=== PATIENT | male | born 1990 | race Hispanic/Latino ===

== ENCOUNTER 2017-11-28 10:01 | Emergency (ER) | payer SELFPAY ==
[2017-11-28] MEDS ORDERED: KETOROLAC 30 MG/ML INJ ONE (11:36)
[2017-11-28] MEDS ORDERED: NA CHLORIDE 0.9% 1,000 ML ONE (11:36)
[2017-11-28 11:39] LABS: Absolute Monocytes 0.7 K/uL (0.1-1.3); Absolute Neutrophil 8.3 K/uL (1.8-8.0); Basophils % 0.5 % (0-1.3); Eosinophils % 1.5 % (0-4.4); Hematocrit 45.9 % (39.6-49.0); Lymphocytes % 18.3 % (15.3-44.8); MCV 87.8 fL (80-100); MPV 8.6 fL (7.6-11.3); Monocytes % 5.8 % (3.3-12.3); RBC Red Blood Cell Count 5.23 M/uL (4.33-5.43)
[2017-11-28 11:47] LABS: Protime INR 0.97
[2017-11-28 11:53] LABS: Bicarbonate 29 mEq/L (21-31); Glucose Level 103 mg/dL (65-120); Potassium 3.7 mEq/L (3.6-5.0); Sodium Level 137 mEq/L (135-145)
[2017-11-28 11:59] LABS: ALT/SGPT 55 IU/L (10-60); AST/SGOT 26 IU/L (10-42); Albumin 4.5 g/dL (3.2-5.5); Alkaline Phosphatase 75 IU/L (42-121); BUN Blood Urea Nitrogen 10 mg/dL (6-20); Bilirubin Direct 0.1 mg/dL (0-0.2); Bilirubin Total 0.7 mg/dL (0.3-1.2); Creatine Phosphokinase 108 IU/L (22-269); Magnesium 1.9 mg/dL (1.8-2.5); Protein, Total 7.1 g/dL (6.0-8.3)
[2017-11-28 12:02] LABS: CKMB Creatine Kinase MB 2.2 ng/ml (0.3-4.0)
--- NOTE | 2017-11-28 12:12 | RAD REPORT ---
EXAM DESCRIPTION: RAD - Chest Pa And Lat (2 Views) - 11/28/2017 12:04 pm CLINICAL HISTORY: Chest pain. COMPARISON: None. FINDINGS: The lungs are clear. The heart is normal in size. No displaced fractures. IMPRESSION: No acute or concerning finding suspected.
--- NOTE | 2017-11-28 12:16 | EDPHYS ---
Physician Documentation [facility] Name: Berlin Tran Age: 27 yrs Sex: Male : 1990 Arrival Date: 11/28/2017 Time: 10:07 Bed 14 Private MD: ED Physician Gagandeep Rodriguez HPI: 11/28 11:30 This 27 yrs old Male presents to ER via Ambulatory with complaints of Chest dagoberto Pain. 11:30 The patient or guardian reports chest pain that is located primarily in the anterior dagoberto chest wall. The pain does not radiate. Associated signs and symptoms: The patient has no apparent associated signs or symptoms. The chest pain is described as aching, sharp. Duration: The patient or guardian reports a single episode, that is still ongoing. Modifying factors: The symptoms are alleviated by remaining still, the symptoms are aggravated by breathing, movement, palpation of area. Severity of pain: At its worst the pain was moderate in the emergency department the pain is unchanged. Historical: - Allergies: 10:12 No Known Allergies; tw2 - Home Meds: 10:12 None [Active]; tw2 - PMHx: 10:12 Asthma; tw2 - PSHx: 10:12 None; tw2 - Immunization history:: Adult Immunizations unknown. - Social history:: Smoking status: Patient/guardian denies using tobacco. - Family history:: not pertinent. ROS: 11:30 Constitutional: Negative for fever, chills, and weight loss, Eyes: Negative for injury, dagoberto pain, redness, and discharge, ENT: Negative for injury, pain, and discharge, Neck: Negative for injury, pain, and swelling, Cardiovascular: Negative for chest pain, palpitations, and edema, Abdomen/GI: Negative for abdominal pain, nausea, vomiting, diarrhea, and constipation, Back: Negative for injury and pain, : Negative for injury, bleeding, discharge, and swelling, MS/Extremity: Negative for injury and deformity, Skin: Negative for injury, rash, and discoloration, Neuro: Negative for headache, weakness, numbness, tingling, and seizure, Psych: Negative for depression, anxiety, suicide ideation, homicidal ideation, and hallucinations, Allergy/Immunology: Negative for hives, rash, and allergies, Endocrine: Negative for neck swelling, polydipsia, polyuria, polyphagia, and marked weight changes, Hematologic/Lymphatic: Negative for swollen nodes, abnormal bleeding, and unusual bruising. 11:30 Respiratory: Positive for cough. 11:30 MS/extremity: Positive for decreased range of motion, pain, tenderness, of the chest. Exam: 11:30 Constitutional: This is a well developed, well nourished patient who is awake, alert, dagoberto and in no acute distress. Head/Face: Normocephalic, atraumatic. Eyes: Pupils equal round and reactive to light, extra-ocular motions intact. Lids and lashes normal. Conjunctiva and sclera are non-icteric and not injected. Cornea within normal limits. Periorbital areas with no swelling, redness, or edema. ENT: Nares patent. No nasal discharge, no septal abnormalities noted. Tympanic membranes are normal and external auditory canals are clear. Oropharynx with no redness, swelling, or masses, exudates, or evidence of obstruction, uvula midline. Mucous membranes moist. Neck: Trachea midline, no thyromegaly or masses palpated, and no cervical lymphadenopathy. Supple, full range of motion without nuchal rigidity, or vertebral point tenderness. No Meningismus. Cardiovascular: Regular rate and rhythm with a normal S1 and S2. No gallops, murmurs, or rubs. Normal PMI, no JVD. No pulse deficits. Respiratory: Lungs have equal breath sounds bilaterally, clear to auscultation and percussion. No rales, rhonchi or wheezes noted. No increased work of breathing, no retractions or nasal flaring. Abdomen/GI: Soft, non-tender, with normal bowel sounds. No distension or tympany. No guarding or rebound. No evidence of tenderness throughout. Back: No spinal tenderness. No costovertebral tenderness. Full range of motion. Male : Normal genitalia with no discharge or lesions. Skin: Warm, dry with normal turgor. Normal color with no rashes, no lesions, and no evidence of cellulitis. MS/ Extremity: Pulses equal, no cyanosis. Neurovascular intact. Full, normal range of motion. Neuro: Awake and alert, GCS 15, oriented to person, place, time, and situation. Cranial nerves II-XII grossly intact. Motor strength 5/5 in all extremities. Sensory grossly intact. Cerebellar exam normal. Normal gait. Psych: Awake, alert, with orientation to person, place and time. Behavior, mood, and affect are within normal limits. 11:30 Chest/axilla: Inspection: normal, Palpation: tenderness, that is mild, that is moderate, of the left supraclavicular area, left clavicle, anterior aspect of left upper chest and mid-sternal area. 11:30 Musculoskeletal/extremity: DVT Exam: No signs of deep vein thrombosis. no pain, no dagoberto swelling, no tenderness, negative Homans' sign noted on exam, no appreciated bluish discoloration, no erythema, no increased warmth. Vital Signs: 10:13 BP 122 / 78; Pulse 66; Resp 17; Temp 97.9(O); Pulse Ox 99% on R/A; Pain 3/10; tw2 11:25 BP 123 / 77; Pulse 56; Pulse Ox 98% on R/A; ap3 12:14 BP 117 / 83; Pulse 66; Resp 21; Pulse Ox 100% on R/A; ae1 10:13 "pain goes to a 10 when i move" tw2 MDM: 10:38 Patient medically screened. [facility] 11:32 Data reviewed: vital signs, nurses notes, lab test result(s), EKG, radiologic studies, [facility] plain films. 11/28 11:25 Order name: Basic Metabolic Panel; Complete Time: 12:15 ae1 11/28 11:25 Order name: BNP; Complete Time: 12:15 ae1 11/28 11:25 Order name: CBC with Diff; Complete Time: 12:15 ae1 11/28 11:25 Order name: Ckmb; Complete Time: 12:15 ae1 11/28 11:25 Order name: CPK; Complete Time: 12:15 ae1 11/28 11:25 Order name: LFT's; Complete Time: 12:15 ae1 11/28 11:25 Order name: Magnesium; Complete Time: 12:15 ae1 11/28 11:25 Order name: PT-INR ae1 11/28 11:25 Order name: Ptt, Activated ae1 11/28 11:25 Order name: Troponin (emerg Dept Use Only); Complete Time: 12:15 ae1 11/28 11:30 Order name: Chest Pa And Lat (2 Views) XRAY; Complete Time: 12:15 [facility] 11/28 12:20 Order name: Urine Dipstick--Ancillary (enter results) ag 11/28 11:25 Order name: EKG; Complete Time: 11:26 ae11/28 11:25 Order name: Cardiac monitoring; Complete Time: 11:27 11/28 11:25 Order name: EKG - Nurse/Tech; Complete Time: 11:43 11/28 11:25 Order name: IV Saline Lock; Complete Time: 11:27 11/28 11:25 Order name: Labs collected and sent; Complete Time: 11:34 11/28 11:25 Order name: O2 Per Protocol; Complete Time: 11:27 11/28 11:25 Order name: O2 Sat Monitoring; Complete Time: 11:28 ae11/28 11:25 Order name: Urine Dipstick-Ancillary (obtain specimen); Complete Time: 12:13 ae1 Administered Medications: 11:38 Drug: NS 0.9% 1000 ml Route: IV; Rate: 1 bolus; Site: right antecubital; ae1 12:45 Follow up: IV Status: Completed infusion ae1 11:38 Drug: TORadol 30 mg Route: IVP; Site: right antecubital; ae1 12:18 Follow up: Response: Pain is decreased ae1 Disposition: 11/28/17 12:16 Discharged to Home. Impression: Chest pain, unspecified. - Condition is Stable. - Discharge Instructions: Nonspecific Chest Pain, Chest Wall Pain, Chest Wall Pain, [id number], Nonspecific Chest Pain, [id number]. - Prescriptions for Ibuprofen 600 mg Oral Tablet - take 1 tablet by ORAL route every 8 hours As needed take with food; 21 tablet. Tylenol- Codeine #3 300-30 mg Oral Tablet - take 2 tablet by ORAL route every 6 hours As needed; 30 tablet. - Medication Reconciliation Form, Thank You Letter, Antibiotic Education, Prescription Opioid Use form. - Follow up: Private Physician; When: 2 - 3 days; Reason: Recheck today's complaints, Continuance of care, Re-evaluation by your physician. - Problem is new. - Symptoms have improved. Signatures: Dispatcher [employer] EDCT Gagandeep Rodriguez MD MD cha Wise, Tara RN RN tw2 Corey Belcher RN RN ae1 Corrections: (The following items were deleted from the chart) 11:46 11:26 Chest Single View+RAD.RAD.BRZ ordered. EDMS EDMS
--- NOTE | 2017-11-28 12:16 | ER ---
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 Transition of care: patient was not received from another setting of care. Onset of symptoms was November 28, 2017. Care prior to arrival: None. 10:11 Method Of Arrival: Ambulatory tw2 10:11 Acuity: PITER 3 tw2 Historical: - Allergies: 10:12 No Known Allergies; tw2 - Home Meds: 10:12 None [Active]; tw2 - PMHx: 10:12 Asthma; tw2 - PSHx: 10:12 None; tw2 - Immunization history:: Adult Immunizations unknown. - Social history:: Smoking status: Patient/guardian denies using tobacco. - Family history:: not pertinent. Screenin:14 Abuse screen: Denies threats or abuse. Nutritional screening: No deficits noted. tw2 Tuberculosis screening: No symptoms or risk factors identified. Fall Risk None identified. Assessment: 10:15 Pain: Pain does not radiate. Pain began this morning. tw2 10:25 General: Appears in no apparent distress. well groomed, Behavior is calm, cooperative. ap3 Pain: Complains of pain in anterior aspect of left upper chest Pain does not radiate. Pain currently is 3 out of 10 on a pain scale. at worst was 10 out of 10 on a pain scale. Alleviated by rest, Aggravated by movement. Neuro: Level of Consciousness is awake, alert, obeys commands, Oriented to person, place, time, situation. Cardiovascular: Heart tones S1 S2 present Patient's skin is warm and dry. Respiratory: Airway is patent Breath sounds are clear bilaterally. GI: No signs and/or symptoms were reported involving the gastrointestinal system. Bowel sounds present X 4 quads. : No signs and/or symptoms were reported regarding the genitourinary system. EENT: No signs and/or symptoms were reported regarding the EENT system. Derm: Skin is normal. Musculoskeletal: Reports pain in anterior aspect of left upper chest. 12:43 Reassessment: Patient appears in no apparent distress at this time. Patient states ae1 feeling better. Patient states symptoms have improved. Vital Signs: 10:13 BP 122 / 78; Pulse 66; Resp 17; Temp 97.9(O); Pulse Ox 99% on R/A; Pain 3/10; tw2 11:25 BP 123 / 77; Pulse 56; Pulse Ox 98% on R/A; ap3 12:14 BP 117 / 83; Pulse 66; Resp 21; Pulse Ox 100% on R/A; ae1 10:13 "pain goes to a 10 when i move" tw2 ED Course: 10:07 Patient arrived in ED. mr 10:12 Triage completed. tw2 10:14 Arm band placed on. EKG completed in triage. Results shown to MD. tw2 10:30 Patient has correct armband on for positive identification. Placed in gown. Bed in low ap3 position. Call light in reach. Side rails up X 1. salon shampoo assistant on. Pulse ox on. NIBP on. 10:30 Patient maintains SpO2 saturation greater than 95% on room air. ap3 10:38 Gagandeep Rodriguez MD is Attending Physician. dagoberto 10:51 Corey Belcher RN is Primary Nurse. ae1 11:24 Inserted saline lock: 20 gauge in right antecubital area, using aseptic technique. ap3 Blood collected. Missed attempt(s): 20 gauge in right antecubital area. 11:56 Patient moved to radiology via wheelchair. kw1 12:00 X-ray completed. Portable x-ray completed in exam room. Patient tolerated procedure kw1 well. 12:02 Chest Pa And Lat (2 Views) XRAY In Process Unspecified. EDMS 12:42 No provider procedures requiring assistance completed. IV discontinued, intact, ae1 bleeding controlled, No redness/swelling at site. Pressure dressing applied. Administered Medications: 11:38 Drug: NS 0.9% 1000 ml Route: IV; Rate: 1 bolus; Site: right antecubital; ae1 12:45 Follow up: IV Status: Completed infusion ae1 11:38 Drug: TORadol 30 mg Route: IVP; Site: right antecubital; ae1 12:18 Follow up: Response: Pain is decreased ae1 Outcome: 12:16 Discharge ordered by MD. dagoberto 12:43 Attestation : I agree with the charting done by Keri Aldrich, professor of nursing. . ae1 12:43 Discharged to home ambulatory, with family, with significant other. 12:43 Condition: stable 12:43 Discharge instructions given to patient, Instructed on discharge instructions, follow up and referral plans. Demonstrated understanding of instructions, Prescriptions given X 2. 12:44 Patient left the ED. ae1 Signatures: Dispatcher [employer] EDMS Gagandeep Rodriguez MD MD cha Rivera, Maria mr Monika Durant, RN RN tw2 Corey Belcher RN RN ae1 Rahel Mcgrath kw1 Keri Aldrich ap3
[2017-11-28 12:48] LABS: Urine Blood TRACE (NEG); Urine Glucose NEGATIVE (NEG); Urine Protein NEGATIVE (NEG)
--- NOTE | 2017-11-29 08:02 | EKG ---
Test Date: 2017-11-28 Test Time: 10:14:59 Surveillance Director: DHRUV MEASUREMENT RESULTS: Intervals: Rate: 60 VA: 154 QRSD: 78 QT: 372 QTc: 372 [place]: P: 21 VA: 154 QRS: 67 T: 26 INTERPRETIVE STATEMENTS: Normal sinus rhythm with sinus arrhythmia Normal ECG No previous ECG available for comparison Electronically Signed On 11-29-17 08:02:01 CDT by Sahil Daugherty
== END 2017-11-28 12:44 | disposition home or self-care (01) ==
LOC: ER 10:01
DX: R07.9 Chest pain, unspecified (principal)
CPT/HCPCS: 36415; 71046; 80048; 80076; 81003; 82550; 82553; 83735; 83880; 84484; 85025; 85610; 85730; 93005; 96361; 96374; 99285; J7030

== ENCOUNTER 2017-12-01 22:49 | Emergency (ER) | payer SELFPAY ==
--- NOTE | 2017-12-01 23:12 | EDPHYS ---
Physician Documentation [facility] Name: Berlin Tran Age: 27 yrs Sex: Male : 1990 Arrival Date: 12/01/2017 Time: 22:50 Bed 5 Private MD: ED Physician Kevyn Das HPI: 12/01 23:09 This 27 yrs old Male presents to ER via Ambulatory with complaints of Ear ma2 Pain, Sore Throat. 23:09 The patient presents with pain. The complaints affect the right ear. Onset: The ma2 symptoms/episode began/occurred gradually, 1 day(s) ago. Associated signs and symptoms: Pertinent negatives: cough, fever, lightheadedness, nausea, rhinorrhea, sore throat, tinnitus. Severity of symptoms: in the emergency department the symptoms are unchanged. The patient has experienced a previous episode. Historical: - Allergies: 23:02 No Known Allergies; bp - Home Meds: 23:02 albuterol sulfate 2.5 mg /3 mL (0.083 %) Inhl nebu [Active]; bp - PMHx: 23:02 Asthma; bp - Immunization history:: Adult Immunizations up to date. - Social history:: Smoking status: Patient/guardian denies using tobacco. - Family history:: not pertinent. ROS: 23:09 Constitutional: Negative for fever, chills, and weight loss, Eyes: Negative for injury, ma2 pain, redness, and discharge, Cardiovascular: Negative for chest pain, palpitations, and edema, Respiratory: Negative for shortness of breath, cough, wheezing, and pleuritic chest pain, Abdomen/GI: Negative for abdominal pain, nausea, diarrhea, and constipation, Back: Negative for injury and pain, : Negative for injury, bleeding, discharge, and swelling, MS/Extremity: Negative for injury and deformity, Skin: Negative for injury, rash, and discoloration, Neuro: Negative for headache, weakness, numbness, tingling, and seizure, Psych: Negative for depression, anxiety, suicide ideation, homicidal ideation, and hallucinations, Allergy/Immunology: Negative for hives, rash, and allergies, Endocrine: Negative for neck swelling, polydipsia, polyuria, polyphagia, and marked weight changes, Hematologic/Lymphatic: Negative for swollen nodes, abnormal bleeding, and unusual bruising. Exam: 23:09 Constitutional: This is a well developed, well nourished patient who is awake, alert, ma2 and in no acute distress. Head/Face: Normocephalic, atraumatic. Eyes: Pupils equal round and reactive to light, extra-ocular motions intact. Lids and lashes normal. Conjunctiva and sclera are non-icteric and not injected. Cornea within normal limits. Periorbital areas with no swelling, redness, or edema. Neck: Trachea midline, no thyromegaly or masses palpated, and no cervical lymphadenopathy. Supple, full range of motion without nuchal rigidity, or vertebral point tenderness. No Meningismus. Chest/axilla: Normal chest wall appearance and motion. Nontender with no deformity. No lesions are appreciated. Cardiovascular: Regular rate and rhythm with a normal S1 and S2. No gallops, murmurs, or rubs. Normal PMI, no JVD. No pulse deficits. Respiratory: Lungs have equal breath sounds bilaterally, clear to auscultation and percussion. No rales, rhonchi or wheezes noted. No increased work of breathing, no retractions or nasal flaring. 23:09 ENT: External ear(s): are unremarkable, TM's: dullness, erythema, that is moderate, on the right. Vital Signs: 23:02 BP 133 / 85; Pulse 67; Resp 16; Temp 97.5; Pulse Ox 95% ; Weight 83.91 kg; bp 23:37 BP 138 / 89; Pulse 69; Resp 16; Pulse Ox 97% ; bp MDM: 22:55 Patient medically screened. ma2 23:09 Differential diagnosis: otitis media. Differential diagnosis: otitis externa, ruptured ma2 TM, foreign body. Data reviewed: vital signs, nurses notes. Test interpretation: by ED physician or midlevel provider:. Counseling: I had a detailed discussion with the patient and/or guardian regarding: the historical points, exam findings, and any diagnostic results supporting the discharge/admit diagnosis, the need for outpatient follow up. Administered Medications: 23:35 Drug: UltRAM 50 mg Route: PO; bp 23:35 Follow up: Response: Medication administered at discharge. bp Disposition: 12/01/17 23:11 Discharged to Home. Impression: Otitis media, unspecified, right ear. - Condition is Stable. - Discharge Instructions: Acetaminophen Dosage Chart, Pediatric, Otitis Media, Adult. - Prescriptions for Augmentin 875- 125 mg Oral Tablet - take 1 tablet by ORAL route every 12 hours for 10 days; 20 tablet. Tylenol- Codeine #3 300-30 mg Oral Tablet - take 2 tablet by ORAL route every 6 hours As needed; 30 tablet. - Medication Reconciliation Form, Thank You Letter, Antibiotic Education, Prescription Opioid Use form. - Follow up: Private Physician; When: Tomorrow; Reason: Continuance of care. - Problem is new. - Symptoms are unchanged. Signatures: Paramjit Pedraza, RN RN Kevyn Pepper MD MD ma2
--- NOTE | 2017-12-01 23:12 | ER ---
Nurse's Notes [facility] Name: Berlin Tran Age: 27 yrs Sex: Male : 1990 Arrival Date: 12/01/2017 Time: 22:50 Bed 5 Private MD: Diagnosis: Otitis media, unspecified, right ear Presentation: 12/01 23:01 Presenting complaint: Patient states: (FROM THE [facility]) MY THROAT'S BEEN HURTING ME bp AND MY RIGHT EAR TOO. IT GAVE ME A HEADACHE. Transition of care: patient was not received from another setting of care. Onset of symptoms was December 01, 2017 at 15:00. Care prior to arrival: None. 23:01 Method Of Arrival: Ambulatory bp 23:01 Acuity: PITER 4 bp Triage Assessment: 23:03 General: Appears in no apparent distress. comfortable, Behavior is calm, cooperative, bp appropriate for age. Pain: Complains of pain in neck. EENT: Reports THROAT PAIN AND R EAR PAIN. Historical: - Allergies: 23:02 No Known Allergies; bp - Home Meds: 23:02 albuterol sulfate 2.5 mg /3 mL (0.083 %) Inhl nebu [Active]; bp - PMHx: 23:02 Asthma; bp - Immunization history:: Adult Immunizations up to date. - Social history:: Smoking status: Patient/guardian denies using tobacco. - Family history:: not pertinent. Screenin:04 Abuse screen: Denies threats or abuse. Denies injuries from another. Nutritional bp screening: No deficits noted. Tuberculosis screening: No symptoms or risk factors identified. Fall Risk None identified. Assessment: 23:04 Reassessment: SEE TRIAGE NOTE. bp 23:37 Reassessment: PT D/C HOME AMBULATORY, DX WITH OTITIS MEDIA. bp Vital Signs: 23:02 BP 133 / 85; Pulse 67; Resp 16; Temp 97.5; Pulse Ox 95% ; Weight 83.91 kg; bp 23:37 BP 138 / 89; Pulse 69; Resp 16; Pulse Ox 97% ; bp ED Course: 22:50 Patient arrived in ED. am2 22:55 Kevyn Das MD is Attending Physician. ma2 23:01 Paramjit Pedraza, VU is Primary Nurse. bp 23:01 Triage completed. bp 23:02 Arm band placed on. bp 23:04 Patient has correct armband on for positive identification. Bed in low position. Call bp light in reach. Side rails up X2. 23:38 No provider procedures requiring assistance completed. Patient did not have IV access bp during this emergency room visit. Administered Medications: 23:35 Drug: UltRAM 50 mg Route: PO; bp 23:35 Follow up: Response: Medication administered at discharge. bp Outcome: 23:11 Discharge ordered by . stacie 23:38 Discharged to home ambulatory. bp 23:38 Condition: stable 23:38 Discharge instructions given to patient, Instructed on discharge instructions, follow up and referral plans. medication usage, Demonstrated understanding of instructions, follow-up care, medications, Prescriptions given X 2. 23:38 Patient left the ED. bp Signatures: Keri James am2 Paramjit Pedraza, VU RN bp Kevyn Das MD MD ma2
[2017-12-01] MEDS ORDERED: TRAMADOL HCL 50 MG TAB ONE (23:30)
== END 2017-12-01 23:38 | disposition home or self-care (01) ==
LOC: ER 22:49
DX: H66.91 Otitis media, unspecified, right ear (principal); J45.909 Unspecified asthma, uncomplicated
CPT/HCPCS: 99283

== ENCOUNTER 2018-01-02 20:08 | Emergency (ER) | payer SELFPAY ==
[2018-01-02 21:55] LABS: Absolute Lymphocytes (CBC) 2.6 K/uL (0.7-4.9); Absolute Monocytes 0.7 K/uL (0.1-1.3); Absolute Neutrophil 8.2 K/uL (1.8-8.0); Basophils % 0.4 % (0-1.3); Eosinophils % 2.2 % (0-4.4); Hematocrit 41.2 % (39.6-49.0); Lymphocytes % 22.1 % (15.3-44.8); MCV 87.9 fL (80-100); MPV 8.7 fL (7.6-11.3); Monocytes % 6.1 % (3.3-12.3); RBC Red Blood Cell Count 4.68 M/uL (4.33-5.43)
[2018-01-02] MEDS ORDERED: METRONIDAZOLE 500mg IVPB 500 MG/100 ML BAG IV ONE (22:01)
[2018-01-02] MEDS ORDERED: ONDANSETRON 4 MG/2 ML VIAL ONE (22:01)
[2018-01-02] MEDS ORDERED: CIPROFLOXACIN 400mg IV 400 MG/200 ML BAG IV ONE (22:01)
[2018-01-02] MEDS ORDERED: NA CHLORIDE 0.9% 1,000 ML ONE (22:01)
[2018-01-02 22:09] LABS: Bicarbonate 27 mEq/L (21-31); Glucose Level 111 mg/dL (65-120); Lipase 26 U/L (22-51); Potassium 3.4 mEq/L (3.6-5.0); Sodium Level 139 mEq/L (135-145)
[2018-01-02 22:16] LABS: ALT/SGPT 29 IU/L (10-60); AST/SGOT 19 IU/L (10-42); Albumin 4.1 g/dL (3.2-5.5); Alkaline Phosphatase 66 IU/L (42-121); BUN Blood Urea Nitrogen 18 mg/dL (6-20); Bilirubin Direct < 0.1 mg/dL (0-0.2); Bilirubin Total 0.5 mg/dL (0.3-1.2); Protein, Total 6.5 g/dL (6.0-8.3)
[2018-01-02] MEDS ORDERED: FENTANYL CITR 100 MCG/2 ML ONE (23:28)
--- NOTE | 2018-01-02 23:44 | ER ---
Nurse's Notes [facility] Name: Berlin Tran Age: 27 yrs Sex: Male : 1990 Arrival Date: 01/02/2018 Time: 20:12 Bed 17 Private MD: Diagnosis: colitis Presentation: 01/02 20:18 Presenting complaint: Patient states: abd pain and right ear pain X1 day. pt denies ak1 vomiting. Transition of care: patient was not received from another setting of care. Onset of symptoms was January 02, 2018. Initial Sepsis Screen: Does the patient meet any 2 criteria? No. Patient's initial sepsis screen is negative. Does the patient have a suspected source of infection? No. Patient's initial sepsis screen is negative. Care prior to arrival: None. 20:18 Method Of Arrival: Ambulatory ak1 20:18 Acuity: PITER 3 ak1 Historical: - Allergies: 22:11 No Known Allergies; aj1 - Home Meds: 23:18 albuterol sulfate 2.5 mg /3 mL (0.083 %) Inhl nebu [Active]; ak1 - PMHx: 22:11 Asthma; aj1 - PSHx: 22:11 None; aj1 - Immunization history:: Adult Immunizations unknown. - Social history:: Smoking status: Patient uses tobacco products, smokes one-half pack cigarettes per day. - Family history:: not pertinent. - Hospitalizations: : No recent hospitalization is reported. Screenin:11 Abuse screen: Denies threats or abuse. Denies injuries from another. Nutritional aj1 screening: No deficits noted. Tuberculosis screening: No symptoms or risk factors identified. 23:18 Fall Risk None identified. ak1 Assessment: 21:00 General: Appears in no apparent distress. comfortable, Behavior is calm, cooperative, aj1 appropriate for age. Pain: Complains of pain in left lower quadrant Pain does not radiate. Pain currently is 4 out of 10 on a pain scale. Quality of pain is described as aching, crampy. Neuro: Level of Consciousness is awake, alert, obeys commands, Oriented to person, place, time, situation, Speech is normal, Facial symmetry appears normal. Cardiovascular: Patient's skin is warm and dry. Respiratory: Airway is patent Respiratory effort is even, unlabored, Respiratory pattern is regular, symmetrical. GI: Abdomen is flat, non-distended, Bowel sounds present X 4 quads. Abd is soft X 4 quads Abdomen is tender to palpation in left lower quadrant Reports diarrhea, nausea, Patient currently denies vomiting. : No signs and/or symptoms were reported regarding the genitourinary system. EENT: Reports ear pain. Derm: Skin is pink, warm \T\ dry. normal. Musculoskeletal: No signs and/or symptoms reported regarding the musculoskeletal system. Circulation, motion, and sensation intact. 22:12 Reassessment: Patient appears in no apparent distress at this time. No changes from aj1 previously documented assessment. Patient and/or family updated on plan of care and expected duration. Pain level reassessed. Patient is alert, oriented x 3, equal unlabored respirations, skin warm/dry/pink. 23:17 Reassessment: Patient appears in no apparent distress at this time. Patient and/or ak1 family updated on plan of care and expected duration. Pain level reassessed. Patient is alert, oriented x 3, equal unlabored respirations, skin warm/dry/pink. pt resting with eyes closed, resp even and unlabored. Vital Signs: 20:17 BP 115 / 68; Pulse 79; Resp 16; Temp 98; Pulse Ox 99% on R/A; Weight 83.91 kg (R); ak1 Height 6 ft. (182.88 cm); Pain 8/10; 22:21 BP 110 / 69; Pulse 65; Resp 18; Pulse Ox 96% on R/A; aj1 22:50 BP 118 / 84; Pulse 57; Resp 17; Pulse Ox 97% on R/A; dh3 20:17 Body Mass Index 25.09 (83.91 kg, 182.88 cm) ak1 ED Course: 20:12 Patient arrived in ED. es 20:17 Arm band placed on Patient placed in an exam room, on a stretcher, Patient notified of ny1 wait time. 20:18 Triage completed. ak1 21:23 Blaise Cat MD is Attending Physician. rn 21:31 Kandy Palomares F[facility]-C [facility]. snw 21:41 Initial lab(s) drawn, by me, sent to lab. Inserted saline lock: 20 gauge in right dh3 antecubital area, using aseptic technique. Blood collected. 22:11 Patient has correct armband on for positive identification. aj1 22:11 No provider procedures requiring assistance completed. aj1 22:44 Paula Smith, RN is Primary Nurse. ak1 23:43 Carmen Olmstead MD is Referral Physician. [facility] 01/03 00:04 IV discontinued, intact, bleeding controlled, No redness/swelling at site. Pressure ak1 dressing applied. Administered Medications: 01/02 22:13 Drug: NS 0.9% 1000 ml Route: IV; Rate: 1000 ml; Site: right antecubital; aj1 01/03 00:05 Follow up: IV Status: Completed infusion ak1 01/02 22:13 Drug: Cipro 400 mg Volume: 200 ml; Route: IVPB; Infused Over: 60 mins; Site: right aj1 antecubital; 23:19 Follow up: IV Status: Completed infusion ak1 22:13 Drug: Flagyl 500 mg Volume: 100 ml; Route: IVPB; Rate: 200 ml/hr; Infused Over: 30 aj1 mins; Site: right antecubital; 23:18 Follow up: IV Status: Completed infusion ak1 22:14 Drug: Zofran 4 mg Route: IVP; Site: right antecubital; aj1 23:19 Follow up: Response: No adverse reaction ak1 23:30 Drug: fentaNYL (PF) 25 mcg Route: IVP; Site: right antecubital; ak1 23:30 Follow up: Response: No adverse reaction ak1 Outcome: 23:43 Discharge ordered by . [facility] 01/03 00:04 Discharged to home ambulatory, with family. ak1 Condition: good Discharge instructions given to patient, family, Instructed on discharge instructions, follow up and referral plans. no drinking with medication, no driving heavy equipment, medication usage, Demonstrated understanding of instructions, follow-up care, medications, Prescriptions given X 3. 00:05 Patient left the ED. ak1 Signatures: Jackie Pino RN RN aj1 Kandy Palomares, LAST REPAIRER HELPER-C LAST REPAIRER HELPER-Csnw Radha Low Roman, MD MD rn Krenek, Amber, RN RN ak1 Kaya Lorenzo [facility]
--- NOTE | 2018-01-02 23:44 | EDPHYS ---
Physician Documentation [facility] Name: Berlin Tran Age: 27 yrs Sex: Male : 1990 Arrival Date: 01/02/2018 Time: 20:12 Bed 17 Private MD: ED Physician Emory Blaise HPI: 01/02 21:24 This 27 yrs old Male presents to ER via Ambulatory with complaints of rn Abdominal Pain, Ear Pain. 21:24 The patient presents with abdominal pain in the left lower quadrant. Onset: The rn symptoms/episode began/occurred 2 day(s) ago. The symptoms do not radiate. Associated signs and symptoms: Pertinent positives: diarrhea, nausea, Pertinent negatives: blood in stools, fever. The symptoms are described as achy, crampy. Modifying factors: The symptoms are alleviated by nothing, the symptoms are aggravated by touching the area. Severity of pain: At its worst the pain was mild in the emergency department the pain is unchanged. The patient has experienced similar episodes in the past. Historical: - Allergies: 22:11 No Known Allergies; aj1 - Home Meds: 23:18 albuterol sulfate 2.5 mg /3 mL (0.083 %) Inhl nebu [Active]; ak1 - PMHx: 22:11 Asthma; aj1 - PSHx: 22:11 None; aj1 - Immunization history:: Adult Immunizations unknown. - Social history:: Smoking status: Patient uses tobacco products, smokes one-half pack cigarettes per day. - Family history:: not pertinent. - Hospitalizations: : No recent hospitalization is reported. ROS: 21:24 Constitutional: Negative for fever, chills, and weight loss, Eyes: Negative for injury, rn pain, redness, and discharge, ENT: + right ear feels "stopped up" Neck: Negative for injury, pain, and swelling, Cardiovascular: Negative for chest pain, palpitations, and edema, Respiratory: Negative for shortness of breath, cough, wheezing, and pleuritic chest pain, Abdomen/GI: + abd pain, nausea/diarrhea MS/Extremity: Negative for injury and deformity, Skin: Negative for injury, rash, and discoloration, Neuro: Negative for headache, weakness, numbness, tingling, and seizure. Exam: 21:24 Constitutional: This is a well developed, well nourished patient who is awake, alert, rn and in no acute distress. Head/Face: Normocephalic, atraumatic. ENT: right TM with cerumen impaction Abdomen/GI: soft, mild LLQ tenderness, no rebound/masses, no peritoneal signs Skin: Warm, dry with normal turgor. Normal color with no rashes, no lesions, and no evidence of cellulitis. MS/ Extremity: Pulses equal, no cyanosis. Neurovascular intact. Full, normal range of motion. Equal circumference. Neuro: Awake and alert, GCS 15, oriented to person, place, time, and situation. Cranial nerves II-XII grossly intact. Motor strength 5/5 in all extremities. Sensory grossly intact. Cerebellar exam normal. Normal gait. Vital Signs: 20:17 BP 115 / 68; Pulse 79; Resp 16; Temp 98; Pulse Ox 99% on R/A; Weight 83.91 kg (R); ak1 Height 6 ft. (182.88 cm); Pain 8/10; 22:21 BP 110 / 69; Pulse 65; Resp 18; Pulse Ox 96% on R/A; aj1 22:50 BP 118 / 84; Pulse 57; Resp 17; Pulse Ox 97% on R/A; dh3 20:17 Body Mass Index 25.09 (83.91 kg, 182.88 cm) ak1 Procedures: 21:31 Performed Cerumen disimpaction. Cerumen impaction removed, tolerated well, TM rn visualized, feels better. . MDM: 21:23 Patient medically screened. rn 23:47 Data reviewed: vital signs, nurses notes. Data interpreted: Pulse oximetry: on room air snw is 97 %. Interpretation: normal. Counseling: I had a detailed discussion with the patient and/or guardian regarding: the historical points, exam findings, and any diagnostic results supporting the discharge/admit diagnosis, the presence of at least one elevated blood pressure reading (>120/80) during this emergency department visit, lab results, the need for outpatient follow up, to return to the emergency department if symptoms worsen or persist or if there are any questions or concerns that arise at home. Special discussion: Based on the patient's Hx, exam, and Dx evaluation, there is no indication for emergent surgery or inpatient Tx. It is understood by the patient/guardian that if the Sx's persist or worsen they need to return immediately for re-evaluation. Based on the history and exam findings, there is no indication for further emergent testing or inpatient evaluation. I discussed with the patient/guardian the need to see the gate operator for further evaluation of the symptoms. I discussed with the patient/guardian the need to see the primary care provider for further evaluation of the symptoms. 01/02 21:24 Order name: Basic Metabolic Panel; Complete Time: 22:18 rn 01/02 21:24 Order name: CBC with Diff; Complete Time: 22:04 rn 01/02 21:24 Order name: Creatinine for Radiology; Complete Time: 22:18 rn 01/02 21:24 Order name: Hepatic Function; Complete Time: 22:18 rn 01/02 21:24 Order name: Lipase; Complete Time: 22:18 rn 01/02 21:24 Order name: IV Saline Lock; Complete Time: 21:41 rn 01/02 21:24 Order name: Labs collected and sent; Complete Time: 21:41 rn Administered Medications: 22:13 Drug: NS 0.9% 1000 ml Route: IV; Rate: 1000 ml; Site: right antecubital; aj1 01/03 00:05 Follow up: IV Status: Completed infusion ak1 01/02 22:13 Drug: Cipro 400 mg Volume: 200 ml; Route: IVPB; Infused Over: 60 mins; Site: right 1 antecubital; 23:19 Follow up: IV Status: Completed infusion ak1 22:13 Drug: Flagyl 500 mg Volume: 100 ml; Route: IVPB; Rate: 200 ml/hr; Infused Over: 30 aj1 mins; Site: right antecubital; 23:18 Follow up: IV Status: Completed infusion ak1 22:14 Drug: Zofran 4 mg Route: IVP; Site: right antecubital; aj1 23:19 Follow up: Response: No adverse reaction ak1 23:30 Drug: fentaNYL (PF) 25 mcg Route: IVP; Site: right antecubital; ak1 23:30 Follow up: Response: No adverse reaction ak1 Disposition: 01/02/18 23:43 Discharged to Home. Impression: colitis. - Condition is Stable. - Discharge Instructions: Abdominal Pain, Adult, Food Choices to Help Relieve Diarrhea, Adult, Cerumen Impaction, Diarrhea. - Prescriptions for Bentyl 20 mg Oral Tablet - take 1 tablet by ORAL route every 6 hours As needed; 20 tablet. Cipro 500 mg Oral Tablet - take 1 tablet by ORAL route every 12 hours for 10 days; 20 tablet. Flagyl 500 mg Oral Tablet - take 1 tablet by ORAL route every 8 hours for 10 days; 30 tablet. - Work release form, Medication Reconciliation Form, Thank You Letter, Antibiotic Education, Prescription Opioid Use form. - Follow up: Private Physician; When: 2 - 3 days; Reason: Recheck today's complaints, Continuance of care, Re-evaluation by your physician. Follow up: Carmen Olmstead; When: 1 week; Reason: Recheck today's complaints, Continuance of care. Addendum: 01/04/2018 07:03 Co-signature as Attending Physician, Blaise Cat MD. r n Signatures: Dispatcher [employer] EDJackie Chang, RN RN aj1 Kandy Palomares, STUD DAIRY CATTLE FARMER-C STUD DAIRY CATTLE FARMER-Csnw Blaise Cat MD MD rn Krenek, Amber RN RN ak1 Corrections: (The following items were deleted from the chart) 01/03 00:05 01/02 23:43 01/02/2018 23:43 Discharged to Home. Impression: colitis. Condition is ak1 Stable. Discharge Instructions: Abdominal Pain, Adult, Food Choices to Help Relieve Diarrhea, Adult, Cerumen Impaction, Diarrhea. Prescriptions for Bentyl 20 mg Oral Tablet - take 1 tablet by ORAL route every 6 hours As needed; 20 tablet, Cipro 500 mg Oral Tablet - take 1 tablet by ORAL route every 12 hours for 10 days; 20 tablet, Flagyl 500 mg Oral Tablet - take 1 tablet by ORAL route every 8 hours for 10 days; 30 tablet. and Forms are Work release form, Medication Reconciliation Form, Thank You Letter, Antibiotic Education, Prescription Opioid Use. Follow up: Private Physician; When: 2 - 3 days; Reason: Recheck today's complaints, Continuance of care, Re-evaluation by your physician. Follow up: Carmen Olmstead; When: 1 week; Reason: Recheck today's complaints, Continuance of care. snw
== END 2018-01-03 00:05 | disposition home or self-care (01) ==
LOC: ER 20:08
DX: K52.9 Noninfective gastroenteritis and colitis, unspecified (principal); J45.909 Unspecified asthma, uncomplicated; F17.210 Nicotine dependence, cigarettes, uncomplicated
CPT/HCPCS: 36415; 80048; 80076; 83690; 85025; 96361; 96365; 96368; 96375; 99284; J0744; J2405; J3010; J7030

== ENCOUNTER 2018-03-22 14:11 | Emergency (ER) | payer SELFPAY ==
--- NOTE | 2018-03-22 15:34 | EDPHYS ---
Physician Documentation [facility] Name: Berlin Tran Age: 27 yrs Sex: Male : 1990 Arrival Date: 03/22/2018 Time: 14:12 Bed 11 Private MD: None, None ED Physician Enrique Lombardo HPI: 03/22 15:42 This 27 yrs old Male presents to ER via Ambulatory with complaints of Rash. snw 15:42 The patient's rash thought to be caused by Dermatitis. The rash is located on the back snw of neck. The rash can be described as raised, centrally clearing, + pruritis. Onset: The symptoms/episode began/occurred gradually, 2 week(s) ago, and became persistent. Associated signs and symptoms: Pertinent positives: itching. Severity of symptoms: At their worst the symptoms were moderate. Treatment given at home: none. The patient has not experienced similar symptoms in the past. The patient has not recently seen a physician. Historical: - Allergies: 14:15 No Known Allergies; sv - Home Meds: 14:15 None [Active]; sv - PMHx: 14:15 Asthma; sv - PSHx: 14:15 None; sv - Immunization history:: Adult Immunizations up to date. - Social history:: Smoking status: Patient/guardian denies using tobacco. - Ebola Screening: : No symptoms or risks identified at this time. ROS: 15:41 Constitutional: Negative for fever, chills, and weight loss, Eyes: Negative for injury, snw pain, redness, and discharge, ENT: Negative for injury, pain, and discharge, Cardiovascular: Negative for chest pain, palpitations, and edema, Respiratory: Negative for shortness of breath, cough, wheezing, and pleuritic chest pain, Abdomen/GI: Negative for abdominal pain, nausea, vomiting, diarrhea, and constipation, Back: Negative for injury and pain, : Negative for injury, bleeding, discharge, and swelling, MS/Extremity: Negative for injury and deformity, Skin: Negative for injury, rash, and discoloration, Neuro: Negative for headache, weakness, numbness, tingling, and seizure, Psych: Negative for depression, anxiety, suicide ideation, homicidal ideation, and hallucinations. 15:41 Neck: Positive for rash, of the back of neck. Exam: 15:40 Constitutional: This is a well developed, well nourished patient who is awake, alert, snw and in no acute distress. Head/Face: Normocephalic, atraumatic. Eyes: Pupils equal round and reactive to light, extra-ocular motions intact. Lids and lashes normal. Conjunctiva and sclera are non-icteric and not injected. Cornea within normal limits. Periorbital areas with no swelling, redness, or edema. ENT: Nares patent. No nasal discharge, no septal abnormalities noted. Tympanic membranes are normal and external auditory canals are clear. Oropharynx with no redness, swelling, or masses, exudates, or evidence of obstruction, uvula midline. Mucous membranes moist. Chest/axilla: Normal chest wall appearance and motion. Nontender with no deformity. No lesions are appreciated. Cardiovascular: Regular rate and rhythm with a normal S1 and S2. No gallops, murmurs, or rubs. Normal PMI, no JVD. No pulse deficits. Respiratory: Lungs have equal breath sounds bilaterally, clear to auscultation and percussion. No rales, rhonchi or wheezes noted. No increased work of breathing, no retractions or nasal flaring. Abdomen/GI: Soft, non-tender, with normal bowel sounds. No distension or tympany. No guarding or rebound. No evidence of tenderness throughout. Back: No spinal tenderness. No costovertebral tenderness. Full range of motion. Skin: Warm, dry with normal turgor. Normal color with no rashes, no lesions, and no evidence of cellulitis. MS/ Extremity: Pulses equal, no cyanosis. Neurovascular intact. Full, normal range of motion. Neuro: Awake and alert, GCS 15, oriented to person, place, time, and situation. Cranial nerves II-XII grossly intact. Motor strength 5/5 in all extremities. Sensory grossly intact. Cerebellar exam normal. Normal gait. Psych: Awake, alert, with orientation to person, place and time. Behavior, mood, and affect are within normal limits. 15:40 Neck: External neck: rash, that is moderate, of the exact outline of recent (changed) hairline. Vital Signs: 14:16 BP 132 / 82; Pulse 77; Resp 18; Temp 98.2; Pulse Ox 98% ; Pain 0/10; sv MDM: 15:18 Patient medically screened. snw 15:42 Data reviewed: vital signs, nurses notes. Data interpreted: Pulse oximetry: on room air snw is 98 %. Interpretation: normal. Counseling: I had a detailed discussion with the patient and/or guardian regarding: the historical points, exam findings, and any diagnostic results supporting the discharge/admit diagnosis, the presence of at least one elevated blood pressure reading (>120/80) during this emergency department visit, the need for outpatient follow up, to return to the emergency department if symptoms worsen or persist or if there are any questions or concerns that arise at home. Special discussion: Based on the history and exam findings, there is no indication for further emergent testing or inpatient evaluation. I discussed with the patient/guardian the need to see the primary care provider for further evaluation of the symptoms. Administered Medications: 15:49 Drug: DiFLUcan 200 mg Route: PO; ss 15:49 Follow up: Response: Medication administered at discharge. ss Disposition: 16:05 Co-signature as Attending Physician, Enrique Lombardo MD I agree with the assessment and kdr plan of care. Disposition: 03/22/18 15:33 Discharged to Home. Impression: Tinea corporis. - Condition is Stable. - Discharge Instructions: Body Ringworm. - Prescriptions for Clotrimazole 1 % Topical Cream - Apply to affected area 1 application by TOPICAL route every 12 hours; 15 gram. - Medication Reconciliation Form, Thank You Letter, Antibiotic Education, Prescription Opioid Use, Work release form form. - Follow up: Private Physician; When: 1 week; Reason: Recheck today's complaints, Continuance of care, Re-evaluation by your physician. Follow up: Emergency Department; When: As needed; Reason: Worsening of condition. Signatures: Amanda Carrizales, RN RN Enrique Donnelly MD MD kdr Therrien, Shelly, DIE HOLDER-C DIE HOLDER-Camila Kumar RN RN ss Corrections: (The following items were deleted from the chart) 15:52 15:33 03/22/2018 15:33 Discharged to Home. Impression: Tinea corporis. Condition is ss Stable. Forms are Medication Reconciliation Form, Thank You Letter, Antibiotic Education, Prescription Opioid Use. Follow up: Private Physician; When: 1 week; Reason: Recheck today's complaints, Continuance of care, Re-evaluation by your physician. Follow up: Emergency Department; When: As needed; Reason: Worsening of condition. snw
--- NOTE | 2018-03-22 15:34 | ER ---
Nurse's Notes [facility] Name: Berlin Tran Age: 27 yrs Sex: Male : 1990 Arrival Date: 03/22/2018 Time: 14:12 Bed 11 Private MD: None, None Diagnosis: Tinea corporis Presentation: 03/22 14:15 Presenting complaint: Patient states: rash to the back of his head x 1 month. sv Transition of care: patient was not received from another setting of care. Onset of symptoms was February 19, 2018. Risk Assessment: Do you want to hurt yourself or someone else? Patient reports no desire to harm self or others. Initial Sepsis Screen: Does the patient meet any 2 criteria? No. Patient's initial sepsis screen is negative. Does the patient have a suspected source of infection? No. Patient's initial sepsis screen is negative. Care prior to arrival: None. 14:15 Method Of Arrival: Ambulatory sv 14:15 Acuity: PITER 5 sv Triage Assessment: 14:15 General: Appears in no apparent distress. comfortable, Behavior is calm, cooperative, sv appropriate for age. Pain: Denies pain. EENT: No signs and/or symptoms were reported regarding the EENT system. Neuro: Level of Consciousness is awake, alert, obeys commands, Oriented to person, place, time, situation, Moves all extremities. Full function Gait is steady. Respiratory: Respiratory effort is even, unlabored, Respiratory pattern is regular, symmetrical. Derm: Rash noted that is itchy, raised, on back of neck. Historical: - Allergies: 14:15 No Known Allergies; sv - Home Meds: 14:15 None [Active]; sv - PMHx: 14:15 Asthma; sv - PSHx: 14:15 None; sv - Immunization history:: Adult Immunizations up to date. - Social history:: Smoking status: Patient/guardian denies using tobacco. - Ebola Screening: : No symptoms or risks identified at this time. Screenin:19 Abuse screen: Denies threats or abuse. Denies injuries from another. Nutritional ss screening: No deficits noted. Tuberculosis screening: Never had TB. Fall Risk None identified. Assessment: 15:00 Reassessment: Patient appears in no apparent distress at this time. No changes from sv previously documented assessment. See triage assessment. Vital Signs: 14:16 BP 132 / 82; Pulse 77; Resp 18; Temp 98.2; Pulse Ox 98% ; Pain 0/10; sv ED Course: 14:12 Patient arrived in ED. sb2 14:13 None, None is Private Physician. sb2 14:15 Triage completed. sv 14:16 Arm band placed on right wrist. sv 14:59 Kandy Palomares FNP-C [facility]. snw 14:59 Enrique Lombardo MD is Attending Physician. snw 15:16 Camila Sanders, RN is Primary Nurse. ss 15:19 Patient has correct armband on for positive identification. Bed in low position. ss 15:19 No provider procedures requiring assistance completed. Patient did not have IV access ss during this emergency room visit. Administered Medications: 15:49 Drug: DiFLUcan 200 mg Route: PO; ss 15:49 Follow up: Response: Medication administered at discharge. ss Outcome: 15:33 Discharge ordered by . snw 15:52 Discharged to home ambulatory. ss 15:52 Condition: good 15:52 Discharge instructions given to patient, Instructed on discharge instructions, follow up and referral plans. medication usage, Demonstrated understanding of instructions, follow-up care, medications, Prescriptions given X 1. 15:52 Patient left the ED. ss Signatures: Amanda Carrizales, RN RN Kandy Palomares FNP-C FNP-Csnw Camila Sanders RN RN Fausto Gaoi sb2
[2018-03-22] MEDS ORDERED: FLUCONAZOLE 100 MG TAB ONE (15:48)
== END 2018-03-22 15:52 | disposition home or self-care (01) ==
LOC: ER 14:11
DX: B35.4 Tinea corporis (principal)
CPT/HCPCS: 99283

== ENCOUNTER 2018-05-07 00:09 | Emergency (ER) | payer SELFPAY ==
[2018-05-07] MEDS ORDERED: ONDANSETRON 4 MG/2 ML VIAL ONE (01:08)
[2018-05-07] MEDS ORDERED: MORPHINE 4 MG/ML SYR ONE (01:21)
[2018-05-07] MEDS ORDERED: NA CHLORIDE 0.9% 1,000 ML ONE (01:22)
[2018-05-07] MEDS ORDERED: FAMOTIDINE 20 MG/2 ML VIAL IV ONE (01:22)
[2018-05-07 02:00] LABS: Absolute Lymphocytes (CBC) 3.4 K/uL (0.7-4.9); Absolute Monocytes 0.8 K/uL (0.1-1.3); Basophils % 0.2 % (0-1.3); Eosinophils % 1.7 % (0-4.4); Hematocrit 48.7 % (39.6-49.0); Lymphocytes % 23.3 % (15.3-44.8); MCH 31.1 pg (27.0-35.0); MCV 87.9 fL (80-100); MPV 8.8 fL (7.6-11.3); Monocytes % 5.8 % (3.3-12.3); RBC Red Blood Cell Count 5.53 M/uL (4.33-5.43)
[2018-05-07 02:15] LABS: Albumin 4.4 g/dL (3.4-5.0); Bilirubin Direct 0.2 mg/dL (0-0.2); Bilirubin Total 0.9 mg/dL (0.2-1.0); Potassium 3.7 mmol/L (3.5-5.1); Protein, Total 7.5 g/dL (6.4-8.2)
[2018-05-07] MEDS ORDERED: MAGNE/ALUM HYDROXD 30 ML UCUP ONE (04:18)
[2018-05-07 04:22] LABS: Urine Blood NEGATIVE (NEG); Urine Glucose NEGATIVE (NEG); Urine Protein NEGATIVE (NEG); Urine Specific Gravity 1.015 (1.005-1.030)
--- NOTE | 2018-05-07 04:23 | ER ---
Nurse's Notes [facility] Name: Berlin Tran Age: 27 yrs Sex: Male : 1990 Arrival Date: 05/07/2018 Time: 00:12 Bed 5 Private MD: Diagnosis: Unspecified abdominal pain;Gastritis and duodenitis Presentation: 05/07 00:45 Presenting complaint: Patient states: "Abdominal pain since yesterday morning with ao vomiting that started an hour ago." Patient points at epigastric area. Transition of care: patient was not received from another setting of care. Onset of symptoms was May 06, 2018 at 09:00. Risk Assessment: Do you want to hurt yourself or someone else? Patient reports no desire to harm self or others. Initial Sepsis Screen: Does the patient meet any 2 criteria? No. Patient's initial sepsis screen is negative. Does the patient have a suspected source of infection? No. Patient's initial sepsis screen is negative. Care prior to arrival: None. 00:45 Method Of Arrival: Ambulatory ao 00:45 Acuity: PITER 3 ao Historical: - Allergies: 00:49 No Known Allergies; ao - Home Meds: 00:49 albuterol sulfate 2.5 mg /3 mL (0.083 %) Inhl nebu [Active]; ao - PMHx: 00:49 Asthma; Gastric Reflux; ao - PSHx: 00:49 None; ao - Immunization history:: Adult Immunizations up to date. - Social history:: Smoking status: Patient uses tobacco products, smokes one-half pack cigarettes per day, Patient uses alcohol, occasionally. Patient/guardian denies using IV drugs. - Ebola Screening: : Patient negative for fever greater than or equal to 101.5 degrees Fahrenheit, and additional compatible Ebola Virus Disease symptoms Patient denies exposure to infectious person Patient denies travel to an Ebola-affected area in the 21 days before illness onset. Screenin:52 Abuse screen: Denies threats or abuse. Denies injuries from another. Nutritional ao screening: No deficits noted. Tuberculosis screening: No symptoms or risk factors identified. Fall Risk None identified. Assessment: 00:49 General: Appears in no apparent distress. comfortable, Behavior is calm, cooperative, ao appropriate for age. Pain: Complains of pain in epigastric area, right upper quadrant and left upper quadrant Pain does not radiate. Pain currently is 10 out of 10 on a pain scale. Neuro: Level of Consciousness is awake, alert, obeys commands, Oriented to person, place, time, situation, Appropriate for age Moves all extremities. Full function Speech is normal, Facial symmetry appears normal. Cardiovascular: Capillary refill < 3 seconds Patient's skin is warm and dry. Respiratory: Airway is patent Respiratory effort is even, unlabored, Respiratory pattern is regular, symmetrical. GI: Abdomen is non-distended, Bowel sounds present X 4 quads. Abd is soft and non tender X 4 quads. GI: Reports upper abdominal pain, epigastric pain, nausea, vomiting, since 0900 Yesterday. : No signs and/or symptoms were reported regarding the genitourinary system. EENT: No signs and/or symptoms were reported regarding the EENT system. Derm: Skin is intact, Skin is pink, warm \\T\\ dry. normal, Skin temperature is warm. Musculoskeletal: Range of motion: intact in all extremities. 02:13 Reassessment: Patient appears in no apparent distress at this time. Patient and/or ao family updated on plan of care and expected duration. Pain level reassessed. Patient is alert, oriented x 3, equal unlabored respirations, skin warm/dry/pink. Patient denies pain at this time. Patient states feeling better. Patient states symptoms have improved. 03:21 Reassessment: Patient appears in no apparent distress at this time. Patient and/or ao family updated on plan of care and expected duration. Pain level reassessed. Patient is alert, oriented x 3, equal unlabored respirations, skin warm/dry/pink. Patient under no distress. Patient back from CT. Waiting on CT report. Vital Signs: 00:48 BP 127 / 95; Pulse 91; Resp 16; Temp 98.1(O); Pulse Ox 98% on R/A; Weight 83.91 kg (R); ao Height 5 ft. 11 in. (180.34 cm) (R); Pain 10/10; 02:13 BP 118 / 86; Pulse 71; Resp 16; Pulse Ox 97% on R/A; Pain 0/10; ao 03:21 BP 131 / 89; Pulse 70; Resp 18; Pulse Ox 97% on R/A; ao 00:48 Body Mass Index 25.80 (83.91 kg, 180.34 cm) ao ED Course: 00:12 Patient arrived in ED. ds1 00:43 Beau Metz NP is PHCP. pm1 00:43 José Richardson MD is Attending Physician. pm1 00:45 Vicente Mustafa, RN is Primary Nurse. ao 00:48 Triage completed. ao 00:49 Arm band placed on right wrist. Patient placed in an exam room, on a stretcher, on ao pulse oximetry. 00:52 Patient has correct armband on for positive identification. Pulse ox on. NIBP on. ao 01:08 Inserted saline lock: 20 gauge in right antecubital area, using aseptic technique. ao ,using aseptic technique. By Graham Jeronimo Blood collected. 02:[address] via wheelchair. kw1 02:43 CT Abd/Pelvis - W/Contrast: IV contrast only In Process Unspecified. EDMS 02:45 CT completed. Patient tolerated procedure well. Patient moved back from CT. kw1 04:53 No provider procedures requiring assistance completed. IV discontinued, intact, ao bleeding controlled, No redness/swelling at site. Pressure dressing applied. Administered Medications: 01:10 Drug: Zofran 2 mg Route: IVP; Site: left antecubital; ao 04:17 Follow up: Response: No adverse reaction ao 01:25 Drug: morphine 4 mg Route: IVP; Site: right antecubital; ao 04:17 Follow up: Response: No adverse reaction ao 01:25 Drug: NS 0.9% 1000 ml Route: IV; Rate: 1000 ml; Site: right antecubital; ao 04:17 Follow up: IV Status: Completed infusion ao 01:30 Drug: Pepcid 20 mg Route: IVP; Site: right antecubital; ao 04:18 Follow up: Response: No adverse reaction ao 04:17 Drug: GI Cocktail without - (Maalox Suspension 30 ml, Lidocaine Liquid 2 % 15 ao ml) Route: PO; 04:43 Follow up: Response: No adverse reaction ao Outcome: 04:22 Discharge ordered by . pm1 04:54 Discharged to home ambulatory. ao 04:54 Condition: stable 04:54 Discharge instructions given to patient, Instructed on discharge instructions, follow up and referral plans. Demonstrated understanding of instructions, follow-up care, medications, Prescriptions given X 1. 04:54 Patient left the ED. ao Signatures: Dispatcher [employer] EDMS Sera Sinclair ds1 Vicente Mustafa RN RN Beau Aguilar, SAMANTHA GYM TEACHER pm1 Rahel Mcgrath kw1
--- NOTE | 2018-05-07 04:23 | EDPHYS ---
Physician Documentation [facility] Name: Berlin Tran Age: 27 yrs Sex: Male : 1990 Arrival Date: 05/07/2018 Time: 00:12 Bed 5 Private MD: ED Physician José Richardson HPI: 05/07 03:52 This 27 yrs old Male presents to ER via Ambulatory with complaints of pm1 Abdominal Pain, Vomiting. 03:52 The patient presents with abdominal pain in the epigastric area. Onset: The pm1 symptoms/episode began/occurred yesterday. The symptoms do not radiate. Associated signs and symptoms: Pertinent positives: nausea and vomiting, Pertinent negatives: chest pain, dysuria, fever, shortness of breath. The symptoms are described as burning. Modifying factors: The symptoms are alleviated by nothing, the symptoms are aggravated by nothing. Severity of pain: in the emergency department the pain is actually worse. The patient has experienced similar episodes in the past, a few times, today's symptoms are similar, to previous reflux. The patient has not recently seen a physician. Historical: - Allergies: 00:49 No Known Allergies; ao - Home Meds: 00:49 albuterol sulfate 2.5 mg /3 mL (0.083 %) Inhl nebu [Active]; ao - PMHx: 00:49 Asthma; Gastric Reflux; ao - PSHx: 00:49 None; ao - Immunization history:: Adult Immunizations up to date. - Social history:: Smoking status: Patient uses tobacco products, smokes one-half pack cigarettes per day, Patient uses alcohol, occasionally. Patient/guardian denies using IV drugs. - Ebola Screening: : Patient negative for fever greater than or equal to 101.5 degrees Fahrenheit, and additional compatible Ebola Virus Disease symptoms Patient denies exposure to infectious person Patient denies travel to an Ebola-affected area in the 21 days before illness onset. ROS: 03:52 Constitutional: Negative for fever, chills, and weight loss, Eyes: Negative for injury, pm1 pain, redness, and discharge, ENT: Negative for injury, pain, and discharge, Neck: Negative for injury, pain, and swelling, Cardiovascular: Negative for chest pain, palpitations, and edema, Respiratory: Negative for shortness of breath, cough, wheezing, and pleuritic chest pain. 03:52 Back: Negative for injury and pain, : Negative for injury, bleeding, discharge, and swelling, MS/Extremity: Negative for injury and deformity, Skin: Negative for injury, rash, and discoloration. 03:52 Neuro: Negative for headache, weakness, numbness, tingling, and seizure. 03:52 Abdomen/GI: Positive for abdominal pain, nausea and vomiting, Negative for diarrhea. Exam: 03:52 Constitutional: This is a well developed, well nourished patient who is awake, alert, pm1 and in no acute distress. Head/Face: Normocephalic, atraumatic. Eyes: Pupils equal round and reactive to light, extra-ocular motions intact. Lids and lashes normal. Conjunctiva and sclera are non-icteric and not injected. Cornea within normal limits. Periorbital areas with no swelling, redness, or edema. ENT: Nares patent. No nasal discharge, no septal abnormalities noted. Tympanic membranes are normal and external auditory canals are clear. Oropharynx with no redness, swelling, or masses, exudates, or evidence of obstruction, uvula midline. Mucous membranes moist. Neck: Trachea midline, no thyromegaly or masses palpated, and no cervical lymphadenopathy. Supple, full range of motion without nuchal rigidity, or vertebral point tenderness. No Meningismus. Chest/axilla: Normal chest wall appearance and motion. Nontender with no deformity. No lesions are appreciated. Cardiovascular: Regular rate and rhythm with a normal S1 and S2. No gallops, murmurs, or rubs. Normal PMI, no JVD. No pulse deficits. Respiratory: Lungs have equal breath sounds bilaterally, clear to auscultation and percussion. No rales, rhonchi or wheezes noted. No increased work of breathing, no retractions or nasal flaring. 03:52 Back: No spinal tenderness. No costovertebral tenderness. Full range of motion. Skin: Warm, dry with normal turgor. Normal color with no rashes, no lesions, and no evidence of cellulitis. MS/ Extremity: Pulses equal, no cyanosis. Neurovascular intact. Full, normal range of motion. 03:52 Abdomen/GI: Inspection: abdomen appears normal, Bowel sounds: normal, Palpation: soft, mild abdominal tenderness, in the epigastric area, mass, is not appreciated, rebound tenderness, is not appreciated. 03:52 Neuro: Orientation: is normal, Motor: moves all fours. Vital Signs: 00:48 BP 127 / 95; Pulse 91; Resp 16; Temp 98.1(O); Pulse Ox 98% on R/A; Weight 83.91 kg (R); ao Height 5 ft. 11 in. (180.34 cm) (R); Pain 10/10; 02:13 BP 118 / 86; Pulse 71; Resp 16; Pulse Ox 97% on R/A; Pain 0/10; ao 03:21 BP 131 / 89; Pulse 70; Resp 18; Pulse Ox 97% on R/A; ao 00:48 Body Mass Index 25.80 (83.91 kg, 180.34 cm) ao MDM: 00:56 Patient medically screened. pm1 03:55 Data reviewed: vital signs. Data interpreted: Pulse oximetry: on room air is 97 %. pm1 Interpretation: normal. 04:21 Counseling: I had a detailed discussion with the patient and/or guardian regarding: the pm1 historical points, exam findings, and any diagnostic results supporting the discharge/admit diagnosis, lab results, radiology results, the need for outpatient follow up, to return to the emergency department if symptoms worsen or persist or if there are any questions or concerns that arise at home. 05/07 00:56 Order name: Amylase, Serum pm1 05/07 00:56 Order name: Basic Metabolic Panel pm1 05/07 00:56 Order name: CBC with Diff; Complete Time: 02:01 pm1 05/07 00:56 Order name: Creatinine for Radiology; Complete Time: 03:14 pm1 05/07 00:56 Order name: Hepatic Function; Complete Time: 03:14 pm1 05/07 00:56 Order name: Lipase; Complete Time: 03:14 pm1 05/07 00:56 Order name: Urine Microscopic Only pm1 05/07 00:56 Order name: Amylase Level; Complete Time: 03:14 EDMS 05/07 00:56 Order name: Basic Metabolic Panel; Complete Time: 03:14 EDMS 05/07 01:14 Order name: CT Abd/Pelvis - W/Contrast: IV contrast only pm1 05/07 04:12 Order name: Urine Dipstick--Ancillary (enter results); Complete Time: 04:51 ms 05/07 00:56 Order name: IV Saline Lock; Complete Time: 01:11 pm1 05/07 00:56 Order name: Labs collected and sent; Complete Time: 01:11 pm1 05/07 00:56 Order name: Urine Dipstick-Ancillary (obtain specimen); Complete Time: 04:19 pm1 Administered Medications: 01:10 Drug: Zofran 2 mg Route: IVP; Site: left antecubital; ao 04:17 Follow up: Response: No adverse reaction ao 01:25 Drug: morphine 4 mg Route: IVP; Site: right antecubital; ao 04:17 Follow up: Response: No adverse reaction ao 01:25 Drug: NS 0.9% 1000 ml Route: IV; Rate: 1000 ml; Site: right antecubital; ao 04:17 Follow up: IV Status: Completed infusion ao 01:30 Drug: Pepcid 20 mg Route: IVP; Site: right antecubital; ao 04:18 Follow up: Response: No adverse reaction ao 04:17 Drug: GI Cocktail without - (Maalox Suspension 30 ml, Lidocaine Liquid 2 % 15 ao ml) Route: PO; 04:43 Follow up: Response: No adverse reaction ao Disposition: 05/07/18 04:22 Discharged to Home. Impression: Unspecified abdominal pain, Gastritis and duodenitis. - Condition is Stable. - Discharge Instructions: Abdominal Pain, Adult, Gastroesophageal Reflux Disease, Adult. - Prescriptions for Prilosec 20 mg Oral Capsule - take 1 capsule by ORAL route once daily; 10 capsule. - Work release form, Medication Reconciliation Form, Thank You Letter, Antibiotic Education, Prescription Opioid Use form. - Follow up: Emergency Department; When: As needed; Reason: Worsening of condition. Follow up: Private Physician; When: 2 - 3 days; Reason: Recheck today's complaints, Continuance of care, Re-evaluation by your physician. - Problem is new. - Symptoms have improved. Signatures: Dispatcher [employer] Vicente Campbell RN RN Beau Aguilar, MARKETING CONTENT MANAGER MARKETING CONTENT MANAGER pm1 Corrections: (The following items were deleted from the chart) 04:54 04:22 05/07/2018 04:22 Discharged to Home. Impression: Unspecified abdominal pain; ao Gastritis and duodenitis. Condition is Stable. Forms are Medication Reconciliation Form, Thank You Letter, Antibiotic Education, Prescription Opioid Use. Follow up: Emergency Department; When: As needed; Reason: Worsening of condition. Follow up: Private Physician; When: 2 - 3 days; Reason: Recheck today's complaints, Continuance of care, Re-evaluation by your physician. Problem is new. Symptoms have improved. pm1
[2018-05-07 05:31] LABS: Urine Bacteria <20 /HPF (NONE SEEN); Urine Culture Reflex Order NOT NEEDED; Urine RBC <5 /HPF (NONE SEEN)
--- NOTE | 2018-05-07 08:33 | RAD REPORT ---
EXAM DESCRIPTION: CT - Abdomen Pelvis W Contrast - 05/07/2018 4:19 am CLINICAL HISTORY: Abdominal pain, epigastric pain A preliminary report was provided at the time of the study and reviewed prior to final report. COMPARISON: None. TECHNIQUE: Biphasic, helical CT imaging of the abdomen and pelvis was performed following 100 ml non -ionic IV contrast. No oral contrast. Minimal amount of hyperdensity within the gastric lumen could b e ingested medication or a trace amount of oral contrast. All CT scans are performed using dose optimization technique as appropriate and may include automated exposure control or mA/KV adjustment according to patient size. FINDINGS: No suspicious findings in the lung bases. The liver, spleen, and pancreas show no suspicious findings. Gallbladder and biliary tree are also wi thout suspicious finding. Symmetric renal function is seen with no hydronephrosis or suspicious renal mass. No pyelonephritis o r acute renal parenchymal process. Partially filled urinary bladder shows no suspicious finding. Pros arora gland and seminal vesicles are normal. No gastric dilatation is seen. Circumferential wall thickening and edema involve the antrum and dista l most body of the stomach. Mild mucosal thickening and edema involves the duodenal C-loop with very pronounced circumferential wall thickening and edema of the third and fourth portions of the duodenum . There is surrounding fluid and edematous/inflammatory stranding tracking along the right-side parar enal fascia. Distal to the ligament of Treitz the small bowel is unremarkable. No appendicitis. No: Acute finding. No free air or pneumatosis. No other area of free fluid or inflammatory stranding. Patient does appe ar to have a few proximal sigmoid diverticula. No hernia, mass or bulky lymphadenopathy. No adrenal abnormality. No suspicious bony findings. IMPRESSION: Marked circumferential wall thickening and edema of the third and fourth portions of the duodenum with less prominent duodenal C-loop mucosal thickening. There is moderate gastric antrum wa ll thickening. Fluid and stranding surrounds the involved duodenum and extend Ing along the right-side pararenal fas madeleine. Findings are consistent with a very pronounced gastroduodenitis. No abscess, free air or surgically emergent finding.
== END 2018-05-07 04:54 | disposition home or self-care (01) ==
LOC: ER 00:09
DX: K29.70 Gastritis, unspecified, without bleeding (principal); K29.80 Duodenitis without bleeding; F17.210 Nicotine dependence, cigarettes, uncomplicated; K21.9 Gastro-esophageal reflux disease without esophagitis
CPT/HCPCS: 36415; 74177; 80048; 80076; 81003; 81015; 82150; 83690; 85025; 99284; J2405; J7030; Q9967

== ENCOUNTER 2018-05-07 16:21 | Emergency (ER) | payer SELFPAY ==
[2018-05-07 17:28] LABS: Urine Blood TRACE (NEG); Urine Glucose NEGATIVE (NEG); Urine Protein 1+ (NEG)
[2018-05-07 18:19] LABS: Absolute Lymphocytes (CBC) 1.1 K/uL (0.7-4.9); Absolute Monocytes 0.7 K/uL (0.1-1.3); Absolute Neutrophil 13.3 K/uL (1.8-8.0); Basophils % 0.3 % (0-1.3); Hematocrit 46.9 % (39.6-49.0); Lymphocytes % 7.2 % (15.3-44.8); MCH 30.5 pg (27.0-35.0); MCV 89.7 fL (80-100); MPV 8.5 fL (7.6-11.3); Monocytes % 4.8 % (3.3-12.3); RBC Red Blood Cell Count 5.23 M/uL (4.33-5.43)
[2018-05-07] MEDS ORDERED: ONDANSETRON 4 MG/2 ML VIAL ONE (18:22)
[2018-05-07] MEDS ORDERED: METRONIDAZOLE 500mg IVPB 500 MG/100 ML BAG IV ONE (18:22)
[2018-05-07] MEDS ORDERED: Levofloxacin500mg IV 500 MG/100 ML BAG IV ONE (18:22)
[2018-05-07] MEDS ORDERED: FAMOTIDINE 20 MG/2 ML VIAL IV ONE (18:22)
[2018-05-07] MEDS ORDERED: KETOROLAC 30 MG/ML INJ ONE (18:22)
[2018-05-07 18:33] LABS: Barbiturates NEGATIVE (NEGATIVE); Benzodiazepines NEGATIVE (NEGATIVE); Cocaine NEGATIVE (NEGATIVE); METHAMPHETAM NEGATIVE (NEGATIVE); Methadone NEGATIVE (NEGATIVE); Opiates NEGATIVE (NEGATIVE); Phencyclidine NEGATIVE (NEGATIVE); THC Cannibis NEGATIVE (NEGATIVE)
[2018-05-07 18:38] LABS: ALT/SGPT 46 U/L (12-78); AST/SGOT 17 U/L (15-37); Albumin 3.8 g/dL (3.4-5.0); Alkaline Phosphatase 75 U/L (45-117); BUN Blood Urea Nitrogen 16 mg/dL (7-18); Bicarbonate 28 mmol/L (21-32); Bilirubin Direct 0.2 mg/dL (0-0.2); Bilirubin Total 0.9 mg/dL (0.2-1.0); Glucose Level 130 mg/dL (74-106); Lipase 70 U/L (73-393); Potassium 3.6 mmol/L (3.5-5.1); Protein, Total 6.6 g/dL (6.4-8.2); Sodium Level 141 mmol/L (136-145)
[2018-05-07 19:38] LABS: Urine Bacteria <20 /HPF (NONE SEEN); Urine Culture Reflex Order NOT NEEDED; Urine RBC <5 /HPF (NONE SEEN)
[2018-05-07 19:57] LABS: Blood Morphology Comment NOT SEEN (NOT SEEN); Platelet Estimate ADEQ; Urine White Blood Cell Casts OK
--- NOTE | 2018-05-07 20:50 | EDPHYS ---
Physician Documentation [facility] Name: Berlin Tran Age: 27 yrs Sex: Male : 1990 Arrival Date: 05/07/2018 Time: 16:22 Bed 25 Private MD: None, None ED Physician Alfredo Terry HPI: 05/07 19:46 This 27 yrs old Male presents to ER via Ambulatory with complaints of wa Abdominal Pain. 19:46 The patient presents with abdominal pain in the upper abdomen. Onset: The wa symptoms/episode began/occurred 2 day(s) ago. The symptoms do not radiate. Associated signs and symptoms: Pertinent positives: nausea and vomiting, Pertinent negatives: diarrhea, dysuria, fever. The symptoms are described as achy. Modifying factors: The symptoms are alleviated by nothing, the symptoms are aggravated by nothing. Severity of pain: At its worst the pain was moderate in the emergency department the pain is unchanged. The patient has not experienced similar symptoms in the past. The patient has been recently seen by a physician: The patient has been recently seen at the [facility] Emergency Department, yesterday. states still vomiting. Historical: - Allergies: 16:26 No Known Allergies; sg - PMHx: 16:26 Asthma; Gastric Reflux; sg - PSHx: 16:26 None; sg - Immunization history:: Adult Immunizations not up to date. - Social history:: Smoking status: Patient/guardian denies using tobacco. - Ebola Screening: : Patient negative for fever greater than or equal to 101.5 degrees Fahrenheit, and additional compatible Ebola Virus Disease symptoms Patient denies exposure to infectious person Patient denies travel to an Ebola-affected area in the 21 days before illness onset No symptoms or risks identified at this time. - Family history:: not pertinent. - Hospitalizations: : No recent hospitalization is reported. ROS: 19:47 Constitutional: Negative for fever, chills, and weight loss, Eyes: Negative for injury, wa pain, redness, and discharge, ENT: Negative for injury, pain, and discharge, Neck: Negative for injury, pain, and swelling, Cardiovascular: Negative for chest pain, palpitations, and edema, Respiratory: Negative for shortness of breath, cough, wheezing, and pleuritic chest pain, Back: Negative for injury and pain, : Negative for injury, bleeding, discharge, and swelling, MS/Extremity: Negative for injury and deformity, Skin: Negative for injury, rash, and discoloration, Neuro: Negative for headache, weakness, numbness, tingling, and seizure, Psych: Negative for depression, anxiety, suicide ideation, homicidal ideation, and hallucinations. 19:47 Abdomen/GI: Positive for abdominal pain, nausea and vomiting, Negative for diarrhea, constipation. Exam: 19:47 Constitutional: This is a well developed, well nourished patient who is awake, alert, wa and in no acute distress. Head/Face: Normocephalic, atraumatic. Eyes: Pupils equal round and reactive to light, extra-ocular motions intact. Lids and lashes normal. Conjunctiva and sclera are non-icteric and not injected. Cornea within normal limits. Periorbital areas with no swelling, redness, or edema. ENT: Nares patent. No nasal discharge, no septal abnormalities noted. Tympanic membranes are normal and external auditory canals are clear. Oropharynx with no redness, swelling, or masses, exudates, or evidence of obstruction, uvula midline. Mucous membranes moist. Neck: Trachea midline, no thyromegaly or masses palpated, and no cervical lymphadenopathy. Supple, full range of motion without nuchal rigidity, or vertebral point tenderness. No Meningismus. Chest/axilla: Normal chest wall appearance and motion. Nontender with no deformity. No lesions are appreciated. Cardiovascular: Regular rate and rhythm with a normal S1 and S2. No gallops, murmurs, or rubs. Normal PMI, no JVD. No pulse deficits. Respiratory: Lungs have equal breath sounds bilaterally, clear to auscultation and percussion. No rales, rhonchi or wheezes noted. No increased work of breathing, no retractions or nasal flaring. Back: No spinal tenderness. No costovertebral tenderness. Full range of motion. Male : Normal genitalia with no discharge or lesions. Skin: Warm, dry with normal turgor. Normal color with no rashes, no lesions, and no evidence of cellulitis. MS/ Extremity: Pulses equal, no cyanosis. Neurovascular intact. Full, normal range of motion. Neuro: Awake and alert, GCS 15, oriented to person, place, time, and situation. Cranial nerves II-XII grossly intact. Motor strength 5/5 in all extremities. Sensory grossly intact. Cerebellar exam normal. Normal gait. Psych: Awake, alert, with orientation to person, place and time. Behavior, mood, and affect are within normal limits. 19:47 Abdomen/GI: Inspection: abdomen appears normal, Bowel sounds: normal, in all quadrants, Palpation: moderate abdominal tenderness, in the epigastric area, right upper quadrant and left upper quadrant. Vital Signs: 16:27 Pulse 90; Resp 16 S; Temp 97.7; Pulse Ox 100% on R/A; Pain 7/10; sg 17:15 BP 131 / 84 RA Supine (auto/reg); Pulse 63; Resp 20 S; Pulse Ox 96% on R/A; Pain 5/10; jp3 18:26 BP 120 / 78; Pulse 67; Resp 18; Pulse Ox 98% on R/A; aj1 MDM: 17:22 Patient medically screened. la 19:48 Differential diagnosis: noted with duodenitis on CT yesterday with elevated wbc. will wa repeat labs. pain ocntrol. abx via IV. will reassess. 19:49 Data reviewed: vital signs, nurses notes, lab test result(s), radiologic studies. Test wa interpretation: by ED physician or midlevel provider: plain radiologic studies, labs noted for leukocytosis. . Response to treatment: the patient's symptoms have markedly improved after treatment. ED course: improved. will po challenge. if pass, d/c with abx. will admit if fails. 20:48 ED course: passed po challenge. states feels much better. la 05/07 17:18 Order name: Urine Dipstick--Ancillary (enter results); Complete Time: 19:41 05/07 17:48 Order name: Creatinine for Radiology la 05/07 17:48 Order name: Basic Metabolic Panel; Complete Time: 19:41 la 05/07 17:48 Order name: CBC with Diff la 05/07 17:48 Order name: Hepatic Function; Complete Time: 19:42 la 05/07 17:48 Order name: Lipase; Complete Time: 19:42 la 05/07 17:48 Order name: Urine Microscopic Only; Complete Time: 19:42 la 05/07 17:49 Order name: UDS; Complete Time: 19:41 la 05/07 18:33 Order name: CBC Smear Scan EDFL 05/07 17:48 Order name: IV Saline Lock; Complete Time: 18:10 la 05/07 17:48 Order name: Labs collected and sent; Complete Time: 18:11 la 05/07 17:48 Order name: Urine Dipstick-Ancillary (obtain specimen); Complete Time: 18:11 la 05/07 19:44 Order name: PO challenge; Complete Time: 20:33 la Administered Medications: 18:26 Drug: Pepcid 20 mg Route: IVP; Site: left antecubital; rv 18:26 Drug: LevaQUIN 500 mg Volume: 100 ml; Route: IVPB; Infused Over: 60 mins; Site: left rv antecubital; 18:27 Drug: TORadol 30 mg Route: IVP; Site: left antecubital; rv 18:27 Drug: Zofran 4 mg Route: IVP; Site: left antecubital; rv 19:30 Drug: Flagyl 500 mg Volume: 100 ml; Route: IVPB; Rate: 200 ml/hr; Infused Over: 30 rv mins; Site: left antecubital; Disposition: 05/07/18 20:50 Discharged to Home. Impression: Acute abdominal pain, vomiting, duodenitis. - Condition is Stable. - Discharge Instructions: Abdominal Pain, Adult, [id number], Duodenitis. - Prescriptions for Flagyl 500 mg Oral Tablet - take 1 tablet by ORAL route every 12 hours for 7 days; 14 tablet. Zofran 4 mg Oral Tablet - take 1 tablet by ORAL route every 12 hours As needed; 20 tablet. Cipro 500 mg Oral Tablet - take 1 tablet by ORAL route every 12 hours for 7 days; 14 tablet. - Medication Reconciliation Form, Thank You Letter, Antibiotic Education, Prescription Opioid Use, Work release form form. - Follow up: Alfredo Navarro MD; When: 2 - 3 days; Reason: Recheck today's complaints. - Problem is new. - Symptoms have improved. - Notes: take tylenol if you belly hurts. do not take ibuprofen or other NSAIDs. take antibiotics as prescribed. follow up with the gastro doctor within 1-2 days for further evaluation. return here for rapidly worsening symptoms Signatures: Dispatcher [employer] [facility] Jackie Pino RN RN aj1 Wilber Dan RN RN Alfredo Terry MD MD la Ruben, Prakash, RN RN rv Corrections: (The following items were deleted from the chart) 18:09 17:49 Abdomen Pelvis W Con+CT.RAD.CHRIS ordered. EDFL EDMS 21:44 20:50 05/07/2018 20:50 Discharged to Home. Impression: Acute abdominal pain; vomiting; aj1 duodenitis. Condition is Stable. Forms are Medication Reconciliation Form, Thank You Letter, Antibiotic Education, Prescription Opioid Use. Follow up: Alfredo Navarro; When: 2 - 3 days; Reason: Recheck today's complaints. Problem is new. Symptoms have improved. wa
--- NOTE | 2018-05-07 20:50 | ER ---
Nurse's Notes [facility] Emergency Department Name: Berlin Tran Age: 27 yrs Sex: Male : 1990 Arrival Date: 05/07/2018 Time: 16:22 Bed 25 Private MD: None, None Diagnosis: Acute abdominal pain;vomiting;duodenitis Presentation: 05/07 16:26 Presenting complaint: Patient states: LUQ abd pain that has been going on for several sg days, reports vomiting anything he eats or drinks, denies FEVER/Diarrhea. Transition of care: patient was not received from another setting of care. Onset of symptoms was May 07, 2018. Risk Assessment: Do you want to hurt yourself or someone else? Patient reports no desire to harm self or others. Initial Sepsis Screen: Does the patient meet any 2 criteria? No. Patient's initial sepsis screen is negative. Does the patient have a suspected source of infection? No. Patient's initial sepsis screen is negative. Care prior to arrival: None. 16:26 Method Of Arrival: Ambulatory sg 16:26 Acuity: PITER 3 sg Historical: - Allergies: 16:26 No Known Allergies; sg - PMHx: 16:26 Asthma; Gastric Reflux; sg - PSHx: 16:26 None; sg - Immunization history:: Adult Immunizations not up to date. - Social history:: Smoking status: Patient/guardian denies using tobacco. - Ebola Screening: : Patient negative for fever greater than or equal to 101.5 degrees Fahrenheit, and additional compatible Ebola Virus Disease symptoms Patient denies exposure to infectious person Patient denies travel to an Ebola-affected area in the 21 days before illness onset No symptoms or risks identified at this time. - Family history:: not pertinent. - Hospitalizations: : No recent hospitalization is reported. Screenin:11 Abuse screen: Denies threats or abuse. Denies injuries from another. Nutritional aj1 screening: No deficits noted. Tuberculosis screening: No symptoms or risk factors identified. 21:43 Fall Risk None identified. aj1 Assessment: 18:11 General: Appears in no apparent distress. uncomfortable, Behavior is calm, cooperative, aj1 appropriate for age. Pain: Complains of pain in epigastric area Pain does not radiate. Pain currently is 9 out of 10 on a pain scale. Neuro: Level of Consciousness is awake, alert, obeys commands. Cardiovascular: Patient's skin is warm and dry. Respiratory: Airway is patent Respiratory effort is even, unlabored, Respiratory pattern is regular, symmetrical. GI: Abdomen is non-distended, Bowel sounds present X 4 quads. Abd is soft and non tender X 4 quads. Reports upper abdominal pain, vomiting, Patient currently denies diarrhea. : No signs and/or symptoms were reported regarding the genitourinary system. EENT: No signs and/or symptoms were reported regarding the EENT system. Derm: No signs and/or symptoms reported regarding the dermatologic system. Skin is pink, warm \T\ dry. normal. Musculoskeletal: No signs and/or symptoms reported regarding the musculoskeletal system. Circulation, motion, and sensation intact. 19:11 Reassessment: Patient appears in no apparent distress at this time. No changes from aj1 previously documented assessment. Patient and/or family updated on plan of care and expected duration. Pain level reassessed. Patient is alert, oriented x 3, equal unlabored respirations, skin warm/dry/pink. 20:15 Reassessment: Patient appears in no apparent distress at this time. No changes from aj1 previously documented assessment. Patient and/or family updated on plan of care and expected duration. Pain level reassessed. Patient is alert, oriented x 3, equal unlabored respirations, skin warm/dry/pink. 21:31 Reassessment: Patient and/or family updated on plan of care and expected duration. Pain aj1 level reassessed. General: Appears in no apparent distress. uncomfortable, Behavior is calm, cooperative, appropriate for age. Neuro: Level of Consciousness is awake, alert, obeys commands. Cardiovascular: Patient's skin is warm and dry. Respiratory: Airway is patent Respiratory effort is even, unlabored, Respiratory pattern is regular, symmetrical. Vital Signs: 16:27 Pulse 90; Resp 16 S; Temp 97.7; Pulse Ox 100% on R/A; Pain 7/10; sg 17:15 BP 131 / 84 RA Supine (auto/reg); Pulse 63; Resp 20 S; Pulse Ox 96% on R/A; Pain 5/10; jp3 18:26 BP 120 / 78; Pulse 67; Resp 18; Pulse Ox 98% on R/A; aj1 ED Course: 16:22 Patient arrived in ED. sb2 16:22 None, None is Private Physician. sb2 16:26 Arm band placed on. sg 16:27 Triage completed. sg 17:05 Jackie Pino, RN is Primary Nurse. aj1 17:15 Urine collected: clean catch specimen, clear, kiley colored, Amount Voided: 90mL. jp3 17:21 Bed in low position. Call light in reach. Side rails up X 1. Pulse ox on. NIBP on. jp3 17:22 Alfredo Terry MD is Attending Physician. wa 18:11 No provider procedures requiring assistance completed. Initial lab(s) drawn, by nv, ajAleisha sent to lab. Inserted saline lock: 20 gauge in left antecubital area, using aseptic technique. Blood collected. 20:49 Alfredo Navarro MD is Referral Physician. wa 21:43 IV discontinued, intact, bleeding controlled, No redness/swelling at site. Pressure aj1 dressing applied. Administered Medications: 18:26 Drug: Pepcid 20 mg Route: IVP; Site: left antecubital; rv 18:26 Drug: LevaQUIN 500 mg Volume: 100 ml; Route: IVPB; Infused Over: 60 mins; Site: left rv antecubital; 18:27 Drug: TORadol 30 mg Route: IVP; Site: left antecubital; rv 18:27 Drug: Zofran 4 mg Route: IVP; Site: left antecubital; rv 19:30 Drug: Flagyl 500 mg Volume: 100 ml; Route: IVPB; Rate: 200 ml/hr; Infused Over: 30 rv mins; Site: left antecubital; Outcome: 20:50 Discharge ordered by . wa 21:44 Discharged to home ambulatory. aj1 21:44 Condition: good 21:44 Discharge instructions given to patient, Instructed on discharge instructions, follow up and referral plans. medication usage, Demonstrated understanding of instructions, follow-up care, medications, Prescriptions given X 3. 21:44 Patient left the ED. aj1 Signatures: Jackie Pino, RN RN aj1 Wilber Dan, VU RN Alfredo Terry MD MD va Riddhi Gao sb2 Prakash Miranda, RN RN Nathen Duff jp3
== END 2018-05-07 21:44 | disposition home or self-care (01) ==
LOC: ER 16:21
DX: K29.80 Duodenitis without bleeding (principal); R11.10 Vomiting, unspecified
CPT/HCPCS: 36415; 80048; 80076; 80307; 81003; 81015; 83690; 85025; 96374; 96375; 99284; J2405

== ENCOUNTER 2018-05-16 10:26 | Inpatient (IN) | payer SELFPAY ==
[2018-05-16] MEDS ORDERED: FAMOTIDINE 20 MG/2 ML VIAL IV ONE (11:06)
[2018-05-16] MEDS ORDERED: METHYLPREDNISOLONE 125 MG INJ ONE (11:06)
[2018-05-16] MEDS ORDERED: DIPHENHYDRAMINE 50 MG/ML VIAL ONE (11:21)
[2018-05-16] MEDS ORDERED: EPINEPHRINE INH 0.5 ML VIAL IH ONE (12:26)
[2018-05-16] MEDS ORDERED: EPINEPHRINE/PF 1 MG/ML AMP ONE (12:26)
[2018-05-16] MEDS ORDERED: NA CHLORIDE 0.9% 1,000 ML ONE (12:28)
--- NOTE | 2018-05-16 14:31 | EDPHYS ---
Physician Documentation [facility] Name: Berlin Tran Age: 27 yrs Sex: Male : 1990 Arrival Date: 05/16/2018 Time: 10:29 Bed 18 Private MD: None, None ED Physician Blaise Cat HPI: 05/16 11:04 This 27 yrs old Male presents to ER via Ambulatory with complaints of Lips rn Swelling. 11:04 The patient presents with swelling. The problem is located in the upper lip and right rn cheek and face. Onset: The symptoms/episode began/occurred this morning. Duration: The symptoms are continuous. Modifying factors: The symptoms are alleviated by nothing, the symptoms are aggravated by nothing. Severity of symptoms: At their worst the symptoms were moderate, in the emergency department the symptoms are unchanged. The patient has experienced a previous episode. Reports right upper lip and cheek swelling since this AM, felt a little pain/bump on cheek, unsure if bitten by something, no fever, no dental pain, has happened once before and got better with meds in ER, began around 0300 today when woke up and got worse and morning progressed. . Historical: - Allergies: 10:42 No Known Allergies; tw2 - Home Meds: 10:42 albuterol sulfate 2.5 mg /3 mL (0.083 %) Inhl nebu [Active]; tw2 - PMHx: 10:42 Asthma; Gastric Reflux; tw2 - PSHx: 10:42 None; tw2 - Immunization history:: Adult Immunizations up to date. - Social history:: Smoking status: Patient uses tobacco products, smokes one pack cigarettes per day. - Ebola Screening: : Patient denies travel to an Ebola-affected area in the 21 days before illness onset. - Family history:: not pertinent. - Hospitalizations: : No recent hospitalization is reported. ROS: 11:04 Constitutional: Negative for fever, chills, and weight loss, Eyes: Negative for injury, rn pain, redness, and discharge, ENT: + right facial swelling Neck: Negative for injury, pain, and swelling, MS/Extremity: Negative for injury and deformity, Skin: Negative for injury, rash, and discoloration. Exam: 11:04 Constitutional: This is a well developed, well nourished patient who is awake, alert, rn and in no acute distress. Head/Face: + right facial swelling involving right upper and lower lip and right cheek, periorbital region not involved, no fluctuance, + subcutaneous edema, no redness/warmth. No oral swelling/stridor/tongue swelling. Vital Signs: 10:41 BP 128 / 74; Pulse 74; Resp 17; Temp 96.9(TE); Pulse Ox 97% on R/A; tw2 11:43 BP 131 / 81; Pulse 64; Resp 18; Pulse Ox 99% on R/A; aj1 12:15 BP 108 / 73; Pulse 66; Resp 20; Pulse Ox 99% on R/A; aj1 12:45 BP 126 / 62; Pulse 81; Resp 23; Pulse Ox 99% on R/A; aj1 13:15 BP 132 / 75; Pulse 79; Resp 22; Pulse Ox 99% ; aj1 13:45 BP 138 / 68; Pulse 85; Resp 24; Pulse Ox 99% on R/A; aj1 14:15 BP 131 / 83; Pulse 92; Resp 21; Pulse Ox 100% on R/A; aj1 14:45 BP 114 / 84; Pulse 92; Resp 21; Pulse Ox 100% ; aj1 15:15 BP 127 / 65; Pulse 91; Resp 23; Pulse Ox 100% ; aj1 15:45 BP 128 / 79; Pulse 84; Resp 21; Pulse Ox 100% ; aj1 16:15 BP 129 / 78; Pulse 81; Resp 21; Pulse Ox 100% on R/A; aj1 MDM: 10:44 Patient medically screened. kb 12:21 ED course: Pt with slightly worse swelling, wheezing noted, pt denies sob, actually rn able to sleep, epinephrine and racemic epinephrine ordered. . 14:27 Differential diagnosis: hereditary angioedema, local allergic reaction, angioedema. rn Data reviewed: vital signs, nurses notes, and as a result, I will admit patient. Counseling: I had a detailed discussion with the patient and/or guardian regarding: the historical points, exam findings, and any diagnostic results supporting the discharge/admit diagnosis, the need for further work-up and treatment in the hospital. Medical screen evaluation completed. EMTALA emergency medical condition absent. Admission orders: after a detailed discussion of the patient's condition and case, the admit orders are written by me. ED course: Pt not improving, after epi has not progressed but given rate of swelling displayed while here in ER as well as unclear etiology and minimal response, will observe overnight, accepted for admission by Dr. Jung. . 14:30 ED course: NO stridor, is sleeping comfortably, no need for emergent airway at this rn time. . 05/16 10:53 Order name: IV Start; Complete Time: 11:01 rn Administered Medications: 11:02 Drug: SOLU-Medrol 125 mg Route: IVP; Site: right antecubital; aj1 12:15 Follow up: Response: No adverse reaction; No change in condition aj1 11:02 Drug: Pepcid 20 mg Route: IVP; Site: right antecubital; aj1 12:15 Follow up: Response: No adverse reaction; No change in condition aj1 11:23 Drug: Benadryl 50 mg Route: IVP; Site: right antecubital; aj1 12:15 Follow up: Response: No adverse reaction; No change in condition aj1 12:22 Drug: EPINEPHrine 1mg/mL 1:1,000 0.5 mg Route: IM; Site: right deltoid; aj1 13:00 Follow up: Response: No adverse reaction; Wheezing diminished aj1 12:22 Drug: Racemic EPINPHrine 0.5 ml Route: Inhalation; aj1 13:00 Follow up: Response: No adverse reaction; Wheezing diminished aj1 12:22 Drug: NS 0.9% 1000 ml Route: IV; Rate: 1000 ml; Site: right antecubital; aj1 13:30 Follow up: IV Status: Completed infusion; IV Intake: 1000ml aj1 Disposition: 05/16/18 14:30 Hospitalization ordered by Tiffany Jung for Observation. Preliminary diagnosis is Angioedema of face and lips. - Bed requested for Telemetry/MedSurg (observation). - Status is Observation. aj1 - Condition is Stable. - Problem is new. - Symptoms have worsened. UTI on Admission? No Signatures: Estephanie Benitez, YUSUF-C CAR DESIGNER-CkJackie Noble RN RN aj1 Day Grigsby RN RN dw Blaise Cat MD MD rn Wise, Tara, RN RN tw2 Corrections: (The following items were deleted from the chart) 14:48 14:30 Hospitalization Ordered by Tiffany Jung MD for Observation. Preliminary aj1 diagnosis is Angioedema of face and lips. Bed requested for Telemetry/MedSurg (observation). Status is Observation. Condition is Stable. Problem is new. Symptoms have worsened. UTI on Admission? No. rn 15:35 14:48 05/16/2018 14:30 Hospitalization Ordered by Tiffany Jung MD for Observation. dw Preliminary diagnosis is Angioedema of face and lips. Bed requested for Telemetry/MedSurg (observation). Status is Observation. Condition is Stable. Problem is new. Symptoms have worsened. UTI on Admission? No. aj1 16:43 15:35 05/16/2018 14:30 Hospitalization Ordered by Tiffany Jung MD for Observation. aj1 Preliminary diagnosis is Angioedema of face and lips. Bed requested for Telemetry/MedSurg (observation). Status is Observation. Condition is Stable. Problem is new. Symptoms have worsened. UTI on Admission? No. dw
--- NOTE | 2018-05-16 14:31 | ER ---
Nurse's Notes [facility] Name: Berlin Tran Age: 27 yrs Sex: Male : 1990 Arrival Date: 05/16/2018 Time: 10:29 Bed 18 Private MD: None, None Diagnosis: Angioedema of face and lips Presentation: 05/16 10:34 Presenting complaint:. Presenting complaint: Patient states: lip started swelling 3 tw2 this morning, and it wasn't too much but about an hour ago it got way worse, denies dental pain, i took antibiotics this hospital gave me but i stopped taking them 4 days ago. Transition of care: patient was not received from another setting of care. Onset of symptoms was May 16, 2018. Risk Assessment: Do you want to hurt yourself or someone else? Patient reports no desire to harm self or others. Care prior to arrival: None. 10:34 Method Of Arrival: Ambulatory tw2 10:34 Acuity: PITER 3 tw2 12:44 Acuity: PITER 2 aj1 16:36 Initial Sepsis Screen: Does the patient meet any 2 criteria? No. Patient's initial aj1 sepsis screen is negative. Does the patient have a suspected source of infection? No. Patient's initial sepsis screen is negative. Historical: - Allergies: 10:42 No Known Allergies; tw2 - Home Meds: 10:42 albuterol sulfate 2.5 mg /3 mL (0.083 %) Inhl nebu [Active]; tw2 - PMHx: 10:42 Asthma; Gastric Reflux; tw2 - PSHx: 10:42 None; tw2 - Immunization history:: Adult Immunizations up to date. - Social history:: Smoking status: Patient uses tobacco products, smokes one pack cigarettes per day. - Ebola Screening: : Patient denies travel to an Ebola-affected area in the 21 days before illness onset. - Family history:: not pertinent. - Hospitalizations: : No recent hospitalization is reported. Screenin:53 Abuse screen: Denies threats or abuse. Denies injuries from another. Nutritional aj1 screening: No deficits noted. Tuberculosis screening: No symptoms or risk factors identified. 16:37 Fall Risk IV access (20 points). Total Pereyra Fall Scale indicates No Risk (0-24 pts). aj1 Assessment: 10:53 General: Appears in no apparent distress. uncomfortable, Behavior is calm, cooperative, aj1 appropriate for age. Pain: Complains of pain in face. Neuro: Level of Consciousness is awake, alert, obeys commands. Cardiovascular: Patient's skin is warm and dry. Respiratory: Airway is patent Respiratory effort is even, unlabored, Respiratory pattern is regular, symmetrical, Breath sounds are clear bilaterally. Denies shortness of breath. GI: No signs and/or symptoms were reported involving the gastrointestinal system. : No signs and/or symptoms were reported regarding the genitourinary system. EENT: Throat is clear. Derm: Skin is pink, warm \T\ dry. normal. Musculoskeletal: Swelling present in right cheek, upper lip and right jaw. 11:43 Reassessment: Patient and/or family updated on plan of care and expected duration. Pain aj1 level reassessed. General: Appears in no apparent distress. comfortable. Neuro: Level of Consciousness is awake, alert, obeys commands. Cardiovascular: Patient's skin is warm and dry. Respiratory: Airway is patent Respiratory effort is even, unlabored, Respiratory pattern is regular, symmetrical, Breath sounds are clear bilaterally. EENT: Throat is clear. Derm: Skin is pink, warm \T\ dry. normal. 12:07 Reassessment: Dr. Cat at bedside to re-evaluate patient. aj1 12:15 Reassessment: Patient and/or family updated on plan of care and expected duration. Pain aj1 level reassessed. General: Appears in no apparent distress. comfortable. Neuro: Level of Consciousness is awake, alert, obeys commands. Respiratory: Airway is patent Respiratory effort is even, unlabored, Respiratory pattern is regular, symmetrical, Breath sounds with wheezes in right upper lobe, right middle lobe, right lower lobe, left posterior upper lobe and left posterior lower lobe Denies shortness of breath Notified Dr. Cat that patient is now having wheezing on the right side. Orders received. 12:45 Reassessment: Patient and/or family updated on plan of care and expected duration. Pain aj1 level reassessed. General: Appears in no apparent distress. comfortable, Behavior is calm, cooperative, agitated. Neuro: Level of Consciousness is awake, alert, obeys commands. Cardiovascular: Patient's skin is warm and dry. Respiratory: Airway is patent Respiratory effort is even, unlabored, Respiratory pattern is regular, symmetrical, Breath sounds are clear bilaterally. EENT: Throat is clear. 13:01 Respiratory: Airway is patent Respiratory effort is even, unlabored, Respiratory aj1 pattern is regular, symmetrical, Breath sounds are clear bilaterally. 13:15 Reassessment: Patient and/or family updated on plan of care and expected duration. Pain aj1 level reassessed. General: Appears in no apparent distress. comfortable, Behavior is calm, cooperative, appropriate for age. Neuro: Level of Consciousness is awake, alert, obeys commands. Cardiovascular: Patient's skin is warm and dry. Respiratory: Airway is patent Respiratory effort is even, unlabored, Respiratory pattern is regular, symmetrical, Breath sounds are clear bilaterally. Derm: Skin is pink, warm \T\ dry. normal. Musculoskeletal: Swelling present in right eye, right cheek, mouth and right jaw Swelling continues to get worse. Dr. Cat aware. 13:15 EENT: Throat is clear. aj1 13:30 Reassessment:. Respiratory: Airway is patent Respiratory effort is even, unlabored, aj1 Respiratory pattern is regular, symmetrical, Breath sounds are clear bilaterally. 13:45 Reassessment: Patient and/or family updated on plan of care and expected duration. Pain aj1 level reassessed. General: Appears in no apparent distress. comfortable, Behavior is calm, cooperative, appropriate for age. Neuro: Level of Consciousness is awake, alert. Cardiovascular: Patient's skin is warm and dry. Respiratory: Airway is patent Respiratory effort is even, unlabored, Respiratory pattern is regular, symmetrical, Breath sounds are clear bilaterally. Denies shortness of breath. EENT: Throat is clear. Musculoskeletal: Swelling to face has continued to increase. Notified Dr. Cat. 14:00 Respiratory: Airway is patent Respiratory effort is even, unlabored, Respiratory aj1 pattern is regular, symmetrical, Breath sounds are clear bilaterally. 14:15 General: Appears in no apparent distress. comfortable, Behavior is calm, cooperative. aj1 Neuro: Level of Consciousness is awake, alert, obeys commands. Cardiovascular: Patient's skin is warm and dry. Respiratory: Airway is patent Respiratory effort is even, unlabored, Respiratory pattern is regular, symmetrical, Breath sounds are clear bilaterally. Denies shortness of breath. 14:15 Reassessment: Report given to Tess Rosenbaum RN. aj1 14:45 Reassessment: Resumed care of patient. aj1 14:45 Reassessment: Patient and/or family updated on plan of care and expected duration. Pain aj1 level reassessed. General: Appears in no apparent distress. comfortable, Behavior is calm, cooperative, appropriate for age. Neuro: Level of Consciousness is awake, alert, obeys commands. Cardiovascular: Patient's skin is warm and dry. Respiratory: Airway is patent Respiratory effort is even, unlabored, Respiratory pattern is regular, symmetrical, Breath sounds are clear bilaterally. 15:00 Respiratory: Airway is patent Respiratory effort is even, unlabored, Respiratory aj1 pattern is regular, symmetrical, Breath sounds are clear bilaterally. 15:15 General: Appears in no apparent distress. comfortable, Behavior is calm, cooperative. aj1 Neuro: Level of Consciousness is awake, alert, obeys commands. Cardiovascular: Patient's skin is warm and dry. Respiratory: Airway is patent Respiratory effort is even, unlabored, Respiratory pattern is regular, symmetrical, Breath sounds are clear bilaterally. Denies shortness of breath. 15:30 Respiratory: Airway is patent Respiratory effort is even, unlabored, Respiratory aj1 pattern is regular, symmetrical, Breath sounds are clear bilaterally. Denies shortness of breath. 15:45 Reassessment: Patient and/or family updated on plan of care and expected duration. Pain aj1 level reassessed. General: Appears in no apparent distress. comfortable, Behavior is calm, cooperative, appropriate for age. Neuro: Level of Consciousness is awake, alert, obeys commands. Cardiovascular: Patient's skin is warm and dry. Rhythm is sinus rhythm. Respiratory: Airway is patent Respiratory effort is even, unlabored, Respiratory pattern is regular, symmetrical, Breath sounds are clear bilaterally. Denies shortness of breath. 16:00 Reassessment: Patient and/or family updated on plan of care and expected duration. Pain aj1 level reassessed. General: Appears in no apparent distress. comfortable. Respiratory: Airway is patent Respiratory effort is even, unlabored, Respiratory pattern is regular, symmetrical, Breath sounds are clear bilaterally. 16:15 Reassessment: Patient and/or family updated on plan of care and expected duration. Pain aj1 level reassessed. General: Appears in no apparent distress. comfortable, Behavior is calm, cooperative, appropriate for age. Neuro: Level of Consciousness is awake, alert, obeys commands. Cardiovascular: Patient's skin is warm and dry. Rhythm is sinus rhythm. Respiratory: Airway is patent Respiratory effort is even, unlabored, Respiratory pattern is regular, symmetrical, Breath sounds are clear bilaterally. Denies shortness of breath. 16:30 Respiratory: Airway is patent Respiratory effort is even, unlabored, Respiratory aj1 pattern is regular, symmetrical, Breath sounds are clear bilaterally. Denies shortness of breath. Vital Signs: 10:41 BP 128 / 74; Pulse 74; Resp 17; Temp 96.9(TE); Pulse Ox 97% on R/A; tw2 11:43 BP 131 / 81; Pulse 64; Resp 18; Pulse Ox 99% on R/A; aj1 12:15 BP 108 / 73; Pulse 66; Resp 20; Pulse Ox 99% on R/A; aj1 12:45 BP 126 / 62; Pulse 81; Resp 23; Pulse Ox 99% on R/A; aj1 13:15 BP 132 / 75; Pulse 79; Resp 22; Pulse Ox 99% ; aj1 13:45 BP 138 / 68; Pulse 85; Resp 24; Pulse Ox 99% on R/A; aj1 14:15 BP 131 / 83; Pulse 92; Resp 21; Pulse Ox 100% on R/A; aj1 14:45 BP 114 / 84; Pulse 92; Resp 21; Pulse Ox 100% ; aj1 15:15 BP 127 / 65; Pulse 91; Resp 23; Pulse Ox 100% ; aj1 15:45 BP 128 / 79; Pulse 84; Resp 21; Pulse Ox 100% ; aj1 16:15 BP 129 / 78; Pulse 81; Resp 21; Pulse Ox 100% on R/A; aj1 ED Course: 10:29 Patient arrived in ED. sb2 10:29 None, None is Private Physician. sb2 10:41 Triage completed. tw2 10:42 Arm band placed on. tw2 10:44 Estephanie Benitez FNP-C is [facility]. kb 10:44 Blaise Cat MD is Attending Physician. kb 10:53 Jackie Pino, VU is Primary Nurse. aj1 10:53 Patient has correct armband on for positive identification. Bed in low position. Call aj1 light in reach. Side rails up X 1. 10:53 No provider procedures requiring assistance completed. aj1 10:57 Inserted saline lock: 20 gauge in right antecubital area, using aseptic technique. mw2 Blood collected. 14:29 Tiffany Jung MD is Hospitalizing Provider. rn 14:50 Primary Nurse role handed off by Jackie Pino RN aj1 15:12 Jackie Pino RN is Primary Nurse. aj1 16:07 Report given to VU Alonso on 2nd floor. aj1 16:36 Patient admitted, IV remains in place. aj1 Administered Medications: 11:02 Drug: SOLU-Medrol 125 mg Route: IVP; Site: right antecubital; aj1 12:15 Follow up: Response: No adverse reaction; No change in condition aj1 11:02 Drug: Pepcid 20 mg Route: IVP; Site: right antecubital; aj1 12:15 Follow up: Response: No adverse reaction; No change in condition aj1 11:23 Drug: Benadryl 50 mg Route: IVP; Site: right antecubital; aj1 12:15 Follow up: Response: No adverse reaction; No change in condition aj1 12:22 Drug: EPINEPHrine 1mg/mL 1:1,000 0.5 mg Route: IM; Site: right deltoid; aj1 13:00 Follow up: Response: No adverse reaction; Wheezing diminished aj1 12:22 Drug: Racemic EPINPHrine 0.5 ml Route: Inhalation; aj1 13:00 Follow up: Response: No adverse reaction; Wheezing diminished aj1 12:22 Drug: NS 0.9% 1000 ml Route: IV; Rate: 1000 ml; Site: right antecubital; aj1 13:30 Follow up: IV Status: Completed infusion; IV Intake: 1000ml aj1 Intake: 13:30 IV: 1000ml; Total: 1000ml. aj1 Outcome: 14:30 Decision to Hospitalize by Provider. rn 16:39 Admitted to Tele accompanied by tech, via wheelchair, with chart. aj1 16:39 Condition: unchanged 16:39 Discharge instructions given to patient, Instructed on the need for admit, Demonstrated understanding of instructions. 16:43 Patient left the ED. aj1 Signatures: Estephanie Benitez, SALES AND SERVICE REPRESENTATIVE-C SALES AND SERVICE REPRESENTATIVE-Ckb Jackie Pino RN RN aj1 Blaise Cat MD MD rn Wise, Tara, RN RN 2 Riddhi Gao 2 Faiza Olmos mw2 Corrections: (The following items were deleted from the chart) 10:42 10:34 Presenting complaint: Patient states: lip started swelling 3 this morning, and it tw2 wasn't too much but about an hour ago it got way worse, denies dental pain, i took antibiotics this hospital gave me tw2 : 14:48 IV discontinued, intact, bleeding controlled, No redness/swelling at site. hb Pressure dressing applied, [facility] :47 Condition: stable [facility] :47 Discharged to home ambulatory, with significant other, [facility] :47 Discharge instructions given to patient, significant other, Instructed on hb discharge instructions, follow up and referral plans. Demonstrated understanding of instructions, follow-up care, [facility] 14:48 Patient left the ED. [facility]
--- NOTE | 2018-05-16 14:57 | P.HP ---
Certification for Inpatient Patient admitted to: Observation With expected LOS: <2 Midnights Patient will require the following post-hospital care: None Practitioner: I am a practitioner with admitting privileges, knowledge of patient current condition, hospital course, and medical plan of care. Services: Services provided to patient in accordance with Admission requirements found in Title 42 Section 412.3 of the Code of Federal Regulations Patient History Date of Service: 05/16/18 Primary Care Provider: Unknown Reason for admission: Angioedema History of Present Illness: 27 y/o M with no pmhx presented to the ED after noticing upper lip swelling that has been getting progressively worse since this AM. pt woke up at 3AM at night and noticed he was getting swelling on the right side of his face and upper lip. He went to work and it was getting worse so he decided to come to the ER. In the ER pt's swelling was getting worse and extending to Right eye and lower Lip. pt was then admitted for further workup. Denies Fever, chills, SOB, CP, Trouble swollowing and Breathing. Allergies No Known Allergie Allergy (Uncoded 07/10/17 14:36) Unknown No Known Allergies Allergy (Uncoded 11/28/17 12:48) Unknown Review of Systems 10-point ROS is otherwise unremarkable Physical Examination - Vital Signs Temperature: 96.9 F Blood Pressure: 128/74 Pulse: 74 Respirations: 17 - Physical Exam General: Alert, In no apparent distress HEENT: Atraumatic, PERRLA, Mucous membr. moist/pink, Other, EOMI, Sclerae nonicteric Neck: Supple, 2+ carotid pulse no bruit, JVD not distended, No LAD, Other ( Upper and lower lip with significant swelling. No stridor noted. Tongue is also not deviated. Drooling noted. No swollowing diff. ), Without JVD or thyroid abnormality Respiratory: Clear to auscultation bilaterally, Normal air movement Cardiovascular: Regular rate/rhythm, Normal S1 S2 Gastrointestinal: Normal bowel sounds, No tenderness Musculoskeletal: No tenderness Integumentary: No rashes Neurological: Normal strength at 5/5 x4 extr, Normal tone, Abnormal speech Lymphatics: No axilla or inguinal lymphadenopathy Assessment and Plan - Problems (Diagnosis) (1) Angioedema Current Visit: Yes Status: Acute Plan: Angioedema with Unknown Etiology -IV Benadryl, Steroids and Epi for now -Cont pulse ox for now -ENT consult if needed. Qualifiers: Encounter type: initial encounter Qualified Code(s): T78.3XXA - Angioneurotic edema, initial encounter Discharge Plan: Home Plan to discharge in: 24 Hours - Advance Directives Does patient have a Living Will: No Does patient have a Durable POA for Healthcare: No - Code Status/Comfort Care Code Status Assessed: Yes Critical Care: No
[2018-05-16] MEDS ORDERED: ONDANSETRON 4 MG/2 ML VIAL IV PRN (16:50)
[2018-05-16] MEDS ORDERED: DIPHENHYDRAMINE 25 MG TAB/CAP PO PRN ×2 (16:50→16:59)
[2018-05-16] MEDS ORDERED: ACETAMINOPHEN 500 MG TAB PO PRN (16:50)
[2018-05-16] MEDS ORDERED: EPINEPHRINE 1 MG/ML VIAL SQ ONE (16:52)
[2018-05-16] MEDS ORDERED: DIPHENHYDRAMINE 50 MG/ML VIAL IV PRN (16:52)
[2018-05-16] MEDS: NA CHLORIDE 0.9% 1,000 ML IV SCH ×2 (17:30→23:01)
[2018-05-16] MEDS: ENOXAPARIN 40 MG/0.4 ML SQ SCH (17:31)
[2018-05-16] MEDS: METHYLPREDNISOLONE 125 MG INJ IV SCH ×3 (17:31→23:02)
[2018-05-16 18:00] LABS: Urine Appearance CLEAR; Urine Bilirubin NEGATIVE (NEG); Urine Blood TRACE (NEG); Urine Color YELLOW; Urine Glucose 1+ (NEG); Urine Protein NEGATIVE (NEG); Urine Specific Gravity 1.025 (1.005-1.030); Urine Urobilinogen 0.2 mg/dL (0.2-1.0)
[2018-05-16] MEDS ORDERED: DIPHENHYDRAMINE 50 MG/ML VIAL IV ONE (18:00)
[2018-05-16] MEDS ORDERED: METHYLPREDNISOLONE 125 MG INJ IV SCH (18:00)
[2018-05-16 18:01] LABS: Urine Microscopic Reflex ORDER UMIC
[2018-05-16 18:09] LABS: Urine Bacteria <20 /HPF (NONE SEEN); Urine Culture Reflex Order NOT NEEDED; Urine Mucus 1+ /HPF (NONE SEEN)
[2018-05-16] MEDS ORDERED: INFLUENZA VACCINE (for 3y+) 0.5 ML DOSE IMVAC ONE (20:00)
[2018-05-17 05:13] LABS: Absolute Lymphocytes (CBC) 0.9 K/uL (0.7-4.9); Absolute Monocytes 0.1 K/uL (0.1-1.3); Absolute Neutrophil 12.5 K/uL (1.8-8.0); Basophils % 0.1 % (0-1.3); Hematocrit 41.7 % (39.6-49.0); Lymphocytes % 6.6 % (15.3-44.8); MCH 31.3 pg (27.0-35.0); MCV 89.1 fL (80-100); MPV 8.2 fL (7.6-11.3); Monocytes % 0.4 % (3.3-12.3); RBC Red Blood Cell Count 4.68 M/uL (4.33-5.43)
[2018-05-17] MEDS: METHYLPREDNISOLONE 125 MG INJ IV SCH ×4 (05:26→23:07)
[2018-05-17 05:36] LABS: ALT/SGPT 51 U/L (12-78); AST/SGOT 16 U/L (15-37); Albumin 3.7 g/dL (3.4-5.0); Alkaline Phosphatase 69 U/L (45-117); BUN Blood Urea Nitrogen 13 mg/dL (7-18); Bicarbonate 26 mmol/L (21-32); Bilirubin Total 0.5 mg/dL (0.2-1.0); Glucose Level 148 mg/dL (74-106); Protein, Total 6.6 g/dL (6.4-8.2); Sodium Level 142 mmol/L (136-145)
[2018-05-17 07:01] LABS: Blood Morphology Comment NOT SEEN (NOT SEEN); Platelet Estimate ADEQ
[2018-05-17] MEDS: ENOXAPARIN 40 MG/0.4 ML SQ SCH (08:52)
[2018-05-17] MEDS: NA CHLORIDE 0.9% 1,000 ML IV SCH ×2 (11:52→21:35)
--- NOTE | 2018-05-17 12:05 | P.PN ---
Subjective Date of Service: 05/17/18 Primary Care Provider: Unknown Chief Complaint: Angioedema Patient seen and examined at bedside with RN. Chart reviewed. Overall overnight patient improving slowly. No complaints to offer states that he still feels really tight around his face. Denies having any issues swelling. States that he is hungry and would like to eat something Review of Systems 10-point ROS is otherwise unremarkable Physical Examination - Vital Signs Temperature: 97.9 F Blood Pressure: 108/58 Pulse: 81 Respirations: 20 Pulse Ox (%): 98 - Physical Exam General: Alert, In no apparent distress HEENT: Atraumatic, PERRLA, Other (Bilateral facial swelling noted. Upper lip swelling. Lower lip improving. No drooling noted. Patient having no difficulties swallowing either.), EOMI Neck: Supple, JVD not distended Respiratory: Clear to auscultation bilaterally, Normal air movement Cardiovascular: Regular rate/rhythm, Normal S1 S2 Gastrointestinal: Normal bowel sounds, No tenderness Musculoskeletal: No tenderness Integumentary: No rashes Neurological: Normal speech, Normal tone, Normal affect Lymphatics: No axilla or inguinal lymphadenopathy - Studies Medications List Reviewed: Yes Assessment And Plan - Current Problems (Diagnosis) (1) Angioedema Current Visit: Yes Status: Acute Plan: Angioedema with Unknown Etiology. Improving today -IV Benadryl, Steroids and Epi for now -Cont pulse ox for now -ENT consult if needed. Qualifiers: Encounter type: initial encounter Qualified Code(s): T78.3XXA - Angioneurotic edema, initial encounter Discharge Plan: Home Plan to discharge in: 48 Hours - Code Status/Comfort Care Code Status Assessed: Yes Critical Care: No
[2018-05-18] MEDS: METHYLPREDNISOLONE 125 MG INJ IV SCH ×2 (04:52→11:43)
[2018-05-18 06:04] LABS: Absolute Monocytes 0.3 K/uL (0.1-1.3); Absolute Neutrophil 22.1 K/uL (1.8-8.0); Basophils % 0.1 % (0-1.3); Hematocrit 41.9 % (39.6-49.0); Lymphocytes % 4.1 % (15.3-44.8); MCH 31.2 pg (27.0-35.0); MCV 88.8 fL (80-100); MPV 8.8 fL (7.6-11.3); Monocytes % 1.5 % (3.3-12.3); RBC Red Blood Cell Count 4.72 M/uL (4.33-5.43)
[2018-05-18 06:18] LABS: ALT/SGPT 46 U/L (12-78); AST/SGOT 14 U/L (15-37); Albumin 3.5 g/dL (3.4-5.0); Alkaline Phosphatase 65 U/L (45-117); BUN Blood Urea Nitrogen 15 mg/dL (7-18); Bicarbonate 25 mmol/L (21-32); Bilirubin Total 0.3 mg/dL (0.2-1.0); Glucose Level 144 mg/dL (74-106); Potassium 3.8 mmol/L (3.5-5.1); Protein, Total 6.3 g/dL (6.4-8.2); Sodium Level 141 mmol/L (136-145)
[2018-05-18] MEDS: ENOXAPARIN 40 MG/0.4 ML SQ SCH (08:38)
[2018-05-18] MEDS: NA CHLORIDE 0.9% 1,000 ML IV SCH ×3 (08:50→20:58)
[2018-05-18 09:27] LABS: Blood Morphology Comment NOT SEEN (NOT SEEN); Platelet Estimate ADEQ
--- NOTE | 2018-05-18 12:31 | P.PN ---
Subjective Date of Service: 05/18/18 Primary Care Provider: Unknown Chief Complaint: Angioedema Patient seen and examined at bedside with RN. Chart reviewed. Overall overnight patient improving slowly. No complaints to offer now. Review of Systems 10-point ROS is otherwise unremarkable Physical Examination - Vital Signs Temperature: 97.5 F Blood Pressure: 137/70 Pulse: 69 Respirations: 17 Pulse Ox (%): 95 - Physical Exam General: Alert, In no apparent distress HEENT: Atraumatic, PERRLA, Other (Marked Improvemenent in facial Swelling. 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 Improving today -IV Benadryl, Switched to PO Steroids -Cont pulse ox for now Qualifiers: Encounter type: initial encounter Qualified Code(s): T78.3XXA - Angioneurotic edema, initial encounter Discharge Plan: Home Plan to discharge in: 48 Hours - Code Status/Comfort Care Code Status Assessed: Yes Critical Care: No
[2018-05-18] MEDS: predniSONE 20 MG TAB PO SCH (20:56)
[2018-05-19] MEDS: NA CHLORIDE 0.9% 1,000 ML IV SCH (05:56)
[2018-05-19 06:32] LABS: Absolute Lymphocytes (CBC) 0.9 K/uL (0.7-4.9); Absolute Monocytes 0.5 K/uL (0.1-1.3); Absolute Neutrophil 19.4 K/uL (1.8-8.0); Basophils % 0.2 % (0-1.3); Hematocrit 41.8 % (39.6-49.0); Lymphocytes % 4.4 % (15.3-44.8); MCH 31.3 pg (27.0-35.0); MCV 89.9 fL (80-100); MPV 9.3 fL (7.6-11.3); Monocytes % 2.5 % (3.3-12.3); RBC Red Blood Cell Count 4.65 M/uL (4.33-5.43)
[2018-05-19 06:56] LABS: ALT/SGPT 42 U/L (12-78); AST/SGOT 11 U/L (15-37); Albumin 3.3 g/dL (3.4-5.0); Alkaline Phosphatase 60 U/L (45-117); BUN Blood Urea Nitrogen 14 mg/dL (7-18); Bicarbonate 27 mmol/L (21-32); Bilirubin Total 0.3 mg/dL (0.2-1.0); Glucose Level 121 mg/dL (74-106); Potassium 4.1 mmol/L (3.5-5.1); Protein, Total 6.1 g/dL (6.4-8.2); Sodium Level 143 mmol/L (136-145)
[2018-05-19] MEDS: ENOXAPARIN 40 MG/0.4 ML SQ SCH (09:37)
[2018-05-19] MEDS: predniSONE 20 MG TAB PO SCH (09:37)
--- NOTE | 2018-05-19 13:34 | P.DS ---
Admission Date: 05/18/18 Discharge Date: 05/19/18 Primary Care Provider: Unknown Disposition: ROUTINE DISCHARGE Discharge Condition: GOOD Reason for Admission: Angioedema - Problems (1) Angioedema Onset Date: 05/17/18 Current Visit: Yes Status: Acute Qualifiers: Encounter type: initial encounter Qualified Code(s): T78.3XXA - Angioneurotic edema, initial encounter Brief History of Present Illness: 27 y/o M with no pmhx presented to the ED after noticing upper lip swelling that has been getting progressively worse since this AM. pt woke up at 3AM at night and noticed he was getting swelling on the right side of his face and upper lip. He went to work and it was getting worse so he decided to come to the ER. In the ER pt's swelling was getting worse and extending to Right eye and lower Lip. pt was then admitted for further workup. Denies Fever, chills, SOB, CP, Trouble swollowing and Breathing. Hospital Course: The patient was seen and examined at bedside with RN today. 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 Patient was started on Benadryl and steroids. Had received epi x2 here in the hospital. Patient did have marked improvement after 24-48 hr in the facial swelling and angioedema. Patient then was discharged home under stable condition was explained extensively on the disease process and the need to keep an epi pen on him at all times. Patient was also asked to follow up with the ENT specialist along with an recreational programs director to find out the trigger into the appropriate workup. Patient was asked to establish care with a primary care provider locally and have appropriate lab work at that time as well. Patient demonstrated understanding and was discharged home under stable condition. Patient was asked to continue taking steroids for the next 10 days but with tapering dose and then antral for next 10 days as well. Patient was also given a prescription for EpiPen to be used on an as-needed basis Vital Signs/Physical Exam: Temp Pulse Resp BP Pulse Ox 97.6 F 65 16 130/71 96 05/19/18 08:00 05/19/18 08:00 05/19/18 08:00 05/19/18 08:00 05/19/18 08:00 General: Alert, In no apparent distress HEENT: Atraumatic, PERRLA, EOMI Neck: Supple, JVD not distended Respiratory: Clear to auscultation bilaterally, Normal air movement Cardiovascular: Regular rate/rhythm, Normal S1 S2 Gastrointestinal: Normal bowel sounds, No tenderness Musculoskeletal: No tenderness Integumentary: No rashes Neurological: Normal speech, Normal tone, Normal affect Lymphatics: No axilla or inguinal lymphadenopathy Laboratory Data at Discharge: WBC 20.8 K/uL (4.3-10.9) H* 05/19/18 05:55 Hgb 14.6 g/dL (13.6-17.9) 05/19/18 05:55 Hct 41.8 % (39.6-49.0) 05/19/18 05:55 Plt Count 312 K/uL (152-406) 05/19/18 05:55 Sodium 143 mmol/L (136-145) 05/19/18 05:55 Potassium 4.1 mmol/L (3.5-5.1) 05/19/18 05:55 BUN 14 mg/dL (7-18) 05/19/18 05:55 Creatinine 0.70 mg/dL (0.55-1.3) 05/19/18 05:55 Glucose 121 mg/dL (74-106) H 05/19/18 05:55 Total Bilirubin 0.3 mg/dL (0.2-1.0) 05/19/18 05:55 AST 11 U/L (15-37) L 05/19/18 05:55 ALT 42 U/L (12-78) 05/19/18 05:55 Alkaline Phosphatase 60 U/L (45-117) 05/19/18 05:55 Home Medications: Diphenhydramine [Benadryl*] 25 mg PO Q6H PRN #40 tab 05/19/18 Epinephrine [Epipen Jr 2-Dale] 0.15 mg IM ONCE PRN #0.3 ml 05/19/18 predniSONE [Deltasone] 20 mg PO DAILY #30 tab 05/19/18 New Medications: Diphenhydramine [Benadryl*] 25 mg PO Q6H PRN #40 tab PRN Reason: Itching Epinephrine [Epipen Jr 2-Dale] 0.15 mg IM ONCE PRN #0.3 ml PRN Reason: Allergies predniSONE [Deltasone] 20 mg PO DAILY #30 tab Patient Discharge Instructions: Please f.u with PCP in 1 to 2 week post discharge. 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 New medication. Prednisone as directed taper dose. Benadryl 25mg q6h for 10 days. Epipen inject as needed for angioedema Diet: Regular Activity: Ad maru Followup: Roque Santana MD [ACTIVE - CAN ADMIT] - 1 Week
== END 2018-05-19 13:30 | disposition home or self-care (01) | DRG 916 ==
LOC: ER 10:26 → 2ND 14:30 → OBSVTOIN 05-18 14:21
PROVIDERS: ADMIT Family Medicine; ATTEND Family Medicine
DX: T78.3XXA Angioneurotic edema, initial encounter (principal); Z23 Encounter for immunization
CPT/HCPCS: 36415; 80053; 81003; 81015; 85025; 87493; 94760; 96361; 96372; 96374; 96375; 99285; G0008; G0378; J0171; J1650; J2930; J7030; J7512; Q2035

== ENCOUNTER 2018-09-17 13:41 | Emergency (ER) | payer SELFPAY ==
[2018-09-17 14:39] LABS: Absolute Lymphocytes (CBC) 1.9 K/uL (0.7-4.9); Absolute Monocytes 0.6 K/uL (0.1-1.3); Absolute Neutrophil 4.1 K/uL (1.8-8.0); Basophils % 0.5 % (0-1.3); Eosinophils % 1.6 % (0-4.4); Hematocrit 46.7 % (39.6-49.0); Lymphocytes % 28.8 % (15.3-44.8); MPV 8.7 fL (7.6-11.3); Monocytes % 8.5 % (3.3-12.3); RBC Red Blood Cell Count 5.27 M/uL (4.33-5.43)
--- NOTE | 2018-09-17 14:42 | RAD REPORT ---
EXAM DESCRIPTION: US - Abdomen Exam Limited - 09/17/2018 2:28 pm CLINICAL HISTORY: Abdominal pain COMPARISON: CT study April 2018 FINDINGS: No gallstones, sludge or other abnormalities within the gallbladder lumen. There is no wal l thickening or pericholecystic fluid. No common duct stone or biliary tree dilatation identified. IMPRESSION: Normal gallbladder and biliary tree ultrasound.
[2018-09-17 14:54] LABS: ALT/SGPT 42 U/L (12-78); AST/SGOT 20 U/L (15-37); Albumin 4.1 g/dL (3.4-5.0); Alkaline Phosphatase 80 U/L (45-117); BUN Blood Urea Nitrogen 13 mg/dL (7-18); Bicarbonate 27 mmol/L (21-32); Bilirubin Direct 0.2 mg/dL (0-0.2); Bilirubin Total 0.6 mg/dL (0.2-1.0); Glucose Level 96 mg/dL (74-106); Lipase 95 U/L (73-393); Potassium 3.9 mmol/L (3.5-5.1); Sodium Level 142 mmol/L (136-145)
[2018-09-17] MEDS ORDERED: MAGNE/ALUM HYDROXD 30 ML UCUP ONE (15:20)
[2018-09-17] MEDS ORDERED: LIDOCAINE VISCOUS 2% SOLN 15 ML UDC ONE (15:21)
--- NOTE | 2018-09-17 15:22 | ER ---
Nurse's Notes [facility] Name: Berlin Tran Age: 28 yrs Sex: Male : 1990 Arrival Date: 09/17/2018 Time: 13:46 Bed 24 Private MD: Diagnosis: Upper abdominal pain, unspecified Presentation: 09/17 13:47 Presenting complaint: Patient states: intermittent burning epigastric pain hours later sv after eating, n/v x 2 days. abd pain is worse in the mornings after waking up. Transition of care: patient was not received from another setting of care. Onset of symptoms was September 15, 2018. Care prior to arrival: None. 13:47 Method Of Arrival: Ambulatory sv 13:47 Acuity: PITER 3 sv 15:41 Risk Assessment: Do you want to hurt yourself or someone else? Patient reports no aj desire to harm self or others. Initial Sepsis Screen: Does the patient meet any 2 criteria? No. Patient's initial sepsis screen is negative. Does the patient have a suspected source of infection? No. Patient's initial sepsis screen is negative. Historical: - Allergies: 13:51 No Known Allergies; sv - PMHx: 13:51 Asthma; Gastric Reflux; sv - PSHx: 13:51 None; sv - Immunization history:: Adult Immunizations up to date. - Social history:: Smoking status: Patient/guardian denies using tobacco. - Ebola Screening: : Patient negative for fever greater than or equal to 101.5 degrees Fahrenheit, and additional compatible Ebola Virus Disease symptoms Patient denies exposure to infectious person Patient denies travel to an Ebola-affected area in the 21 days before illness onset No symptoms or risks identified at this time. Screenin:13 Abuse screen: Denies threats or abuse. Denies injuries from another. Nutritional aj screening: No deficits noted. Tuberculosis screening: No symptoms or risk factors identified. Fall Risk None identified. Assessment: 14:13 General: Appears in no apparent distress. comfortable, Behavior is calm, cooperative, aj appropriate for age. Pain: Complains of pain in epigastric area, right upper quadrant and left upper quadrant. Neuro: Level of Consciousness is awake, alert, obeys commands, Oriented to person, place, time, situation, Appropriate for age. Respiratory: Airway is patent Respiratory effort is even, unlabored, Respiratory pattern is regular, symmetrical. GI: Abdomen is flat, non-distended, Bowel sounds present X 4 quads. Abd is soft X 4 quads Abdomen is tender to palpation in epigastric area, right upper quadrant and left upper quadrant. GI: Reports upper abdominal pain, nausea, vomiting. Derm: Skin is intact, is healthy with good turgor, Skin is pink, warm \T\ dry. normal. Vital Signs: 13:50 BP 134 / 78; Pulse 76; Resp 18; Pulse Ox 98% ; Weight 83.91 kg; Height 5 ft. 11 in. sv (180.34 cm); Pain 5/10; 14:59 BP 152 / 88; Pulse 75; Resp 17; Pulse Ox 99% on R/A; aj 15:40 BP 128 / 84; Pulse 75; Resp 17; Pulse Ox 99% on R/A; aj 13:50 Body Mass Index 25.80 (83.91 kg, 180.34 cm) sv ED Course: 13:46 Patient arrived in ED. mr 13:49 Triage completed. sv 13:51 Arm band placed on. sv 13:53 Estephanie Benitez FNP-C is PHCP. kb 13:53 Kevyn Das MD is Attending Physician. kb 14:00 Keri Aaron, VU is Primary Nurse. aj 14:13 Patient has correct armband on for positive identification. aj 14:13 Inserted saline lock: 22 gauge in right antecubital area, using aseptic technique. aj Blood collected. 14:29 US Abdomen Limited In Process Unspecified. EDMS 14:33 Hepatic Function Sent. aj 14:33 Basic Metabolic Panel Sent. aj 14:34 CBC with Diff Sent. aj 14:34 Lipase Sent. aj 15:40 No provider procedures requiring assistance completed. IV discontinued, intact, aj bleeding controlled, No redness/swelling at site. Pressure dressing applied. Administered Medications: 15:10 Drug: GI Cocktail without - (Maalox Suspension 30 ml, Lidocaine Liquid 2 % 15 aj ml) Route: PO; 15:37 Follow up: Response: Pain is decreased aj Outcome: 15:21 Discharge ordered by MD. kb 15:40 Discharged to home ambulatory, with family. aj 15:40 Condition: good 15:40 Discharge instructions given to patient, family, Instructed on discharge instructions, follow up and referral plans. medication usage, Demonstrated understanding of instructions, follow-up care, medications, Prescriptions given X 2. 15:41 Patient left the ED. aj Signatures: Dispatcher [employer] EDEstephanie Lopez, CHRISTINE NEILP-Amanda Llamas RN RN sv Myers, Amanda, RN RN aj Rivera, Mary mr Corrections: (The following items were deleted from the chart) 13:50 13:47 Presenting complaint: Patient states: intermittent burning epigastric pain, n/v x sv 2 days. sv 13:51 13:47 Presenting complaint: Patient states: intermittent burning epigastric pain hours sv later after eating, n/v x 2 days. sv 13:51 13:50 BP 134 / 78; Pulse 76bpm; Resp 18bpm; Pulse Ox 98%; sv sv
--- NOTE | 2018-09-17 15:22 | EDPHYS ---
Physician Documentation [facility] Name: Berlin Tran Age: 28 yrs Sex: Male : 1990 Arrival Date: 09/17/2018 Time: 13:46 Bed 24 Private MD: ED Physician Kevyn Das HPI: 09/17 15:20 This 28 yrs old Male presents to ER via Ambulatory with complaints of kb Abdominal Pain. 15:20 The patient presents with abdominal pain in the upper abdomen. Onset: The kb symptoms/episode began/occurred 2 day(s) ago. The symptoms do not radiate. Associated signs and symptoms: Pertinent positives: nausea and vomiting, Pertinent negatives: anorexia, blood in stools, chest pain, constipation, diarrhea, dysuria, fever, headache, hematuria, palpitations, shortness of breath, testicular pain, vomiting blood. The symptoms are described as crampy. Modifying factors: The symptoms are alleviated by nothing, the symptoms are aggravated by nothing. Severity of pain: At its worst the pain was moderate in the emergency department the pain is unchanged. The patient has not experienced similar symptoms in the past. The patient has not recently seen a physician. Historical: - Allergies: 13:51 No Known Allergies; sv - PMHx: 13:51 Asthma; Gastric Reflux; sv - PSHx: 13:51 None; sv - Immunization history:: Adult Immunizations up to date. - Social history:: Smoking status: Patient/guardian denies using tobacco. - Ebola Screening: : Patient negative for fever greater than or equal to 101.5 degrees Fahrenheit, and additional compatible Ebola Virus Disease symptoms Patient denies exposure to infectious person Patient denies travel to an Ebola-affected area in the 21 days before illness onset No symptoms or risks identified at this time. ROS: 15:17 Constitutional: Negative for fever, chills, and weight loss, Cardiovascular: Negative kb for chest pain, palpitations, and edema, Respiratory: Negative for shortness of breath, cough, wheezing, and pleuritic chest pain, Back: Negative for injury and pain, : Negative for injury, bleeding, discharge, and swelling, MS/Extremity: Negative for injury and deformity, Skin: Negative for injury, rash, and discoloration, Neuro: Negative for headache, weakness, numbness, tingling, and seizure. 15:17 Abdomen/GI: Positive for abdominal pain, nausea and vomiting, Negative for diarrhea, constipation, abdominal cramps, abdominal distension, anorexia. Exam: 15:17 Constitutional: This is a well developed, well nourished patient who is awake, alert, kb and in no acute distress. Head/Face: Normocephalic, atraumatic. Chest/axilla: Normal chest wall appearance and motion. Nontender with no deformity. No lesions are appreciated. Cardiovascular: Regular rate and rhythm with a normal S1 and S2. No gallops, murmurs, or rubs. Normal PMI, no JVD. No pulse deficits. Respiratory: Lungs have equal breath sounds bilaterally, clear to auscultation and percussion. No rales, rhonchi or wheezes noted. No increased work of breathing, no retractions or nasal flaring. Back: No spinal tenderness. No costovertebral tenderness. Full range of motion. Skin: Warm, dry with normal turgor. Normal color with no rashes, no lesions, and no evidence of cellulitis. MS/ Extremity: Pulses equal, no cyanosis. Neurovascular intact. Full, normal range of motion. Neuro: Awake and alert, GCS 15, oriented to person, place, time, and situation. Cranial nerves II-XII grossly intact. Motor strength 5/5 in all extremities. Sensory grossly intact. Cerebellar exam normal. Normal gait. 15:17 Abdomen/GI: Inspection: abdomen appears normal, Bowel sounds: normal, in all quadrants, Palpation: soft, in all quadrants, mild abdominal tenderness, in the epigastric area, right upper quadrant and left upper quadrant. Vital Signs: 13:50 BP 134 / 78; Pulse 76; Resp 18; Pulse Ox 98% ; Weight 83.91 kg; Height 5 ft. 11 in. sv (180.34 cm); Pain 5/10; 14:59 BP 152 / 88; Pulse 75; Resp 17; Pulse Ox 99% on R/A; aj 15:40 BP 128 / 84; Pulse 75; Resp 17; Pulse Ox 99% on R/A; aj 13:50 Body Mass Index 25.80 (83.91 kg, 180.34 cm) sv MDM: 13:53 Patient medically screened. kb 15:16 Data reviewed: vital signs, nurses notes. Data interpreted: Pulse oximetry: on room air kb is 99 %. Interpretation: normal. Counseling: I had a detailed discussion with the patient and/or guardian regarding: the historical points, exam findings, and any diagnostic results supporting the discharge/admit diagnosis, lab results, radiology results, the need for outpatient follow up, a family practitioner, to return to the emergency department if symptoms worsen or persist or if there are any questions or concerns that arise at home. 09/17 14:04 Order name: Hepatic Function; Complete Time: 14:57 kb 09/17 14:04 Order name: Basic Metabolic Panel; Complete Time: 14:57 kb 09/17 14:04 Order name: CBC with Diff; Complete Time: 14:47 kb 09/17 14:04 Order name: Lipase; Complete Time: 14:57 kb 09/17 14:04 Order name: US Abdomen Limited; Complete Time: 14:47 kb 09/17 14:04 Order name: IV Saline Lock; Complete Time: 14:19 kb 09/17 14:04 Order name: Labs collected and sent; Complete Time: 14:19 kb Administered Medications: 15:10 Drug: GI Cocktail without - (Maalox Suspension 30 ml, Lidocaine Liquid 2 % 15 aj ml) Route: PO; 15:37 Follow up: Response: Pain is decreased rena Disposition: 17:15 Co-signature as Attending Physician, Kevyn Das MD. ma2 Disposition: 09/17/18 15:21 Discharged to Home. Impression: Upper abdominal pain, unspecified. - Condition is Stable. - Discharge Instructions: Gastroesophageal Reflux Disease, Adult, Abdominal Pain, Adult, [id number]. - Prescriptions for Bentyl 20 mg Oral Tablet - take 1 tablet by ORAL route every 6 hours As needed; 20 tablet. Zofran 4 mg Oral Tablet - take 1 tablet by ORAL route every 6 hours As needed; 20 tablet. - Medication Reconciliation Form, Thank You Letter, Antibiotic Education, Prescription Opioid Use, Work release form form. - Follow up: Emergency Department; When: As needed; Reason: Worsening of condition. Follow up: Private Physician; When: 2 - 3 days; Reason: Recheck today's complaints, Continuance of care, Re-evaluation by your physician. Signatures: Dispatcher [employer] Estephanie Harding, Amanda Cruz RN RN sv Myers, Amanda, RN RN aj Alzahri, Mohammad, MD MD ma2 Corrections: (The following items were deleted from the chart) 15:41 15:21 09/17/2018 15:21 Discharged to Home. Impression: Upper abdominal pain, aj unspecified. Condition is Stable. Forms are Medication Reconciliation Form, Thank You Letter, Antibiotic Education, Prescription Opioid Use. Follow up: Emergency Department; When: As needed; Reason: Worsening of condition. Follow up: Private Physician; When: 2 - 3 days; Reason: Recheck today's complaints, Continuance of care, Re-evaluation by your physician. kb
== END 2018-09-17 15:41 | disposition home or self-care (01) ==
LOC: ER 13:41
DX: R10.10 Upper abdominal pain, unspecified (principal); R11.2 Nausea with vomiting, unspecified; J45.909 Unspecified asthma, uncomplicated; K21.9 Gastro-esophageal reflux disease without esophagitis
CPT/HCPCS: 36415; 76705; 80048; 80076; 83690; 85025; 99284

== ENCOUNTER 2018-10-10 13:14 | Emergency (ER) | payer SELFPAY ==
--- NOTE | 2018-10-10 14:29 | ER ---
Nurse's Notes [facility] Name: Berlin Tran Age: 28 yrs Sex: Male : 1990 Arrival Date: 10/10/2018 Time: 13:17 Bed 19 Private MD: Diagnosis: Plantar fascitis. Presentation: 10/10 13:49 Presenting complaint: Significant other states: the bottom of his RIGHT foot is tw2 inflamed and swollen, it happened on my other foot but not at much as this one, i was told it was from eating too much red meat. Transition of care: patient was not received from another setting of care. Onset of symptoms was October 10, 2018. Risk Assessment: Do you want to hurt yourself or someone else? Patient reports no desire to harm self or others. Initial Sepsis Screen: Does the patient meet any 2 criteria? No. Patient's initial sepsis screen is negative. Does the patient have a suspected source of infection? No. Patient's initial sepsis screen is negative. Care prior to arrival: None. 13:49 Method Of Arrival: Ambulatory tw2 13:49 Acuity: PITER 4 tw2 Triage Assessment: 13:54 General: Appears in no apparent distress. Behavior is calm, cooperative, appropriate tw2 for age. Pain: Complains of pain in right foot. Musculoskeletal: Swelling present in plantar, right foot. Historical: - Allergies: 13:54 Motrin (eyes swelling); tw2 - PMHx: 13:54 Asthma; Gastric Reflux; tw2 - PSHx: 13:54 None; tw2 - Immunization history:: Adult Immunizations up to date. - Social history:: Smoking status: Patient/guardian denies using tobacco. - Ebola Screening: : Patient denies travel to an Ebola-affected area in the 21 days before illness onset. Screenin:30 Abuse screen: Denies threats or abuse. Denies injuries from another. Nutritional jl7 screening: No deficits noted. Tuberculosis screening: No symptoms or risk factors identified. Fall Risk None identified. Assessment: 14:30 General: Appears in no apparent distress. comfortable, Behavior is calm, cooperative, jl7 appropriate for age. Pain: Complains of pain in right foot. Neuro: Level of Consciousness is awake, alert, obeys commands, Oriented to person, place, time, situation. Cardiovascular: Patient's skin is warm and dry. Respiratory: Airway is patent Respiratory effort is even, unlabored, Respiratory pattern is regular, symmetrical. Derm: Skin is pink, warm \T\ dry. Musculoskeletal: No signs and/or symptoms reported regarding the musculoskeletal system. Vital Signs: 13:53 BP 127 / 67; Pulse 67; Resp 18; Temp 97.6; Pulse Ox 100% on R/A; Weight 88.45 kg (R); tw2 Pain 10/10; ED Course: 13:17 Patient arrived in ED. rg4 13:53 Triage completed. tw2 13:53 Arm band placed on. tw2 13:55 Shawn Lynn, VU is Primary Nurse. jl7 14:02 Grupo Valenzuela MD is Attending Physician. ps1 14:30 Patient has correct armband on for positive identification. Bed in low position. Call jl7 light in reach. Side rails up X 1. 14:58 No provider procedures requiring assistance completed. Patient did not have IV access jl7 during this emergency room visit. Administered Medications: 14:41 Drug: [place] 5 mg-325 mg 1 tabs Route: PO; jl7 14:55 Follow up: Response: Medication administered at discharge. jl7 14:42 Drug: Decadron - Dexamethasone 10 mg {Note: adminstered PO as ordered.} Route: IVP; jl7 Site: Other; 14:55 Follow up: Response: Medication administered at discharge. jl7 Outcome: 14:28 Discharge ordered by . ps1 14:58 Discharged to home ambulatory, with family. jl7 14:58 Condition: stable 14:58 Discharge instructions given to patient, family, Instructed on discharge instructions, follow up and referral plans. medication usage, Demonstrated understanding of instructions, follow-up care, medications, Prescriptions given X 2. 14:59 Patient left the ED. jl7 Signatures: Monika Durant RN RN tw2 Heather Lomas rg4 Shawn Lynn RN RN jl7 Grupo Valenzuela MD MD ps1
--- NOTE | 2018-10-10 14:30 | EDPHYS ---
Physician Documentation [facility] Name: Berlin Tran Age: 28 yrs Sex: Male : 1990 Arrival Date: 10/10/2018 Time: 13:17 Bed 19 Private MD: ED Physician Grupo Valenzuela HPI: 10/10 14:25 This 28 yrs old Male presents to ER via Ambulatory with complaints of Foot ps1 Pain. 14:25 onset was this morning. Pain is localized to middle of foot and into the ball. Pain ps1 rated as moderate and worse with ambulating and weight bearing. Atraumatic. No fever. No cellulitic changes. No puncture wound. . Historical: - Allergies: 13:54 Motrin (eyes swelling); tw2 - PMHx: 13:54 Asthma; Gastric Reflux; tw2 - PSHx: 13:54 None; tw2 - Immunization history:: Adult Immunizations up to date. - Social history:: Smoking status: Patient/guardian denies using tobacco. - Ebola Screening: : Patient denies travel to an Ebola-affected area in the 21 days before illness onset. ROS: 14:25 Constitutional: Negative for fever, chills, and weight loss, Eyes: Negative for injury, ps1 pain, redness, and discharge, Cardiovascular: Negative for chest pain, palpitations, and edema, Respiratory: Negative for shortness of breath, cough, wheezing, and pleuritic chest pain, Abdomen/GI: Negative for abdominal pain, nausea, vomiting, diarrhea, and constipation, Skin: Negative for injury, rash, and discoloration, Neuro: Negative for headache, weakness, numbness, tingling, and seizure. 14:25 MS/extremity: Positive for pain, of the right foot. Exam: 14:25 Constitutional: This is a well developed, well nourished patient who is awake, alert, ps1 and in no acute distress. Head/Face: Normocephalic, atraumatic. Eyes: Pupils equal round and reactive to light, extra-ocular motions intact. Lids and lashes normal. Conjunctiva and sclera are non-icteric and not injected. Neck: Trachea midline, no thyromegaly or masses palpated, and no cervical lymphadenopathy. Supple, full range of motion without nuchal rigidity, or vertebral point tenderness. No Meningismus. Chest/axilla: Normal chest wall appearance and motion. Nontender with no deformity. No lesions are appreciated. Cardiovascular: Regular rate and rhythm. No gallops, murmurs, or rubs. Normal PMI, no JVD. No pulse deficits. Respiratory: Lungs have equal breath sounds bilaterally, clear to auscultation and percussion. No rales, rhonchi or wheezes noted. No increased work of breathing, no retractions or nasal flaring. Abdomen/GI: Soft, non-tender, with normal bowel sounds. No distension or tympany. No guarding or rebound. No evidence of tenderness throughout. Skin: Warm, dry with normal turgor. Normal color with no rashes, no lesions, and no evidence of cellulitis. Neuro: Awake and alert, GCS 15, oriented to person, place, time, and situation. Cranial nerves II-XII grossly intact. Sensory grossly intact. 14:25 Musculoskeletal/extremity: Extremities: grossly normal except: noted in the ball of right foot and arch of right foot: pain, tenderness. Vital Signs: 13:53 BP 127 / 67; Pulse 67; Resp 18; Temp 97.6; Pulse Ox 100% on R/A; Weight 88.45 kg (R); tw2 Pain 10/10; MDM: 14:25 Data reviewed: vital signs, nurses notes, and as a result, I will discharge patient. ps1 14:28 Patient medically screened. ps1 Administered Medications: 14:41 Drug: [place] 5 mg-325 mg 1 tabs Route: PO; [facility] 14:55 Follow up: Response: Medication administered at discharge. [facility] 14:42 Drug: Decadron - Dexamethasone 10 mg {Note: adminstered PO as ordered.} Route: IVP; [facility] Site: Other; 14:55 Follow up: Response: Medication administered at discharge. [facility] Disposition: 10/10/18 14:28 Discharged to Home. Impression: Plantar fascitis. . - Condition is Stable. - Discharge Instructions: Plantar Fasciitis. - Prescriptions for Tylenol- Codeine #3 300-30 mg Oral Tablet - take 2 tablet by ORAL route every 6 hours As needed; 30 tablet. Medrol (Dale) 4 mg Oral Tablets, Dose Pack - take 1 tablet by ORAL route as directed - follow package instructions; 1 packet. - Work release form, Medication Reconciliation Form, Thank You Letter, Antibiotic Education, Prescription Opioid Use form. - Follow up: Private Physician; When: As needed; Reason: Recheck today's complaints, Continuance of care, Re-evaluation by your physician. Follow up: Emergency Department; When: As needed; Reason: Worsening of condition. Signatures: Monika Durant, RN RN tw2 Shawn Lynn RN RN jl7 Grupo Valenzuela MD MD ps1 Corrections: (The following items were deleted from the chart) 14:59 14:28 10/10/2018 14:28 Discharged to Home. Impression: Plantar fascitis. . Condition is jl7 Stable. Forms are Medication Reconciliation Form, Thank You Letter, Antibiotic Education, Prescription Opioid Use. Follow up: Private Physician; When: As needed; Reason: Recheck today's complaints, Continuance of care, Re-evaluation by your physician. Follow up: Emergency Department; When: As needed; Reason: Worsening of condition. ps1
[2018-10-10] MEDS ORDERED: HYDROCODONE/APAP 5/325 MG TAB ONE (14:42)
[2018-10-10] MEDS ORDERED: DEXAMETHASONE 4 MG/ML VIAL ONE (14:43)
== END 2018-10-10 14:59 | disposition home or self-care (01) ==
LOC: ER 13:14
DX: M72.2 Plantar fascial fibromatosis (principal); Z88.6 Allergy status to analgesic agent
CPT/HCPCS: 96374; 99283

== ENCOUNTER 2018-11-19 14:12 | Emergency (ER) | payer SELFPAY ==
[2018-11-19 16:13] LABS: Absolute Lymphocytes (CBC) 2.4 K/uL (0.7-4.9); Absolute Monocytes 0.9 K/uL (0.1-1.3); Basophils % 0.6 % (0-1.3); Eosinophils % 2.1 % (0-4.4); Hematocrit 45.8 % (39.6-49.0); Lymphocytes % 22.5 % (15.3-44.8); MPV 8.8 fL (7.6-11.3); Monocytes % 8.4 % (3.3-12.3); RBC Red Blood Cell Count 5.18 M/uL (4.33-5.43)
--- NOTE | 2018-11-19 16:22 | RAD REPORT ---
EXAM DESCRIPTION: RAD - Chest Single View - 11/19/2018 4:17 pm CLINICAL HISTORY: CHEST PAIN Chest pain. COMPARISON: Chest Pa And Lat (2 Views) dated 11/28/2017 FINDINGS: Portable technique limits examination quality. The lungs are grossly clear. The heart is normal in size. No displaced fractures. IMPRESSION: No acute intrathoracic process suspected.
[2018-11-19 16:25] LABS: Protime INR 0.97
[2018-11-19 16:34] LABS: ALT/SGPT 46 U/L (12-78); AST/SGOT 16 U/L (15-37); Albumin 3.9 g/dL (3.4-5.0); Alkaline Phosphatase 68 U/L (45-117); BUN Blood Urea Nitrogen 16 mg/dL (7-18); Bicarbonate 27 mmol/L (21-32); Bilirubin Direct 0.1 mg/dL (0-0.2); Bilirubin Total 0.5 mg/dL (0.2-1.0); Creatine Phosphokinase 90 U/L (39-308); Glucose Level 97 mg/dL (74-106); NT PRO-BNP 11 pg/mL (<125); Potassium 3.9 mmol/L (3.5-5.1); Protein, Total 6.7 g/dL (6.4-8.2); Sodium Level 140 mmol/L (136-145); Troponin (Emerg Dept Use Only) < 0.02 ng/mL (0.0-0.045)
--- NOTE | 2018-11-19 17:25 | ER ---
Nurse's Notes [facility] Name: Berlin Tran Age: 28 yrs Sex: Male : 1990 Arrival Date: 11/19/2018 Time: 14:16 Bed 5 Private MD: None, None Diagnosis: Chest pain, unspecified;Other fatigue Presentation: 11/19 14:17 Presenting complaint: Patient states: right shoulder pain x 2 weeks and dizziness and sv "I want to get my blood checked because I've been feeling sleepy lately." started 4 days ago. Transition of care: patient was not received from another setting of care. Onset of symptoms is unknown. Care prior to arrival: None. 14:17 Method Of Arrival: Ambulatory sv 14:17 Acuity: PITER 3 sv 14:21 Note interpreter deaf #[id number]. sv 16:00 Initial Sepsis Screen: Does the patient meet any 2 criteria? No. Patient's initial hb sepsis screen is negative. Does the patient have a suspected source of infection? No. Patient's initial sepsis screen is negative. 16:00 Risk Assessment: Do you want to hurt yourself or someone else? Patient reports no hb desire to harm self or others. Triage Assessment: 14:20 General: Appears in no apparent distress. comfortable, Behavior is calm, cooperative, sv appropriate for age. Pain: Complains of pain in anterior aspect of right shoulder. Neuro: Level of Consciousness is awake, alert, obeys commands, Oriented to person, place, time, situation, Gait is steady. Respiratory: Respiratory effort is even, unlabored, Respiratory pattern is regular, symmetrical. Historical: - Allergies: 14:19 Motrin (eyes swelling); sv - PMHx: 14:19 Asthma; Gastric Reflux; sv - PSHx: 14:19 None; sv - Immunization history:: Adult Immunizations up to date. - Social history:: Smoking status: Patient/guardian denies using tobacco. - Ebola Screening: : No symptoms or risks identified at this time. Screenin:07 Abuse screen: Denies threats or abuse. Denies injuries from another. Nutritional hb screening: No deficits noted. Tuberculosis screening: No symptoms or risk factors identified. Fall Risk None identified. Assessment: 16:07 General: Appears in no apparent distress. Behavior is calm, cooperative. Pain: Pain hb currently is 2 out of 10 on a pain scale. Neuro: Level of Consciousness is awake, alert, obeys commands, Oriented to person, place, time, situation. Cardiovascular: Capillary refill < 3 seconds Patient's skin is warm and dry. Respiratory: Airway is patent Respiratory effort is even, unlabored, Respiratory pattern is regular, symmetrical, Breath sounds are clear bilaterally. GI: No signs and/or symptoms were reported involving the gastrointestinal system. : No signs and/or symptoms were reported regarding the genitourinary system. EENT: No signs and/or symptoms were reported regarding the EENT system. Derm: Skin is intact, is healthy with good turgor. Musculoskeletal: Reports RIGHT shoulder pain. 17:00 Reassessment: Patient appears in no apparent distress at this time. No changes from hb previously documented assessment. Patient and/or family updated on plan of care and expected duration. Pain level reassessed. Patient is alert, oriented x 3, equal unlabored respirations, skin warm/dry/pink. 18:00 Reassessment: Patient appears in no apparent distress at this time. Patient and/or hb family updated on plan of care and expected duration. Pain level reassessed. Patient is alert, oriented x 3, equal unlabored respirations, skin warm/dry/pink. Vital Signs: 14:19 BP 123 / 73 RA Sitting (auto/reg); Pulse 75; Resp 16; Temp 97.7; Pulse Ox 99% ; Weight sv 83.91 kg; Height 5 ft. 10 in. (177.80 cm); 16:00 BP 131 / 78; Pulse 67; Resp 16; Pulse Ox 99% on R/A; hb 17:00 BP 124 / 86; Pulse 70; Resp 16; Pulse Ox 96% on R/A; hb 18:00 BP 126 / 78; Pulse 72; Resp 16; Pulse Ox 99% on R/A; hb 14:19 Body Mass Index 26.54 (83.91 kg, 177.80 cm) sv ED Course: 14:16 Patient arrived in ED. mr 14:16 None, None is Private Physician. mr 14:18 Triage completed. sv 14:20 Arm band placed on Patient placed in waiting room, Patient notified of wait time. sv 15:07 Porfirio Charles PA is PHCP. jmm 15:07 Gagandeep Rodriguez MD is Attending Physician. jmm 15:53 EKG done, by air conditioning service technician. reviewed by Porfirio AVILA. sm3 16:04 Inserted saline lock: 20 gauge in right antecubital area, using aseptic technique. hb Blood collected. 16:06 Sonia Rosenbaum, RN is Primary Nurse. hb 16:08 X-ray completed. Portable x-ray completed in exam room. Patient tolerated procedure mh1 well. 16:09 Patient has correct armband on for positive identification. Bed in low position. Call hb light in reach. Side rails up X 1. 16:11 XRAY Chest (1 view) In Process Unspecified. EDMS 16:12 X-ray completed. Portable x-ray completed in exam room. Patient tolerated procedure mh1 well. 17:24 Sahil Daugherty MD is Referral Physician. [facility] 18:15 No provider procedures requiring assistance completed. IV discontinued, intact, hb bleeding controlled, No redness/swelling at site. Pressure dressing applied. Administered Medications: No medications were administered Outcome: 17:25 Discharge ordered by . [facility] 18:15 Discharged to home ambulatory, with family. hb 18:15 Condition: stable 18:15 Discharge instructions given to patient, family, Instructed on discharge instructions, follow up and referral plans. medication usage, Demonstrated understanding of instructions, follow-up care, medications. 18:16 Patient left the ED. hb Signatures: Dispatcher [employer] EDMS Amanda Carrizales RN RN sv Mickail, Joel, PA PA [facility] Sarita Monk Martha [facility] Sonia Rosenbaum RN RN Judith Barrera 3 Corrections: (The following items were deleted from the chart) 14:20 14:19 83.91 kg; Height 5 ft. 10 in.; BMI: 26.5; sv sv 14:21 14:19 Pulse 75bpm; Resp 16bpm; Pulse Ox 99%; Temp 97.7F; 83.91 kg; Height 5 ft. 10 in.; sv BMI: 26.5; sv 16:09 16:07 Musculoskeletal: Reports left shoulder pain hb hb
--- NOTE | 2018-11-19 17:25 | EDPHYS ---
Physician Documentation [facility] Name: Berlin Tran Age: 28 yrs Sex: Male : 1990 Arrival Date: 11/19/2018 Time: 14:16 Bed 5 Private MD: None, None ED Physician Gagandeep Rodriguez HPI: 11/19 15:11 This 28 yrs old Male presents to ER via Ambulatory with complaints of Arm Pain.jmm 15:11 The patient or guardian complains of pain, that is acute. jmm 16:13 The patient or guardian reports chest pain that is located primarily in the anterior [facility] chest wall, left. The pain does not radiate. The chest pain is described as sharp. This is a 28 yea rold male with a history of asthma, GERD that presents to the ED with complaints of fatigue while at work for the past 2 weeks. Patient also complaints of right anterior shoulder pain worsened with movement and intermittent left sided chest pain he describes as soft. Pain is exertional. Patient denies fam hx of CAD. Patient smokes tobacco. . Historical: - Allergies: 14:19 Motrin (eyes swelling); sv - PMHx: 14:19 Asthma; Gastric Reflux; sv - PSHx: 14:19 None; sv - Immunization history:: Adult Immunizations up to date. - Social history:: Smoking status: Patient/guardian denies using tobacco. - Ebola Screening: : No symptoms or risks identified at this time. ROS: 16:13 Constitutional: Negative for fever, chills, and weight loss. jmm 16:13 Constitutional: Positive for fatigue. 16:13 Cardiovascular: Positive for chest pain. 16:13 All other systems are negative. Exam: 16:13 Constitutional: This is a well developed, well nourished patient who is awake, alert, jmm and in no acute distress. Head/Face: atraumatic. Eyes: EOMI, no conjunctival erythema appreciated ENT: Moist Mucus Membranes Neck: Trachea midline, Supple Chest/axilla: Normal chest wall appearance and motion. Cardiovascular: Regular rate and rhythm. No edema appreciated Respiratory: Normal respirations, no respiratory distress appreciated Abdomen/GI: Non distended, soft Back: Normal ROM 16:13 Musculoskeletal/extremity: right anterior shoulder pain, on extension of right shoulder, full rubber thread spooler strength, full radial pulse, compartments are soft, NVI. 16:13 Skin: Appearance: Color: normal in color. 16:13 Neuro: Orientation: is normal, Mentation: is normal, Memory: is normal. 16:13 Psych: Behavior/mood is pleasant, cooperative. Vital Signs: 14:19 BP 123 / 73 RA Sitting (auto/reg); Pulse 75; Resp 16; Temp 97.7; Pulse Ox 99% ; Weight sv 83.91 kg; Height 5 ft. 10 in. (177.80 cm); 16:00 BP 131 / 78; Pulse 67; Resp 16; Pulse Ox 99% on R/A; hb 17:00 BP 124 / 86; Pulse 70; Resp 16; Pulse Ox 96% on R/A; hb 18:00 BP 126 / 78; Pulse 72; Resp 16; Pulse Ox 99% on R/A; hb 14:19 Body Mass Index 26.54 (83.91 kg, 177.80 cm) sv MDM: 15:11 Patient medically screened. [facility] 17:22 Data reviewed: vital signs, nurses notes, lab test result(s). Counseling: I had a [facility] detailed discussion with the patient and/or guardian regarding: the historical points, exam findings, and any diagnostic results supporting the discharge/admit diagnosis, lab results, radiology results, the need for outpatient follow up, to return to the emergency department if symptoms worsen or persist or if there are any questions or concerns that arise at home. ED course: Heart Score = 1. D-Dimer negative. Patient's VS WNL. Patient is advised to follow up with cardiology for further evaluation of his chest pain. Patient is otherwise given strict return precautions. Patient understood and agrees with the plan of care. . 11/19 15:33 Order name: Basic Metabolic Panel; Complete Time: 16:48 [facility] 11/19 15:33 Order name: CBC with Diff; Complete Time: 16:31 [facility] 11/19 15:33 Order name: LFT's; Complete Time: 16:48 [facility] 11/19 15:33 Order name: Magnesium; Complete Time: 16:48 [facility] 11/19 15:33 Order name: NT PRO-BNP; Complete Time: 16:48 [facility] 11/19 15:33 Order name: PT-INR; Complete Time: 16:31 [facility] 11/19 15:33 Order name: Troponin (emerg Dept Use Only); Complete Time: 16:48 [facility] 11/19 15:33 Order name: XRAY Chest (1 view); Complete Time: 16:31 [facility] 11/19 15:33 Order name: EKG; Complete Time: 15:34 [facility] 11/19 15:33 Order name: Cardiac monitoring; Complete Time: 16:06 [facility] 11/19 15:33 Order name: EKG - Nurse/Tech; Complete Time: 16:06 [facility] 11/19 15:33 Order name: CPK; Complete Time: 16:48 [facility] 11/19 15:33 Order name: D-Dimer; Complete Time: 16:31 [facility] 11/19 16:03 Order name: Urine Dipstick--Ancillary (enter results) 11/19 15:33 Order name: IV Saline Lock; Complete Time: 16:06 [facility] 11/19 15:33 Order name: Labs collected and sent; Complete Time: 16:06 [facility] 11/19 15:33 Order name: O2 Per Protocol; Complete Time: 16:06 [facility] 11/19 15:33 Order name: O2 Sat Monitoring; Complete Time: 16:07 [facility] Administered Medications: No medications were administered Disposition: 11/20 07:28 Co-signature as Attending Physician, Gagandeep Rodriguez MD I agree with the assessment and [facility] plan of care. Disposition: 11/19/18 17:25 Discharged to Home. Impression: Chest pain, unspecified, Other fatigue. - Condition is Stable. - Discharge Instructions: Nonspecific Chest Pain, Fatigue. - Medication Reconciliation Form, Thank You Letter, Antibiotic Education, Prescription Opioid Use, Work release form form. - Follow up: Sahil Daugherty MD; When: 2 - 3 days; Reason: Recheck today's complaints, Continuance of care, Re-evaluation by your physician. Signatures: Dispatcher [employer] Amanda Farmer RN RN sv Anderson, Corey, MD MD cha Mickail, Joel, PA PA jmm Baxter, Heather, RN RN hb Corrections: (The following items were deleted from the chart) 11/19 18:16 17:25 11/19/2018 17:25 Discharged to Home. Impression: Chest pain, unspecified; Other hb fatigue. Condition is Stable. Forms are Medication Reconciliation Form, Thank You Letter, Antibiotic Education, Prescription Opioid Use. Follow up: Sahil Daugherty; When: 2 - 3 days; Reason: Recheck today's complaints, Continuance of care, Re-evaluation by your physician. jama
[2018-11-19 20:17] LABS: Urine Blood NEGATIVE (NEG); Urine Glucose NEGATIVE (NEG); Urine Protein NEGATIVE (NEG); Urine pH 7.5 (5.0-7.0)
== END 2018-11-19 18:16 | disposition home or self-care (01) ==
LOC: ER 14:12
DX: R07.9 Chest pain, unspecified (principal); R53.83 Other fatigue; M25.511 Pain in right shoulder; J45.909 Unspecified asthma, uncomplicated; K21.9 Gastro-esophageal reflux disease without esophagitis
CPT/HCPCS: 36415; 71045; 80048; 80076; 81003; 82550; 83735; 83880; 84484; 85025; 85379; 85610; 93005; 99284

== ENCOUNTER 2018-11-23 13:46 | Emergency (ER) | payer SELFPAY ==
[2018-11-23] MEDS ORDERED: ACETAMINOPHEN 325 MG TABLET ONE (15:00)
--- NOTE | 2018-11-23 15:41 | RAD REPORT ---
EXAM DESCRIPTION: RAD - Chest Pa And Lat (2 Views) - 11/23/2018 2:54 pm CLINICAL HISTORY: Fever, cough COMPARISON: November 19 TECHNIQUE: PA and lateral views of the chest were obtained. FINDINGS: The lungs are clear. Heart size is normal and central vasculature is within normal limit s. No pleural effusion or pneumothorax seen. No acute bony finding noted. No aortic abnormality. IMPRESSION: No acute cardiopulmonary process. No new or progressive finding from comparison.
--- NOTE | 2018-11-23 16:24 | EDPHYS ---
Physician Documentation [facility] Name: Berlin Tran Age: 28 yrs Sex: Male : 1990 Arrival Date: 11/23/2018 Time: 13:47 Bed 10 Private MD: Unknown, Unknown ED Physician Enrique Lombardo HPI: 11/23 14:33 This 28 yrs old Male presents to ER via Ambulatory with complaints of jmm Headache, Sore Throat, BODY PAIN. 14:33 The patient or guardian reports cough. jmm 14:33 Onset: The symptoms/episode began/occurred gradually, today. Modifying factors: The jmm symptoms are alleviated by nothing. the symptoms are aggravated by nothing. Associated signs and symptoms: Pertinent positives: fever, sore throat. This is a 28 year old male with a history of asthma that presents to the ED with complaints of headache, sore throat, cough, congestion, body aches beginning today. Patient denies vomiting or diarrhea. Patient denies abdominal pain. . Historical: - Allergies: 13:56 Motrin (eyes swelling); hj - Home Meds: 13:56 None [Active]; hj - PMHx: 13:56 Asthma; Gastric Reflux; hj - PSHx: 13:56 None; hj - Immunization history:: Adult Immunizations unknown. - Social history:: Smoking status: Patient/guardian denies using tobacco, Patient/guardian denies using alcohol. - Ebola Screening: : Patient negative for fever greater than or equal to 101.5 degrees Fahrenheit, and additional compatible Ebola Virus Disease symptoms Patient denies exposure to infectious person Patient denies travel to an Ebola-affected area in the 21 days before illness onset. ROS: 14:33 Neck: Negative for injury, pain, and swelling, Cardiovascular: Negative for chest pain, jmm palpitations, and edema. 14:33 Constitutional: Positive for body aches, fever. 14:33 ENT: Positive for sore throat. 14:33 Respiratory: Positive for cough. 14:33 Neuro: Positive for headache. 14:33 All other systems are negative. Exam: 14:33 Head/Face: atraumatic. Eyes: EOMI, no conjunctival erythema appreciated ENT: Moist jmm Mucus Membranes Neck: Trachea midline, Supple 14:33 Constitutional: The patient appears in no acute distress, alert, awake. 14:33 ENT: Posterior pharynx: erythema, that is mild. 14:33 Cardiovascular: Rate: normal, Rhythm: regular. 14:33 Respiratory: the patient does not display signs of respiratory distress, Respirations: normal, Breath sounds: are clear throughout. 14:33 Abdomen/GI: Inspection: abdomen appears normal, Bowel sounds: normal, Palpation: abdomen is soft and non-tender. 14:33 Back: ROM is normal. 14:33 Musculoskeletal/extremity: ROM: intact in all extremities. 14:33 Skin: Appearance: Color: normal in color. 14:33 Neuro: Orientation: is normal, Mentation: is normal, Memory: is normal. 14:33 Psych: Behavior/mood is pleasant, cooperative. Vital Signs: 13:57 BP 123 / 69; Pulse 101; Resp 18; Temp 98.7(O); Pulse Ox 98% on R/A; Weight 83.91 kg; hj Height 5 ft. 10 in. (177.80 cm); 13:57 Body Mass Index 26.54 (83.91 kg, 177.80 cm) MDM: 14:33 Patient medically screened. [facility] 16:22 Data reviewed: vital signs, nurses notes. Counseling: I had a detailed discussion with [facility] the patient and/or guardian regarding: the historical points, exam findings, and any diagnostic results supporting the discharge/admit diagnosis, radiology results, the need for outpatient follow up, to return to the emergency department if symptoms worsen or persist or if there are any questions or concerns that arise at home. 16:22 ED course: Patient is alert and non toxic in appearance in the ED. Neck is supple, I do jm not suspect meningitis. CXR negative. Symptoms appear most likely related to a flu like illness. patient prescribed tamiflu and given strict return precautions. patient understood and agrees with the plan of care. . 11/23 13:58 Order name: Flu; Complete Time: 15:10 11/23 13:58 Order name: Strep; Complete Time: 15:10 11/23 14:34 Order name: Chest Pa And Lat (2 Views) XRAY; Complete Time: 15:47 [facility] 11/23 14:46 Order name: Throat Culture EDMS Administered Medications: 14:49 Drug: Tylenol 650 mg Route: PO; hb 15:00 Follow up: Response: Medication administered at discharge. hb Disposition: 11/23/18 16:23 Discharged to Home. Impression: Acute upper respiratory infection, unspecified. - Condition is Stable. - Discharge Instructions: Upper Respiratory Infection, Adult. - Prescriptions for Tamiflu 75 mg Oral Capsule - take 1 tablet by ORAL route every 12 hours for 5 days; 10 tablet. - Work release form, Medication Reconciliation Form, Thank You Letter, Antibiotic Education, Prescription Opioid Use form. - Follow up: Private Physician; When: 2 - 3 days; Reason: Recheck today's complaints, Continuance of care, Re-evaluation by your physician. Addendum: 11/26/2018 07:15 Co-signature as Attending Physician, Enrique Lombardo MD I agree with the assessment and k dr plan of care. Signatures: Dispatcher [employer] EDRosalina Burnett, RN RN dm5 Enrique Lombardo MD MD [facility] Porfirio Charles PA PA jmm Joaquin, Henry, RN RN Sonia Rosenbaum RN RN Corrections: (The following items were deleted from the chart) 11/23 16:57 16:23 11/23/2018 16:23 Discharged to Home. Impression: Acute upper respiratory dm5 infection, unspecified. Condition is Stable. Forms are Medication Reconciliation Form, Thank You Letter, Antibiotic Education, Prescription Opioid Use. Follow up: Private Physician; When: 2 - 3 days; Reason: Recheck today's complaints, Continuance of care, Re-evaluation by your physician. jama
--- NOTE | 2018-11-23 16:24 | ER ---
Nurse's Notes [facility] Name: Berlin Tran Age: 28 yrs Sex: Male : 1990 Arrival Date: 11/23/2018 Time: 13:47 Bed 10 Private MD: Unknown, Unknown Diagnosis: Acute upper respiratory infection, unspecified Presentation: 11/23 13:54 Presenting complaint: Patient states: kinyarwanda speaking only: i have body aches, throat hj pain and headache; it started today; denies fever;. Transition of care: patient was not received from another setting of care. Onset of symptoms was November 23, 2018. Risk Assessment: Do you want to hurt yourself or someone else? Patient reports no desire to harm self or others. Initial Sepsis Screen: Does the patient meet any 2 criteria? No. Patient's initial sepsis screen is negative. Does the patient have a suspected source of infection? No. Patient's initial sepsis screen is negative. Care prior to arrival: None. 13:54 Method Of Arrival: Ambulatory 13:54 Acuity: PITER 4 hj Triage Assessment: 13:56 Headache History: Denies prior headaches. General: Appears in no apparent distress. hj uncomfortable, Behavior is calm, cooperative, appropriate for age. Pain: Complains of pain in body Pain Pain began Also complains of. Neuro: Level of Consciousness is awake, alert, obeys commands, Oriented to person, place, time, situation, Appropriate for age. Historical: - Allergies: 13:56 Motrin (eyes swelling); hj - Home Meds: 13:56 None [Active]; hj - PMHx: 13:56 Asthma; Gastric Reflux; hj - PSHx: 13:56 None; hj - Immunization history:: Adult Immunizations unknown. - Social history:: Smoking status: Patient/guardian denies using tobacco, Patient/guardian denies using alcohol. - Ebola Screening: : Patient negative for fever greater than or equal to 101.5 degrees Fahrenheit, and additional compatible Ebola Virus Disease symptoms Patient denies exposure to infectious person Patient denies travel to an Ebola-affected area in the 21 days before illness onset. Screenin:56 Abuse screen: Denies threats or abuse. Denies injuries from another. Nutritional hj screening: No deficits noted. Tuberculosis screening: No symptoms or risk factors identified. Fall Risk None identified. Assessment: 14:30 General: Appears in no apparent distress. Behavior is calm, cooperative. Pain: Pain hb currently is 3 out of 10 on a pain scale. Neuro: Level of Consciousness is awake, alert, obeys commands, Oriented to person, place, time, situation. Cardiovascular: Capillary refill < 3 seconds Patient's skin is warm and dry. Respiratory: Airway is patent Respiratory effort is even, unlabored, Respiratory pattern is regular, symmetrical, Breath sounds are clear bilaterally. GI: No signs and/or symptoms were reported involving the gastrointestinal system. : No signs and/or symptoms were reported regarding the genitourinary system. EENT: Reports sore throat. Derm: Skin is intact, is healthy with good turgor. Musculoskeletal: No signs and/or symptoms reported regarding the musculoskeletal system. 15:30 Reassessment: Patient appears in no apparent distress at this time. No changes from hb previously documented assessment. Patient and/or family updated on plan of care and expected duration. Pain level reassessed. Patient is alert, oriented x 3, equal unlabored respirations, skin warm/dry/pink. 16:15 Reassessment: Patient appears in no apparent distress at this time. No changes from hb previously documented assessment. Patient and/or family updated on plan of care and expected duration. Pain level reassessed. Patient is alert, oriented x 3, equal unlabored respirations, skin warm/dry/pink. Vital Signs: 13:57 BP 123 / 69; Pulse 101; Resp 18; Temp 98.7(O); Pulse Ox 98% on R/A; Weight 83.91 kg; hj Height 5 ft. 10 in. (177.80 cm); 13:57 Body Mass Index 26.54 (83.91 kg, 177.80 cm) ED Course: 13:47 Patient arrived in ED. ag5 13:48 Unknown, Unknown is Private Physician. 5 13:56 Triage completed. 13:57 Arm band placed on right wrist. 13:57 Patient has correct armband on for positive identification. Bed in low position. Call light in reach. Side rails up X 1. Adult w/ patient. 14:16 [facility] Charles [facility] 14:16 Enrique Lombardo MD is Attending Physician. [facility] 14:51 X-ray completed. Patient tolerated procedure well. Patient moved back from radiology. 14:51 Chest Pa And Lat (2 Views) XRAY In Process Unspecified. EDMS 14:59 Sonia Rosenbaum, RN is Primary Nurse. hb 16:15 No provider procedures requiring assistance completed. Patient did not have IV access hb during this emergency room visit. Administered Medications: 14:49 Drug: Tylenol 650 mg Route: PO; hb 15:00 Follow up: Response: Medication administered at discharge. hb Outcome: 16:15 Discharged to home ambulatory. hb 16:15 Condition: stable 16:15 Discharge instructions given to patient, Instructed on discharge instructions, follow up and referral plans. medication usage, Demonstrated understanding of instructions, follow-up care, medications, Prescriptions given X 1. 16:23 Discharge ordered by . [facility] 16:57 Patient left the ED. dm5 Signatures: Dispatcher [employer] EDMS Rosalina Hylton, VU RN dm5 Porfirio Charles PA PA [facility] Arabella Hugo Ish Coreas RN RN hj Baxter, Heather, VU WOMACK Ventura Brown ag5 Corrections: (The following items were deleted from the chart) 13:59 13:57 Temp 98.7F; 83.91 kg; Height 5 ft. 10 in.; BMI: 26.5; [facility] 17:34 16:15 Discharge instructions given to patient, Instructed on discharge instructions, hb follow up and referral plans. medication usage, Demonstrated understanding of instructions, follow-up care, medications, hb
== END 2018-11-23 16:57 | disposition home or self-care (01) ==
LOC: ER 13:46
DX: J06.9 Acute upper respiratory infection, unspecified (principal); J45.909 Unspecified asthma, uncomplicated; K21.9 Gastro-esophageal reflux disease without esophagitis; Z88.6 Allergy status to analgesic agent
CPT/HCPCS: 71046; 87070; 87081; 87804; 99283

== ENCOUNTER 2018-12-27 17:29 | Emergency (ER) | payer SELFPAY ==
--- NOTE | 2018-12-27 19:49 | ER ---
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 Transition of care: patient was not received from another setting of care. Resp Distress? No respiratory distress is noted at this time. Onset of symptoms was December 27, 2018. Risk Assessment: Do you want to hurt yourself or someone else? Patient reports no desire to harm self or others. Initial Sepsis Screen: Does the patient meet any 2 criteria? No. Patient's initial sepsis screen is negative. Does the patient have a suspected source of infection? No. Patient's initial sepsis screen is negative. Care prior to arrival: None. 17:36 Method Of Arrival: Ambulatory ss 17:36 Acuity: PITER 5 ss Historical: - Allergies: 17:39 Motrin (eyes swelling); ss - PMHx: 17:39 Asthma; Gastric Reflux; ss - PSHx: 17:39 None; ss - Immunization history:: Adult Immunizations up to date. - Social history:: Smoking status: Patient/guardian denies using tobacco. - Ebola Screening: : No symptoms or risks identified at this time. Screenin:45 Abuse screen: Denies threats or abuse. Denies injuries from another. Nutritional ca1 screening: No deficits noted. Tuberculosis screening: No symptoms or risk factors identified. Fall Risk None identified. Assessment: 18:43 General: Appears in no apparent distress. comfortable, Behavior is calm, cooperative, ca1 appropriate for age. Pain: Denies pain. Neuro: Level of Consciousness is awake, alert, obeys commands, Oriented to person, place, time, situation. Cardiovascular: Heart tones S1 S2 present Capillary refill < 3 seconds Patient's skin is warm and dry. Respiratory: Reports cough that is productive, since yesterday Airway is patent Respiratory effort is even, unlabored, Respiratory pattern is regular, symmetrical, Breath sounds are clear bilaterally. GI: No deficits noted. No signs and/or symptoms were reported involving the gastrointestinal system. : No deficits noted. No signs and/or symptoms were reported regarding the genitourinary system. EENT: Reports nasal congestion since yesterday. Derm: Skin is intact, is healthy with good turgor, Skin is pink, warm \T\ dry. Musculoskeletal: Circulation, motion, and sensation intact. Capillary refill < 3 seconds, Range of motion: intact in all extremities. 19:40 Reassessment: Patient appears in no apparent distress at this time. Patient and/or ca1 family updated on plan of care and expected duration. Pain level reassessed. Patient is alert, oriented x 3, equal unlabored respirations, skin warm/dry/pink. Vital Signs: 17:40 BP 144 / 86; Pulse 72; Resp 18; Temp 98.1(TE); Pulse Ox 98% on R/A; Weight 83.91 kg; ss Height 5 ft. 11 in. (180.34 cm); 18:43 BP 138 / 82; Pulse 76; Resp 17 S; Temp 98.2(O); Pulse Ox 99% on R/A; ca1 19:40 BP 135 / 82; Pulse 77; Resp 18 S; Temp 98.1(O); Pulse Ox 99% on R/A; ca1 17:40 Body Mass Index 25.80 (83.91 kg, 180.34 cm) ED Course: 17:31 Patient arrived in ED. as 17:39 Triage completed. ss 17:41 Arm band placed on right wrist. 18:30 Porfirio Charels PA is PHCP. [facility] 18:30 Enrique Lombardo MD is Attending Physician. [facility] 18:43 Sydnie Owens, VU is Primary Nurse. [facility] 18:45 Patient has correct armband on for positive identification. Bed in low position. Call ca1 light in reach. Side rails up X 1. Pulse ox on. NIBP on. Warm blanket given. 18:45 No provider procedures requiring assistance completed. Patient did not have IV access ca1 during this emergency room visit. Administered Medications: No medications were administered Outcome: 19:47 Discharge ordered by . [facility] 20:00 Discharged to home ambulatory. ca1 20:00 Condition: stable 20:00 Discharge instructions given to patient, Instructed on discharge instructions, follow up and referral plans. Demonstrated understanding of instructions, follow-up care, medications, Prescriptions given X 1. 20:00 Patient left the ED. ca1 Signatures: Porfirio Charles PA PA jmm Martinez, Amelia as Smirch, Shelby, RN RN ss Sydnie Owens RN RN ca1 Corrections: (The following items were deleted from the chart) 17:41 17:40 Pulse 72bpm; Resp 18bpm; Pulse Ox 98% RA; Temp 98.1F Temporal; 83.91 kg; Height 5 ss ft. 11 in.; BMI: 25.8; ss
--- NOTE | 2018-12-27 19:49 | EDPHYS ---
Physician Documentation [facility] Name: Berlin Tran Age: 28 yrs Sex: Male : 1990 Arrival Date: 12/27/2018 Time: 17:31 Bed 26 Private MD: ED Physician Enrique Lombardo HPI: 12/27 19:25 This 28 yrs old Male presents to ER via Ambulatory with complaints of Cough, jmm Congestion. 19:25 The patient or guardian reports cough. Onset: The symptoms/episode began/occurred jmm gradually, 1 day(s) ago. This is a 28 year old male with a history of asthma that presents to the ED with complaints of cough, congestion, body aches beginning yesterday. patient was sent home from work and evaluated in clinic. patient states he was diagnosed with pneumonia. patient was prescribed azithromycin. patient states he needs a work excuse. . Historical: - Allergies: 17:39 Motrin (eyes swelling); ss - PMHx: 17:39 Asthma; Gastric Reflux; ss - PSHx: 17:39 None; ss - Immunization history:: Adult Immunizations up to date. - Social history:: Smoking status: Patient/guardian denies using tobacco. - Ebola Screening: : No symptoms or risks identified at this time. ROS: 19:25 Eyes: Negative for injury, pain, redness, and discharge. jmm 19:25 Abdomen/GI: Negative for abdominal pain, nausea, vomiting, diarrhea, and constipation, MS/Extremity: Negative for injury and deformity, Skin: Negative for injury, rash, and discoloration, Neuro: Negative for headache, weakness, numbness, tingling, and seizure. 19:25 Constitutional: Positive for body aches, fever. 19:25 Cardiovascular: Positive for chest pain, with cough. 19:25 Respiratory: Positive for cough. 19:25 All other systems are negative. Exam: 19:25 Constitutional: This is a well developed, well nourished patient who is awake, alert, jmm and in no acute distress. Head/Face: atraumatic. Eyes: EOMI, no conjunctival erythema appreciated ENT: Moist Mucus Membranes Neck: Trachea midline, Supple Chest/axilla: Normal chest wall appearance and motion. Cardiovascular: Regular rate and rhythm. No edema appreciated 19:25 Abdomen/GI: Non distended, soft Back: Normal ROM Skin: General appearance color normal MS/ Extremity: Moves all extremities, no obvious deformities appreciated, no edema noted to the lower extremities Neuro: Awake and alert, normal gait Psych: Behavior is normal, Mood is normal, Patient is cooperative and pleasant 19:25 Cardiovascular: Rate: normal, Rhythm: regular. 19:25 Respiratory: the patient does not display signs of respiratory distress, Respirations: normal, Breath sounds: wheezing: that is mild, is scattered. Vital Signs: 17:40 BP 144 / 86; Pulse 72; Resp 18; Temp 98.1(TE); Pulse Ox 98% on R/A; Weight 83.91 kg; ss Height 5 ft. 11 in. (180.34 cm); 18:43 BP 138 / 82; Pulse 76; Resp 17 S; Temp 98.2(O); Pulse Ox 99% on R/A; ca1 19:40 BP 135 / 82; Pulse 77; Resp 18 S; Temp 98.1(O); Pulse Ox 99% on R/A; ca1 17:40 Body Mass Index 25.80 (83.91 kg, 180.34 cm) ss MDM: 19:25 Patient medically screened. [facility] 19:25 ED course: Patient is alert and non toxic in appearance in the ED. No signs of resp [facility] distress appreciated. Patient is encouraged to continue antibiotics and otherwise given strict return precautions. Patient understood and agrees with the plan of care. . 19:46 Data reviewed: vital signs, nurses notes. Counseling: I had a detailed discussion with [facility] the patient and/or guardian regarding: the historical points, exam findings, and any diagnostic results supporting the discharge/admit diagnosis, the need for outpatient follow up, to return to the emergency department if symptoms worsen or persist or if there are any questions or concerns that arise at home. Administered Medications: No medications were administered Disposition: 12/28 07:04 Co-signature as Attending Physician, Enrique Lombardo MD I agree with the assessment and [facility] plan of care. Disposition: 12/27/18 19:47 Discharged to Home. Impression: Acute bronchitis. - Condition is Stable. - Discharge Instructions: Acute Bronchitis, Adult. - Prescriptions for Albuterol Sulfate 90 mcg/actuation - inhale 1-2 puff by INHALATION route every 4-6 hours; 1 Inhaler. - Medication Reconciliation Form, Thank You Letter, Antibiotic Education, Prescription Opioid Use, Work release form form. - Follow up: Private Physician; When: 2 - 3 days; Reason: Recheck today's complaints, Continuance of care, Re-evaluation by your physician. Signatures: Enrique Lombardo MD MD [facility] Porfirio Charles PA PA jmm Smirch, Shelby, RN RN ss Sydnie Owens RN RN ca1 Corrections: (The following items were deleted from the chart) 12/27 20:00 19:47 12/27/2018 19:47 Discharged to Home. Impression: Acute bronchitis. Condition is ca1 Stable. Forms are Medication Reconciliation Form, Thank You Letter, Antibiotic Education, Prescription Opioid Use. Follow up: Private Physician; When: 2 - 3 days; Reason: Recheck today's complaints, Continuance of care, Re-evaluation by your physician. jama
== END 2018-12-27 20:00 | disposition home or self-care (01) ==
LOC: ER 17:29
DX: J20.9 Acute bronchitis, unspecified (principal); J45.909 Unspecified asthma, uncomplicated
CPT/HCPCS: 99283

== ENCOUNTER 2018-12-30 10:49 | Emergency (ER) | payer SELFPAY ==
--- NOTE | 2018-12-30 11:26 | EDPHYS ---
Physician Documentation [facility] Name: Berlin Tran Age: 28 yrs Sex: Male : 1990 Arrival Date: 12/30/2018 Time: 10:50 Bed 15 Private MD: ED Physician Gagandeep Rodriguez HPI: 12/30 11:31 This 28 yrs old Male presents to ER via Ambulatory with complaints of snw Abdominal Pain. 11:31 The patient presents with abdominal pain that is diffuse. Onset: The symptoms/episode snw began/occurred gradually, 3 day(s) ago, and became persistent. The symptoms do not radiate. Associated signs and symptoms: Pertinent positives: diarrhea. The symptoms are described as crampy. Modifying factors: the symptoms are aggravated by food. Severity of pain: At its worst the pain was mild. The patient has experienced similar episodes in the past, multiple times. The patient has been recently seen by a physician: given z-max for bronchitic/pneumonia s/s. hx of gout, ate shrimp recently and left foot is edematous and tender. Historical: - Allergies: 10:58 Motrin (eyes swelling); tw2 - PMHx: 10:58 Gastric Reflux; Asthma; tw2 - PSHx: 10:58 None; tw2 - Immunization history:: Adult Immunizations. - Social history:: Smoking status: . - Ebola Screening: : Patient denies travel to an Ebola-affected area in the 21 days before illness onset. ROS: 11:29 Constitutional: Negative for fever, chills, and weight loss, Eyes: Negative for injury, snw pain, redness, and discharge, ENT: Negative for injury, pain, and discharge, Neck: Negative for injury, pain, and swelling, Cardiovascular: Negative for chest pain, palpitations, and edema, Respiratory: Negative for shortness of breath, cough, wheezing, and pleuritic chest pain, Back: Negative for injury and pain, : Negative for injury, bleeding, discharge, and swelling, Skin: Negative for injury, rash, and discoloration, Neuro: Negative for headache, weakness, numbness, tingling, and seizure. 11:29 Abdomen/GI: Positive for abdominal pain, diarrhea. 11:29 MS/extremity: Positive for pain, swelling, of the left foot. Exam: 11:29 Constitutional: This is a well developed, well nourished patient who is awake, alert, snw and in no acute distress. Head/Face: Normocephalic, atraumatic. Eyes: Pupils equal round and reactive to light, extra-ocular motions intact. Lids and lashes normal. Conjunctiva and sclera are non-icteric and not injected. Cornea within normal limits. Periorbital areas with no swelling, redness, or edema. ENT: Nares patent. No nasal discharge, no septal abnormalities noted. Tympanic membranes are normal and external auditory canals are clear. Oropharynx with no redness, swelling, or masses, exudates, or evidence of obstruction, uvula midline. Mucous membranes moist. Neck: Trachea midline, no thyromegaly or masses palpated, and no cervical lymphadenopathy. Supple, full range of motion without nuchal rigidity, or vertebral point tenderness. No Meningismus. Chest/axilla: Normal chest wall appearance and motion. Nontender with no deformity. No lesions are appreciated. Cardiovascular: Regular rate and rhythm with a normal S1 and S2. No gallops, murmurs, or rubs. Normal PMI, no JVD. No pulse deficits. Respiratory: Lungs have equal breath sounds bilaterally, clear to auscultation and percussion. No rales, rhonchi or wheezes noted. No increased work of breathing, no retractions or nasal flaring. Abdomen/GI: Soft, non-tender, with normal bowel sounds. No distension or tympany. No guarding or rebound. No evidence of tenderness throughout. Back: No spinal tenderness. No costovertebral tenderness. Full range of motion. Skin: Warm, dry with normal turgor. Normal color with no rashes, no lesions, and no evidence of cellulitis. Neuro: Awake and alert, GCS 15, oriented to person, place, time, and situation. Cranial nerves II-XII grossly intact. Motor strength 5/5 in all extremities. Sensory grossly intact. Cerebellar exam normal. Normal gait. Psych: Awake, alert, with orientation to person, place and time. Behavior, mood, and affect are within normal limits. 11:29 Musculoskeletal/extremity: Extremities: grossly normal except: noted in the left foot: swelling, tenderness, ROM: no acute changes, Circulation is intact in all extremities. Sensation intact. Vital Signs: 10:58 BP 131 / 92; Pulse 73; Resp 18; Temp 98(O); Pulse Ox 97% on R/A; Weight 83.91 kg (R); tw2 Height 5 ft. 11 in. (180.34 cm); Pain 4/10; 11:47 BP 131 / 91; Pulse 72; Resp 17; Pulse Ox 95% on R/A; Pain 3/10; tw2 10:58 Body Mass Index 25.80 (83.91 kg, 180.34 cm) tw2 MDM: 10:53 Patient medically screened. [email or web address] 11:30 Data reviewed: vital signs, nurses notes. Data interpreted: Pulse oximetry: on room air snw is 97 %. Interpretation: normal. Counseling: I had a detailed discussion with the patient and/or guardian regarding: the historical points, exam findings, and any diagnostic results supporting the discharge/admit diagnosis, lab results, the need for outpatient follow up, to return to the emergency department if symptoms worsen or persist or if there are any questions or concerns that arise at home. Special discussion: Based on the patient's Hx, exam, and Dx evaluation, there is no indication for emergent surgery or inpatient Tx. It is understood by the patient/guardian that if the Sx's persist or worsen they need to return immediately for re-evaluation. I have referred the patient to see his PCP for further evaluation of high blood pressure. Based on the history and exam findings, there is no indication for further emergent testing or inpatient evaluation. I discussed with the patient/guardian the need to see the food packer for further evaluation of the symptoms. I discussed with the patient/guardian the need to see the primary care provider for further evaluation of the symptoms. 12/30 11:06 Order name: Urine Dipstick--Ancillary (enter results) eb 12/30 11:29 Order name: Juvencio wrap-joint; Complete Time: 11:45 snw 12/30 11:29 Order name: Post-op shoe; Complete Time: 11:45 snw Administered Medications: 11:25 Drug: Zofran 4 mg Route: PO; tw2 11:46 Follow up: Response: No adverse reaction; Nausea is decreased tw2 11:25 Drug: TORadol 30 mg Route: IM; Site: right deltoid; tw2 11:46 Follow up: Response: No adverse reaction; Pain is decreased tw2 11:25 Drug: CarafATE 1 grams Route: PO; tw2 11:46 Follow up: Response: No adverse reaction tw2 Disposition: 12/31 09:07 Co-signature as Attending Physician, Gagandeep Rodriguez MD I agree with the assessment and [facility] plan of care. Disposition: 12/30/18 11:25 Discharged to Home. Impression: Gout, Essential (primary) hypertension, Adverse effect of other systemic antibiotics - Zithromax. - Condition is Stable. - Discharge Instructions: Cast or Splint Care, Adult, Gout, Hypertension, Low-Purine Diet, DASH Eating Plan, Rehydration, Adult, Managing Your Hypertension. - Prescriptions for Nexium 20 mg Oral Capsule - take 1 capsule by ORAL route once daily; 20 capsule. - Medication Reconciliation Form, Thank You Letter, Antibiotic Education, Prescription Opioid Use, Work release form form. - Follow up: Private Physician; When: 2 - 3 days; Reason: Recheck today's complaints, Continuance of care, Re-evaluation by your physician. Follow up: Emergency Department; When: As needed; Reason: Worsening of condition. Signatures: Dispatcher [employer] Gagandeep Mariano MD MD cha Therrien, Shelly, CAR STARTER-C CAR STARTER-Csnw Cynthia Claudio RN RN iw Monika Durant RN RN tw2 Corrections: (The following items were deleted from the chart) 12/30 12:13 11:25 12/30/2018 11:25 Discharged to Home. Impression: Gout; Essential (primary) iw hypertension; Adverse effect of other systemic antibiotics - Zithromax. Condition is Stable. Forms are Medication Reconciliation Form, Thank You Letter, Antibiotic Education, Prescription Opioid Use. Follow up: Private Physician; When: 2 - 3 days; Reason: Recheck today's complaints, Continuance of care, Re-evaluation by your physician. Follow up: Emergency Department; When: As needed; Reason: Worsening of condition. snw
--- NOTE | 2018-12-30 11:26 | ER ---
Nurse's Notes [facility] Name: Berlin Tran Age: 28 yrs Sex: Male : 1990 Arrival Date: 12/30/2018 Time: 10:50 Bed 15 Private MD: Diagnosis: Gout;Essential (primary) hypertension;Adverse effect of other systemic antibiotics-Zithromax Presentation: 12/30 10:56 Presenting complaint: Patient states: i started having abdominal pain yesterday, no tw2 vomiting, but diarrhea, then i noticed my left foot swelling and swollen this morning, but my feet hurt after work. Transition of care: patient was not received from another setting of care. Onset of symptoms was December 30, 2018. Risk Assessment: Do you want to hurt yourself or someone else? Patient reports no desire to harm self or others. Initial Sepsis Screen: Does the patient meet any 2 criteria? No. Patient's initial sepsis screen is negative. Does the patient have a suspected source of infection? No. Patient's initial sepsis screen is negative. Care prior to arrival: None. 10:56 Method Of Arrival: Ambulatory tw2 10:56 Acuity: PITER 3 tw2 Triage Assessment: 10:59 General: Appears uncomfortable, Behavior is calm, cooperative, appropriate for age. tw2 Pain: Complains of pain in abdomen and left foot. Respiratory: Airway is patent Respiratory effort is even, unlabored, Respiratory pattern is regular, symmetrical, Breath sounds with wheezes in right posterior upper lobe and right posterior middle lobe. GI: Reports lower abdominal pain, upper abdominal pain, diarrhea, Patient currently denies vomiting. Musculoskeletal: Swelling present in left foot. Historical: - Allergies: 10:58 Motrin (eyes swelling); tw2 - PMHx: 10:58 Gastric Reflux; Asthma; tw2 - PSHx: 10:58 None; tw2 - Immunization history:: Adult Immunizations. - Social history:: Smoking status: . - Ebola Screening: : Patient denies travel to an Ebola-affected area in the 21 days before illness onset. Screenin:48 Abuse screen: Denies threats or abuse. Nutritional screening: No deficits noted. tw2 Tuberculosis screening: No symptoms or risk factors identified. Fall Risk None identified. Assessment: 10:52 Reassessment: Patient appears in no apparent distress at this time. No changes from tw2 previously documented assessment. Patient and/or family updated on plan of care and expected duration. Pain level reassessed. Patient is alert, oriented x 3, equal unlabored respirations, skin warm/dry/pink. see triage assessment. 11:49 GI: Bowel sounds present X 4 quads. Abd is soft and non tender X 4 quads. tw2 Vital Signs: 10:58 BP 131 / 92; Pulse 73; Resp 18; Temp 98(O); Pulse Ox 97% on R/A; Weight 83.91 kg (R); tw2 Height 5 ft. 11 in. (180.34 cm); Pain 4/10; 11:47 BP 131 / 91; Pulse 72; Resp 17; Pulse Ox 95% on R/A; Pain 3/10; tw2 10:58 Body Mass Index 25.80 (83.91 kg, 180.34 cm) tw2 ED Course: 10:50 Patient arrived in ED. as 10:50 [facility] Palomares [facility]C [facility] snw 10:50 Gagandeep Rodriguez MD is Attending Physician. snw 10:52 Bed in low position. Call light in reach. Pulse ox on. NIBP on. tw2 10:56 Monika Durant, RN is Primary Nurse. tw2 10:57 Triage completed. tw2 10:59 Arm band placed on. tw2 11:49 No provider procedures requiring assistance completed. Patient did not have IV access tw2 during this emergency room visit. 11:50 Juvencio wrap to left foot Ortho shoe applied to left foot. CMS intact. tw2 Administered Medications: 11:25 Drug: Zofran 4 mg Route: PO; tw2 11:46 Follow up: Response: No adverse reaction; Nausea is decreased tw2 11:25 Drug: TORadol 30 mg Route: IM; Site: right deltoid; tw2 11:46 Follow up: Response: No adverse reaction; Pain is decreased tw2 11:25 Drug: CarafATE 1 grams Route: PO; tw2 11:46 Follow up: Response: No adverse reaction tw2 Outcome: 11:25 Discharge ordered by . snw 11:50 Discharged to home ambulatory. tw2 11:50 Condition: stable 11:50 Discharge instructions given to patient, Instructed on discharge instructions, follow up and referral plans. medication usage, Demonstrated understanding of instructions, follow-up care, medications, Prescriptions given X 1. 12:13 Patient left the ED. iw Signatures: Kandy Palomares, SCHOOL TRAFFIC GUARD-C SCHOOL TRAFFIC GUARD-Csnw Carla Beverly Irene, RN RN iw Monika Durant RN RN tw2
[2018-12-30] MEDS ORDERED: SUCRALFATE 1 GM TABLET ONE (11:32)
[2018-12-30] MEDS ORDERED: ONDANSETRON 4 MG (ODT) TAB ONE (11:33)
[2018-12-30] MEDS ORDERED: KETOROLAC 30 MG/ML INJ ONE (11:33)
[2018-12-30 13:15] LABS: Urine Blood 1+ (NEG); Urine Glucose NEGATIVE (NEG); Urine Protein NEGATIVE (NEG); Urine Specific Gravity 1.025 (1.005-1.030)
== END 2018-12-30 12:13 | disposition home or self-care (01) ==
LOC: ER 10:49
DX: M10.9 Gout, unspecified (principal); T36.3X5A Adverse effect of macrolides, initial encounter; I10 Essential (primary) hypertension; Z88.6 Allergy status to analgesic agent
CPT/HCPCS: 81003; 96372; 99284

== ENCOUNTER 2019-05-03 18:07 | Emergency (ER) | payer SELFPAY ==
[2019-05-03 19:09] LABS: Absolute Lymphocytes (CBC) 2.4 K/uL (0.7-4.9); Basophils % 0.5 % (0-1.3); Lymphocytes % 25.6 % (15.3-44.8); MPV 9.1 fL (7.6-11.3); RBC Red Blood Cell Count 5.01 M/uL (4.33-5.43)
[2019-05-03] MEDS ORDERED: MORPHINE 2 MG/ML SYR ONE (19:33)
[2019-05-03] MEDS ORDERED: ONDANSETRON 4 MG/2 ML VIAL ONE (19:33)
[2019-05-03] MEDS ORDERED: NA CHLORIDE 0.9% 1,000 ML ONE (19:33)
[2019-05-03 19:45] LABS: Urine Blood NEGATIVE (NEG); Urine Glucose NEGATIVE (NEG); Urine Protein NEGATIVE (NEG); Urine Specific Gravity 1.025 (1.005-1.030)
[2019-05-03 20:09] LABS: BUN Blood Urea Nitrogen 18 mg/dL (7-18); Bicarbonate 24 mmol/L (21-32); Glucose Level 95 mg/dL (74-106); Potassium 4.3 mmol/L (3.5-5.1); Sodium Level 140 mmol/L (136-145)
[2019-05-03 20:10] LABS: ALT/SGPT 44 U/L (12-78); AST/SGOT 33 U/L (15-37); Albumin 3.9 g/dL (3.4-5.0); Alkaline Phosphatase 67 U/L (45-117); Bilirubin Direct < 0.1 mg/dL (0-0.2); Bilirubin Total 0.4 mg/dL (0.2-1.0); Lipase 83 U/L (73-393); Protein, Total 6.9 g/dL (6.4-8.2)
--- NOTE | 2019-05-03 21:00 | RAD REPORT ---
EXAM DESCRIPTION: RAD - Chest Single View - 05/03/2019 8:53 pm CLINICAL HISTORY: epigastric pain Chest pain. COMPARISON: Chest Pa And Lat (2 Views) dated 11/23/2018; Chest Single View dated 11/19/2018; Chest Pa An d Lat (2 Views) dated 11/28/2017 FINDINGS: Portable technique limits examination quality. The lungs are grossly clear. The heart is normal in size. No displaced fractures. IMPRESSION: No acute intrathoracic process suspected.
--- NOTE | 2019-05-03 21:00 | RAD REPORT ---
EXAM DESCRIPTION: US - Abdomen Exam Limited - 05/03/2019 8:53 pm CLINICAL HISTORY: ABD PAIN COMPARISON: <Comparisons> FINDINGS: The gallbladder demonstrates no gallstones. No pericholecystic fluid or gallbladder wall t hickening. The common bile duct is normal measuring 2 mm. The liver demonstrates no findings of intrahepatic biliary dilatation. IMPRESSION: Unremarkable examination.
[2019-05-03] MEDS ORDERED: MAGNE/ALUM HYDROXD 30 ML UCUP ONE (21:36)
[2019-05-03] MEDS ORDERED: LIDOCAINE VISCOUS 2% SOLN 15 ML UDC ONE (21:36)
--- NOTE | 2019-05-03 21:44 | ER ---
Nurse's Notes [facility] Name: Berlin Tran Age: 28 yrs Sex: Male : 1990 Arrival Date: 05/03/2019 Time: 18:09 Bed 4 Private MD: Diagnosis: Epigastric pain Presentation: 05/03 18:14 Presenting complaint: Upper abdominal pain and diarrhea since this morning. Transition hb of care: patient was not received from another setting of care. Onset of symptoms was May 03, 2019. Risk Assessment: Do you want to hurt yourself or someone else? Patient reports no desire to harm self or others. Initial Sepsis Screen: Does the patient meet any 2 criteria? No. Patient's initial sepsis screen is negative. Does the patient have a suspected source of infection? No. Patient's initial sepsis screen is negative. Care prior to arrival: None. 18:14 Method Of Arrival: Ambulatory hb 18:14 Acuity: PITER 3 hb Historical: - Allergies: 18:15 Motrin (eyes swelling); hb - PMHx: 18:15 Asthma; Gastric Reflux; hb - PSHx: 18:15 None; hb - Immunization history:: Adult Immunizations up to date. - Social history:: Smoking status: Patient/guardian denies using tobacco. - Ebola Screening: : No symptoms or risks identified at this time. Screenin:53 Abuse screen: Denies threats or abuse. Denies injuries from another. Nutritional mg2 screening: No deficits noted. Tuberculosis screening: No symptoms or risk factors identified. Fall Risk IV access (20 points). Assessment: 18:53 General: Appears in no apparent distress. comfortable, Behavior is calm, cooperative. mg2 Pain: Complains of pain in abdomen Pain does not radiate. Pain currently is 5 out of 10 on a pain scale. Quality of pain is described as aching, Pain began gradually, Is intermittent. Neuro: Level of Consciousness is awake, alert, obeys commands, Oriented to person, place, time, situation. Cardiovascular: Capillary refill < 3 seconds Patient's skin is warm and dry. Respiratory: Airway is patent Respiratory effort is even, unlabored, Respiratory pattern is regular, symmetrical. GI: Bowel sounds present X 4 quads. Abd is soft and non tender Reports upper abdominal pain, diarrhea. EENT: No signs and/or symptoms were reported regarding the EENT system. Derm: Skin is intact, is healthy with good turgor, Skin is pink, warm \T\ dry. normal. Musculoskeletal: Circulation, motion, and sensation intact. Capillary refill < 3 seconds. 21:51 Reassessment: Patient states feeling better. Patient states symptoms have improved. mg2 Vital Signs: 18:15 BP 130 / 75; Pulse 64; Resp 16; Temp 97.7; Pulse Ox 99% on R/A; Weight 83.91 kg; Height hb 5 ft. 11 in. (180.34 cm); Pain 9/10; 18:54 BP 120 / 82; Pulse 64; Resp 18; Pulse Ox 100% on R/A; mg2 19:52 BP 119 / 90; Pulse 63; Resp 17; Pulse Ox 100% on R/A; mg2 20:51 BP 121 / 94; Pulse 60; Resp 18; Pulse Ox 100% on R/A; mg2 21:51 BP 120 / 90; Pulse 61; Resp 18; Temp 98; Pulse Ox 100% on R/A; mg2 18:15 Body Mass Index 25.80 (83.91 kg, 180.34 cm) hb ED Course: 18:09 Patient arrived in ED. rg4 18:15 Triage completed. hb 18:15 Arm band placed on. hb 18:20 Gagandeep Nichols PA is PHCP. cp 18:20 Blaise Cat MD is Attending Physician. cp 18:51 Syed Jose RN is Primary Nurse. mg2 18:52 No provider procedures requiring assistance completed. Inserted saline lock: 20 gauge mg2 in right antecubital area, using aseptic technique. Blood collected. 18:54 Patient has correct armband on for positive identification. Pulse ox on. NIBP on. mg2 20:53 Ultrasound completed. Patient tolerated well. Notified ED Physician manish. liv 20:53 US Abdomen Limited: RUQ/epigastric In Process Unspecified. EDMS 20:53 XRAY Chest (1 view) In Process Unspecified. EDMS 21:52 IV discontinued, intact, bleeding controlled, No redness/swelling at site. Pressure mg2 dressing applied. Administered Medications: 19:36 Drug: Zofran 4 mg Route: IVP; Site: right antecubital; mg2 21:26 Follow up: Response: No adverse reaction; Marked relief of symptoms mg2 19:36 Drug: morphine 2 mg Route: IVP; Site: right antecubital; mg2 21:33 Follow up: Response: No adverse reaction; Marked relief of symptoms mg2 19:36 Drug: NS 0.9% 1000 ml Route: IV; Rate: 1 bolus; Site: right antecubital; mg2 21:33 Follow up: Response: No adverse reaction; IV Status: Completed infusion; IV Intake: mg2 1000ml 21:37 Drug: GI Cocktail without - (Maalox Suspension 30 ml, Lidocaine Liquid 2 % 15 mg2 ml) Route: PO; 21:52 Follow up: Response: No adverse reaction; Marked relief of symptoms mg2 Intake: 21:33 IV: 1000ml; Total: 1000ml. mg2 Outcome: 21:42 Discharge ordered by MD. cp 21:52 Discharged to home ambulatory, with family. mg2 21:52 Condition: stable 21:52 Discharge instructions given to patient, family, Instructed on discharge instructions, follow up and referral plans. medication usage, Demonstrated understanding of instructions, follow-up care, medications, Prescriptions given X 1. 21:52 Patient left the ED. mg2 Signatures: Dispatcher [employer] EDMS Gagandeep Nichols PA PA cp Dupre, Jacques jd Baxter, Heather, RN RN Heather Luciano 4 Syed Jose RN RN mg2
--- NOTE | 2019-05-03 21:44 | EDPHYS ---
Physician Documentation [facility] Name: Berlin Tran Age: 28 yrs Sex: Male : 1990 Arrival Date: 05/03/2019 Time: 18:09 Bed 4 Private MD: ED Physician Blaise Cat HPI: 05/03 19:00 This 28 yrs old Male presents to ER via Ambulatory with complaints of cp Abdominal Pain. 19:00 The patient presents with abdominal pain in the epigastric area. cp 19:00 Onset: The symptoms/episode began/occurred this morning, at 05:00. The symptoms do not cp radiate. Associated signs and symptoms: Pertinent positives: diarrhea, Pertinent negatives: anorexia, blood in stools, chest pain, constipation, fever, testicular pain, vomiting. 19:00 The symptoms are described as achy. Modifying factors: the symptoms are aggravated by cp pressure. Historical: - Allergies: 18:15 Motrin (eyes swelling); hb - PMHx: 18:15 Asthma; Gastric Reflux; hb - PSHx: 18:15 None; hb - Immunization history:: Adult Immunizations up to date. - Social history:: Smoking status: Patient/guardian denies using tobacco. - Ebola Screening: : No symptoms or risks identified at this time. ROS: 19:05 Constitutional: Negative for body aches, chills, fever, poor PO intake. cp 19:05 Eyes: Negative for injury, pain, redness, and discharge. cp 19:05 ENT: Negative for drainage from ear(s), ear pain, difficulty swallowing, difficulty handling secretions. 19:05 Cardiovascular: Negative for chest pain, palpitations. 19:05 Respiratory: Negative for cough, shortness of breath, wheezing. 19:05 Abdomen/GI: Positive for abdominal pain, diarrhea, of the epigastric area, Negative for vomiting, constipation, dysphagia. 19:05 Back: Negative for radiated pain. 19:05 : Negative for urinary symptoms, flank pain, testicular pain 19:05 Neuro: Negative for altered mental status, headache. 19:05 All other systems are negative. Exam: 19:15 Constitutional: The patient appears in no acute distress, alert, awake, cp non-diaphoretic, non-toxic, well developed, well nourished. 19:15 Head/Face: Normocephalic, atraumatic. cp 19:15 Eyes: Periorbital structures: appear normal, Conjunctiva: normal, no exudate, no injection, Sclera: no appreciated abnormality, Lids and lashes: appear normal, bilaterally. 19:15 ENT: External ear(s): are unremarkable, Nose: is normal, Mouth: is normal, Posterior pharynx: is normal, airway is patent, no erythema, no exudate. 19:15 Chest/axilla: Inspection: normal, Palpation: is normal, no crepitus, no tenderness. 19:15 Cardiovascular: Rate: normal, Rhythm: regular. 19:15 Respiratory: the patient does not display signs of respiratory distress, Respirations: normal, no use of accessory muscles, labored breathing, is not present, Breath sounds: are clear throughout, no decreased breath sounds, no stridor, no wheezing. 19:15 Abdomen/GI: Inspection: abdomen appears normal, Bowel sounds: active, all quadrants, Palpation: soft, in all quadrants, moderate abdominal tenderness, in the epigastric area, rebound tenderness, is not appreciated, involuntary guarding, is not appreciated. 19:15 Back: pain, is absent, ROM is normal. Vital Signs: 18:15 BP 130 / 75; Pulse 64; Resp 16; Temp 97.7; Pulse Ox 99% on R/A; Weight 83.91 kg; Height hb 5 ft. 11 in. (180.34 cm); Pain 9/10; 18:54 BP 120 / 82; Pulse 64; Resp 18; Pulse Ox 100% on R/A; mg2 19:52 BP 119 / 90; Pulse 63; Resp 17; Pulse Ox 100% on R/A; mg2 20:51 BP 121 / 94; Pulse 60; Resp 18; Pulse Ox 100% on R/A; mg2 21:51 BP 120 / 90; Pulse 61; Resp 18; Temp 98; Pulse Ox 100% on R/A; mg2 18:15 Body Mass Index 25.80 (83.91 kg, 180.34 cm) hb MDM: 18:35 Patient medically screened. cp 19:00 Differential diagnosis: cholecystitis, Cholelithiasis, gastritis, gastroesophageal cp reflux disease, non-specific abd pain, pancreatitis, Peptic Ulcer Disease, Perf. Duodenal Ulcer, Perf. Gastric Ulcer. 21:41 Data reviewed: vital signs, nurses notes, lab test result(s), radiologic studies, CT cp scan, plain films, and as a result, I will discharge patient. 21:41 Test interpretation: by ED physician or midlevel provider: plain radiologic studies. cp Counseling: I had a detailed discussion with the patient and/or guardian regarding: the historical points, exam findings, and any diagnostic results supporting the discharge/admit diagnosis, lab results, radiology results, to return to the emergency department if symptoms worsen or persist or if there are any questions or concerns that arise at home. Response to treatment: the patient's symptoms have markedly improved after treatment, and as a result, I will discharge patient. Special discussion: Based on the patient's Hx, exam, and Dx evaluation, there is no indication for emergent surgery or inpatient Tx. It is understood by the patient/guardian that if the Sx's persist or worsen they need to return immediately for re-evaluation. 05/03 18:52 Order name: Basic Metabolic Panel; Complete Time: 20:19 mg2 05/03 18:52 Order name: CBC with Diff; Complete Time: 20:19 mg2 05/03 18:52 Order name: Creatinine for Radiology; Complete Time: 21:27 mg2 05/03 18:52 Order name: Hepatic Function; Complete Time: 20:19 mg2 05/03 18:52 Order name: Lipase; Complete Time: 20:19 mg2 05/03 19:35 Order name: Urine Dipstick--Ancillary (enter results); Complete Time: 20:19 mw2 05/03 18:52 Order name: IV Saline Lock; Complete Time: 18:52 mg2 05/03 18:52 Order name: Labs collected and sent; Complete Time: 18:52 mg2 05/03 19:21 Order name: US Abdomen Limited: RUQ/epigastric; Complete Time: 21:27 cp 05/03 20:21 Order name: XRAY Chest (1 view); Complete Time: 21:27 cp 05/03 19:21 Order name: Urine Dipstick-Ancillary (obtain specimen); Complete Time: 19:25 cp Administered Medications: 19:36 Drug: Zofran 4 mg Route: IVP; Site: right antecubital; mg2 21:26 Follow up: Response: No adverse reaction; Marked relief of symptoms mg2 19:36 Drug: morphine 2 mg Route: IVP; Site: right antecubital; mg2 21:33 Follow up: Response: No adverse reaction; Marked relief of symptoms mg2 19:36 Drug: NS 0.9% 1000 ml Route: IV; Rate: 1 bolus; Site: right antecubital; mg2 21:33 Follow up: Response: No adverse reaction; IV Status: Completed infusion; IV Intake: mg2 1000ml 21:37 Drug: GI Cocktail without - (Maalox Suspension 30 ml, Lidocaine Liquid 2 % 15 mg2 ml) Route: PO; 21:52 Follow up: Response: No adverse reaction; Marked relief of symptoms mg2 Disposition: 05/04 20:57 Co-signature as Attending Physician, Blaise Cat MD. rn Disposition: 05/03/19 21:42 Discharged to Home. Impression: Epigastric pain. - Condition is Stable. - Discharge Instructions: Gastritis, Adult, Gastroesophageal Reflux Disease, Adult. - Prescriptions for Protonix 40 mg Oral Tablet, Delayed Release (E.C.) - take 1 tablet by ORAL route once daily for 10 days; 10 tablet. - Medication Reconciliation Form, Thank You Letter, Antibiotic Education, Prescription Opioid Use, Work release form form. - Follow up: Private Physician; When: 2 - 3 days; Reason: Recheck today's complaints. - Problem is new. - Symptoms have improved. Signatures: Dispatcher [employer] EDMS Blaise Cat MD MD rn Page, Corey, PA PA cp Baxter, Heather, RN RN Syed Lewis RN RN mg2 Corrections: (The following items were deleted from the chart) 05/03 21:52 21:42 05/03/2019 21:42 Discharged to Home. Impression: Epigastric pain. Condition is mg2 Stable. Forms are Work release form, Medication Reconciliation Form, Thank You Letter, Antibiotic Education, Prescription Opioid Use. Follow up: Private Physician; When: 2 - 3 days; Reason: Recheck today's complaints. Problem is new. Symptoms have improved. cp
[2019-05-03 22:00] VITALS: O2SAT 100
[2019-05-03 22:05] VITALS: BP 120/90; TEMP 98
== END 2019-05-03 21:52 | disposition home or self-care (01) ==
LOC: ER 18:07
DX: R10.13 Epigastric pain (principal); Z88.6 Allergy status to analgesic agent
CPT/HCPCS: 36415; 71045; 76705; 80048; 80076; 81003; 83690; 85025; 96361; 96374; 96375; 99284; J2270; J2405; J7030

== ENCOUNTER 2019-06-23 14:40 | Emergency (ER) | payer SELFPAY ==
[2019-06-23] MEDS ORDERED: ALBUTEROL 2.5 MG/3 ML NEB SOL ONE (15:20)
[2019-06-23] MEDS ORDERED: predniSONE 20 MG TAB ONE (15:20)
[2019-06-23] MEDS ORDERED: IPRATROPIUM BROM 0.5MG/2.5ML ONE (15:20)
--- NOTE | 2019-06-23 16:40 | ER ---
Nurse's Notes [facility] Name: Berlin Tran Age: 28 yrs Sex: Male : 1990 Arrival Date: 06/23/2019 Time: 14:41 Bed 12 Private MD: Diagnosis: Bronchitis, not specified as acute or chronic Presentation: 06/23 14:49 Presenting complaint: Patient states: chest congestion and SOB since this morning, hx la1 of asthma, smokes. Mild wheezing in triage. Transition of care: patient was not received from another setting of care. Onset of symptoms was June 23, 2019. Risk Assessment: Do you want to hurt yourself or someone else? Patient reports no desire to harm self or others. Initial Sepsis Screen: Does the patient meet any 2 criteria? No. Patient's initial sepsis screen is negative. Does the patient have a suspected source of infection? No. Patient's initial sepsis screen is negative. Care prior to arrival: None. 14:49 Method Of Arrival: Ambulatory la1 14:49 Acuity: PITER 4 la1 Historical: - Allergies: 14:50 Motrin (eyes swelling); la1 - PMHx: 14:50 Asthma; Gastric Reflux; la1 - Immunization history:: Adult Immunizations up to date. - Social history:: Smoking status: Patient uses tobacco products, smokes one-half pack cigarettes per day. - Ebola Screening: : No symptoms or risks identified at this time. Screenin:51 Abuse screen: Denies threats or abuse. Nutritional screening: No deficits noted. la1 Tuberculosis screening: No symptoms or risk factors identified. Fall Risk None identified. Assessment: 14:50 General: Appears in no apparent distress. Behavior is calm, cooperative. Pain: Denies la1 pain. Neuro: Level of Consciousness is awake, alert, obeys commands, Oriented to person, place, time, situation. Cardiovascular: Capillary refill < 3 seconds Patient's skin is warm and dry. Respiratory: Airway is patent Respiratory effort is even, unlabored, Respiratory pattern is regular, symmetrical, Breath sounds with wheezes bilaterally. the patient has mild shortness of breath. GI: No signs and/or symptoms were reported involving the gastrointestinal system. : No signs and/or symptoms were reported regarding the genitourinary system. Vital Signs: 14:50 BP 124 / 74; Pulse 92; Resp 16; Temp 98.1; Pulse Ox 97% on R/A; Weight 83.91 kg; Height la1 6 ft. 0 in. (182.88 cm); 14:50 Body Mass Index 25.09 (83.91 kg, 182.88 cm) la1 ED Course: 14:41 Patient arrived in ED. as 14:49 Anshu Barbosa, RN is Primary Nurse. la1 14:50 Triage completed. la1 14:50 Arm band placed on left wrist. la1 14:51 Patient has correct armband on for positive identification. la1 14:55 Beau Metz NP is PHCP. pm1 14:55 Blaise Cat MD is Attending Physician. pm1 16:25 Chest Pa And Lat (2 Views) XRAY In Process Unspecified. EDMS 16:59 No provider procedures requiring assistance completed. Patient did not have IV access iw during this emergency room visit. Administered Medications: 15:24 Drug: Albuterol - atroVENT (3:1) (2.5 mg - 0.5 mg) 3 ml Route: Nebulizer; iw 17:00 Follow up: Response: No adverse reaction; Wheezing diminished iw 15:24 Drug: predniSONE 60 mg Route: PO; iw 17:01 Follow up: Response: No adverse reaction iw Outcome: 16:40 Discharge ordered by MD. pm1 16:59 Discharged to home ambulatory, with family. iw 16:59 Condition: good 16:59 Discharge instructions given to patient, family, Instructed on discharge instructions, follow up and referral plans. medication usage, Demonstrated understanding of instructions, follow-up care, medications, Prescriptions given X 4. 17:01 Patient left the ED. iw Signatures: Dispatcher [employer] Carla Escalante Irene, RN RN iw Anshu Barbosa RN RN la1 Beau Metz NP ASSISTANT TERMINAL MANAGER pm1
--- NOTE | 2019-06-23 16:40 | EDPHYS ---
Physician Documentation [facility] Name: Berlin Tran Age: 28 yrs Sex: Male : 1990 Arrival Date: 06/23/2019 Time: 14:41 Bed 12 Private MD: ED Physician Blaise Cat HPI: 06/23 16:04 This 28 yrs old Male presents to ER via Ambulatory with complaints of Chest pm1 Congestion. 16:04 The patient presents to the emergency department with wheezing, Current therapy: pm1 albuterol nebs, the patient was reported to have chest congestion. Onset: The symptoms/episode began/occurred this morning. Modifying factors: The symptoms are alleviated by nothing, the symptoms are aggravated by nothing. Associated signs and symptoms: Pertinent negatives: chest pain, fever, headache, palpitations, rash, vomiting. Severity of symptoms: in the emergency department the symptoms are worse. The patient has experienced similar episodes in the past, multiple times, today's symptoms are similar, to previous asthma exacerbation . The patient has not recently seen a physician. Historical: - Allergies: 14:50 Motrin (eyes swelling); la1 - PMHx: 14:50 Asthma; Gastric Reflux; la1 - Immunization history:: Adult Immunizations up to date. - Social history:: Smoking status: Patient uses tobacco products, smokes one-half pack cigarettes per day. - Ebola Screening: : No symptoms or risks identified at this time. ROS: 16:04 Constitutional: Negative for fever, chills, and weight loss, Eyes: Negative for injury, pm1 pain, redness, and discharge, ENT: Negative for injury, pain, and discharge, Neck: Negative for injury, pain, and swelling, Cardiovascular: Negative for chest pain, palpitations, and edema, Abdomen/GI: Negative for abdominal pain, nausea, vomiting, diarrhea, and constipation. 16:04 Back: Negative for injury and pain, MS/Extremity: Negative for injury and deformity, Skin: Negative for injury, rash, and discoloration, Neuro: Negative for headache, weakness, numbness, tingling, and seizure. 16:04 Respiratory: Positive for cough, shortness of breath, wheezing. Exam: 16:04 Constitutional: This is a well developed, well nourished patient who is awake, alert, pm1 and in no acute distress. Head/Face: Normocephalic, atraumatic. Neck: Trachea midline, no thyromegaly or masses palpated, and no cervical lymphadenopathy. Supple, full range of motion without nuchal rigidity, or vertebral point tenderness. No Meningismus. Chest/axilla: Normal chest wall appearance and motion. Nontender with no deformity. No lesions are appreciated. Cardiovascular: Regular rate and rhythm with a normal S1 and S2. No gallops, murmurs, or rubs. Normal PMI, no JVD. No pulse deficits. 16:04 Abdomen/GI: Soft, non-tender, with normal bowel sounds. No distension or tympany. No guarding or rebound. No evidence of tenderness throughout. Back: No spinal tenderness. No costovertebral tenderness. Full range of motion. Skin: Warm, dry with normal turgor. Normal color with no rashes, no lesions, and no evidence of cellulitis. MS/ Extremity: Pulses equal, no cyanosis. Neurovascular intact. Full, normal range of motion. 16:04 Respiratory: the patient does not display signs of respiratory distress, Respirations: normal, Breath sounds: wheezing: expiratory is heard diffusely. 16:04 Neuro: Orientation: is normal, Motor: is normal, moves all fours. Vital Signs: 14:50 BP 124 / 74; Pulse 92; Resp 16; Temp 98.1; Pulse Ox 97% on R/A; Weight 83.91 kg; Height la1 6 ft. 0 in. (182.88 cm); 14:50 Body Mass Index 25.09 (83.91 kg, 182.88 cm) la1 MDM: 14:55 Patient medically screened. pm1 16:02 Data reviewed: vital signs. Data interpreted: Pulse oximetry: on room air is 97 %. pm1 Interpretation: normal. 16:34 Counseling: I had a detailed discussion with the patient and/or guardian regarding: the pm1 historical points, exam findings, and any diagnostic results supporting the discharge/admit diagnosis, lab results, radiology results, the need for outpatient follow up, to return to the emergency department if symptoms worsen or persist or if there are any questions or concerns that arise at home. 06/23 15:17 Order name: Flu; Complete Time: 15:55 pm1 06/23 15:17 Order name: Chest Pa And Lat (2 Views) XRAY; Complete Time: 17:15 pm1 Administered Medications: 15:24 Drug: Albuterol - atroVENT (3:1) (2.5 mg - 0.5 mg) 3 ml Route: Nebulizer; iw 17:00 Follow up: Response: No adverse reaction; Wheezing diminished iw 15:24 Drug: predniSONE 60 mg Route: PO; iw 17:01 Follow up: Response: No adverse reaction iw Disposition: 17:31 Co-signature as Attending Physician, Blaise Cat MD. rn Disposition: 06/23/19 16:40 Discharged to Home. Impression: Bronchitis, not specified as acute or chronic. - Condition is Stable. - Discharge Instructions: Acute Bronchitis, Adult, How to Use an Inhaler. - Prescriptions for Prednisone 20 mg Oral Tablet - take 3 tablet by ORAL route once daily for 5 days; 15 tablet. Albuterol Sulfate 2.5 mg /3 mL (0.083 %) Inhalation Solution for Nebulization - inhale 1 unit by NEBULIZATION route every 8 hours As needed; 1 box. Albuterol Sulfate 90 mcg/actuation - inhale 1-2 puff by INHALATION route every 4-6 hours; 1 Inhaler. Guaifenesin AC 10- 100 mg/5 mL Oral Liquid - take 10 milliliter by ORAL route every 4 hours As needed; 240 milliliter. - Work release form, Medication Reconciliation Form, Thank You Letter, Antibiotic Education, Prescription Opioid Use form. - Follow up: Emergency Department; When: As needed; Reason: Worsening of condition. Follow up: Private Physician; When: 2 - 3 days; Reason: Recheck today's complaints, Continuance of care, Re-evaluation by your physician. - Problem is new. - Symptoms have improved. Signatures: Dispatcher [employer] Cynthia Esqueda RN RN Blaise Cat MD MD rn Attema, Lee, RN RN la1 Beau Metz, KEY CARRIER KEY CARRIER pm1 Corrections: (The following items were deleted from the chart) 17:01 16:40 06/23/2019 16:40 Discharged to Home. Impression: Bronchitis, not specified as iw acute or chronic. Condition is Stable. Forms are Medication Reconciliation Form, Thank You Letter, Antibiotic Education, Prescription Opioid Use. Follow up: Emergency Department; When: As needed; Reason: Worsening of condition. Follow up: Private Physician; When: 2 - 3 days; Reason: Recheck today's complaints, Continuance of care, Re-evaluation by your physician. Problem is new. Symptoms have improved. pm1
--- NOTE | 2019-06-23 16:56 | RAD REPORT ---
EXAM DESCRIPTION: RAD - Chest Pa And Lat (2 Views) - 06/23/2019 4:26 pm CLINICAL HISTORY: Cough;SOB Chest pain. COMPARISON: <Comparisons> FINDINGS: The lungs are clear. The heart is normal in size. No displaced fractures. IMPRESSION: No acute or concerning finding suspected.
[2019-06-23 20:45] VITALS: BP 124/74; TEMP 98.1; O2SAT 97
== END 2019-06-23 17:01 | disposition home or self-care (01) ==
LOC: ER 14:40
DX: J40 Bronchitis, not specified as acute or chronic (principal); F17.210 Nicotine dependence, cigarettes, uncomplicated
CPT/HCPCS: 71046; 87804; 94640; 99284; J7512

== ENCOUNTER 2019-08-20 12:38 | Emergency (ER) | payer SELFPAY ==
--- NOTE | 2019-08-20 13:48 | EDPHYS ---
Physician Documentation [facility] Name: Berlin Tran Age: 28 yrs Sex: Male : 1990 Arrival Date: 08/20/2019 Time: 12:40 Bed 24 Private MD: ED Physician Gagandeep Rodriguez HPI: 08/20 13:45 This 28 yrs old Male presents to ER via Ambulatory with complaints of Back jr8 Pain. 13:45 The patient presents with pain that is acute. The symptoms are located in the low back. jr8 Onset: The symptoms/episode began/occurred acutely, yesterday. The pain does not radiate. Associated signs and symptoms: The patient has no apparent associated signs or symptoms. 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 [place] pain in back that will not go away. Modifying factors: The patient symptoms are alleviated by nothing, the patient symptoms are aggravated by bending. Severity of symptoms: At their worst the symptoms were moderate, in the emergency department the symptoms are unchanged. The patient has not experienced similar symptoms in the past. The patient has not recently seen a physician. Historical: - Allergies: 13:09 Motrin (eyes swelling); aj1 - Home Meds: 13:09 Albuterol Inhl [Active]; aj1 - PMHx: 13:09 Asthma; Gastric Reflux; aj1 - Immunization history:: Flu vaccine is not up to date. - Social history:: Smoking status: Patient uses tobacco products, 6 cigarettes per day. - Ebola Screening: : Patient denies travel to an Ebola-affected area in the 21 days before illness onset. ROS: 13:45 Eyes: Negative for injury, pain, redness, and discharge, ENT: Negative for injury, jr8 pain, and discharge, Neck: Negative for injury, pain, and swelling, Cardiovascular: Negative for chest pain, palpitations, and edema, Respiratory: Negative for shortness of breath, cough, wheezing, and pleuritic chest pain, Abdomen/GI: Negative for abdominal pain, nausea, vomiting, diarrhea, and constipation, MS/Extremity: Negative for injury and deformity, Skin: Negative for injury, rash, and discoloration, Neuro: Negative for headache, weakness, numbness, tingling, and seizure. 13:45 Back: Positive for pain at rest, pain with movement, Negative for radiated pain. Exam: 13:45 Eyes: Pupils equal round and reactive to light, extra-ocular motions intact. Lids and jr8 lashes normal. Conjunctiva and sclera are non-icteric and not injected. Cornea within normal limits. Periorbital areas with no swelling, redness, or edema. ENT: Nares patent. No nasal discharge, no septal abnormalities noted. Tympanic membranes are normal and external auditory canals are clear. Oropharynx with no redness, swelling, or masses, exudates, or evidence of obstruction, uvula midline. Mucous membranes moist. Neck: Trachea midline, no thyromegaly or masses palpated, and no cervical lymphadenopathy. Supple, full range of motion without nuchal rigidity, or vertebral point tenderness. No Meningismus. Cardiovascular: Regular rate and rhythm with a normal S1 and S2. No gallops, murmurs, or rubs. Normal PMI, no JVD. No pulse deficits. Respiratory: Lungs have equal breath sounds bilaterally, clear to auscultation and percussion. No rales, rhonchi or wheezes noted. No increased work of breathing, no retractions or nasal flaring. Abdomen/GI: Soft, non-tender, with normal bowel sounds. No distension or tympany. No guarding or rebound. No evidence of tenderness throughout. Skin: Warm, dry with normal turgor. Normal color with no rashes, no lesions, and no evidence of cellulitis. MS/ Extremity: Pulses equal, no cyanosis. Neurovascular intact. Full, normal range of motion. Neuro: Awake and alert, GCS 15, oriented to person, place, time, and situation. Cranial nerves II-XII grossly intact. Motor strength 5/5 in all extremities. Sensory grossly intact. Cerebellar exam normal. Normal gait. 13:45 Back: pain, that is moderate, of the left low back, left mid back, right mid back and right low back, ROM is painful, normal spinal alignment noted, CVA tenderness, is absent, muscle spasm, is appreciated in the left low back, left mid back, right mid back and right low back, Straight leg raises: pain bilaterally. Vital Signs: 13:09 BP 126 / 64; Pulse 72; Resp 18; Temp 97.5; Pulse Ox 96% on R/A; Weight 83.91 kg (R); aj1 Height 5 ft. 11 in. (180.34 cm) (R); Pain 05/30; 13:09 Body Mass Index 25.80 (83.91 kg, 180.34 cm) aj1 MDM: 13:13 Patient medically screened. jr8 13:45 Data reviewed: vital signs, nurses notes, and as a result, I will discharge patient. jr8 Data interpreted: Pulse oximetry: on room air is 96 %. Interpretation: normal. Counseling: I had a detailed discussion with the patient and/or guardian regarding: the historical points, exam findings, and any diagnostic results supporting the discharge/admit diagnosis, the need for outpatient follow up, a family practitioner, to return to the emergency department if symptoms worsen or persist or if there are any questions or concerns that arise at home. Administered Medications: 13:56 Drug: Demerol 50 mg Route: IM; Site: right deltoid; iw 13:56 Drug: Zofran 4 mg Route: PO; iw Disposition: 08/20/19 13:47 Discharged to Home. Impression: Muscle spasm of back. - Condition is Stable. - Discharge Instructions: Back Pain, Adult, Back Exercises, Gaqt-du-Ltty, Heat Therapy. - Prescriptions for Zanaflex 4 mg Oral Tablet - take 1 tablet by ORAL route every 8 hours As needed; 20 tablet. Tramadol 50 mg Oral Tablet - take 1 tablet by ORAL route every 8 hours as needed; 12 tablet. Medrol (Dale) 4 mg Oral Tablets, Dose Pack - take 1 tablet by ORAL route as directed - follow package instructions; 1 packet. - Work release form, Medication Reconciliation Form, Thank You Letter, Antibiotic Education, Prescription Opioid Use form. - Follow up: Private Physician; When: 1 week; Reason: Recheck today's complaints, Continuance of care, Re-evaluation by your physician. - Problem is new. - Symptoms have improved. Addendum: 08/26/2019 11:09 Co-signature as Attending Physician, Gagandeep Rodriguez MD I agree with the assessment and c horton plan of care. Signatures: Jackie Pino, RN RN aj1 Gagandeep Rodriguez MD MD cha Williams, Irene, RN RN iw Melvin Chang PA PA jr8 Corrections: (The following items were deleted from the chart) 08/20 14:15 13:47 08/20/2019 13:47 Discharged to Home. Impression: Muscle spasm of back. Condition iw is Stable. Forms are Medication Reconciliation Form, Thank You Letter, Antibiotic Education, Prescription Opioid Use. Follow up: Private Physician; When: 1 week; Reason: Recheck today's complaints, Continuance of care, Re-evaluation by your physician. Problem is new. Symptoms have improved. jr8
--- NOTE | 2019-08-20 13:48 | ER ---
Nurse's Notes [facility] Name: Berlin Tran Age: 28 yrs Sex: Male : 1990 Arrival Date: 08/20/2019 Time: 12:40 Bed 24 Private MD: Diagnosis: Muscle spasm of back Presentation: 08/20 13:02 Presenting complaint: Patient states: Back pain since yesterday. 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 Transition of care: patient was not received from another setting of care. Onset of symptoms was 2018. Risk Assessment: Do you want to hurt yourself or someone else? Patient reports no desire to harm self or others. Initial Sepsis Screen: Does the patient meet any 2 criteria? No. Patient's initial sepsis screen is negative. Does the patient have a suspected source of infection? No. Patient's initial sepsis screen is negative. Care prior to arrival: None. 13:02 Method Of Arrival: Ambulatory [facility] 13:02 Acuity: PITER 4 aj1 Triage Assessment: 13:09 General: Appears in no apparent distress. comfortable, Behavior is calm, cooperative, aj1 appropriate for age. Pain: Complains of pain in back Pain currently is 10 out of 10 on a pain scale. Neuro: Level of Consciousness is awake, alert, obeys commands, Oriented to person, place, time, situation. Cardiovascular: Patient's skin is warm and dry. Respiratory: Airway is patent Respiratory effort is even, unlabored, Respiratory pattern is regular, symmetrical. Musculoskeletal: Range of motion: intact in all extremities. Historical: - Allergies: 13:09 Motrin (eyes swelling); aj1 - Home Meds: 13:09 Albuterol Inhl [Active]; aj1 - PMHx: 13:09 Asthma; Gastric Reflux; aj1 - Immunization history:: Flu vaccine is not up to date. - Social history:: Smoking status: Patient uses tobacco products, 6 cigarettes per day. - Ebola Screening: : Patient denies travel to an Ebola-affected area in the 21 days before illness onset. Screenin:14 Abuse screen: Denies threats or abuse. Denies injuries from another. Nutritional iw screening: No deficits noted. Tuberculosis screening: No symptoms or risk factors identified. Fall Risk None identified. Assessment: 13:50 General: Appears in no apparent distress. comfortable, Behavior is calm, cooperative. iw Pain: Complains of pain in back. Neuro: Level of Consciousness is awake, alert, obeys commands, Oriented to person, place, time, situation, Moves all extremities. Full function. Cardiovascular: Capillary refill < 3 seconds in bilateral fingers Patient's skin is warm and dry. Respiratory: Respiratory effort is even, unlabored, Respiratory pattern is regular, symmetrical. GI: No signs and/or symptoms were reported involving the gastrointestinal system. Derm: Skin is intact, is healthy with good turgor. Musculoskeletal: Range of motion: intact in all extremities. Vital Signs: 13:09 BP 126 / 64; Pulse 72; Resp 18; Temp 97.5; Pulse Ox 96% on R/A; Weight 83.91 kg (R); aj1 Height 5 ft. 11 in. (180.34 cm) (R); Pain 10/10; 13:09 Body Mass Index 25.80 (83.91 kg, 180.34 cm) aj1 ED Course: 12:40 Patient arrived in ED. as 13:07 Triage completed. aj1 13:09 Arm band placed on Patient placed in an exam room. aj1 13:13 Melvin Chang PA is PHCP. jr8 13:13 Gagandeep Rodriguez MD is Attending Physician. jr8 13:20 Cynthia Claudio, RN is Primary Nurse. iw 13:50 Patient has correct armband on for positive identification. iw 14:14 No provider procedures requiring assistance completed. Patient did not have IV access iw during this emergency room visit. Administered Medications: 13:56 Drug: Demerol 50 mg Route: IM; Site: right deltoid; iw 13:56 Drug: Zofran 4 mg Route: PO; iw Outcome: 13:47 Discharge ordered by . jr8 14:14 Discharged to home ambulatory. iw 14:14 Condition: good 14:14 Discharge instructions given to patient, Instructed on discharge instructions, follow up and referral plans. Demonstrated understanding of instructions, follow-up care, medications, Prescriptions given X 3. 14:15 Patient left the ED. iw Signatures: Jackie Pino RN RN aj1 Carla Beverly as Cynthia Claudio RN RN iw Melvin Chang PA PA jr8
[2019-08-20] MEDS ORDERED: MEPERIDINE HCL 50 MG/ML ONE (13:54)
[2019-08-20] MEDS ORDERED: ONDANSETRON 4 MG (ODT) TAB ONE (13:54)
[2019-08-20 14:21] VITALS: BP 126/64; TEMP 97.5; O2SAT 96
== END 2019-08-20 14:15 | disposition home or self-care (01) ==
LOC: ER 12:38
DX: M62.830 Muscle spasm of back (principal); J45.909 Unspecified asthma, uncomplicated; Z72.0 Tobacco use; Z88.6 Allergy status to analgesic agent
CPT/HCPCS: 96372; 99283; J2175

== ENCOUNTER 2020-01-03 16:59 | Emergency (ER) | payer SELFPAY ==
--- NOTE | 2020-01-03 19:21 | ER ---
Nurse's Notes [facility] Name: Berlin Tran Age: 29 yrs Sex: Male : 1990 Arrival Date: 01/03/2020 Time: 17:01 Bed 20 Private MD: Diagnosis: Strain of muscle, fascia and tendon at neck level Presentation: 01/02 17:14 Chief complaint: Patient states: Neck pain x 6 days. Denies injuries to neck. Denies ca1 fever. States, "today I had a cramp on my R arm". Coronavirus screen: Proceed with normal triage. Patient denies a cough. Patient denies shortness of breath or difficulty breathing. Patient denies measured and/or subjective temperature greater than 100.4F prior to today's visit. Patient denies travel on a cruise ship or to a country the [facility] currently lists as an affected area. Patient denies contact with known and/or suspected case of COVID-19. Ebola Screen: Patient negative for fever greater than or equal to 101.5 degrees Fahrenheit, and additional compatible Ebola Virus Disease symptoms Patient denies exposure to infectious person. Patient denies travel to an Ebola-affected area in the 21 days before illness onset. No symptoms or risks identified at this time. Initial Sepsis Screen: Does the patient meet any 2 criteria? No. Patient's initial sepsis screen is negative. Does the patient have a suspected source of infection? No. Patient's initial sepsis screen is negative. Risk Assessment: Do you want to hurt yourself or someone else? Patient reports no desire to harm self or others. Onset of symptoms was January 03, 2020. 17:14 Method Of Arrival: Ambulatory ca1 17:14 Acuity: PITER 4 ca1 Historical: - Allergies: 17:21 Motrin (eyes swelling); ca1 - Home Meds: 17:21 Albuterol Inhl [Active]; ca1 - PMHx: 17:21 Asthma; Gastric Reflux; ca1 - Immunization history:: Adult Immunizations not up to date. - Social history:: Smoking status: Patient reports the use of cigarette tobacco products, smokes one-half pack cigarettes per day. Screenin:23 Abuse screen: Denies threats or abuse. Nutritional screening: No deficits noted. ll1 Tuberculosis screening: No symptoms or risk factors identified. Fall Risk None identified. Total Pereyra Fall Scale indicates No Risk (0-24 pts). Assessment: 19:21 General: Appears in no apparent distress. Behavior is calm, cooperative. Pain: ll1 Complains of pain in neck Pain currently is 8 out of 10 on a pain scale. Quality of pain is described as aching, Pain began 6 days ago, believes he slept wrong. No trauma or falls. Neuro: No deficits noted. Level of Consciousness is awake, alert, obeys commands, Oriented to person, place, time, situation, Appropriate for age Nurse Practitioner Hospitalist are equal bilaterally Moves all extremities. Full function Gait is steady, Speech is normal, Facial symmetry appears normal. Musculoskeletal: Circulation, motion, and sensation intact. Capillary refill < 3 seconds, Reports pain in posterior neck. Injury Description: no known injury. Vital Signs: 17:14 BP 114 / 94; Pulse 68; Resp 16 S; Temp 97.1; Pulse Ox 100% on R/A; Weight 83.91 kg (R); ca1 Height 5 ft. 11 in. (180.34 cm) (R); Pain 8/10; 19:41 BP 110 / 60; Pulse 60; Resp 16; Temp 98; Pain 6/10; ll1 17:14 Body Mass Index 25.80 (83.91 kg, 180.34 cm) ca1 ED Course: 17:01 Patient arrived in ED. as 17:20 Triage completed. ca1 17:21 Arm band placed on right wrist. ca1 18:32 Lena Uribe, VU is Primary Nurse. ll1 18:46 Gagandeep Nichols PA is PHCP. cp 18:46 Kevyn Das MD is Attending Physician. cp 19:23 Patient has correct armband on for positive identification. Bed in low position. Call ll1 light in reach. Side rails up X 1. 19:23 No provider procedures requiring assistance completed. Patient did not have IV access ll1 during this emergency room visit. Administered Medications: 19:21 Drug: Decadron 10 mg Route: IM; Site: right vastus lateralis; ll1 19:40 Follow up: Response: No adverse reaction; RASS: Alert and Calm (0) ll1 Outcome: 19:20 Discharge ordered by MD. cp 19:41 Discharged to home ambulatory. ll1 19:41 Condition: stable 19:41 Discharge instructions given to patient, Instructed on discharge instructions, follow up and referral plans. medication usage, Demonstrated understanding of instructions, follow-up care, medications, Prescriptions given X 2. 19:42 Patient left the ED. ll1 Signatures: Carla Beverly Corey, PA PA cp Acob, Cheryl, RN RN ca1 Lena Uribe RN RN ll1
--- NOTE | 2020-01-03 19:21 | EDPHYS ---
Physician Documentation [facility] Name: Berlin Tran Age: 29 yrs Sex: Male : 1990 Arrival Date: 01/03/2020 Time: 17:01 Bed 20 Private MD: ED Physician Kevyn Das HPI: 01/02 19:11 This 29 yrs old Male presents to ER via Ambulatory with complaints of Neck cp Pain, >24Hrs Old. 19:11 The patient or guardian complains of decreased range of motion, pain, that is acute. cp The symptoms are located on the posterior neck and upper back. Onset: The symptoms/episode began/occurred 6 day(s) ago. Context: started upon awakening from sleep. Associated signs and symptoms: Pertinent negatives: fever, numbness, tingling, weakness. The pain does not radiate. Severity of symptoms: in the emergency department the symptoms are unchanged, despite home interventions. Historical: - Allergies: 17:21 Motrin (eyes swelling); ca1 - Home Meds: 17:21 Albuterol Inhl [Active]; ca1 - PMHx: 17:21 Asthma; Gastric Reflux; ca1 - Immunization history:: Adult Immunizations not up to date. - Social history:: Smoking status: Patient reports the use of cigarette tobacco products, smokes one-half pack cigarettes per day. ROS: 19:13 Eyes: Negative for injury, pain, redness, and discharge. cp 19:13 Constitutional: Negative for chills, fever. 19:13 ENT: Negative for ear pain, sore throat, difficulty swallowing, difficulty handling secretions. 19:13 Neck: Positive for pain with movement, pain at rest, stiffness, of the posterior aspect of neck and upper back. 19:13 Cardiovascular: Negative for chest pain, palpitations. 19:13 Respiratory: Negative for cough, shortness of breath, wheezing. 19:13 Abdomen/GI: Negative for abdominal pain. 19:13 Skin: Negative for rash. 19:13 Neuro: Negative for headache, numbness, tingling, weakness. 19:13 All other systems are negative. Exam: 19:15 Head/Face: Normocephalic, atraumatic. cp 19:15 Constitutional: The patient appears in no acute distress, alert, awake, non-diaphoretic, non-toxic, well developed, well nourished. 19:15 Eyes: Periorbital structures: appear normal, Conjunctiva: normal, no exudate, no injection, Sclera: no appreciated abnormality, Lids and lashes: appear normal, bilaterally. 19:15 ENT: External ear(s): are unremarkable, Posterior pharynx: Airway: no evidence of obstruction, patent. 19:15 Neck: External neck: tenderness, that is mild, of the left mid cervical area, right mid cervical area, left trapezius, lower cervical area and right trapezius and upper back, ROM/movement: pain, that is mild, with any movement, Meningeal signs: are not present, nuchal rigidity, is not appreciated. 19:15 Chest/axilla: Inspection: normal, Palpation: is normal, no crepitus, no tenderness. 19:15 Cardiovascular: Rate: normal, Rhythm: regular. 19:15 Respiratory: the patient does not display signs of respiratory distress, Respirations: normal, no use of accessory muscles, no retractions, labored breathing, is not present, Breath sounds: are clear throughout, no decreased breath sounds. 19:15 Abdomen/GI: Exam negative for discomfort, distension, guarding, Inspection: abdomen appears normal. 19:15 Skin: cellulitis, is not appreciated, no rash present. 19:15 Neuro: Orientation: to person, place \T\ time. Mentation: is normal, Motor: moves all cp fours, strength is normal, Sensation: is normal. Vital Signs: 17:14 BP 114 / 94; Pulse 68; Resp 16 S; Temp 97.1; Pulse Ox 100% on R/A; Weight 83.91 kg (R); ca1 Height 5 ft. 11 in. (180.34 cm) (R); Pain 8/10; 19:41 BP 110 / 60; Pulse 60; Resp 16; Temp 98; Pain 6/10; ll1 17:14 Body Mass Index 25.80 (83.91 kg, 180.34 cm) ca1 MDM: 18:52 Patient medically screened. cp 19:18 Data reviewed: vital signs, nurses notes. cp 19:18 Counseling: I had a detailed discussion with the patient and/or guardian regarding: the cp historical points, exam findings, and any diagnostic results supporting the discharge/admit diagnosis, the need for outpatient follow up, a family practitioner, to return to the emergency department if symptoms worsen or persist or if there are any questions or concerns that arise at home. Response to treatment: the patient's symptoms have mildly improved after treatment, and as a result, I will discharge patient. Administered Medications: 19:21 Drug: Decadron 10 mg Route: IM; Site: right vastus lateralis; ll1 19:40 Follow up: Response: No adverse reaction; RASS: Alert and Calm (0) ll1 Disposition: 01/03/20 19:20 Discharged to Home. Impression: Strain of muscle, fascia and tendon at neck level. - Condition is Stable. - Discharge Instructions: Muscle Strain, Heat Therapy, Neck Exercises. - Prescriptions for Cyclobenzaprine 10 mg Oral Tablet - take 1 tablet by ORAL route every 8 hours As needed no driving while taking medication; 20 tablet. Medrol (Dale) 4 mg Oral Tablets, Dose Pack - take 1 tablet by ORAL route as directed - follow package instructions; 1 packet. - Medication Reconciliation Form, Thank You Letter, Antibiotic Education, Prescription Opioid Use, Work release form form. - Follow up: Private Physician; When: 2 - 3 days; Reason: Worsening of condition. - Problem is new. - Symptoms have improved. Signatures: Gagandeep Nichols PA PA cp Sydnie Owens RN RN ca1 Lena Uribe RN RN ll1 Corrections: (The following items were deleted from the chart) 19:42 19:20 01/03/2020 19:20 Discharged to Home. Impression: Strain of muscle, fascia and ll1 tendon at neck level. Condition is Stable. Forms are Medication Reconciliation Form, Thank You Letter, Antibiotic Education, Prescription Opioid Use. Follow up: Private Physician; When: 2 - 3 days; Reason: Worsening of condition. Problem is new. Symptoms have improved. cp
[2020-01-03] MEDS ORDERED: dexAMETHasone 10 MG/ML VIAL ONE (19:22)
[2020-01-03 20:12] VITALS: O2SAT 100
[2020-01-03 20:13] VITALS: BP 110/60; TEMP 98
== END 2020-01-03 19:42 | disposition home or self-care (01) ==
LOC: ER 16:59
DX: S16.1XXA Strain of muscle, fascia and tendon at neck level, initial encounter (principal); X58.XXXA Exposure to other specified factors, initial encounter; Y93.89 Activity, other specified; Y92.9 Unspecified place or not applicable; F17.210 Nicotine dependence, cigarettes, uncomplicated; J45.909 Unspecified asthma, uncomplicated; Z88.6 Allergy status to analgesic agent
CPT/HCPCS: 96372; 99283; J1100

== ENCOUNTER 2020-07-05 16:55 | Emergency (ER) | payer SELFPAY ==
[2020-07-05] MEDS ORDERED: MAGNES/ALUMIN/SIMET 30ML UCUP ONE (17:33)
[2020-07-05] MEDS ORDERED: PANTOPRAZOLE 40 MG INJ ONE (17:33)
[2020-07-05] MEDS ORDERED: LIDOCAINE VISCOUS 2% SOLN 15 ML UDC ONE (17:33)
[2020-07-05 17:44] LABS: Absolute Lymphocytes (CBC) 1.8 K/uL (0.7-4.9); Basophils % 0.2 % (0-1.3); Hematocrit 46.3 % (39.6-49.0); Lymphocytes % 11.9 % (15.3-44.8); MPV 8.6 fL (7.6-11.3); RBC Red Blood Cell Count 5.25 M/uL (4.33-5.43)
[2020-07-05 17:58] LABS: ALT/SGPT 58 U/L (12-78); AST/SGOT 21 U/L (15-37); Albumin 3.7 g/dL (3.4-5.0); Alkaline Phosphatase 86 U/L (45-117); BUN Blood Urea Nitrogen 16 mg/dL (7-18); Bicarbonate 28 mmol/L (21-32); Bilirubin Direct < 0.1 mg/dL (0-0.2); Bilirubin Total 0.5 mg/dL (0.2-1.0); Glucose Level 108 mg/dL (74-106); Lipase 61 U/L (73-393); Potassium 3.8 mmol/L (3.5-5.1); Protein, Total 6.3 g/dL (6.4-8.2); Sodium Level 141 mmol/L (136-145)
--- NOTE | 2020-07-05 18:34 | RAD REPORT ---
EXAM DESCRIPTION: US - Abdomen Exam Limited - 07/05/2020 5:51 pm CLINICAL HISTORY: ABD PAIN COMPARISON: Abdomen Exam Limited dated 05/03/2019 FINDINGS: No gallstones, sludge or other abnormalities within the gallbladder lumen. There is no wal l thickening or pericholecystic fluid. No common duct stone or biliary tree dilatation identified. IMPRESSION: Normal gallbladder and biliary tree ultrasound.
--- NOTE | 2020-07-05 19:02 | RAD REPORT ---
EXAM DESCRIPTION: CT - Abdomen Pelvis W Contrast - 07/05/2020 6:31 pm CLINICAL HISTORY: ABD PAIN COMPARISON: Abdomen Pelvis W Contrast dated 05/07/2018 TECHNIQUE: Biphasic, helical CT imaging of the abdomen and pelvis was performed following 100 ml non -ionic IV contrast. No oral contrast administered. All CT scans are performed using dose optimization technique as appropriate and may include automated exposure control or mA/KV adjustment according to patient size. FINDINGS: No suspicious findings in the lung bases. The liver, spleen, and pancreas show no suspicious findings. Gallbladder and biliary tree are also wi thout suspicious finding. Symmetric renal function is seen with no hydronephrosis or suspicious renal mass. No pyelonephritis o r acute parenchymal process. Urinary bladder is fully contracted. No bladder calculi. No adrenal abno rmalities. No gastric dilatation or gastric wall thickening. In the anterior low midline pelvis there is a 6-8 c entimeter long segment of ileum showing circumferential wall thickening with edema and stranding in t he adjacent fat. Patient has circumferential wall thickening and edema over an approximately 6-7 cent imeter length of the descending colon- sigmoid colon junction. No associated mass lesions. No obstruc tive changes. There is a small quantity of free fluid in the dependent portion of the pelvis. No absc ess, free air or pneumatosis. No hernia, mass or bulky lymphadenopathy. No suspicious bony findings. IMPRESSION: Nonspecific acute ileitis and colitis as detailed. No abscess, free air or surgically emergent finding.
--- NOTE | 2020-07-05 19:08 | ER ---
Nurse's Notes [facility] Name: Berlin Tran Age: 29 yrs Sex: Male : 1990 Arrival Date: 07/05/2020 Time: 16:57 Bed 17 Private MD: Diagnosis: Colitis Presentation: 07/05 17:02 Chief complaint: Patient states: Abdominal pain, epigastric and umbilical region, x 2 ca1 days. Reports N/V/D. Denies fever. Coronavirus screen: Client denies travel out of the [place] in the last 14 days. diarrhea, nausea, Client presents with at least one sign or symptom that may indicate coronavirus-19. Standard/surgical mask placed on the client. Provider contacted for isolation considerations. Ebola Screen: Patient negative for fever greater than or equal to 101.5 degrees Fahrenheit, and additional compatible Ebola Virus Disease symptoms Patient denies exposure to infectious person. Patient denies travel to an Ebola-affected area in the 21 days before illness onset. No symptoms or risks identified at this time. Initial Sepsis Screen: Does the patient meet any 2 criteria? No. Patient's initial sepsis screen is negative. Does the patient have a suspected source of infection? No. Patient's initial sepsis screen is negative. Risk Assessment: Do you want to hurt yourself or someone else? Patient reports no desire to harm self or others. Onset of symptoms was July 05, 2020. 17:02 Method Of Arrival: Ambulatory ca1 17:02 Acuity: PITER 3 ca1 Historical: - Allergies: 17:07 Motrin (eyes swelling); ca1 - Home Meds: 17:07 Albuterol Inhl [Active]; ca1 - PMHx: 17:07 Asthma; Gastric Reflux; ca1 - PSHx: 17:07 None; ca1 - Immunization history:: Adult Immunizations up to date, Flu vaccine is not up to date. - Social history:: Smoking status: Patient reports the use of cigarette tobacco products, smokes one-half pack cigarettes per day. Screenin:30 Abuse screen: Denies threats or abuse. Denies injuries from another. Nutritional sv screening: No deficits noted. Tuberculosis screening: No symptoms or risk factors identified. Fall Risk None identified. Assessment: 17:30 General: Appears in no apparent distress. uncomfortable, well groomed, well developed, sv Behavior is calm, cooperative, appropriate for age. Pain: Complains of pain in umbilical area Pain currently is 8 out of 10 on a pain scale. Pain began 2-3 days ago. Is intermittent. Neuro: Level of Consciousness is awake, alert, obeys commands, Oriented to person, place, time, situation, Moves all extremities. Full function Gait is steady. Respiratory: Respiratory effort is even, unlabored, Respiratory pattern is regular, symmetrical. GI: Abdomen is flat, Reports diarrhea, nausea, vomiting. Derm: Skin is intact, Skin is pink, warm \T\ dry. 18:40 Reassessment: Patient appears in no apparent distress at this time. Patient and/or sv family updated on plan of care and expected duration. Pain level reassessed. Patient is alert, oriented x 3, equal unlabored respirations, skin warm/dry/pink. 19:30 Reassessment: Patient and/or family updated on plan of care and expected duration. Pain ea level reassessed. Patient is alert, oriented x 3, equal unlabored respirations, skin warm/dry/pink. Discharge instruction given to patient, verbalized the understanding of instruction. Pt left ED ambulatory tolerating well. Vital Signs: 17:02 BP 117 / 79; Pulse 83; Resp 17 S; Temp 97.9(TE); Pulse Ox 98% on R/A; Weight 83.91 kg ca1 (R); Height 5 ft. 11 in. (180.34 cm) (R); Pain 8/10; 17:45 BP 125 / 80; Pulse 82; Resp 16; Pulse Ox 99% ; sv 18:50 BP 114 / 87; Pulse 85; Resp 14; Pulse Ox 97% ; sv 19:15 BP 112 / 81; Pulse 80; Resp 18; Pulse Ox 99% ; ea 17:02 Body Mass Index 25.80 (83.91 kg, 180.34 cm) ca1 ED Course: 16:57 Patient arrived in ED. ag5 17:05 Triage completed. ca1 17:07 Estephanie Benitez F[facility]-C [facility]. kb 17:07 Blaise Cat MD is Attending Physician. kb 17:07 Arm band placed on right wrist. ca1 17:21 Amanda Carrizales, VU is Primary Nurse. sv 17:30 Patient has correct armband on for positive identification. Bed in low position. Call sv light in reach. Pulse ox on. NIBP on. Door closed. Head of bed elevated. 17:30 Inserted saline lock: 20 gauge in right antecubital area, using aseptic technique. sv Blood collected. Flushed right antecubital with 5 ml normal saline. 17:51 US Abdomen Limited In Process Unspecified. EDMS 18:31 CT Abd/Pelvis - IV Contrast Only In Process Unspecified. EDMS 18:36 Awaiting radiology results. Patient moved back from CT. sv 19:00 Primary Nurse role handed off by Amanda Carrizales RN sv 19:00 Report given to Veronica WOMACK. sv 19:08 Veronica Reza, VU is Primary Nurse. ea 19:29 No provider procedures requiring assistance completed. IV discontinued, intact, ea bleeding controlled, No redness/swelling at site. Pressure dressing applied. Administered Medications: 17:38 Drug: ProTONIX 40 mg Route: IVP; Site: right antecubital; sv 18:49 Follow up: Response: No adverse reaction sv 17:38 Drug: GI Cocktail without - (Maalox Suspension 30 ml, Lidocaine Liquid 2 % 15 sv ml) Route: PO; 18:49 Follow up: Response: No adverse reaction sv 19:15 Drug: Cipro 500 mg Route: PO; ea 19:28 Follow up: Response: No adverse reaction ea 19:15 Drug: Flagyl 500 mg Route: PO; ea 19:28 Follow up: Response: No adverse reaction ea 19:20 Drug: Bentyl 20 mg Route: PO; ea 19:28 Follow up: Response: Medication administered at discharge. ea Outcome: 19:07 Discharge ordered by . kb 19:29 Discharged to home ambulatory. ea 19:29 Condition: stable 19:29 Discharge instructions given to patient, Instructed on discharge instructions, follow up and referral plans. medication usage, Demonstrated understanding of instructions, follow-up care, medications, Prescriptions given X 2. 19:31 Patient left the ED. ea Signatures: Dispatcher [employer] EDMS Estephanie Benitez, YUSUF-Brandi MARKET RESEARCH ASSISTANT-Amanda Llamas, Veronica Trinh RN, RN RN ea Acob, Cheryl, RN RN ca1 Gaskin, Ajare ag5
--- NOTE | 2020-07-05 19:08 | EDPHYS ---
Physician Documentation [facility] Name: Berlin Tran Age: 29 yrs Sex: Male : 1990 Arrival Date: 07/05/2020 Time: 16:57 Bed 17 Private MD: ED Physician Blaise Cat HPI: 07/05 19:02 This 29 yrs old Male presents to ER via Ambulatory with complaints of kb Abdominal Pain. 19:02 The patient has experienced similar episodes in the past. The patient has not recently kb seen a physician. 19:02 The patient presents with abdominal pain in the upper abdomen. Onset: The kb symptoms/episode began/occurred 2 day(s) ago. The symptoms do not radiate. Associated signs and symptoms: none. The symptoms are described as constant. Modifying factors: The symptoms are alleviated by nothing, the symptoms are aggravated by nothing. Severity of pain: At its worst the pain was moderate in the emergency department the pain is unchanged. Historical: - Allergies: 17:07 Motrin (eyes swelling); ca1 - Home Meds: 17:07 Albuterol Inhl [Active]; ca1 - PMHx: 17:07 Asthma; Gastric Reflux; ca1 - PSHx: 17:07 None; ca1 - Immunization history:: Adult Immunizations up to date, Flu vaccine is not up to date. - Social history:: Smoking status: Patient reports the use of cigarette tobacco products, smokes one-half pack cigarettes per day. ROS: 18:58 Constitutional: Negative for fever, chills, and weight loss, Cardiovascular: Negative kb for chest pain, palpitations, and edema, Respiratory: Negative for shortness of breath, cough, wheezing, and pleuritic chest pain, Back: Negative for injury and pain, : Negative for injury, bleeding, discharge, and swelling, MS/Extremity: Negative for injury and deformity, Skin: Negative for injury, rash, and discoloration, Neuro: Negative for headache, weakness, numbness, tingling, and seizure. 18:58 Abdomen/GI: Positive for abdominal pain. Exam: 19:01 Constitutional: This is a well developed, well nourished patient who is awake, alert, kb and in no acute distress. Head/Face: Normocephalic, atraumatic. Chest/axilla: Normal chest wall appearance and motion. Nontender with no deformity. No lesions are appreciated. Cardiovascular: Regular rate and rhythm with a normal S1 and S2. No gallops, murmurs, or rubs. Normal PMI, no JVD. No pulse deficits. Respiratory: Lungs have equal breath sounds bilaterally, clear to auscultation and percussion. No rales, rhonchi or wheezes noted. No increased work of breathing, no retractions or nasal flaring. Back: No spinal tenderness. No costovertebral tenderness. Full range of motion. Skin: Warm, dry with normal turgor. Normal color with no rashes, no lesions, and no evidence of cellulitis. MS/ Extremity: Pulses equal, no cyanosis. Neurovascular intact. Full, normal range of motion. Neuro: Awake and alert, GCS 15, oriented to person, place, time, and situation. Cranial nerves II-XII grossly intact. Motor strength 5/5 in all extremities. Sensory grossly intact. Cerebellar exam normal. Normal gait. 19:01 Abdomen/GI: Inspection: abdomen appears normal, Bowel sounds: normal, in all quadrants, Palpation: soft, in all quadrants, mild abdominal tenderness, in the right upper quadrant, left upper quadrant and right lower quadrant. Vital Signs: 17:02 BP 117 / 79; Pulse 83; Resp 17 S; Temp 97.9(TE); Pulse Ox 98% on R/A; Weight 83.91 kg ca1 (R); Height 5 ft. 11 in. (180.34 cm) (R); Pain 8/10; 17:45 BP 125 / 80; Pulse 82; Resp 16; Pulse Ox 99% ; sv 18:50 BP 114 / 87; Pulse 85; Resp 14; Pulse Ox 97% ; sv 19:15 BP 112 / 81; Pulse 80; Resp 18; Pulse Ox 99% ; ea 17:02 Body Mass Index 25.80 (83.91 kg, 180.34 cm) ca1 MDM: 17:07 Patient medically screened. kb 18:58 Data reviewed: vital signs, nurses notes. Data interpreted: Pulse oximetry: on room air kb is 97 %. Interpretation: normal. 19:07 Counseling: I had a detailed discussion with the patient and/or guardian regarding: the kb historical points, exam findings, and any diagnostic results supporting the discharge/admit diagnosis, lab results, radiology results, the need for outpatient follow up, a family practitioner, to return to the emergency department if symptoms worsen or persist or if there are any questions or concerns that arise at home. 07/05 17:07 Order name: Basic Metabolic Panel; Complete Time: 18:03 kb 07/05 17:07 Order name: CBC with Diff; Complete Time: 17:57 kb 07/05 17:07 Order name: Hepatic Function; Complete Time: 18:03 kb 07/05 17:07 Order name: Lipase; Complete Time: 18:03 kb 07/05 17:15 Order name: US Abdomen Limited; Complete Time: 18:36 kb 07/05 18:06 Order name: CT Abd/Pelvis - IV Contrast Only; Complete Time: 19:06 kb 07/05 17:07 Order name: IV Saline Lock; Complete Time: 17:38 kb 07/05 17:07 Order name: Labs collected and sent; Complete Time: 17:38 kb Administered Medications: 17:38 Drug: ProTONIX 40 mg Route: IVP; Site: right antecubital; sv 18:49 Follow up: Response: No adverse reaction sv 17:38 Drug: GI Cocktail without - (Maalox Suspension 30 ml, Lidocaine Liquid 2 % 15 sv ml) Route: PO; 18:49 Follow up: Response: No adverse reaction sv 19:15 Drug: Cipro 500 mg Route: PO; ea 19:28 Follow up: Response: No adverse reaction ea 19:15 Drug: Flagyl 500 mg Route: PO; ea 19:28 Follow up: Response: No adverse reaction ea 19:20 Drug: Bentyl 20 mg Route: PO; ea 19:28 Follow up: Response: Medication administered at discharge. ea Disposition: 07/06 15:50 Co-signature as Attending Physician, Blaise Cat MD. rn Disposition: 07/05/20 19:07 Discharged to Home. Impression: Colitis. - Condition is Stable. - Discharge Instructions: Colitis. - Prescriptions for Cipro 500 mg Oral Tablet - take 1 tablet by ORAL route every 12 hours for 10 days; 20 tablet. Flagyl 500 mg Oral Tablet - take 1 tablet by ORAL route every 8 hours for 10 days; 30 tablet. - Medication Reconciliation Form, Thank You Letter, Antibiotic Education, Prescription Opioid Use form. - Follow up: Emergency Department; When: As needed; Reason: Worsening of condition. Follow up: Private Physician; When: 2 - 3 days; Reason: Recheck today's complaints, Continuance of care, Re-evaluation by your physician. Signatures: Dispatcher [employer] EDEstephanie Lopez, CHRISTINE GOLDBERG-Amanda Llamas, RN RN Blaise Mcghee MD MD rn Antunez, Elena, RN RN ea Acob, Sydnie RN VU ca1 Corrections: (The following items were deleted from the chart) 07/05 19:03 19:02 The patient has not experienced similar symptoms in the past, brigette machuca 19:31 19:07 07/05/2020 19:07 Discharged to Home. Impression: Colitis. Condition is Stable. ea Forms are Medication Reconciliation Form, Thank You Letter, Antibiotic Education, Prescription Opioid Use. Follow up: Emergency Department; When: As needed; Reason: Worsening of condition. Follow up: Private Physician; When: 2 - 3 days; Reason: Recheck today's complaints, Continuance of care, Re-evaluation by your physician. kb
[2020-07-05] MEDS ORDERED: metroNIDAZOLE 500 MG TABLET ONE (19:24)
[2020-07-05] MEDS ORDERED: CIPROFLOXACIN HCL 500 MG TAB ONE (19:24)
[2020-07-05] MEDS ORDERED: DICYCLOMINE HCL 10 MG CAP ONE (19:33)
[2020-07-05 21:34] VITALS: TEMP 97.9
[2020-07-05 21:43] VITALS: BP 112/81; O2SAT 99
== END 2020-07-05 19:31 | disposition home or self-care (01) ==
LOC: ER 16:55
DX: K52.9 Noninfective gastroenteritis and colitis, unspecified (principal); J45.909 Unspecified asthma, uncomplicated; Z88.6 Allergy status to analgesic agent; F17.210 Nicotine dependence, cigarettes, uncomplicated
CPT/HCPCS: 36415; 74177; 76705; 80048; 80076; 83690; 85025; 96374; 99284; C9113; Q9967

== ENCOUNTER 2020-07-06 08:39 | Emergency (ER) | payer SELFPAY ==
[2020-07-06] MEDS ORDERED: METOCLOPRAMIDE 10 MG/2mL INJ ONE (09:32)
[2020-07-06] MEDS ORDERED: NA CHLORIDE 0.9% 1,000 ML ONE (09:33)
[2020-07-06] MEDS ORDERED: DIPHENHYDRAMINE 50 MG/ML VIAL ONE (09:33)
[2020-07-06 09:50] LABS: Basophils % 0.2 % (0-1.3); Hematocrit 48.4 % (39.6-49.0); Lymphocytes % 7.1 % (15.3-44.8); MPV 8.7 fL (7.6-11.3); RBC Red Blood Cell Count 5.44 M/uL (4.33-5.43)
[2020-07-06] MEDS ORDERED: metroNIDAZOLE 500 MG TABLET ONE (09:55)
[2020-07-06 09:56] LABS: ALT/SGPT 58 U/L (12-78); AST/SGOT 21 U/L (15-37); Albumin 3.6 g/dL (3.4-5.0); Alkaline Phosphatase 87 U/L (45-117); BUN Blood Urea Nitrogen 16 mg/dL (7-18); Bicarbonate 29 mmol/L (21-32); Bilirubin Direct 0.2 mg/dL (0-0.2); Bilirubin Total 0.7 mg/dL (0.2-1.0); Glucose Level 118 mg/dL (74-106); Lipase 44 U/L (73-393); Potassium 4.3 mmol/L (3.5-5.1); Protein, Total 6.7 g/dL (6.4-8.2); Sodium Level 141 mmol/L (136-145)
[2020-07-06] MEDS ORDERED: CIPROFLOXACIN HCL 500 MG TAB ONE (09:56)
[2020-07-06 10:12] LABS: Blood Morphology Comment NOT SEEN (NOT SEEN); Platelet Estimate ADEQ; White Blood Cell Scan OK (OK)
--- NOTE | 2020-07-06 11:53 | EDPHYS ---
Physician Documentation [facility] Name: Berlin Tran Age: 29 yrs Sex: Male : 1990 Arrival Date: 07/06/2020 Time: 08:43 Bed 18 Private MD: ED Physician Blaise Cat HPI: 07/06 09:12 This 29 yrs old Male presents to ER via Ambulatory with complaints of jmm Abdominal Pain, Nausea. 09:12 The patient presents with abdominal pain. Onset: The symptoms/episode began/occurred jmm gradually, 3 day(s) ago. The symptoms do not radiate. Associated signs and symptoms: Pertinent positives: vomiting. The symptoms are described as achy. Modifying factors: The symptoms are alleviated by nothing, the symptoms are aggravated by. This is a 29 year old male with a history of asthma, GERD that presents to the ED with complaints of epigastric pain beginning approx 3 days ago. Patient was diagnosed with colitis. Has not taken home abx. Patient complains of ongoing vomiting. . Historical: - Allergies: 08:57 Motrin (eyes swelling); em - PMHx: 08:57 Asthma; Gastric Reflux; em - PSHx: 08:57 None; em - Immunization history:: Adult Immunizations not immunized. - Social history:: Smoking status: Patient reports the use of cigarette tobacco products, smokes one-half pack cigarettes per day. ROS: 09:12 Constitutional: Negative for fever, chills, and weight loss, Cardiovascular: Negative jmm for chest pain, palpitations, and edema, Respiratory: Negative for shortness of breath, cough, wheezing, and pleuritic chest pain. 09:12 Abdomen/GI: Positive for abdominal pain, nausea and vomiting. 09:12 All other systems are negative. Exam: 09:12 Constitutional: This is a well developed, well nourished patient who is awake, alert, jmm and in no acute distress. Head/Face: atraumatic. Eyes: EOMI, no conjunctival erythema appreciated ENT: Moist Mucus Membranes Neck: Trachea midline, Supple Chest/axilla: Normal chest wall appearance and motion. Cardiovascular: Regular rate and rhythm. No edema appreciated Respiratory: Normal respirations, no respiratory distress appreciated 09:12 Back: Normal ROM Skin: General appearance color normal MS/ Extremity: Moves all extremities, no obvious deformities appreciated, no edema noted to the lower extremities Neuro: Awake and alert, normal gait Psych: Behavior is normal, Mood is normal, Patient is cooperative and pleasant 09:12 Abdomen/GI: Inspection: abdomen appears normal, Bowel sounds: normal, Palpation: soft, in all quadrants. Vital Signs: 08:54 BP 140 / 91; Pulse 85; Resp 18; Temp 97.5; Pulse Ox 96% on R/A; Weight 83.91 kg; Height em 5 ft. 11 in. (180.34 cm); Pain 8/10; 10:39 BP 130 / 76; Pulse 71; Resp 18; Pulse Ox 98% on R/A; em 11:40 BP 138 / 84; Pulse 67; Resp 18; Pulse Ox 99% on R/A; Pain 4/10; em 08:54 Body Mass Index 25.80 (83.91 kg, 180.34 cm) em MDM: 09:12 Patient medically screened. [facility] 11:49 Data reviewed: vital signs, nurses notes. Counseling: I had a detailed discussion with [facility] the patient and/or guardian regarding: the historical points, exam findings, and any diagnostic results supporting the discharge/admit diagnosis, lab results, the need for outpatient follow up, to return to the emergency department if symptoms worsen or persist or if there are any questions or concerns that arise at home. ED course: Abdominal pain has decreased in the ED. Abdomen is soft. I do not suspect an acute intrabdominal process. Patient is encouraged to take prescribed oral abx. Patient given strict return precautions. Patient understood and agrees with the plan of care. . 07/06 09:12 Order name: Basic Metabolic Panel; Complete Time: 10: [facility] 07/06 09:12 Order name: CBC with Diff; Complete Time: : [facility] 07/06 09:12 Order name: Hepatic Function; Complete Time: : [facility] 07/06 09:12 Order name: Lipase; Complete Time: 10: [facility] 07/06 10:12 Order name: CBC Smear Scan; Complete Time: : [facility] 07/06 09:12 Order name: IV Saline Lock; Complete Time: 09:46 [facility] 07/06 09:12 Order name: Labs collected and sent; Complete Time: :46 [facility] Administered Medications: 09:27 Drug: NS 0.9% 1000 ml Route: IV; Rate: 1 bolus; Site: right antecubital; em 09:27 Drug: diphenhydrAMINE 12.5 mg Route: IVP; Site: right antecubital; em 09:29 Drug: Reglan 10 mg Route: IVP; Site: right antecubital; em 09:45 Drug: Cipro 500 mg Route: PO; em 09:45 Drug: Flagyl 500 mg Route: PO; em Disposition: 15:51 Co-signature as Attending Physician, Blaise Cat MD. rn Disposition: 07/06/20 11:52 Discharged to Home. Impression: Colitis. - Condition is Stable. - Discharge Instructions: Colitis. - Prescriptions for Zofran ODT 4 mg Oral tablet,disintegrating - place 1 tablet by TRANSLINGUAL route every 4-6 hours; 20 tablet. Bentyl 20 mg Oral Tablet - take 2 tablet by ORAL route every 6 hours As needed; 40 tablet. Reglan 10 mg Oral Tablet - take 1 tablet by ORAL route every 6 hours take 30 minutes before meals and at bedtime; 20 tablet. - Medication Reconciliation Form, Thank You Letter, Antibiotic Education, Prescription Opioid Use form. - Follow up: Private Physician; When: 2 - 3 days; Reason: Recheck today's complaints, Continuance of care, Re-evaluation by your physician. Signatures: Dispatcher [employer] Porfirio Bond PA PA jmm Munoz, Edgar, RN RN Blaise Gauthier MD MD basket turner: (The following items were deleted from the chart) 12:03 11:52 07/06/2020 11:52 Discharged to Home. Impression: Colitis. Condition is Stable. em Forms are Medication Reconciliation Form, Thank You Letter, Antibiotic Education, Prescription Opioid Use. Follow up: Private Physician; When: 2 - 3 days; Reason: Recheck today's complaints, Continuance of care, Re-evaluation by your physician. jama
--- NOTE | 2020-07-06 11:53 | ER ---
Nurse's Notes [facility] Name: Berlin Tran Age: 29 yrs Sex: Male : 1990 Arrival Date: 07/06/2020 Time: 08:43 Bed 18 Private MD: Diagnosis: Colitis Presentation: 07/06 08:54 Chief complaint: Patient states: was here yesterday for abd pain, dx with colitis but em pain is getting worse, reports diarrhea and nausea, denies fever, has not started antibiotics. Coronavirus screen: Client denies travel out of the [place] in the last 14 days. Ebola Screen: Patient negative for fever greater than or equal to 101.5 degrees Fahrenheit, and additional compatible Ebola Virus Disease symptoms Patient denies exposure to infectious person. Patient denies travel to an Ebola-affected area in the 21 days before illness onset. No symptoms or risks identified at this time. Initial Sepsis Screen: Does the patient meet any 2 criteria? No. Patient's initial sepsis screen is negative. Does the patient have a suspected source of infection? Yes: Acute abdominal pain. Risk Assessment: Do you want to hurt yourself or someone else? Patient reports no desire to harm self or others. Onset of symptoms was July 03, 2020. 08:54 Method Of Arrival: Ambulatory em 08:54 Acuity: PITER 3 em Historical: - Allergies: 08:57 Motrin (eyes swelling); em - PMHx: 08:57 Asthma; Gastric Reflux; em - PSHx: 08:57 None; em - Immunization history:: Adult Immunizations not immunized. - Social history:: Smoking status: Patient reports the use of cigarette tobacco products, smokes one-half pack cigarettes per day. Screenin:58 Abuse screen: Denies threats or abuse. Nutritional screening: No deficits noted. em Tuberculosis screening: No symptoms or risk factors identified. Fall Risk None identified. Assessment: 08:54 General: Appears in no apparent distress. uncomfortable, Behavior is calm, cooperative, em appropriate for age. Pain: Complains of pain in abdomen Pain currently is 8 out of 10 on a pain scale. Neuro: Level of Consciousness is awake, alert, obeys commands, Oriented to person, place, time, situation, Appropriate for age. Cardiovascular: Capillary refill < 3 seconds Patient's skin is warm and dry. Respiratory: Airway is patent Respiratory effort is even, unlabored, Respiratory pattern is regular, symmetrical. GI: Abdomen is flat, Abd is soft X 4 quads Abdomen is tender to palpation X 4 quads. Reports diarrhea, nausea, vomiting, Patient currently denies bloody stool. Derm: Skin is intact, is healthy with good turgor, Skin is pink, warm \T\ dry. Musculoskeletal: Capillary refill < 3 seconds, Range of motion: intact in all extremities. 10:25 Reassessment: Patient appears in no apparent distress at this time. Patient and/or em family updated on plan of care and expected duration. Pain level reassessed. Patient is alert, oriented x 3, equal unlabored respirations, skin warm/dry/pink. 10:39 Reassessment: Patient appears in no apparent distress at this time. Patient and/or em family updated on plan of care and expected duration. Pain level reassessed. Patient is alert, oriented x 3, equal unlabored respirations, skin warm/dry/pink. Patient states feeling better. 11:40 Reassessment: Patient appears in no apparent distress at this time. Patient and/or em family updated on plan of care and expected duration. Pain level reassessed. Patient is alert, oriented x 3, equal unlabored respirations, skin warm/dry/pink. Vital Signs: 08:54 BP 140 / 91; Pulse 85; Resp 18; Temp 97.5; Pulse Ox 96% on R/A; Weight 83.91 kg; Height em 5 ft. 11 in. (180.34 cm); Pain 8/10; 10:39 BP 130 / 76; Pulse 71; Resp 18; Pulse Ox 98% on R/A; em 11:40 BP 138 / 84; Pulse 67; Resp 18; Pulse Ox 99% on R/A; Pain 4/10; em 08:54 Body Mass Index 25.80 (83.91 kg, 180.34 cm) em ED Course: 08:43 Patient arrived in ED. ds1 08:50 Raheem Bowers, VU is Primary Nurse. em 08:57 Triage completed. em 08:57 Arm band placed on. em 08:58 Patient has correct armband on for positive identification. Placed in gown. Bed in low em position. Call light in reach. Pulse ox on. NIBP on. 09:03 Porfirio Charles [facility] 09:03 Blaise Cat MD is Attending Physician. jmm 09:27 Inserted saline lock: 20 gauge in right antecubital area, using aseptic technique. em Blood collected. Initial lab(s) drawn, by me, sent to lab. em 12: No provider procedures requiring assistance completed. IV discontinued, intact, em bleeding controlled, No redness/swelling at site. Pressure dressing applied. Administered Medications: Drug: NS 0.9% 1000 ml Route: IV; Rate: 1 bolus; Site: right antecubital; em : Drug: diphenhydrAMINE 12.5 mg Route: IVP; Site: right antecubital; em : Drug: Reglan 10 mg Route: IVP; Site: right antecubital; em Drug: Cipro 500 mg Route: PO; em 09: Drug: Flagyl 500 mg Route: PO; em Outcome: 11:52 Discharge ordered by MD. [facility] 12: Discharged to home ambulatory. em 12: Condition: good 12: Discharge instructions given to patient, Instructed on discharge instructions, follow up and referral plans. medication usage, Demonstrated understanding of instructions, follow-up care, medications, Prescriptions given X 3. 12:03 Patient left the ED. em Signatures: Porfirio Charles PA PA Raheem High, RN RN Sera Sinclair ds1
[2020-07-06 12:12] VITALS: TEMP 97.5
[2020-07-06 12:15] VITALS: BP 138/84; O2SAT 99
== END 2020-07-06 12:03 | disposition home or self-care (01) ==
LOC: ER 08:39
DX: K52.9 Noninfective gastroenteritis and colitis, unspecified (principal); F17.210 Nicotine dependence, cigarettes, uncomplicated; Z88.6 Allergy status to analgesic agent
CPT/HCPCS: 36415; 80048; 80076; 83690; 85025; 96374; 96375; 99284; J1200; J2765; J7030

== ENCOUNTER 2021-02-27 05:27 | Emergency (ER) | payer SELFPAY ==
--- NOTE | 2021-02-27 07:04 | ER ---
Nurse's Notes [facility] Name: Berlin Tran Age: 30 yrs Sex: Male : 1990 Arrival Date: 02/27/2021 Time: 05:31 Bed 16 Private MD: Diagnosis: Pain in left foot;Localized edema Presentation: 02/27 05:41 Chief complaint: Patient states: left foot swelling that started this morning, denies em trauma. Coronavirus screen: Client denies travel out of the [place] in the last 14 days. Ebola Screen: Patient negative for fever greater than or equal to 101.5 degrees Fahrenheit, and additional compatible Ebola Virus Disease symptoms Patient denies exposure to infectious person. Patient denies travel to an Ebola-affected area in the 21 days before illness onset. No symptoms or risks identified at this time. Initial Sepsis Screen: Does the patient meet any 2 criteria? No. Patient's initial sepsis screen is negative. Does the patient have a suspected source of infection? No. Patient's initial sepsis screen is negative. Risk Assessment: Do you want to hurt yourself or someone else? Patient reports no desire to harm self or others. Onset of symptoms was February 27, 2021. 05:41 Method Of Arrival: Ambulatory em 05:41 Acuity: PITER 4 em Historical: - Allergies: 05:43 No Known Drug Allergies; em - PMHx: 05:43 Asthma; Gastric Reflux; em - PSHx: 05:43 None; em - Immunization history:: Adult Immunizations up to date. - Social history:: Smoking status: Patient denies any tobacco usage or history of. Screenin:51 Abuse screen: Denies threats or abuse. Denies injuries from another. Nutritional jm8 screening: No deficits noted. Tuberculosis screening: No symptoms or risk factors identified. Fall Risk None identified. Assessment: 05:49 General: Appears in no apparent distress. comfortable, Behavior is calm, cooperative, jm8 appropriate for age. Pain: Complains of pain in left foot Pain currently is 7 out of 10 on a pain scale. Quality of pain is described as dull, Pain began 2 hours ago. Neuro: No deficits noted. Neuro: Level of Consciousness is awake, alert, obeys commands, Oriented to person, place, time, situation. Cardiovascular: No deficits noted. Respiratory: No deficits noted. Airway is patent Trachea midline Respiratory effort is even, unlabored, Respiratory pattern is regular, symmetrical. GI: No deficits noted. No signs and/or symptoms were reported involving the gastrointestinal system. : No deficits noted. No signs and/or symptoms were reported regarding the genitourinary system. EENT: No deficits noted. No signs and/or symptoms were reported regarding the EENT system. Derm: No deficits noted. No signs and/or symptoms reported regarding the dermatologic system. Musculoskeletal: Swelling present in left foot Reports pain in left foot. 07:00 General: Appears in no apparent distress. comfortable, Behavior is calm, cooperative. rb3 Pain: Complains of pain in left foot. Neuro: Level of Consciousness is awake, alert, obeys commands, Oriented to person, place, time, situation. Cardiovascular: Patient's skin is warm and dry. Respiratory: Airway is patent Respiratory effort is even, unlabored, Respiratory pattern is regular, symmetrical. Vital Signs: 05:41 Pulse 83; Resp 16; Temp 97.5; Pulse Ox 99% on R/A; Weight 83.91 kg; Height 5 ft. 10 in. em (177.80 cm); Pain 9/10; 05:44 BP 124 / 85; em 07:02 BP 120 / 86; Pulse 74; Resp 16; Pulse Ox 99% on R/A; jm8 05:41 Body Mass Index 26.54 (83.91 kg, 177.80 cm) em ED Course: 05:31 Patient arrived in ED. am4 05:43 Triage completed. em 05:43 Arm band placed on. em 05:51 Patient has correct armband on for positive identification. Bed in low position. Call jm8 light in reach. Side rails up X2. Adult w/ patient. 06:08 Melvin Chagn PA is PHCP. jr8 06:08 Oscar Jay MD is Attending Physician. jr8 06:13 Foot Left 3 View XRAY In Process Unspecified. EDMS 07:03 Royal Powell MD is Referral Physician. jr8 07:40 No provider procedures requiring assistance completed. Patient did not have IV access rb3 during this emergency room visit. Administered Medications: No medications were administered Outcome: 07:04 Discharge ordered by . jr8 07:40 Discharged to home via wheelchair. rb3 07:40 Condition: stable 07:40 Discharge instructions given to patient, Instructed on discharge instructions, follow up and referral plans. medication usage, Demonstrated understanding of instructions, follow-up care, medications, Prescriptions given X 1. 07:41 Patient left the ED. rb3 Signatures: Dispatcher [employer] Raheem Santillan RN Melvin Bruno PA PA jr8 Gloria Pardo RN RN sirisha3 Emely Beverly am4 James Wu RN RN jm8
--- NOTE | 2021-02-27 07:04 | EDPHYS ---
Physician Documentation [facility] Name: Berlin Tran Age: 30 yrs Sex: Male : 1990 Arrival Date: 02/27/2021 Time: 05:31 Bed 16 Private MD: ED Physician Oscar Jay HPI: 02/27 06:52 This 30 yrs old Male presents to ER via Ambulatory with complaints of Foot jr8 Pain. 06:52 The patient presents with pain, that is acute, swelling, tenderness. The complaints jr8 affect the medial aspect of left foot. Context: The problem was sustained at home, resulted from an unknown cause, the patient can partially bear weight, the patient is able to ambulate. Onset: The symptoms/episode began/occurred acutely, last night. Modifying factors: The symptoms are alleviated by remaining still, the symptoms are aggravated by weight bearing. Associated signs and symptoms: The patient has no apparent associated signs or symptoms. Severity of symptoms: At their worst the symptoms were moderate, in the emergency department the symptoms are unchanged. The patient has not experienced similar symptoms in the past. The patient has not recently seen a physician. Patient denies injury. Stated that while working yesterday felt a paresthesia to medial foot that had gone away. After getting off work saw some mild swelling to foot. Overnight became markedly more swollen. Upon waking saw this and came in for further evaluation . Historical: - Allergies: 05:43 No Known Drug Allergies; em - PMHx: 05:43 Asthma; Gastric Reflux; em - PSHx: 05:43 None; em - Immunization history:: Adult Immunizations up to date. - Social history:: Smoking status: Patient denies any tobacco usage or history of. ROS: 06:52 Constitutional: Negative for fever, chills, and weight loss. jr8 06:52 MS/extremity: Positive for pain, swelling, tenderness, of the medial aspect of left foot. 06:52 Skin: Negative for erythema, pallor, rash. 06:52 All other systems are negative. jr8 Exam: 06:52 Constitutional: This is a well developed, well nourished patient who is awake, alert, jr8 and in no acute distress. Cardiovascular: Regular rate and rhythm with a normal S1 and S2. No gallops, murmurs, or rubs. Normal PMI, no JVD. No pulse deficits. Respiratory: Lungs have equal breath sounds bilaterally, clear to auscultation and percussion. No rales, rhonchi or wheezes noted. No increased work of breathing, no retractions or nasal flaring. Skin: Warm, dry with normal turgor. Normal color with no rashes, no lesions, and no evidence of cellulitis. Neuro: Awake and alert, GCS 15, oriented to person, place, time, and situation. Cranial nerves II-XII grossly intact. Motor strength 5/5 in all extremities. Sensory grossly intact. 06:52 Musculoskeletal/extremity: Extremities: grossly normal except: noted in the left foot: Patient has moderate swelling to left foot and ankle region. Tender to palpation of the heel and medial aspect of the mid foot just distal to the heel. No erythema/cellulitis noted. No puncture wound or other external trauma noted , ROM: intact in all extremities, full active range of motion, full passive range of motion, Circulation is intact in all extremities. Pulses: noted to be 2+ in the right radial artery, right dorsalis pedis artery, left radial artery and left dorsalis pedis artery, Sensation intact. Vital Signs: 05:41 Pulse 83; Resp 16; Temp 97.5; Pulse Ox 99% on R/A; Weight 83.91 kg; Height 5 ft. 10 in. em (177.80 cm); Pain 9/10; 05:44 BP 124 / 85; em 07:02 BP 120 / 86; Pulse 74; Resp 16; Pulse Ox 99% on R/A; jm8 05:41 Body Mass Index 26.54 (83.91 kg, 177.80 cm) em Procedures: 06:52 Splinting: Splint applied to left foot using juvencio wrap, applied by nurse. Examined by cristi sc, post splint application: neurovascular intact, 2+ distal pulses palpable, brisk capillary refill noted. Crutch training provided to patient and/or family. Return demonstration given. MDM: 06:08 Patient medically screened. jr8 06:52 Data reviewed: vital signs, nurses notes, radiologic studies, plain films. Data cristi interpreted: Pulse oximetry: on room air is 99 %. Interpretation: normal. Counseling: I had a detailed discussion with the patient and/or guardian regarding: the historical points, exam findings, and any diagnostic results supporting the discharge/admit diagnosis, radiology results, the need for outpatient follow up, a orthopedic surgeon, to return to the emergency department if symptoms worsen or persist or if there are any questions or concerns that arise at home. 06:52 ED course: Discussed with patient that there is no clear identifiable reason for the jr8 foot swelling. Will juvencio wrap and put on crutches for one week with NSAID. If it does clear up in a week to f/u with ortho. If it gets worse or looks like it is getting infected to come back immediately to ED for reevaluation. Patient understood and was good with plan . 02/27 05:44 Order name: Foot Left 3 View XRAY em 02/27 07:06 Order name: Crutches; Complete Time: 07: jm8 02/27 07:06 Order name: Juvencio Wrap; Complete Time: 07: 8 Administered Medications: No medications were administered Disposition: 02/28 00:02 Co-signature as Attending Physician, Oscar Jay MD. [facility] Disposition Summary: 02/27/21 07:04 Discharge Ordered Location: Home jr8 Problem: new jr8 Symptoms: have improved jr8 Condition: Stable jr8 Diagnosis - Pain in left foot jr8 - Localized edema jr8 Followup: jr8 - With: Royal Powell MD - When: 1 week - Reason: Recheck today's complaints, Continuance of care, Re-evaluation by your physician Discharge Instructions: - Discharge Summary Sheet jr8 - Edema jr8 - Musculoskeletal Pain jr8 - Foot Pain jr8 Forms: - Medication Reconciliation Form jr8 - Thank You Letter jr8 - Antibiotic Education jr8 - Prescription Opioid Use jr8 - Work release form rb3 Prescriptions: - meloxicam 15 mg Oral tablet - take 1 tablet by ORAL route once daily for 7 days; 7 tablet; Refills: 0, jr8 Product Selection Permitted Signatures: Dispatcher [employer] Raheem Santillan, RN RN em Melvin Chang PA PA 8 Oscar Jay MD MD [facility] James Wu RN RN 8
[2021-02-27 07:46] VITALS: TEMP 97.5; O2SAT 99
[2021-02-27 07:48] VITALS: BP 120/86
--- NOTE | 2021-02-27 09:46 | RAD REPORT ---
EXAM DESCRIPTION: RAD - Foot Left 3 View - 02/27/2021 6:13 am CLINICAL HISTORY: PAIN, no specific site of pain or injury detailed. COMPARISON: No comparisons FINDINGS: No fracture, dislocation or periosteal reaction. No acute or destructive bony process. No air or foreign body in the soft tissues. Soft tissues around the ankle appear mildly prominent wit h the baseline for the patient unknown. IMPRESSION: No acute or suspicious bone or joint finding identifiable. Suspected edema around the ankle joint with no foreign body or air.
== END 2021-02-27 07:41 | disposition home or self-care (01) ==
LOC: ER 05:27
DX: M79.672 Pain in left foot (principal); R60.9 Edema, unspecified
CPT/HCPCS: 99283

== ENCOUNTER 2021-03-22 08:15 | Emergency (ER) | payer SELFPAY ==
[2021-03-22] MEDS ORDERED: NA CHLORIDE 0.9% 1,000 ML ONE (11:46)
[2021-03-22] MEDS ORDERED: MORPHINE 4 MG/ML SYR ONE (11:46)
[2021-03-22] MEDS ORDERED: ONDANSETRON 4 MG/2 ML VIAL ONE (11:46)
--- NOTE | 2021-03-22 11:47 | RAD REPORT ---
EXAM DESCRIPTION: CT - Abdomen Pelvis W Contrast - 03/22/2021 11:34 am CLINICAL HISTORY: ABD PAIN COMPARISON: Abdomen Pelvis W Contrast dated 07/05/2020; Abdomen Pelvis W Contrast dated 8 TECHNIQUE: Biphasic, helical CT imaging of the abdomen and pelvis was performed following 100 ml non -ionic IV contrast. No oral contrast administered. All CT scans are performed using dose optimization technique as appropriate and may include automated exposure control or mA/KV adjustment according to patient size. FINDINGS: No suspicious findings in the lung bases. The liver and spleen show no focal findings. Liver attenuation is borderline fatty infiltrated. No ga llbladder or biliary tree abnormality. No pancreatic parenchymal abnormality. No peripancreatic edema or stranding related to a pancreatic process. Symmetric renal function is seen with no hydronephrosis or suspicious renal mass. No pyelonephritis o r acute parenchymal process. No bladder abnormalities. No adrenal abnormalities. No gastric dilatation or gastric wall thickening identified. Proximal portion of the duodenal C-loop is unremarkable. There is pronounced wall thickening and edema involving the third and fourth portion s of the duodenum extending into the proximal jejunum. The wall thickening and edema taper to a kelby l appearance shortly past the ligament of Treitz. The remainder of the small bowel shows no acute fin ding. No appendicitis findings. No acute colon process identifiable. Terminal ileum is not outside of range of normal. No free air or pneumatosis is present. Fluid in stranding are present adjacent to the duodenum and e xtending along the right side anterior renal fascia. No hernia, mass or bulky lymphadenopathy. No suspicious bony findings. IMPRESSION: Pronounced duodenitis involving the third and fourth portions of the duodenum and exten ding into a small portion of the proximal jejunum. Fluid and stranding are present surrounding the duodenum and extending along the right pararenal fasc ia. No abscess, free air or surgically emergent finding. Terminal ileum is within normal limits.
[2021-03-22 12:39] LABS: Urine Blood Trace-intact (Negative); Urine Glucose Negative (Negative); Urine Protein 1+ (Negative); Urine pH >=9.0 (5.0-7.0)
[2021-03-22 12:43] LABS: Absolute Lymphocytes (CBC) 0.9 K/uL (0.7-4.9); Basophils % 0.2 % (0-1.3); Hematocrit 51.5 % (39.6-49.0); Lymphocytes % 4.5 % (15.3-44.8); MPV 8.4 fL (7.6-11.3); RBC Red Blood Cell Count 5.71 M/uL (4.33-5.43)
[2021-03-22 13:08] LABS: ALT/SGPT 52 U/L (12-78); AST/SGOT 14 U/L (15-37); Albumin 4.5 g/dL (3.4-5.0); Alkaline Phosphatase 93 U/L (45-117); BUN Blood Urea Nitrogen 17 mg/dL (7-18); Bicarbonate 33 mmol/L (21-32); Bilirubin Direct 0.2 mg/dL (0-0.2); Glucose Level 122 mg/dL (74-106); Lipase 32 U/L (73-393); Magnesium 2.1 mg/dL (1.8-2.4); Potassium 3.8 mmol/L (3.5-5.1); Protein, Total 7.7 g/dL (6.4-8.2); Sodium Level 142 mmol/L (136-145)
[2021-03-22 13:09] LABS: Urine Bacteria NONE SEEN /HPF (NONE SEEN); Urine RBC NONE SEEN /HPF (NONE SEEN)
[2021-03-22] MEDS ORDERED: METRONIDAZOLE 500mg IVPB 500 MG/100 ML BAG IV ONE (13:37)
[2021-03-22] MEDS ORDERED: CIPROFLOXACIN HCL 500 MG TAB ONE (13:37)
--- NOTE | 2021-03-22 13:48 | ER ---
Nurse's Notes [facility] Name: Berlin Tran Age: 30 yrs Sex: Male : 1990 Arrival Date: 03/22/2021 Time: 08:17 Bed 26 Private MD: Diagnosis: Infectious gastroenteritis and colitis, unspecified Presentation: 03/22 10:38 Chief complaint: Patient states: Abdominal pain. Coronavirus screen: Client denies da3 travel out of the [place] in the last 14 days. At this time, the client does not indicate any symptoms associated with coronavirus-19. 10:38 Method Of Arrival: Ambulatory da3 10:38 Initial Sepsis Screen: Does the patient have a suspected source of infection? No. ld1 Patient's initial sepsis screen is negative. Onset of symptoms was March 22, 2021. 10:41 Ebola Screen: No symptoms or risks identified at this time. Initial Sepsis Screen: Does da3 the patient meet any 2 criteria? No. Patient's initial sepsis screen is negative. Risk Assessment: Do you want to hurt yourself or someone else? Patient reports no desire to harm self or others. 10:41 Acuity: PITER 3 da3 Triage Assessment: 10:40 General: Appears distressed, uncomfortable, slender. da3 Historical: - Allergies: 13:40 Motrin (eyes swelling); ld1 - Home Meds: 13:40 Albuterol Inhl [Active]; ld1 - PMHx: 13:40 Asthma; Gastric Reflux; ld1 - Immunization history:: Adult Immunizations up to date. - Social history:: Smoking status: Patient denies any tobacco usage or history of. Screenin:40 Abuse screen: Denies threats or abuse. Denies injuries from another. Nutritional ld1 screening: No deficits noted. Tuberculosis screening: No symptoms or risk factors identified. Fall Risk None identified. Assessment: 12:30 General: Appears in no apparent distress. comfortable, Behavior is calm, cooperative, ld1 appropriate for age. Pain: Complains of pain in abdomen Pain does not radiate. Pain currently is 9 out of 10 on a pain scale. Quality of pain is described as throbbing, Pain began suddenly, Is continuous. 12:30 Neuro: Level of Consciousness is awake, alert, obeys commands, Oriented to person, ld1 place, time, situation. Cardiovascular: Capillary refill < 3 seconds Patient's skin is warm and dry. Rhythm is regular. Respiratory: Airway is patent Respiratory effort is even, unlabored, Respiratory pattern is regular, symmetrical. GI: Abdomen is flat, non-distended, Bowel sounds present X 4 quads. Abd is soft Abdomen is tender to palpation X 4 quads. : No signs and/or symptoms were reported regarding the genitourinary system. EENT: No signs and/or symptoms were reported regarding the EENT system. Derm: No signs and/or symptoms reported regarding the dermatologic system. Derm: No signs and/or symptoms reported regarding the dermatologic system. Musculoskeletal: No signs and/or symptoms reported regarding the musculoskeletal system. Vital Signs: 10:40 BP 140 / 94; Pulse 74; Resp 24; Temp 97.8; Pulse Ox 100% on R/A; da3 10:41 BP 140 / 94; Pulse 74; Resp 24; Temp 97.8; Pulse Ox 100% on R/A; da3 13:40 BP 138 / 86; Pulse 72; Resp 18; Pulse Ox 100% ; ld1 ED Course: 08:17 Patient arrived in ED. am2 10:42 Triage completed. da3 10:43 Gagandeep Nichols PA is PHCP. cp 10:43 Enrique Lombardo MD is Attending Physician. cp 11:22 Cynthia Claudio, VU is Primary Nurse. iw 11:22 Inserted saline lock: 20 gauge in right antecubital area, using aseptic technique. em1 11:34 CT Abd/Pelvis - IV Contrast Only In Process Unspecified. EDMS 13:40 No provider procedures requiring assistance completed. Inserted saline lock: 20 gauge ld1 in right antecubital area, using aseptic technique. Blood collected. 13:40 Patient has correct armband on for positive identification. Placed in gown. Bed in low ld1 position. Call light in reach. Side rails up X2. digital media designer on. Pulse ox on. NIBP on. Door closed. Noise minimized. Warm blanket given. 13:47 Alfredo Navarro MD is Referral Physician. cp 14:10 IV discontinued, intact, bleeding controlled, No redness/swelling at site. ld1 14:11 Arm band placed on right wrist. ld1 Administered Medications: 11:30 Drug: NS 0.9% 1000 ml Route: IV; Rate: 1 bolus; Site: right antecubital; iw 12:30 Follow up: IV Status: Completed infusion iw 11:30 Drug: morphine 4 mg Route: IVP; Site: right antecubital; iw 12:00 Follow up: Response: No adverse reaction iw 11:30 Drug: Zofran (Ondansetron) 4 mg Route: IVP; Site: right antecubital; iw 12:00 Follow up: Response: No adverse reaction iw 13:24 Drug: metroNIDAZOLE 500 mg Volume: 100 ml; Route: IVPB; Infused Over: 30 mins; Site: ld1 right antecubital; 14:00 Follow up: IV Status: Completed infusion iw 13:24 Drug: Cipro (ciprofloxacin) 500 mg Route: PO; ld1 14:00 Follow up: Response: No adverse reaction iw Outcome: 13:47 Discharge ordered by . mike 14:10 Discharged to home ambulatory. ld1 14:10 Condition: stable 14:10 Discharge instructions given to patient, Instructed on discharge instructions, follow up and referral plans. medication usage, Demonstrated understanding of instructions, follow-up care, medications, Prescriptions given X 4. 14:11 Patient left the ED. ld1 Signatures: Dispatcher [employer] Cynthia Esqueda RN RN iw Mark Beverly em1 Gagandeep Nichols PA PA cp Moreno, Amanda am2 Anyi Aragon RN RN ld1 J Carlos Merritt RN RN da3
--- NOTE | 2021-03-22 13:48 | EDPHYS ---
Physician Documentation [facility] Name: Berlin Tran Age: 30 yrs Sex: Male : 1990 Arrival Date: 03/22/2021 Time: 08:17 Bed 26 Private MD: ED Physician Enrique Lombardo HPI: 03/22 11:00 This 30 yrs old Male presents to ER via Ambulatory with complaints of cp Abdominal Pain, Vomiting. 11:00 The patient presents with abdominal pain mid abdomen. Onset: The symptoms/episode cp began/occurred yesterday. The symptoms do not radiate. Associated signs and symptoms: Pertinent positives: vomiting, Pertinent negatives: blood in stools, chest pain, constipation, diarrhea, fever, testicular pain. The symptoms are described as throbbing. 13:42 Severity of pain: in the emergency department the pain is unchanged despite home cp interventions. Historical: - Allergies: 13:40 Motrin (eyes swelling); ld1 - Home Meds: 13:40 Albuterol Inhl [Active]; ld1 - PMHx: 13:40 Asthma; Gastric Reflux; ld1 - Immunization history:: Adult Immunizations up to date. - Social history:: Smoking status: Patient denies any tobacco usage or history of. ROS: 11:05 Constitutional: Positive for poor PO intake, Negative for body aches, chills, fever. cp 11:05 Eyes: Negative for injury, pain, redness, and discharge. cp 11:05 ENT: Negative for ear pain, sore throat, difficulty swallowing, difficulty handling secretions. 11:05 Cardiovascular: Negative for chest pain, edema, palpitations. 11:05 Respiratory: Negative for cough, shortness of breath, wheezing. 11:05 Abdomen/GI: Positive for abdominal pain, nausea, vomiting, Negative for diarrhea, constipation. 11:05 Back: Negative for pain at rest, pain with movement, radiated pain. 11:05 : Negative for urinary symptoms, testicular pain 11:05 Neuro: Negative for altered mental status, headache, weakness. 11:05 All other systems are negative. Exam: 11:10 Constitutional: The patient appears in no acute distress, alert, awake, non-toxic, well cp developed, well nourished. 11:10 Head/Face: Normocephalic, atraumatic. cp 11:10 Eyes: Periorbital structures: appear normal, Conjunctiva: normal, no exudate, no injection, Sclera: no appreciated abnormality, Lids and lashes: appear normal, bilaterally. 11:10 ENT: External ear(s): are unremarkable, Nose: is normal, Mouth: Lips: moist, Oral mucosa: moist, Posterior pharynx: Airway: no evidence of obstruction, patent. 11:10 Neck: ROM/movement: is normal, is supple, without pain, no range of motions limitations, no meningismus. 11:10 Chest/axilla: Inspection: normal, Palpation: is normal, no crepitus, no tenderness. 11:10 Cardiovascular: Rate: normal, Rhythm: regular. 11:10 Respiratory: the patient does not display signs of respiratory distress, Respirations: normal, no use of accessory muscles, no retractions, labored breathing, is not present, Breath sounds: are clear throughout, no decreased breath sounds, no stridor, no wheezing. 11:10 Abdomen/GI: Inspection: abdomen appears normal, Bowel sounds: active, all quadrants, Palpation: soft, in all quadrants, moderate abdominal tenderness, in the mid abdomen, rebound tenderness, is not appreciated, voluntary guarding. 11:10 Back: pain, is absent, ROM is normal. Vital Signs: 10:40 BP 140 / 94; Pulse 74; Resp 24; Temp 97.8; Pulse Ox 100% on R/A; da3 10:41 BP 140 / 94; Pulse 74; Resp 24; Temp 97.8; Pulse Ox 100% on R/A; da3 13:40 BP 138 / 86; Pulse 72; Resp 18; Pulse Ox 100% ; ld1 MDM: 10:49 Patient medically screened. cp 11:00 Differential diagnosis: appendicitis, bowel obstruction, gastritis, non-specific abd cp pain, pancreatitis, Ureterolithiasis, urinary tract infection, colitis, diverticulitis. 13:46 Data reviewed: vital signs, nurses notes, lab test result(s), radiologic studies, CT cp scan, and as a result, I will discharge patient. 13:46 Counseling: I had a detailed discussion with the patient and/or guardian regarding: the cp historical points, exam findings, and any diagnostic results supporting the discharge/admit diagnosis, lab results, radiology results, the need for outpatient follow up, a ski lift operator, to return to the emergency department if symptoms worsen or persist or if there are any questions or concerns that arise at home. 13:46 ED course: VSS. Pain and nausea markedly improved. Patient tolerating po fluids. cp Patient appears non-toxic. Will discharge to home for continued monitoring. 03/22 10:57 Order name: Basic Metabolic Panel cp 03/22 10:57 Order name: CBC with Diff cp 03/22 10:57 Order name: Hepatic Function cp 03/22 10:57 Order name: Lipase cp 03/22 10:57 Order name: Urine Microscopic Only cp 03/22 10:57 Order name: Magnesium cp 03/22 10:57 Order name: CT Abd/Pelvis - IV Contrast Only; Complete Time: 11:51 cp 03/22 12:39 Order name: Urine Dipstick-Ancillary; Complete Time: 13:01 EDMS 03/22 12:47 Order name: CBC Smear Scan EDMS 03/22 10:57 Order name: IV Saline Lock; Complete Time: 11:22 cp 03/22 10:57 Order name: Labs collected and sent; Complete Time: 12:39 cp 03/22 10:57 Order name: Urine Dipstick-Ancillary (obtain specimen); Complete Time: 12:39 cp 03/22 13:05 Order name: PO challenge; Complete Time: 13:24 cp Administered Medications: 11:30 Drug: NS 0.9% 1000 ml Route: IV; Rate: 1 bolus; Site: right antecubital; iw 12:30 Follow up: IV Status: Completed infusion iw 11:30 Drug: morphine 4 mg Route: IVP; Site: right antecubital; iw 12:00 Follow up: Response: No adverse reaction iw 11:30 Drug: Zofran (Ondansetron) 4 mg Route: IVP; Site: right antecubital; iw 12:00 Follow up: Response: No adverse reaction iw 13:24 Drug: metroNIDAZOLE 500 mg Volume: 100 ml; Route: IVPB; Infused Over: 30 mins; Site: ld1 right antecubital; 14:00 Follow up: IV Status: Completed infusion iw 13:24 Drug: Cipro (ciprofloxacin) 500 mg Route: PO; ld1 14:00 Follow up: Response: No adverse reaction iw Disposition: 16:49 Co-signature as Attending Physician, Enrique Lombardo MD I agree with the assessment and kdr plan of care. Disposition Summary: 03/22/21 13:47 Discharge Ordered Location: Home cp Problem: new cp Symptoms: have improved cp Condition: Stable cp Diagnosis - Infectious gastroenteritis and colitis, unspecified cp Followup: cp - With: Alfredo Navarro MD - When: 1 - 2 days - Reason: Recheck today's complaints Discharge Instructions: - Discharge Summary Sheet cp - Abdominal Pain, Adult cp Forms: - Medication Reconciliation Form cp - Thank You Letter cp - Antibiotic Education cp - Prescription Opioid Use cp - Work release form ld1 Prescriptions: - Zofran 4 mg Oral Tablet - take 1 tablet by ORAL route every 12 hours As needed; 20 tablet; Refills: 0, cp Product Selection Permitted - Cipro 500 mg Oral Tablet - take 1 tablet by ORAL route every 12 hours for 8-10 days; 20 tablet; Refills: cp 0, Product Selection Permitted - Metronidazole 500 mg Oral Tablet - take 1 tablet by ORAL route every 8 hours; 30 tablet; Refills: 0, Product cp Selection Permitted - dicyclomine 20 mg Oral Tablet - take 1 tablet by ORAL route 4 times per day; 30 tablet; Refills: 0, Product cp Selection Permitted Signatures: Dispatcher [employer] EDEnrique Bautista MD MD kdr Cynthia Claudio RN RN iw Gagandeep Nichols PA PA cp Anyi Aragon RN RN ld1 Corrections: (The following items were deleted from the chart) 13:42 11:00 The symptoms are described as sharp, cp cp
[2021-03-22 14:11] LABS: Blood Morphology Comment NOT SEEN (NOT SEEN); Platelet Estimate ADEQ; White Blood Cell Scan OK (OK)
[2021-03-22 14:23] VITALS: TEMP 97.8; O2SAT 100
[2021-03-22 14:26] VITALS: BP 138/86
== END 2021-03-22 14:11 | disposition home or self-care (01) ==
LOC: ER 08:15
DX: A09 Infectious gastroenteritis and colitis, unspecified (principal); Z88.6 Allergy status to analgesic agent
CPT/HCPCS: 36415; 74177; 80048; 80076; 81003; 81015; 82565; 83690; 83735; 85025; J2405; J7030; Q9967

== ENCOUNTER 2021-03-22 20:29 | Emergency (ER) | payer SELFPAY ==
[2021-03-22 22:49] LABS: Absolute Lymphocytes (CBC) 1.8 K/uL (0.7-4.9); Basophils % 0.1 % (0-1.3); Hematocrit 49.7 % (39.6-49.0); Lymphocytes % 10.5 % (15.3-44.8); MPV 8.3 fL (7.6-11.3); RBC Red Blood Cell Count 5.58 M/uL (4.33-5.43)
[2021-03-22 22:57] LABS: Albumin 4.2 g/dL (3.4-5.0); Bilirubin Direct 0.2 mg/dL (0-0.2); Potassium 3.9 mmol/L (3.5-5.1); Protein, Total 7.4 g/dL (6.4-8.2)
--- NOTE | 2021-03-23 00:14 | ER ---
Nurse's Notes [facility] Name: Berlin Tran Age: 30 yrs Sex: Male : 1990 Arrival Date: 03/22/2021 Time: 20:33 Bed 19 Private MD: Diagnosis: Infectious gastroenteritis and colitis, unspecified Presentation: 03/22 22:02 Chief complaint: Patient states: Pt was seen earlier today for ABD pain. Stated the vg1 medication given is not working. Stated the pain is worse. C/0 Nausea and diarrhea. Coronavirus screen: Client denies travel out of the [place] in the last 14 days. Ebola Screen: Patient negative for fever greater than or equal to 101.5 degrees Fahrenheit, and additional compatible Ebola Virus Disease symptoms. Initial Sepsis Screen: Does the patient meet any 2 criteria? No. Patient's initial sepsis screen is negative. Does the patient have a suspected source of infection? No. Patient's initial sepsis screen is negative. Risk Assessment: Do you want to hurt yourself or someone else? Patient reports no desire to harm self or others. Onset of symptoms was March 22, 2021. 22:02 Method Of Arrival: Ambulatory vg1 22:02 Acuity: PITER 3 vg1 Triage Assessment: 22:03 General: Appears in no apparent distress. uncomfortable, Behavior is calm, cooperative. vg1 Pain: Complains of pain in epigastric area Pain currently is 6 out of 10 on a pain scale. GI: Abdomen is flat, non-distended. Historical: - Allergies: 22:03 Motrin (eyes swelling); vg1 - Home Meds: 22:03 Albuterol Inhl [Active]; vg1 - PMHx: 22:03 Asthma; Gastric Reflux; vg1 - Immunization history:: Adult Immunizations up to date. - Social history:: Smoking status: Patient reports the use of cigarette tobacco products, smokes one-half pack cigarettes per day. Screenin:07 Abuse screen: Denies threats or abuse. Nutritional screening: No deficits noted. vg1 Tuberculosis screening: No symptoms or risk factors identified. Fall Risk No fall in past 12 months (0 pts). No secondary diagnosis (0 pts). IV access (20 points). Ambulatory Aid- None/Bed Rest/Nurse Assist (0 pts). Gait- Normal/Bed Rest/Wheelchair (0 pts) Mental Status- Oriented to own ability (0 pts). Total Pereyra Fall Scale indicates No Risk (0-24 pts). Assessment: 03/23 00:00 General: Appears in no apparent distress. comfortable, Behavior is calm, cooperative, em appropriate for age, Denies fever. Pain: Complains of pain in abdomen and epigastric area Pain currently is 7 out of 10 on a pain scale. Neuro: Level of Consciousness is awake, alert, obeys commands, Oriented to person, place, time, situation. Cardiovascular: Capillary refill < 3 seconds Patient's skin is warm and dry. Respiratory: Airway is patent Respiratory effort is even, unlabored, Respiratory pattern is regular, symmetrical. GI: Abdomen is flat, Abd is soft X 4 quads Abdomen is tender to palpation X 4 quads. Reports nausea, vomiting. Derm: Skin is intact, is healthy with good turgor, Skin is pink, warm \T\ dry. Musculoskeletal: Capillary refill < 3 seconds, Range of motion: intact in all extremities. 01:16 Reassessment: Patient appears in no apparent distress at this time. Patient and/or em family updated on plan of care and expected duration. Pain level reassessed. Patient is alert, oriented x 3, equal unlabored respirations, skin warm/dry/pink. Patient states feeling better. Patient states symptoms have improved. Vital Signs: 03/22 22:02 BP 139 / 92; Pulse 83; Resp 18; Temp 98.6; Pulse Ox 98% ; Weight 83.91 kg; Pain 6/10; vg1 03/23 01:16 BP 128 / 78; Pulse 78; Resp 16; Pulse Ox 98% on R/A; Pain 4/10; em ED Course: 03/22 20:33 Patient arrived in ED. am2 22:03 Triage completed. vg1 22:03 Arm band placed on. vg1 22:16 Missed attempt(s): 20 gauge in left antecubital area. Bleeding controlled, band aid tt3 applied, catheter tip intact. 22:26 Inserted saline lock: 20 gauge in right antecubital area, using aseptic technique. tt3 23:40 Raheem Bowers RN is Primary Nurse. em 23:50 Beau Metz NP is PHCP. pm1 23:50 Gagandeep Rodriguez MD is Attending Physician. pm1 08 01:17 No provider procedures requiring assistance completed. IV discontinued, intact, em bleeding controlled, No redness/swelling at site. Pressure dressing applied. Administered Medications: 00:05 Drug: morphine 4 mg Route: IVP; Site: right antecubital; em 01:14 Follow up: Response: No adverse reaction; Marked relief of symptoms; Pain is decreased em 00:05 Drug: Zofran (Ondansetron) 4 mg Route: IVP; Site: right antecubital; em 01:14 Follow up: Response: No adverse reaction; Marked relief of symptoms em 00:06 Drug: NS 0.9% 1000 ml Route: IV; Rate: 1 bolus; Site: right antecubital; em 01:14 Follow up: IV Status: Completed infusion; IV Intake: 1000ml em 01:14 Drug: [place] (HYDROcodone-acetaminophen) 10 mg-325 mg 1 tabs Route: PO; em Intake: 01:14 IV: 1000ml; Total: 1000ml. em Outcome: 00:13 Discharge ordered by MD. pm1 01:18 Discharged to home ambulatory. em 01:18 Condition: improved 01:18 Discharge instructions given to patient, Instructed on discharge instructions, follow up and referral plans. medication usage, Demonstrated understanding of instructions, follow-up care, medications, Prescriptions given X 1. 01:19 Patient left the ED. em Signatures: Raheem Bowers, RN RN em Beau Metz, SAMANTHA SPANISH INSTRUCTOR pm1 Keri James am2 Kristal Lomas RN RN 1 Taz Thibodeaux3
--- NOTE | 2021-03-23 00:14 | EDPHYS ---
Physician Documentation [facility] Name: Berlin Tran Age: 30 yrs Sex: Male : 1990 Arrival Date: 03/22/2021 Time: 20:33 Bed 19 Private MD: ED Physician Gagandeep Rodriguez HPI: 03/23 00:11 This 30 yrs old Male presents to ER via Ambulatory with complaints of pm1 Abdominal Pain. 00:11 The patient presents with abdominal pain in mid abdominal area. pm1 00:11 Onset: The symptoms/episode began/occurred yesterday. The symptoms do not radiate. pm1 00:11 Associated signs and symptoms: Pertinent positives: nausea and vomiting, Pertinent pm1 negatives: chest pain, constipation, dysuria, fever, shortness of breath. The symptoms are described as achy, throbbing. Modifying factors: The symptoms are alleviated by nothing, the symptoms are aggravated by food. Severity of pain: in the emergency department the pain is actually worse. The patient has been recently seen at the [facility] Department, today, reports no improvement with prescription medications. Historical: - Allergies: 03/22 22:03 Motrin (eyes swelling); vg1 - Home Meds: 22:03 Albuterol Inhl [Active]; vg1 - PMHx: 22:03 Asthma; Gastric Reflux; vg1 - Immunization history:: Adult Immunizations up to date. - Social history:: Smoking status: Patient reports the use of cigarette tobacco products, smokes one-half pack cigarettes per day. ROS: 03/23 00:11 Constitutional: Negative for fever, chills, and weight loss, Cardiovascular: Negative pm1 for chest pain, palpitations, and edema, Respiratory: Negative for shortness of breath, cough, wheezing, and pleuritic chest pain. Back: Negative for injury and pain, MS/Extremity: Negative for injury and deformity, Skin: Negative for injury, rash, and discoloration, Neuro: Negative for headache, weakness, numbness, tingling, and seizure. Abdomen/GI: Positive for abdominal pain, nausea and vomiting, Negative for diarrhea, constipation. All other systems are negative. Exam: 00:11 Constitutional: This is a well developed, well nourished patient who is awake, alert, pm1 and in no acute distress. Head/Face: Normocephalic, atraumatic. 00:11 Back: No spinal tenderness. No costovertebral tenderness. Full range of motion. Skin: Warm, dry with normal turgor. Normal color with no rashes, no lesions, and no evidence of cellulitis. MS/ Extremity: Pulses equal, no cyanosis. Neurovascular intact. Full, normal range of motion. 00:11 Cardiovascular: Exam negative for acute changes, Rate: normal, Rhythm: regular, Pulses: no pulse deficits are appreciated. 00:11 Respiratory: Exam negative for acute changes, respiratory distress, shortness of breath, Breath sounds: are clear throughout. 00:11 Abdomen/GI: Inspection: abdomen appears normal, Palpation: abdomen is soft and non-tender, in all quadrants. 00:11 Neuro: Exam negative for acute changes, Orientation: is normal, Motor: is normal, moves all fours. Vital Signs: 03/22 22:02 BP 139 / 92; Pulse 83; Resp 18; Temp 98.6; Pulse Ox 98% ; Weight 83.91 kg; Pain 6/10; vg1 03/23 01:16 BP 128 / 78; Pulse 78; Resp 16; Pulse Ox 98% on R/A; Pain 4/10; em MDM: 03/22 23:53 Patient medically screened. [facility] 03/23 00:11 Data reviewed: vital signs. Data interpreted: Pulse oximetry: on room air is 98 %. pm1 Interpretation: normal. 00:11 Counseling: I had a detailed discussion with the patient and/or guardian regarding: the pm1 historical points, exam findings, and any diagnostic results supporting the discharge/admit diagnosis, lab results, the need for outpatient follow up, a manager voice, to return to the emergency department if symptoms worsen or persist or if there are any questions or concerns that arise at home. 00:11 ED course: Patient labs improved from prior ER visit. therefore will discharge the pm1 patient home and prescribe different pain medications . 03/22 22:10 Order name: Basic Metabolic Panel; Complete Time: 23:50 1 03/22 22:10 Order name: CBC with Diff; Complete Time: 23:50 [facility] 03/22 22:10 Order name: Hepatic Function; Complete Time: 23:50 [facility] 03/22 22:10 Order name: Lipase; Complete Time: 23:50 [facility] 03/22 22:10 Order name: IV Saline Lock; Complete Time: : 1 03/22 22:10 Order name: Labs collected and sent; Complete Time: : 1 Administered Medications: 00:05 Drug: morphine 4 mg Route: IVP; Site: right antecubital; em 01:14 Follow up: Response: No adverse reaction; Marked relief of symptoms; Pain is decreased em 00:05 Drug: Zofran (Ondansetron) 4 mg Route: IVP; Site: right antecubital; em 01:14 Follow up: Response: No adverse reaction; Marked relief of symptoms em 00:06 Drug: NS 0.9% 1000 ml Route: IV; Rate: 1 bolus; Site: right antecubital; em 01:14 Follow up: IV Status: Completed infusion; IV Intake: 1000ml em 01:14 Drug: [place] (HYDROcodone-acetaminophen) 10 mg-325 mg 1 tabs Route: PO; em Disposition: 07:41 Co-signature as Attending Physician, Gagandeep Rodriguez MD I agree with the assessment and dagoberto plan of care. Disposition Summary: 03/23/21 00:13 Discharge Ordered Location: Home pm1 Problem: new pm1 Symptoms: have improved pm1 Condition: Stable pm1 Diagnosis - Infectious gastroenteritis and colitis, unspecified pm1 Followup: pm1 - With: Emergency Department - When: As needed - Reason: Worsening of condition Followup: pm1 - With: Private Physician - When: 2 - 3 days - Reason: Recheck today's complaints, Continuance of care, Re-evaluation by your physician Discharge Instructions: - Discharge Summary Sheet pm1 - Abdominal Pain, Adult pm1 Forms: - Medication Reconciliation Form pm1 - Thank You Letter pm1 - Antibiotic Education pm1 - Prescription Opioid Use pm1 Prescriptions: - acetaminophen-codeine 300-15 mg Oral tablet - take 2 tablet by ORAL route every 6 hours As needed as needed; 20 tablet; pm1 Refills: 0, Product Selection Permitted Signatures: Dispatcher [employer] Gagandeep Mariano MD MD cha Munoz, Edgar, RN RN em Beau Metz, CONTENT DEVELOPMENT SPECIALIST CONTENT DEVELOPMENT SPECIALIST pm1 Kristal Lomas, RN RN 1
[2021-03-23] MEDS ORDERED: ONDANSETRON 4 MG/2 ML VIAL ONE (00:22)
[2021-03-23] MEDS ORDERED: MORPHINE 4 MG/ML SYR ONE (00:22)
[2021-03-23] MEDS ORDERED: NA CHLORIDE 0.9% 1,000 ML ONE (00:22)
[2021-03-23 01:27] VITALS: TEMP 98.6; O2SAT 98
[2021-03-23 01:33] VITALS: BP 128/78
[2021-03-23] MEDS ORDERED: HYDROCODONE/APAP 10/325 TAB ONE (01:35)
== END 2021-03-23 01:19 | disposition home or self-care (01) ==
LOC: ER 20:29
DX: A09 Infectious gastroenteritis and colitis, unspecified (principal); F17.210 Nicotine dependence, cigarettes, uncomplicated; Z88.6 Allergy status to analgesic agent
CPT/HCPCS: 36415; 80048; 80076; 83690; 85025; 96361; 96374; 96375; 99283

== ENCOUNTER 2021-07-22 16:20 | Inpatient (IN) | payer SELFPAY ==
[2021-07-22] MEDS ORDERED: PROMETHAZINE INJ 25 MG/ML AMP ONE ×2 (17:42→18:45)
[2021-07-22] MEDS ORDERED: NA CHLORIDE 0.9% 1,000 ML ONE (17:42)
[2021-07-22 18:05] LABS: Absolute Lymphocytes (CBC) 1.6 K/uL (0.7-4.9); Basophils % 0.5 % (0-1.3); Hematocrit 52.7 % (39.6-49.0); MPV 8.5 fL (7.6-11.3)
[2021-07-22 18:25] LABS: Platelet Estimate ADEQ; White Blood Cell Scan OK (OK)
[2021-07-22 18:26] LABS: Blood Morphology Comment NOT SEEN (NOT SEEN)
[2021-07-22 18:29] LABS: Albumin 4.4 g/dL (3.4-5.0); Bilirubin Direct 0.2 mg/dL (0-0.2); Bilirubin Total 1.1 mg/dL (0.2-1.0); Potassium 3.6 mmol/L (3.5-5.1); Protein, Total 8.1 g/dL (6.4-8.2)
[2021-07-22] MEDS ORDERED: FAMOTIDINE 20 MG/2 ML VIAL IV ONE (18:45)
[2021-07-22] MEDS ORDERED: HALOPERIDOL LACT 5 MG/ML INJ ONE (19:48)
[2021-07-22] MEDS ORDERED: DIPHENHYDRAMINE 50 MG/ML VIAL ONE (19:48)
--- NOTE | 2021-07-22 20:32 | RAD REPORT ---
EXAM DESCRIPTION: US - Abdomen Exam Limited - 07/22/2021 7:52 pm CLINICAL HISTORY: r/o GB;Abd pain COMPARISON: Abdomen Pelvis W Contrast dated 03/22/2021 FINDINGS: The gallbladder demonstrates no gallstones. No pericholecystic fluid or gallbladder wall t hickening. The common bile duct is normal measuring 3 mm. The liver demonstrates no findings of intrahepatic biliary dilatation. IMPRESSION: Negative for cholelithiasis, acute cholecystitis, or biliary ductal dilatation .
[2021-07-22] MEDS ORDERED: MORPHINE 4 MG/ML SYR ONE (20:40)
[2021-07-22 20:46] LABS: Barbiturates NEGATIVE (NEGATIVE); Benzodiazepines NEGATIVE (NEGATIVE); Cocaine NEGATIVE (NEGATIVE); METHAMPHETAM NEGATIVE (NEGATIVE); Methadone NEGATIVE (NEGATIVE); Opiates NEGATIVE (NEGATIVE); Phencyclidine NEGATIVE (NEGATIVE); THC Cannibis NEGATIVE (NEGATIVE)
--- NOTE | 2021-07-22 21:09 | RAD REPORT ---
EXAM DESCRIPTION: CTAbdomen Pelvis W Contrast - 07/22/2021 8:51 pm CLINICAL HISTORY: ABD PAIN COMPARISON: Abdomen Pelvis W Contrast dated 03/22/2021; Abdomen Pelvis W Contrast dated 07/05/2020 ; Abdomen Pelvis W Contrast dated 05/07/2018 TECHNIQUE: CT of the abdomen and pelvis was performed. All CT scans are performed using dose optimization technique as appropriate and may include automated exposure control or mA/KV adjustment according to patient size. FINDINGS: Lower chest: No acute abnormality. Liver: No acute abnormality or suspicious lesions. Biliary: No biliary ductal dilatation. Stomach: Increased thickening of the gastric antrum. Duodenum: Increased stranding around the entire length of the duodenum. Pancreas: No significant abnormality. Spleen: No significant abnormality. Adrenal: No suspicious lesions. Kidney/ureter: No hydronephrosis. No renal calculi. Retroperitoneum: Increased retroperitoneal fluid. Vascular: No aneurysm. Bowel: No significant focal abnormality. Peritoneum: Trace pelvic free fluid. Bladder: Grossly unremarkable. Reproductive: No adnexal masses. Bones: No acute fracture. Other: n/a IMPRESSION: Increasing gastric antral and duodenal wall thickening consistent with worsening inflamm ation. Increased retroperitoneal fluid as present. No abscess or perforation.
--- NOTE | 2021-07-22 21:22 | ER ---
Nurse's Notes [facility] Name: Berlin Tran Age: 30 yrs Sex: Male : 1990 Arrival Date: 07/22/2021 Time: 16:21 Bed 13 Private MD: Diagnosis: Intractable Vomiting;Gastroduodenitis, unspecified, without bleeding Presentation: 07/22 17:25 Chief complaint: Patient states: N/V started today, denies diarrhea. Coronavirus jl7 screen: Vaccine status: Patient reports receiving the 2nd dose of the covid vaccine. Moderna. Ebola Screen: No symptoms or risks identified at this time. Initial Sepsis Screen: Does the patient meet any 2 criteria? No. Patient's initial sepsis screen is negative. Does the patient have a suspected source of infection? No. Patient's initial sepsis screen is negative. Risk Assessment: Do you want to hurt yourself or someone else? Patient reports no desire to harm self or others. Onset of symptoms was July 22, 2021. Care prior to arrival: None. 17:25 Method Of Arrival: Ambulatory [facility] 17:25 Acuity: PITER 3 jl7 Triage Assessment: 17:26 General: Appears in no apparent distress. uncomfortable, ill, Behavior is calm, jl7 cooperative, appropriate for age. Pain: Complains of pain in abdomen Pain currently is 9 out of 10 on a pain scale. GI: Reports nausea, vomiting, Patient currently denies diarrhea. Historical: - Allergies: 17:26 Motrin (eyes swelling); jl7 - Home Meds: 17:26 Albuterol Inhl [Active]; jl7 - PMHx: 17:26 Asthma; Gastric Reflux; jl7 - Immunization history:: Adult Immunizations up to date, Client reports receiving the 2nd dose of the Covid vaccine, Moderna. - Social history:: Smoking status: Patient denies any tobacco usage or history of. Screenin:00 Abuse screen: Denies threats or abuse. jh6 18:00 Nutritional screening: No deficits noted. Tuberculosis screening: No symptoms or risk jh6 factors identified. Fall Risk None identified. Assessment: 19:00 General: Appears uncomfortable, ill. Pain: Complains of pain in abdomen. GI: Bowel jh6 sounds present X 4 quads. Abd is soft Abdomen is tender to palpation X 4 quads. in epigastric area. 21:03 Reassessment: Verbal order for Zosyn 3.375 g IV now from AUSTIN Mcgill. lp1 Vital Signs: 17:25 BP 145 / 96; Pulse 95; Resp 19; Pulse Ox 99% on R/A; Weight 86.18 kg; Height 5 ft. 11 jl7 in. (180.34 cm); Pain 9/10; 17:28 Temp 97.5; iw 18:59 BP 118 / 77; Pulse 83; Resp 16; Pulse Ox 100% ; Pain 0/10; jh6 12/03 02:16 BP 138 / 85; Pulse 70; Resp 18; Pulse Ox 95% on R/A; lp1 07/22 17:25 Body Mass Index 26.50 (86.18 kg, 180.34 cm) jl7 ED Course: 07/22 16:21 Patient arrived in ED. as 17:26 Triage completed. jl7 17:26 Arm band placed on right wrist. jl7 17:29 [facility] jr8 17:29 Enrique Lombardo MD is Attending Physician. jr8 17:37 Cyndie Lobo, VU is Primary Nurse. jh6 19:01 Call light in reach. Side rails up X 1. jh6 19:01 Inserted saline lock: 18 gauge in right antecubital area, using aseptic technique. jh6 19:52 US Abdomen Limited In Process Unspecified. EDMS 20:51 CT Abd/Pelvis - IV Contrast Only In Process Unspecified. EDMS 21:21 James Tay is Hospitalizing Provider. jr8 07/23 02:12 No provider procedures requiring assistance completed. Patient admitted, IV remains in lp1 place. Administered Medications: 07/22 17:40 Drug: Promethazine 12.5 mg Route: IVP; Site: right antecubital; jh6 18:56 Follow up: Response: Nausea is decreased jh6 17:40 Drug: NS 0.9% 1000 ml Route: IV; Rate: 1000 ml; Site: right antecubital; jh6 18:56 Follow up: Response: No adverse reaction 6 18:45 Drug: Promethazine 25 mg Route: IVP; Site: right antecubital; jh6 18:45 Drug: ProTONIX (pantoprazole) 40 mg Route: IVP; Site: left antecubital; jh6 19:52 Drug: HALdol (haloperidol) 2 mg Route: IVP; Site: right antecubital; mr2 19:52 Drug: Benadryl (diphenhydrAMINE) 25 mg Route: IVP; Site: right antecubital; mr2 20:45 Drug: morphine 4 mg Route: IVP; Site: right antecubital; mr2 21:39 Drug: Zosyn (piperacillin-tazobactam) 3.375 grams Route: IVPB; Infused Over: 60 mins; mr2 Site: right antecubital; Outcome: 21:22 Decision to Hospitalize by Provider. jr8 12 02:13 Condition: stable lp1 Instructed on the need for admit. 02:16 Admitted to Med/surg room 204, with chart, Report called to VU Palacios lp1 02:38 Patient left the ED. lp1 Signatures: Dispatcher [employer] EDMS Carla Beverly Irene RN VU Anusha Goldberg RN RN lp1 Melvin Chang PA PA jr8 Shawn Lynn RN RN jl7 Barry Arredondo RN RN mr2 Cyndie Lobo RN RN jh6 Corrections: (The following items were deleted from the chart) 07/22 21:04 21:03 Reassessment: Verbal order for Zosyn 3.375mg IV now from AUSTIN Mcgill lp1 lp1
--- NOTE | 2021-07-22 21:22 | EDPHYS ---
Physician Documentation [facility] Name: Berlin Tran Age: 30 yrs Sex: Male : 1990 Arrival Date: 07/22/2021 Time: 16:21 Bed 13 Private MD: ED Physician Enrique Lombardo HPI: 07/22 19:10 This 30 yrs old Male presents to ER via Ambulatory with complaints of jr8 Nausea/Vomiting. 19:10 Onset: The symptoms/episode began/occurred acutely, today. The symptoms do not radiate. jr8 This is a 30-year-old male patient that presented to emergency room with sudden onset of multiple episodes of nausea vomiting without diarrhea or fevers. Patient stated he has mild epigastric upper abdominal discomfort as well. Had recently drank alcohol. Also has a history of gastroesophageal reflux disease with gastritis.. Historical: - Allergies: 17:26 Motrin (eyes swelling); jl7 - Home Meds: 17:26 Albuterol Inhl [Active]; jl7 - PMHx: 17:26 Asthma; Gastric Reflux; jl7 - Immunization history:: Adult Immunizations up to date, Client reports receiving the 2nd dose of the Covid vaccine, Moderna. - Social history:: Smoking status: Patient denies any tobacco usage or history of. ROS: 19:10 Eyes: Negative for injury, pain, redness, and discharge, ENT: Negative for injury, jr8 pain, and discharge, Neck: Negative for injury, pain, and swelling, Cardiovascular: Negative for chest pain, palpitations, and edema, Respiratory: Negative for shortness of breath, cough, wheezing, and pleuritic chest pain, Back: Negative for injury and pain, MS/Extremity: Negative for injury and deformity, Skin: Negative for injury, rash, and discoloration, Neuro: Negative for headache, weakness, numbness, tingling, and seizure. 19:10 Abdomen/GI: Positive for abdominal pain, nausea and vomiting, Negative for diarrhea, hematemesis, black/tarry stool, rectal pain, rectal bleeding, bowel incontinence, flatulence. Exam: 19:10 Constitutional: This is a well developed, well nourished patient who is awake, alert, jr8 and in no acute distress. Cardiovascular: Regular rate and rhythm with a normal S1 and S2. No gallops, murmurs, or rubs. Normal PMI, no JVD. No pulse deficits. Respiratory: Lungs have equal breath sounds bilaterally, clear to auscultation and percussion. No rales, rhonchi or wheezes noted. No increased work of breathing, no retractions or nasal flaring. Back: No spinal tenderness. No costovertebral tenderness. Full range of motion. Skin: Warm, dry with normal turgor. Normal color with no rashes, no lesions, and no evidence of cellulitis. MS/ Extremity: Pulses equal, no cyanosis. Neurovascular intact. Full, normal range of motion. Neuro: Awake and alert, GCS 15, oriented to person, place, time, and situation. Cranial nerves II-XII grossly intact. Motor strength 5/5 in all extremities. Sensory grossly intact. Cerebellar exam normal. Normal gait. 19:10 Abdomen/GI: Inspection: abdomen appears normal, Bowel sounds: active, all quadrants, Palpation: soft, in all quadrants, mild abdominal tenderness, in the epigastric area and right upper quadrant, mass, is not appreciated, rebound tenderness, is not appreciated, voluntary guarding, is not appreciated, involuntary guarding, is not appreciated, no appreciated organomegaly, Indicators: McBurney's point is not tender, Garcia's sign is negative, Rovsing's sign is negative, Liver: tenderness, is not appreciated. Vital Signs: 17:25 BP 145 / 96; Pulse 95; Resp 19; Pulse Ox 99% on R/A; Weight 86.18 kg; Height 5 ft. 11 jl7 in. (180.34 cm); Pain 9/10; 17:28 Temp 97.5; iw 18:59 BP 118 / 77; Pulse 83; Resp 16; Pulse Ox 100% ; Pain 0/10; jh6 07/23 02:16 BP 138 / 85; Pulse 70; Resp 18; Pulse Ox 95% on R/A; lp1 07/22 17:25 Body Mass Index 26.50 (86.18 kg, 180.34 cm) jl7 MDM: 07/22 17:29 Patient medically screened. jr8 21:16 Data reviewed: vital signs, nurses notes, lab test result(s), radiologic studies, CT jr8 scan, ultrasound. Data interpreted: Pulse oximetry: on room air is 100 %. Interpretation: normal. Counseling: I had a detailed discussion with the patient and/or guardian regarding: the historical points, exam findings, and any diagnostic results supporting the discharge/admit diagnosis, lab results, radiology results, the need for further work-up and treatment in the hospital. 07/22 17:29 Order name: Basic Metabolic Panel; Complete Time: 18:30 [facility] 07/22 17:29 Order name: CBC with Diff; Complete Time: 18:28 [facility] 07/22 17:29 Order name: Hepatic Function; Complete Time: 18:30 [facility] 07/22 17:29 Order name: Lipase; Complete Time: 18:30 [facility] 07/22 18:26 Order name: CBC Smear Scan; Complete Time: 18:28 EDID 07/22 19:43 Order name: UDS [facility] 07/22 18:30 Order name: US Abdomen Limited; Complete Time: 20:49 [facility] 07/22 19:43 Order name: Urine Drug Screen; Complete Time: 20:49 EDID 07/22 20:25 Order name: CT Abd/Pelvis - IV Contrast Only; Complete Time: 21:11 [facility] 07/22 22:51 Order name: SARS-COV-2 RT PCR; Complete Time: 23:27 EDID 07/22 23:22 Order name: COVID-19/FLU A+B/RSV; Complete Time: 23:27 EDID 07/22 17:29 Order name: IV Saline Lock; Complete Time: 17:37 [facility] 07/22 17:29 Order name: Labs collected and sent; Complete Time: 17:37 [facility] 07/22 17:41 Order name: Labs - recollect needed: please recollect green and purple top; pen smeared em1 initials and time illegible 07/22 21:33 Order name: CONS Physician Consult EDMS Administered Medications: 17:40 Drug: Promethazine 12.5 mg Route: IVP; Site: right antecubital; 6 18:56 Follow up: Response: Nausea is decreased 6 17:40 Drug: NS 0.9% 1000 ml Route: IV; Rate: 1000 ml; Site: right antecubital; jh6 18:56 Follow up: Response: No adverse reaction 6 18:45 Drug: Promethazine 25 mg Route: IVP; Site: right antecubital; 6 18:45 Drug: ProTONIX (pantoprazole) 40 mg Route: IVP; Site: left antecubital; jh6 19:52 Drug: HALdol (haloperidol) 2 mg Route: IVP; Site: right antecubital; mr2 19:52 Drug: Benadryl (diphenhydrAMINE) 25 mg Route: IVP; Site: right antecubital; mr2 20:45 Drug: morphine 4 mg Route: IVP; Site: right antecubital; mr2 21:39 Drug: Zosyn (piperacillin-tazobactam) 3.375 grams Route: IVPB; Infused Over: 60 mins; mr2 Site: right antecubital; Disposition: 07/23 08:38 Co-signature as Attending Physician, Enrique Lombardo MD I agree with the assessment and kdr plan of care. Disposition Summary: 07/22/21 21:22 Hospitalization Ordered Hospitalization Status: Observation jr8 Provider: James Tay Condition: Stable jr8 Problem: new jr8 Symptoms: have improved jr8 Bed/Room Type: Standard [facility] Location: Telemetry/MedSurg (observation)(07/22/21 23:04) Room Assignment: 204(07/22/21 23:04) Diagnosis - Intractable Vomiting jr8 - Gastroduodenitis, unspecified, without bleeding jr8 Forms: - Medication Reconciliation Form jr8 - SBAR form jr8 Signatures: Dispatcher [employer] EDMS Lita Mkcenna RN RN mw Rittger, Kevin, MD MD kdr Martinez, Eric em1 Anusha Goldberg RN RN lp1 Melvin Chang PA PA jr8 Shawn Lynn RN RN jl7 Barry Arredondo RN RN mr2 Cyndie Lobo RN RN jh6 Corrections: (The following items were deleted from the chart) 07/22 21: 21:22 Telemetry/MedSurg (observation) jr8 :: jr8 23:12 09: [facility] ER HOLD mw 23:12 09: ERHOLD- mw
[2021-07-22] MEDS ORDERED: PIPERACIL/TAZO 3.375 GM VIAL IV ONE (21:31)
--- NOTE | 2021-07-22 22:15 | P.HP ---
Certification for Inpatient Patient admitted to: Inpatient With expected LOS: <2 Midnights Patient will require the following post-hospital care: None Practitioner: I am a practitioner with admitting privileges, knowledge of patient current condition, hospital course, and medical plan of care. Services: Services provided to patient in accordance with Admission requirements found in Title 42 Section 412.3 of the Code of Federal Regulations Patient History Date of Service: 07/22/21 Reason for admission: intractable nausea and vomiting History of Present Illness: Mr. Blaise Tran is a 30 yo M with alcohol and tobacco use disorder presents with 10/10 epigastric pain and intractable nausea and vomiting beginning this morning. Denies fever. Patient was vomiting for hours in the ED with no relief. Patient received pepcid, phenergan, morphine, haldol, and benadryl in the ED as well as IVF hydration to relieve symptoms. WBC 14.4 GFr 77 Glu 127 Tbili 1.1. CTAP IMPRESSION: Increasing gastric antral and duodenal wall thickening consistent with worsening inflammation. Increased retroperitoneal fluid as present. No abscess or perforation. Allergies No Known Allergie Allergy (Uncoded 07/10/17 14:36) Unknown No Known Allergies Allergy (Uncoded 11/28/17 12:48) Unknown Home Medications: Diphenhydramine [Benadryl*] 25 mg PO Q6H PRN #40 tab 05/19/18 Epinephrine [Epipen Jr 2-Dale] 0.15 mg IM ONCE PRN #0.3 ml 05/19/18 predniSONE [Deltasone] 20 mg PO DAILY #30 tab 05/19/18 - Past Medical/Surgical History Diabetic: No Past Medical History: Patient denies medical history Past Surgical History: Patient denies surgical history - Family History Family History: Reviewed- Non-Contributory - Family History Father -: Other (see notes) Notes: pt states father has swelling Mother -: Hypertension - Social History Smoking Status: Current every day smoker Alcohol use: Yes CD- Drugs: No Caffeine use: Yes Place of Residence: Home Review of Systems 10-point ROS is otherwise unremarkable General: Unremarkable Eyes: Unremarkable ENT: As per HPI Respiratory: Unremarkable Cardiovascular: Unremarkable Gastrointestinal: Nausea, Vomiting, Abdominal Pain, As per HPI Genitourinary: Unremarkable Musculoskeletal: Unremarkable Integumentary: Unremarkable Neurological: Unremarkable Lymphatics: Unremarkable Physical Examination - Physical Exam General: Alert, In no apparent distress HEENT: Atraumatic, PERRLA, Mucous membr. moist/pink, EOMI, Sclerae nonicteric Neck: Supple, 2+ carotid pulse no bruit, No LAD, Without JVD or thyroid abnormality Respiratory: Clear to auscultation bilaterally, Normal air movement Cardiovascular: Regular rate/rhythm, Normal S1 S2 Gastrointestinal: Normal bowel sounds, No ascites, No masses, No rebound, No guarding, Tenderness Musculoskeletal: No tenderness Integumentary: No rashes Neurological: Normal speech, Normal strength at 5/5 x4 extr, Normal tone, Normal affect Lymphatics: No axilla or inguinal lymphadenopathy - Studies Laboratory Data (last 24 hrs) 07/22/21 17:50: WBC 14.40 H, Hgb 17.8, Hct 52.7 H, Plt Count 271 07/22/21 17:50: Sodium 143, Potassium 3.6, BUN 15, Creatinine 1.12, Glucose 127 H, Total Bilirubin 1.1 H, AST 26, ALT 61, Alkaline Phosphatase 96, Lipase 67 L Assessment and Plan - Problems (Diagnosis) (1) Gastroduodenitis Current Visit: Yes Status: Acute (2) Intractable nausea and vomiting Current Visit: Yes Status: Acute (3) Tobacco use disorder Current Visit: Yes Status: Chronic (4) Alcohol use disorder Current Visit: Yes Status: Chronic - Plan GI consulted NPO continue IV protonix BID, antiemetics, pain management continue IVF hydration alcohol withdrawal assessment protocol DVT ppx Discharge Plan: Home Plan to discharge in: 48 Hours - Advance Directives Does patient have a Living Will: No Does patient have a Durable POA for Healthcare: No - Code Status/Comfort Care Code Status Assessed: Yes (full code ) Critical Care: No Time Spent Managing Pts Care (In Minutes): 70
[2021-07-22 23:21] LABS: SARS-COV-2 RT PCR NEGATIVE (NEGATIVE)
[2021-07-23] MEDS ORDERED: PROMETHAZINE INJ 25 MG/ML AMP IV PRN (00:02)
[2021-07-23] MEDS ORDERED: SODIUM CHLORIDE 0.9% 10ML INJ IV PRN (00:02)
[2021-07-23] MEDS ORDERED: ACETAMINOPHEN 500 MG TAB PO PRN (00:02)
[2021-07-23] MEDS: NA CHLORIDE 0.9% 1,000 ML IV SCH ×3 (00:02→20:29)
[2021-07-23] MEDS ORDERED: PROMETHAZINE INJ 25 MG/ML AMP ONE (00:21)
[2021-07-23] MEDS ORDERED: MORPHINE 4 MG/ML SYR ONE (00:22)
[2021-07-23] MEDS: MORPHINE 2 MG/ML SYR IV PRN ×3 (00:46→15:51)
[2021-07-23 02:50] VITALS: O2SAT 95
[2021-07-23 05:10] LABS: Absolute Lymphocytes (CBC) 0.6 K/uL (0.7-4.9); Basophils % 0.1 % (0-1.3); Lymphocytes % 4.8 % (15.3-44.8); MPV 8.9 fL (7.6-11.3); RBC Red Blood Cell Count 5.33 M/uL (4.33-5.43)
[2021-07-23 05:38] LABS: ALT/SGPT 41 U/L (12-78); AST/SGOT 14 U/L (15-37); Albumin 3.3 g/dL (3.4-5.0); Alkaline Phosphatase 75 U/L (45-117); BUN Blood Urea Nitrogen 17 mg/dL (7-18); Bicarbonate 25 mmol/L (21-32); Bilirubin Total 0.8 mg/dL (0.2-1.0); Glucose Level 147 mg/dL (74-106); HDL Cholesterol 36 mg/dL (40-60); LDL Cholesterol, Calculated 89 (<130); Phosphorus 3.7 mg/dL (2.5-4.9); Potassium 3.7 mmol/L (3.5-5.1); Protein, Total 6.2 g/dL (6.4-8.2); Sodium Level 144 mmol/L (136-145)
[2021-07-23] MEDS ORDERED: KCL 20 MEQ/100 mL IVPB 20 MEQ/100 ML BAG IV SCH (07:00)
[2021-07-23] MEDS ORDERED: PIPER TAZO 3.375 GM in NA CHLORIDE 0.9% 100 ML IV SCH (09:00)
[2021-07-23] MEDS: PANTOPRAZOLE 40 MG INJ IVP SCH ×2 (10:40→20:28)
[2021-07-23] MEDS: ONDANSETRON 4 MG/2 ML VIAL IV PRN ×2 (10:40→15:50)
--- NOTE | 2021-07-23 13:54 | P.PN ---
Subjective Date of Service: 07/23/21 Chief Complaint: intractable nausea and vomiting Patient states he feels better today and wants to try liquid diet He reports abdominal pain of moderate intensity, denies any back pain. No nausea or vomiting today. Physical Examination - Vital Signs Temperature: 97.9 F Blood Pressure: 147/91 Pulse: 63 Respirations: 16 Pulse Ox (%): 98 - Physical Exam General: Alert, In no apparent distress, Oriented x3 HEENT: Mucous membr. moist/pink Neck: JVD not distended Respiratory: Clear to auscultation bilaterally, Normal air movement Cardiovascular: No edema, Regular rate/rhythm, Normal S1 S2 Gastrointestinal: Normal bowel sounds, Soft and benign, Non-distended, Tenderness (Epigastrium) Musculoskeletal: No swelling, No tenderness Integumentary: No rashes, No erythema Neurological: Normal speech, Normal strength at 5/5 x4 extr - Studies Laboratory Data (last 24 hrs) 07/22/21 17:50: WBC 14.40 H, Hgb 17.8, Hct 52.7 H, Plt Count 271 07/22/21 17:50: Sodium 143, Potassium 3.6, BUN 15, Creatinine 1.12, Glucose 127 H, Total Bilirubin 1.1 H, AST 26, ALT 61, Alkaline Phosphatase 96, Lipase 67 L Assessment And Plan - Current Problems (Diagnosis) (1) Gastroduodenitis Current Visit: Yes Status: Acute (2) Intractable nausea and vomiting Current Visit: Yes Status: Acute (3) Alcohol use disorder Current Visit: Yes Status: Chronic (4) Tobacco use disorder Current Visit: Yes Status: Chronic - Plan Patient with severe gastritis and duodenitis with reactive fluid in the retro peritoneum surrounding the duodenum. No pancreatitis, lipase level within normal limits. Symptoms improving. Continue IV Protonix Supportive measures with IV hydration Start clear liquid diet Empiric antibiotics. Monitor for alcohol withdrawal symptoms. CIWA as needed. Monitor and optimize electrolytes
[2021-07-23] MEDS ORDERED: POTASSIUM CL SA 10 MEQ TAB PO ONE (15:21)
[2021-07-24] MEDS: NA CHLORIDE 0.9% 1,000 ML IV SCH (05:02)
[2021-07-24 05:07] VITALS: BMI 27.8
[2021-07-24] MEDS: PANTOPRAZOLE 40 MG INJ IVP SCH (11:30)
[2021-07-24] MEDS: MORPHINE 2 MG/ML SYR IV PRN ×2 (11:31→18:37)
[2021-07-24] MEDS ORDERED: PNEUMOCOCCAL VACCINE 0.5 ML IMVAC ONE (12:00)
[2021-07-24] MEDS ORDERED: INFLUENZA VACCINE (for 6+ mo) 0.5 ML DOSE IMVAC ONE (12:00)
--- NOTE | 2021-07-24 13:43 | P.DS ---
Admission Date: 07/22/21 Discharge Date: 07/24/21 Disposition: ROUTINE DISCHARGE Discharge Condition: FAIR Reason for Admission: intractable nausea and vomiting - Problems (1) Gastroduodenitis Current Visit: Yes Status: Acute (2) Intractable nausea and vomiting Current Visit: Yes Status: Acute (3) Alcohol use disorder Current Visit: Yes Status: Chronic (4) Tobacco use disorder Current Visit: Yes Status: Chronic Brief History of Present Illness: Mr. Blaise Tran is a 30 yo M with alcohol and tobacco use disorder presents with 10/10 epigastric pain and intractable nausea and vomiting. He denied any fever. Patient was vomiting for hours in the ED with no relief. Patient received pepcid, phenergan, morphine, haldol, and benadryl in the ED as well as IVF hydration to relieve symptoms. WBC 14.4 GFr 77 Glu 127 Tbili 1.1. CTAP IMPRESSION: Increasing gastric antral and duodenal wall thickening consistent with worsening inflammation. Increased retroperitoneal fluid. No abscess or perforation. No evidence of pancreatitis.Patient admitted for further management of severe gastritis and duodenitis. Hospital Course: Patient with severe gastritis and duodenitis with reactive fluid in the retroperitoneum surrounding the duodenum. He was admitted to the medical floor and treated supportively with IV fluid, IV opioid for pain, IV protonix and IV Zosyn. No pancreatitis, lipase level within normal limits. Patient was seen in consultation by GI-Dr. Navarro. His symptoms improved. He was started on clear liquid diet and advance to soft diet which he tolerated. He did not experience any further episodes of nausea or vomiting. Noted his viral panel was positive for RSV. Patient did not experience any symptoms of alcohol withdrawal. Patient has tolerated diet, his pain is improved and he is deemed stable for discharge. He is discharged with Protonix and antibiotics to continue treatment for the gastritis and duodenitis. Vital Signs/Physical Exam: Temp Pulse Resp BP Pulse Ox 98.2 F 62 18 105/64 98 07/24/21 08:00 07/24/21 08:00 07/24/21 08:00 07/24/21 08:00 07/24/21 08:00 General: Alert, In no apparent distress, Oriented x3 HEENT: Mucous membr. moist/pink Neck: JVD not distended Respiratory: Clear to auscultation bilaterally, Normal air movement Cardiovascular: No edema, Regular rate/rhythm, Normal S1 S2 Capillary refill: <2 Seconds Gastrointestinal: Normal bowel sounds, Soft and benign, Non-distended, No tenderness Musculoskeletal: No swelling, No tenderness Integumentary: No rashes, No erythema Neurological: Normal speech, Normal strength at 5/5 x4 extr Lymphatics: No axilla or inguinal lymphadenopathy Laboratory Data at Discharge: WBC 12.30 K/uL (4.3-10.9) H D 07/23/21 04:02 Hgb 16.0 g/dL (13.6-17.9) 07/23/21 04:02 Hct 48.0 % (39.6-49.0) 07/23/21 04:02 Plt Count 281 K/uL (152-406) 07/23/21 04:02 Sodium 144 mmol/L (136-145) 07/23/21 04:02 Potassium 3.7 mmol/L (3.5-5.1) 07/23/21 04:02 BUN 17 mg/dL (7-18) 07/23/21 04:02 Creatinine 0.84 mg/dL (0.55-1.3) 07/23/21 04:02 Glucose 147 mg/dL (74-106) H 07/23/21 04:02 Phosphorus 3.7 mg/dL (2.5-4.9) 07/23/21 04:02 Magnesium 2.0 mg/dL (1.8-2.4) 07/23/21 04:02 Total Bilirubin 0.8 mg/dL (0.2-1.0) 07/23/21 04:02 AST 14 U/L (15-37) L 07/23/21 04:02 ALT 41 U/L (12-78) 07/23/21 04:02 Alkaline Phosphatase 75 U/L (45-117) 07/23/21 04:02 Triglycerides 127 mg/dL (<150) 07/23/21 04:02 Cholesterol 150 mg/dL (<200) 07/23/21 04:02 HDL Cholesterol 36 mg/dL (40-60) L 07/23/21 04:02 Cholesterol/HDL Ratio 4.17 07/23/21 04:02 Lipase 67 U/L (73-393) L 07/22/21 17:50 Home Medications: Ciprofloxacin HCl [Cipro 500 MG Tablet] 500 mg PO BID #10 tab 07/24/21 Pantoprazole [Protonix Tab] 40 mg PO BID #60 tab 07/24/21 metroNIDAZOLE [Flagyl] 500 mg PO Q8H #15 tablet 07/24/21 New Medications: Ciprofloxacin HCl [Cipro 500 MG Tablet] 500 mg PO BID #10 tab metroNIDAZOLE [Flagyl] 500 mg PO Q8H #15 tablet Pantoprazole [Protonix Tab] 40 mg PO BID #60 tab Physician Discharge Instructions: Progressed from soft diet to solid diet as tolerated. Diet: Soft diet Activity: Ad maru Followup: NONE,NONE [Primary Care Provider] - 1-2 Weeks Time spent managing pt's care (in minutes): 34
[2021-07-24] MEDS ORDERED: PIPER TAZO 3.375 GM in NA CHLORIDE 0.9% 100 ML IV SCH (18:00)
[2021-07-24 20:33] VITALS: BP 133/83; TEMP 97.1
== END 2021-07-24 21:00 | disposition home or self-care (01) | DRG 392 ==
LOC: ER 16:20 → ERHOLD 21:35 → 2ND 07-23 02:16
PROVIDERS: ADMIT Internal Medicine; ATTEND Internal Medicine
DX: K29.90 Gastroduodenitis, unspecified, without bleeding (principal); K29.70 Gastritis, unspecified, without bleeding; K21.9 Gastro-esophageal reflux disease without esophagitis; J45.909 Unspecified asthma, uncomplicated; F17.200 Nicotine dependence, unspecified, uncomplicated; Z88.8 Allergy status to other drugs, medicaments and biological substances; Z79.899 Other long term (current) drug therapy; Z79.52 Long term (current) use of systemic steroids; Z20.822 Contact with and (suspected) exposure to COVID-19
CPT/HCPCS: 0241U; 36415; 74177; 76705; 80048; 80053; 80061; 80076; 80307; 80320; 82947; 83690; 83735; 84100; 84439; 84443; 85025; 99285; C9113; J1200; J1630; J2270; J2405; J2543; J2550; J3480; J7030; Q9967

== ENCOUNTER 2021-09-17 09:28 | Emergency (ER) | payer SELFPAY ==
[2021-09-17 10:49] LABS: SARS-COV-2 RT PCR POSITIVE (NEGATIVE)
--- NOTE | 2021-09-17 10:51 | EDPHYS ---
Physician Documentation [facility] Name: Berlin Tran Age: 31 yrs Sex: Male : 1990 Arrival Date: 09/17/2021 Time: 09:30 Bed 12 Private MD: ED Physician Enrique Lombardo HPI: 09/17 10:00 This 31 yrs old Male presents to ER via Ambulatory with complaints of Body kb Aches. 10:00 The patient or guardian reports cough, that is intermittent, described as mild, flu kb symptoms, low-grade fever, myalgias. Onset: The symptoms/episode began/occurred today. Severity of symptoms: At their worst the symptoms were moderate, in the emergency department the symptoms are unchanged. Modifying factors: The symptoms are alleviated by nothing, the symptoms are aggravated by nothing. Associated signs and symptoms: Pertinent positives: fever, sore throat, Pertinent negatives: chest pain, diarrhea, ear ache, nausea, rhinorrhea, vomiting. The patient has not experienced similar symptoms in the past. The patient has not recently seen a physician. Historical: - Allergies: 09:46 Motrin (eyes swelling); ap3 - Home Meds: 09:46 Albuterol Inhl [Active]; ap3 - PMHx: 09:46 Asthma; Gastric Reflux; ap3 - Immunization history:: Client reports receiving the 2nd dose of the Covid vaccine. - Social history:: Smoking status: Patient reports the use of cigarette tobacco products, smokes one-half pack cigarettes per day. ROS: 09:59 Cardiovascular: Negative for chest pain, palpitations, and edema. kb 09:59 Constitutional: Positive for body aches, chills, fatigue, fever, malaise. 09:59 ENT: Positive for sore throat. 09:59 Respiratory: Positive for cough, Negative for dyspnea on exertion, hemoptysis, orthopnea, pleurisy, shortness of breath, sputum production, wheezing. 09:59 Neuro: Positive for headache. 09:59 All other systems are negative. Exam: 09:59 Constitutional: This is a well developed, well nourished patient who is awake, alert, kb and in no acute distress. Head/Face: Normocephalic, atraumatic. ENT: Moist Mucous membranes Cardiovascular: Regular rate and rhythm with a normal S1 and S2. No gallops, murmurs, or rubs. No pulse deficits. Respiratory: Respirations even and unlabored. No increased work of breathing. Talking in full sentences Abdomen/GI: Soft, non-tender. No distention Skin: Warm, dry with normal turgor. Normal color. MS/ Extremity: Pulses equal, no cyanosis. Neurovascular intact. Full, normal range of motion. Neuro: Awake and alert, GCS 15, oriented to person, place, time, and situation. Moves all extremities. Normal gait. Psych: Awake, alert, with orientation to person, place and time. Behavior, mood, and affect are within normal limits. Vital Signs: 09:43 BP 149 / 111; Pulse 85; Resp 19; Temp 98.7; Pulse Ox 100% ; Weight 87.54 kg; Height 5 ap3 ft. 11 in. (180.34 cm); 09:43 Body Mass Index 26.92 (87.54 kg, 180.34 cm) ap3 MDM: 09:49 Patient medically screened. kb 09:59 Data reviewed: vital signs, nurses notes. Data interpreted: Pulse oximetry: on room air kb is 100 %. Interpretation: normal. 10:49 Counseling: I had a detailed discussion with the patient and/or guardian regarding: the kb historical points, exam findings, and any diagnostic results supporting the discharge/admit diagnosis, lab results, the need for outpatient follow up, a family practitioner, to return to the emergency department if symptoms worsen or persist or if there are any questions or concerns that arise at home. 09/17 09:49 Order name: COVID-19/FLU A+B (Document "Date of Onset" if Symptomatic); Complete Time: kb 10:51 Administered Medications: No medications were administered Disposition: 11:03 Co-signature as Attending Physician, Enrique Lombardo MD I agree with the assessment and kdr plan of care. Disposition Summary: 09/17/21 10:50 Discharge Ordered Location: Home Condition: Stable kb Diagnosis - Coronavirus infection, unspecified kb Followup: kb - With: Emergency Department - When: As needed - Reason: Worsening of condition Followup: kb - With: Private Physician - When: 2 - 3 days - Reason: Recheck today's complaints, Continuance of care, Re-evaluation by your physician Discharge Instructions: - Discharge Summary Sheet kb - Viral Respiratory Infection, [id number] kb - COVID-19 kb Forms: - Medication Reconciliation Form kb - Thank You Letter kb - Antibiotic Education kb - Prescription Opioid Use kb Signatures: Dispatcher [employer] Estephanie Harding, YUSUF-C YUSUF-Enrique Bahena MD MD kdr Prokisch, Amanda, RN RN ap3
--- NOTE | 2021-09-17 10:51 | ER ---
Nurse's Notes [facility] Name: Berlin Tran Age: 31 yrs Sex: Male : 1990 Arrival Date: 09/17/2021 Time: 09:30 Bed 12 Private MD: Diagnosis: Coronavirus infection, unspecified Presentation: 09/17 09:43 Chief complaint: Patient states: he has body aches, fever, chills that stated today. ap3 Patient also reports cough, sore throat and headache. Coronavirus screen: chills, cough unrelated to allergies, fatigue, Client presents with at least one sign or symptom that may indicate coronavirus-19. Standard/surgical mask placed on the client. Provider contacted for isolation considerations. Ebola Screen: No symptoms or risks identified at this time. Initial Sepsis Screen: Does the patient meet any 2 criteria? No. Patient's initial sepsis screen is negative. Does the patient have a suspected source of infection? No. Patient's initial sepsis screen is negative. Risk Assessment: Do you want to hurt yourself or someone else? Patient reports no desire to harm self or others. Onset of symptoms was September 17, 2021. 09:43 Method Of Arrival: Ambulatory ap3 09:43 Acuity: PITER 4 ap3 Triage Assessment: 09:48 General: Appears in no apparent distress. Behavior is calm, cooperative, Reports chills ap3 for fever for feeling ill for. Pain: Complains of pain in back. Pain:. Neuro: Level of Consciousness is awake, alert, obeys commands. Cardiovascular: Patient's skin is warm and dry. Respiratory: Airway is patent Respiratory effort is even, unlabored, Parent/caregiver reports the patient having cough that is dry. Historical: - Allergies: 09:46 Motrin (eyes swelling); ap3 - Home Meds: 09:46 Albuterol Inhl [Active]; ap3 - PMHx: 09:46 Asthma; Gastric Reflux; ap3 - Immunization history:: Client reports receiving the 2nd dose of the Covid vaccine. - Social history:: Smoking status: Patient reports the use of cigarette tobacco products, smokes one-half pack cigarettes per day. Screenin:49 Abuse screen: Denies threats or abuse. Nutritional screening: No deficits noted. ap3 Tuberculosis screening: No symptoms or risk factors identified. Fall Risk None identified. Assessment: 10:08 General: See triage. jl7 Vital Signs: 09:43 BP 149 / 111; Pulse 85; Resp 19; Temp 98.7; Pulse Ox 100% ; Weight 87.54 kg; Height 5 ap3 ft. 11 in. (180.34 cm); 09:43 Body Mass Index 26.92 (87.54 kg, 180.34 cm) ap3 ED Course: 09:30 Patient arrived in ED. ds1 09:31 Estephanie Benitez FNP-C is [facility]. kb 09:45 Triage completed. ap3 09:49 Arm band placed on right wrist. ap3 09:49 Patient has correct armband on for positive identification. Call light in reach. Pulse ap3 ox on. NIBP on. Door closed. Noise minimized. 09:55 COVID swab sent to lab. jl7 10:00 Enrique Lombardo MD is Attending Physician. kb 10:08 Shawn Lynn, RN is Primary Nurse. jl7 11:01 No provider procedures requiring assistance completed. Patient did not have IV access ap3 during this emergency room visit. Administered Medications: No medications were administered Outcome: 10:50 Discharge ordered by . kb 11:01 Discharged to home ambulatory. ap3 11:01 Condition: good 11:01 Discharge instructions given to patient, family, Instructed on discharge instructions, follow up and referral plans. Demonstrated understanding of instructions, follow-up care. 11:01 Patient left the ED. ap3 Signatures: Estephanie Benitez FNP-C FNP-Sera Berrios ds1 Shawn Lynn, VU RN jl7 Keri Aldrich RN RN ap3
[2021-09-17 11:28] VITALS: BP 149/111; TEMP 98.7; O2SAT 100
== END 2021-09-17 11:01 | disposition home or self-care (01) ==
LOC: ER 09:28
DX: U07.1 COVID-19 (principal); F17.210 Nicotine dependence, cigarettes, uncomplicated; Z88.6 Allergy status to analgesic agent
CPT/HCPCS: 0240U; 99283

== ENCOUNTER 2021-11-30 12:12 | Emergency (ER) | payer OTHER, SELFPAY ==
[2021-11-30 13:24] LABS: Hematocrit 45.3 % (39.6-49.0); Lymphocytes % 11.8 % (15.3-44.8); MPV 8.2 fL (7.6-11.3); RBC Red Blood Cell Count 5.06 M/uL (4.33-5.43)
[2021-11-30 13:41] LABS: ALT/SGPT 36 U/L (12-78); AST/SGOT 14 U/L (15-37); Albumin 3.7 g/dL (3.4-5.0); Alkaline Phosphatase 71 U/L (45-117); BUN Blood Urea Nitrogen 16 mg/dL (7-18); Bicarbonate 25 mmol/L (21-32); Bilirubin Total 0.9 mg/dL (0.2-1.0); Glucose Level 108 mg/dL (74-106); Lipase 49 U/L (73-393); Potassium 3.6 mmol/L (3.5-5.1); Protein, Total 6.8 g/dL (6.4-8.2); Sodium Level 138 mmol/L (136-145)
[2021-11-30] MEDS ORDERED: MORPHINE 4 MG/ML SYR ONE (14:53)
[2021-11-30] MEDS ORDERED: ONDANSETRON 4 MG/2 ML VIAL ONE (14:54)
[2021-11-30] MEDS ORDERED: NA CHLORIDE 0.9% 1,000 ML ONE (14:54)
[2021-11-30 15:42] LABS: SARS-COV-2 RT PCR NEGATIVE (NEGATIVE)
--- NOTE | 2021-11-30 15:47 | RAD REPORT ---
EXAM DESCRIPTION: CT - Abdomen Pelvis W Contrast - 11/30/2021 3:13 pm CLINICAL HISTORY: abd pain COMPARISON: Abdomen Pelvis W Contrast dated 07/22/2021; Abdomen Pelvis W Contrast dated 05/07/2018 TECHNIQUE: Biphasic, helical CT imaging of the abdomen and pelvis was performed following 100 ml non -ionic IV contrast. No oral contrast administered. All CT scans are performed using dose optimization technique as appropriate and may include automated exposure control or mA/KV adjustment according to patient size. FINDINGS: No suspicious findings in the lung bases. The liver, spleen, and pancreas show no suspicious findings. Gallbladder and biliary tree are also wi thout suspicious finding. Symmetric renal function is seen with no hydronephrosis or suspicious renal mass. No pyelonephritis o r acute parenchymal process. No bladder abnormalities. No adrenal abnormalities. No gastric wall thickening or edema. No small bowel wall thickening or edema. A fluid-filled small guillermina wel survey present still within range of normal. The appendix is normal. No acute colon process seen. No acute GI process is seen. No free air, free fluid or inflammatory stranding. No hernia, mass or bulky lymphadenopathy. No suspicious bony findings. In the superior most aspect of the gluteal cleft, right side there is a 4.6 centimeter oval homogeneo us low attenuation mass. Attenuation is 20 Hounsfield units. This has been present at least back to 2 018 and shows only very slight increase over time. Margins are sharply demarcated with no stranding o r edema in the adjacent fat. Long-term significance is doubtful given the absence of any substantial jacket changer at least a 4 year interval. IMPRESSION: Contrast enhanced CT abdomen and pelvis showing no acute or emergent finding. Patient has a 4.6 centimeter low-density mass along the superior right side gluteal cleft showing a 1 centimeter increase in maximum dimension over a 4 year interval. Benign etiology is strongly favored . Angiomatoid fibrous histiocytoma would be rare possibility. This can be further evaluated as outpat ient follow-up.
--- NOTE | 2021-11-30 16:34 | ER ---
Nurse's Notes [facility] Name: Berlin Tran Age: 31 yrs Sex: Male : 1990 Arrival Date: 11/30/2021 Time: 12:15 Bed 6 Private MD: Diagnosis: Vomiting;Diarrhea, unspecified;Abdominal pain, unspecified;Localized swelling, mass and lump, unspecified-lower back Presentation: 11/30 12:31 Chief complaint: Patient states: he has been having body aches, nausea, vomiting with ap3 abdominal pain since last night. patient denies cough, fever, and chills. Coronavirus screen: Client presents with at least one sign or symptom that may indicate coronavirus-19. Ebola Screen: No symptoms or risks identified at this time. Initial Sepsis Screen: Does the patient meet any 2 criteria? No. Patient's initial sepsis screen is negative. Does the patient have a suspected source of infection? No. Patient's initial sepsis screen is negative. Risk Assessment: Do you want to hurt yourself or someone else? Patient reports no desire to harm self or others. Onset of symptoms was November 29, 2021. 12:31 Method Of Arrival: Ambulatory ap3 12:31 Acuity: PITER 3 ap3 Triage Assessment: 12:36 General: Appears in no apparent distress. Behavior is calm, cooperative. Pain: ap3 Complains of pain in abdomen, generalized body aches, and rectal area Pain began 1 day ago. Also complains of nausea, vomiting. Neuro: Level of Consciousness is awake, alert, obeys commands, Oriented to person, place, time, situation, Gait is steady, Speech is normal. Cardiovascular: Patient's skin is warm and dry. Respiratory: Airway is patent Respiratory effort is even, unlabored, Respiratory pattern is regular, symmetrical. GI: Reports lower abdominal pain, upper abdominal pain, nausea, vomiting. Historical: - Allergies: 12:33 Motrin (eyes swelling); ap3 - Home Meds: 12:33 None [Active]; ap3 - PMHx: 12:33 Asthma; Gastric Reflux; ap3 - Immunization history:: Client reports receiving the 2nd dose of the Covid vaccine. - Social history:: Smoking status: Patient reports the use of cigarette tobacco products, smokes one-half pack cigarettes per day, Patient uses alcohol, occasionally. Screenin:38 Abuse screen: Denies threats or abuse. Nutritional screening: No deficits noted. ap3 Tuberculosis screening: No symptoms or risk factors identified. 12:38 Fall Risk None identified. No fall in past 12 months (0 pts). No secondary diagnosis (0 ap3 pts). Gait- Normal/Bed Rest/Wheelchair (0 pts) Mental Status- Oriented to own ability (0 pts). Assessment: 12:55 General: Appears in no apparent distress. comfortable, Behavior is calm, cooperative, jd3 appropriate for age. Pain: Complains of pain in abdomen Quality of pain is described as sharp. Neuro: Level of Consciousness is awake, alert, obeys commands, Oriented to person, place, time, situation. Cardiovascular: Denies chest pain, Capillary refill < 3 seconds Patient's skin is warm and dry. Respiratory: Airway is patent Respiratory effort is even, unlabored, Respiratory pattern is regular, symmetrical, Denies cough, shortness of breath. GI: Abdomen is non-distended, Abd is soft and non tender X 4 quads. Reports lower abdominal pain, upper abdominal pain, vomiting. : No signs and/or symptoms were reported regarding the genitourinary system. EENT: No signs and/or symptoms were reported regarding the EENT system. Derm: Skin is intact, Skin is dry, Skin is normal, Skin temperature is warm. Musculoskeletal: Circulation, motion, and sensation intact. Range of motion: intact in all extremities. 13:55 Reassessment: Patient appears in no apparent distress at this time. No changes from jd3 previously documented assessment. Patient and/or family updated on plan of care and expected duration. Pain level reassessed. Patient is alert, oriented x 3, equal unlabored respirations, skin warm/dry/pink. 14:55 Reassessment: Patient appears in no apparent distress at this time. No changes from jd3 previously documented assessment. Patient and/or family updated on plan of care and expected duration. Pain level reassessed. Patient is alert, oriented x 3, equal unlabored respirations, skin warm/dry/pink. 15:55 Reassessment: Patient appears in no apparent distress at this time. No changes from jd3 previously documented assessment. Patient and/or family updated on plan of care and expected duration. Pain level reassessed. Patient is alert, oriented x 3, equal unlabored respirations, skin warm/dry/pink. 16:55 Reassessment: Patient appears in no apparent distress at this time. No changes from jd3 previously documented assessment. Patient and/or family updated on plan of care and expected duration. Pain level reassessed. Patient is alert, oriented x 3, equal unlabored respirations, skin warm/dry/pink. 17:55 Reassessment: Patient appears in no apparent distress at this time. Patient and/or jd3 family updated on plan of care and expected duration. Pain level reassessed. Patient is alert, oriented x 3, equal unlabored respirations, skin warm/dry/pink. Patient states feeling better. 18:54 Reassessment: Patient appears in no apparent distress at this time. No changes from jd3 previously documented assessment. Patient and/or family updated on plan of care and expected duration. Pain level reassessed. Patient is alert, oriented x 3, equal unlabored respirations, skin warm/dry/pink. Vital Signs: 12:31 BP 121 / 82; Pulse 89; Resp 17; Temp 98.2; Pulse Ox 100% ; Weight 88.45 kg; Height 5 ap3 ft. 2 in. (157.48 cm); Pain 5/10; 19:06 BP 126 / 80; Pulse 67; Resp 18 S; Pulse Ox 100% on R/A; jd3 12:31 Body Mass Index 35.67 (88.45 kg, 157.48 cm) ap3 ED Course: 12:15 Patient arrived in ED. am2 12:33 Triage completed. ap3 12:38 Arm band placed on right wrist. ap3 12:38 Patient has correct armband on for positive identification. Bed in low position. Call ap3 light in reach. Side rails up X 1. Pulse ox on. NIBP on. 12:49 Beau Metz NP is PHCP. pm1 12:49 Gagandeep Rodriguez MD is Attending Physician. pm1 12:52 Roman Rowe RN is Primary Nurse. jd3 12:52 Nurse Practitioner and/or Physician Pharmacy Innovation Assistant to see patient. jd3 15:00 Inserted saline lock: 20 gauge in right antecubital area, using aseptic technique. jd3 Blood collected. 15:15 Abdomen In Process Unspecified. EDMS 16:33 Kaden Calzada MD is Referral Physician. pm1 19:06 No provider procedures requiring assistance completed. jd3 19:24 IV discontinued, intact, bleeding controlled, No redness/swelling at site. Pressure jd3 dressing applied. Administered Medications: 14:56 Drug: NS 0.9% 1000 ml Route: IV; Rate: 1 bolus; Site: right antecubital; jd3 19:25 Follow up: Response: No adverse reaction; IV Status: Completed infusion; IV Intake: jd3 1000ml 14:56 Drug: Zofran (Ondansetron) 4 mg Route: IVP; Site: right antecubital; jd3 15:50 Follow up: Response: No adverse reaction jd3 14:56 Drug: morphine 4 mg Route: IVP; Site: right antecubital; jd3 15:50 Follow up: Response: No adverse reaction; RASS: Alert and Calm (0) jd3 Intake: 19:25 IV: 1000ml; Total: 1000ml. jd3 Outcome: 16:34 Discharge ordered by MD. pm1 19:24 Discharged to home ambulatory, with family. jd3 19:24 Condition: stable 19:24 Discharge instructions given to patient, Instructed on discharge instructions, follow up and referral plans. medication usage, Demonstrated understanding of instructions, follow-up care, medications, Prescriptions given X 3. 19:25 Patient left the ED. jd3 Signatures: Dispatcher [employer] EDMS Beau Metz, SAMANTHA CHIROPRACTIC ASSISTANT pm1 Keri James am2 Roman Rowe RN RN jd3 Keri Aldrich RN RN ap3 Corrections: (The following items were deleted from the chart) 12:34 12:33 Home Meds: Albuterol Inhl [Inactive]; ap3 ap3
--- NOTE | 2021-11-30 16:34 | EDPHYS ---
Physician Documentation [facility] Name: Berlin Tran Age: 31 yrs Sex: Male : 1990 Arrival Date: 11/30/2021 Time: 12:15 Bed 6 Private MD: ED Physician Gagandeep Rodriguez HPI: 11/30 13:01 This 31 yrs old Male presents to ER via Ambulatory with complaints of pm1 Abdominal Pain, Vomiting, bodyaches. 13:01 The patient presents with abdominal pain in the epigastric area, in the left lower pm1 quadrant. Onset: The symptoms/episode began/occurred last night. The symptoms do not radiate. Associated signs and symptoms: Pertinent positives: nausea, vomiting, and diarrhea, Pertinent negatives: chest pain, fever, shortness of breath, Cough. Severity of pain: in the emergency department the pain is actually worse. The patient has not experienced similar symptoms in the past. The patient has not recently seen a physician. Patient also reports a bump on his gluteal cleft. Historical: - Allergies: 12:33 Motrin (eyes swelling); ap3 - Home Meds: 12:33 None [Active]; ap3 - PMHx: 12:33 Asthma; Gastric Reflux; ap3 - Immunization history:: Client reports receiving the 2nd dose of the Covid vaccine. - Social history:: Smoking status: Patient reports the use of cigarette tobacco products, smokes one-half pack cigarettes per day, Patient uses alcohol, occasionally. ROS: 13:01 Constitutional: Negative for fever, chills, and weight loss, Cardiovascular: Negative pm1 for chest pain, palpitations, and edema, Respiratory: Negative for shortness of breath, cough, wheezing, and pleuritic chest pain. 13:01 Back: Negative for injury and pain, MS/Extremity: Negative for injury and deformity, Skin: Negative for injury, rash, and discoloration, Neuro: Negative for headache, weakness, numbness, tingling, and seizure. 13:01 Abdomen/GI: Positive for abdominal pain, nausea and vomiting, x 5 and diarrhea x 1. 13:01 All other systems are negative. Exam: 13:01 Constitutional: This is a well developed, well nourished patient who is awake, alert, pm1 and in no acute distress. Head/Face: Normocephalic, atraumatic. Cardiovascular: Regular rate and rhythm with a normal S1 and S2. No gallops, murmurs, or rubs. Normal PMI, no JVD. No pulse deficits. Respiratory: Lungs have equal breath sounds bilaterally, clear to auscultation and percussion. No rales, rhonchi or wheezes noted. No increased work of breathing, no retractions or nasal flaring. 13:01 Skin: Warm, dry with normal turgor. Normal color with no rashes, no lesions, and no evidence of cellulitis. MS/ Extremity: Pulses equal, no cyanosis. Neurovascular intact. Full, normal range of motion. 13:01 Abdomen/GI: Inspection: abdomen appears normal, Palpation: soft, in all quadrants, moderate abdominal tenderness, in the left lower quadrant. 13:01 Back: normal spinal alignment noted, muscle spasm, is not present, soft mass present to gluteal cleft. No warmth, redness, cellulitis. 13:01 Neuro: Exam negative for acute changes, Orientation: is normal, Mentation: is normal, Motor: is normal, moves all fours. Vital Signs: 12:31 BP 121 / 82; Pulse 89; Resp 17; Temp 98.2; Pulse Ox 100% ; Weight 88.45 kg; Height 5 ap3 ft. 2 in. (157.48 cm); Pain 5/10; 19:06 BP 126 / 80; Pulse 67; Resp 18 S; Pulse Ox 100% on R/A; jd3 12:31 Body Mass Index 35.67 (88.45 kg, 157.48 cm) ap3 MDM: 12:49 Patient medically screened. pm1 16:18 ED course: Discussed CT findings with Dr. Rodriguez, recommended discharge with pm1 antibiotics and follow up with general surgeon. 16:28 Data reviewed: vital signs. Data interpreted: Pulse oximetry: on room air is 100 %. pm1 Interpretation: normal. Counseling: I had a detailed discussion with the patient and/or guardian regarding: the historical points, exam findings, and any diagnostic results supporting the discharge/admit diagnosis, lab results, radiology results, the need for outpatient follow up, a general surgeon, to return to the emergency department if symptoms worsen or persist or if there are any questions or concerns that arise at home. 16:28 Special discussion: Follow up with general surgeon regarding mass in superior right pm1 side gluteal cleft. 11/30 13:01 Order name: COVID-19/FLU A+B (Document "Date of Onset" if Symptomatic); Complete Time: pm1 15:46 11/30 13:01 Order name: Strep; Complete Time: 14:24 pm1 11/30 13:01 Order name: CBC with Diff; Complete Time: 13:38 pm1 11/30 13:01 Order name: CMP; Complete Time: 14:24 pm1 11/30 13:01 Order name: Lipase; Complete Time: 14:24 pm1 11/30 13:57 Order name: Throat Culture EDMS 11/30 13:01 Order name: IV Saline Lock; Complete Time: 14:56 pm1 11/30 13:01 Order name: Labs collected and sent; Complete Time: 14:56 pm1 11/30 15:04 Order name: Abdomen ; Complete Time: 15:49 EDMS Administered Medications: 14:56 Drug: NS 0.9% 1000 ml Route: IV; Rate: 1 bolus; Site: right antecubital; jd3 19:25 Follow up: Response: No adverse reaction; IV Status: Completed infusion; IV Intake: jd3 1000ml 14:56 Drug: Zofran (Ondansetron) 4 mg Route: IVP; Site: right antecubital; jd3 15:50 Follow up: Response: No adverse reaction jd3 14:56 Drug: morphine 4 mg Route: IVP; Site: right antecubital; jd3 15:50 Follow up: Response: No adverse reaction; RASS: Alert and Calm (0) jd3 Disposition Summary: 11/30/21 16:34 Discharge Ordered Location: Home pm1 Problem: new pm1 Symptoms: have improved pm1 Condition: Stable pm1 Diagnosis - Vomiting pm1 - Diarrhea, unspecified pm1 - Abdominal pain, unspecified pm1 - Localized swelling, mass and lump, unspecified - lower back pm1 Followup: pm1 - With: Emergency Department - When: As needed - Reason: Worsening of condition Followup: pm1 - With: Private Physician - When: 2 - 3 days - Reason: Recheck today's complaints, Continuance of care, Re-evaluation by your physician Followup: pm1 - With: Kaden Calzada MD - When: 2 - 3 days - Reason: Recheck today's complaints, Continuance of care, Re-evaluation by your physician Discharge Instructions: - Discharge Summary Sheet pm1 - Abdominal Pain, Adult pm1 - Food Choices to Help Relieve Diarrhea, Adult pm1 - Diarrhea, Adult pm1 - Nausea and Vomiting, Adult pm1 - Viral Gastroenteritis, Adult pm1 Forms: - Medication Reconciliation Form pm1 - Thank You Letter pm1 - Antibiotic Education pm1 - Prescription Opioid Use pm1 - Work release form jd3 Prescriptions: - ondansetron 4 mg Oral tablet,disintegrating - place 1 tablet by TRANSLINGUAL route every 8 hours As needed; 12 tablet; pm1 Refills: 0, Product Selection Permitted - Bactrim DS 800-160 mg Oral Tablet - take 1 tablet by ORAL route every 12 hours for 10 days; 20 tablet; Refills: 0, pm1 Product Selection Permitted - dicyclomine 20 mg Oral Tablet - take 1 tablet by ORAL route every 6 hours As needed; 20 tablet; Refills: 0, pm1 Product Selection Permitted Addendum: 12/02/2021 18:42 Co-signature as Attending Physician, Gagandeep Rodriguez MD I agree with the assessment and c horton plan of care. Signatures: Dispatcher [employer] [facility] Gagandeep Rodriguez MD MD cha Marinas, Patrick, SECURITIES AND REAL ESTATE DIRECTOR SECURITIES AND REAL ESTATE DIRECTOR pm1 Roman Rowe RN RN jKeri Randle RN RN ap3 Corrections: (The following items were deleted from the chart) 11/30 12:34 12:33 Home Meds: Albuterol Inhl [Inactive]; ap3 ap3
[2021-12-01 01:43] VITALS: TEMP 98.2; O2SAT 100
[2021-12-01 01:45] VITALS: BP 126/80
== END 2021-11-30 19:25 | disposition home or self-care (01) ==
LOC: ER 12:12
DX: R11.10 Vomiting, unspecified (principal); R19.7 Diarrhea, unspecified; R22.9 Localized swelling, mass and lump, unspecified; F17.210 Nicotine dependence, cigarettes, uncomplicated; Z88.6 Allergy status to analgesic agent; Z20.822 Contact with and (suspected) exposure to COVID-19
CPT/HCPCS: 0240U; 36415; 74177; 80053; 83690; 85025; 87070; 87081; 96361; 96374; 96375; 99284; J2405; J7030; Q9967

== ENCOUNTER 2022-03-23 14:28 | Emergency (ER) | payer SELFPAY ==
[2022-03-23] MEDS ORDERED: MORPHINE 2 MG/ML SYR ONE (14:48)
[2022-03-23] MEDS ORDERED: ONDANSETRON 4 MG/2 ML VIAL ONE (14:49)
[2022-03-23] MEDS ORDERED: NA CHLORIDE 0.9% 1,000 ML ONE (14:49)
[2022-03-23] MEDS ORDERED: PANTOPRAZOLE 40 MG INJ ONE (14:49)
[2022-03-23 15:08] LABS: Absolute Lymphocytes (CBC) 1.7 K/uL (0.7-4.9); Hematocrit 46.3 % (39.6-49.0); Lymphocytes % 22.9 % (15.3-44.8); MCV 89.6 fL (80-100); MPV 8.5 fL (7.6-11.3); RBC Red Blood Cell Count 5.17 M/uL (4.33-5.43)
[2022-03-23 15:17] LABS: Albumin 3.7 g/dL (3.4-5.0); Bilirubin Total 0.7 mg/dL (0.2-1.0); Potassium 3.7 mmol/L (3.5-5.1); Protein, Total 6.8 g/dL (6.4-8.2)
--- NOTE | 2022-03-23 15:51 | EDPHYS ---
Physician Documentation [facility] Name: Berlin Tran Age: 31 yrs Sex: Male : 1990 Arrival Date: 03/23/2022 Time: 14:31 Bed 12 Private MD: ED Physician Gagandeep Rodriguez HPI: 03/23 14:39 This 31 yrs old Male presents to ER via Ambulatory with complaints of kb Abdominal Pain, Vomiting. 14:39 The patient presents with abdominal pain in the left upper quadrant. Onset: The kb symptoms/episode began/occurred yesterday. The symptoms do not radiate. Associated signs and symptoms: Pertinent positives: nausea, vomiting, and diarrhea, Pertinent negatives: fever. The symptoms are described as crampy. Modifying factors: The symptoms are alleviated by nothing, the symptoms are aggravated by nothing. Severity of pain: At its worst the pain was mild moderate in the emergency department the pain is unchanged. The patient has experienced similar episodes in the past. The patient has not recently seen a physician. Patient reports left upper quadrant pain/cramping that started yesterday. Vomiting started today with diarrhea. Denies fever. Historical: - Allergies: 14:36 Motrin (eyes swelling); tw2 - Home Meds: 14:36 None [Active]; tw2 - PMHx: 14:36 Asthma; Gastric Reflux; colitis; tw2 - Immunization history:: Client reports receiving the 2nd dose of the Covid vaccine. - Social history:: Smoking status: Patient reports the use of cigarette tobacco products, 6 or 7 cigarettes. ROS: 14:39 Constitutional: Negative for fever, chills, and weight loss. kb 14:39 Abdomen/GI: Positive for abdominal pain, nausea, vomiting, and diarrhea. 14:39 All other systems are negative. Exam: 14:39 Constitutional: This is a well developed, well nourished patient who is awake, alert, kb and in no acute distress. Head/Face: Normocephalic, atraumatic. ENT: Moist Mucous membranes Cardiovascular: Regular rate and rhythm with a normal S1 and S2. No gallops, murmurs, or rubs. No pulse deficits. Respiratory: Respirations even and unlabored. No increased work of breathing. Talking in full sentences Skin: Warm, dry with normal turgor. Normal color. MS/ Extremity: Pulses equal, no cyanosis. Neurovascular intact. Full, normal range of motion. Neuro: Awake and alert, GCS 15, oriented to person, place, time, and situation. Moves all extremities. Normal gait. Psych: Awake, alert, with orientation to person, place and time. Behavior, mood, and affect are within normal limits. 14:39 Abdomen/GI: Inspection: abdomen appears normal, Bowel sounds: normal, Palpation: soft, in all quadrants, mild abdominal tenderness, in the left upper quadrant. Vital Signs: 14:36 BP 138 / 90; Pulse 87; Resp 17; Temp 97.8(TE); Pulse Ox 100% on R/A; tw2 16:12 BP 122 / 92; Pulse 66; Resp 17 S; Pulse Ox 99% on R/A; ha1 MDM: 14:34 Patient medically screened. kb 14:39 Data reviewed: vital signs, nurses notes. Data interpreted: Pulse oximetry: on room air kb is 100 %. Interpretation: normal. 15:50 Counseling: I had a detailed discussion with the patient and/or guardian regarding: the kb historical points, exam findings, and any diagnostic results supporting the discharge/admit diagnosis, lab results, the need for outpatient follow up, a family practitioner, to return to the emergency department if symptoms worsen or persist or if there are any questions or concerns that arise at home. 03/23 14:37 Order name: CBC with Diff; Complete Time: 15:10 kb 03/23 14:37 Order name: CMP; Complete Time: 15:19 kb 03/23 14:37 Order name: Lipase; Complete Time: 15:19 kb 03/23 14:37 Order name: IV Saline Lock; Complete Time: 14:57 kb 03/23 14:37 Order name: Labs collected and sent; Complete Time: 14:57 kb Administered Medications: 14:45 Drug: NS 0.9% 1000 ml Route: IV; Rate: 1 bolus; Site: right antecubital; aa5 15:30 Follow up: IV Status: Completed infusion; IV Intake: 1000ml aa5 14:45 Drug: Zofran (Ondansetron) 4 mg Route: IVP; Site: right antecubital; aa5 15:00 Follow up: Response: No adverse reaction aa5 14:45 Drug: ProTONIX (pantoprazole) 40 mg Route: IVP; Site: right antecubital; aa5 15:00 Follow up: Response: No adverse reaction aa5 14:47 Drug: morphine 2 mg Route: IVP; Infused Over: 4 mins; Site: right antecubital; aa5 15:00 Follow up: Response: No adverse reaction aa5 Disposition Summary: 03/23/22 15:50 Discharge Ordered Location: Home kb Condition: Stable kb Diagnosis - Noninfective gastroenteritis and colitis, unspecified kb Followup: kb - With: Private Physician - When: 2 - 3 days - Reason: Recheck today's complaints, Continuance of care, Re-evaluation by your physician Followup: kb - With: Emergency Department - When: As needed - Reason: Worsening of condition Discharge Instructions: - Food Choices to Help Relieve Diarrhea, Adult kb - Viral Gastroenteritis, Adult kb - Discharge Summary Sheet tw2 Forms: - Medication Reconciliation Form kb - Work release form tw2 - Thank You Letter kb - Antibiotic Education kb - Prescription Opioid Use kb Prescriptions: - Zofran 4 mg Oral Tablet - take 1 tablet by ORAL route every 6 hours As needed; 20 tablet; Refills: 0, kb Product Selection Permitted - dicyclomine 20 mg Oral Tablet - take 1 tablet by ORAL route 4 times per day As needed; 20 tablet; Refills: 0, kb Product Selection Permitted Signatures: Dispatcher [employer] Estephanie Harding, CHRISTINE GOLDBERG-Minerva Zuleta, RN RN aa5 Monika Durant RN RN tw2
--- NOTE | 2022-03-23 15:51 | ER ---
Nurse's Notes [facility] Name: Berlin Tran Age: 31 yrs Sex: Male : 1990 Arrival Date: 03/23/2022 Time: 14:31 Bed 12 Private MD: Diagnosis: Noninfective gastroenteritis and colitis, unspecified Presentation: 03/23 14:33 Chief complaint: Patient states: pain in abdomen, vomiting and diarrhea for 5 days and tw2 cramping on the LEFT side started yesterday. woke up vomiting. Initial Sepsis Screen: Does the patient meet any 2 criteria? No. Patient's initial sepsis screen is negative. Does the patient have a suspected source of infection? No. Patient's initial sepsis screen is negative. Risk Assessment: Do you want to hurt yourself or someone else? Patient reports no desire to harm self or others. Note provider YUSUF Torres in triage at this time. Onset of symptoms was March 23, 2022. 14:33 Method Of Arrival: Ambulatory tw2 14:33 Acuity: PITER 3 tw2 14:39 Coronavirus screen: At this time, the client does not indicate any symptoms associated tw2 with coronavirus-19. Ebola Screen: Patient denies travel to an Ebola-affected area in the 21 days before illness onset. Triage Assessment: 14:35 General: Appears in no apparent distress. Behavior is calm, cooperative, appropriate tw2 for age. Pain: Complains of pain in abdomen. GI: Reports diarrhea, vomiting. Historical: - Allergies: 14:36 Motrin (eyes swelling); tw2 - Home Meds: 14:36 None [Active]; tw2 - PMHx: 14:36 Asthma; Gastric Reflux; colitis; tw2 - Immunization history:: Client reports receiving the 2nd dose of the Covid vaccine. - Social history:: Smoking status: Patient reports the use of cigarette tobacco products, 6 or 7 cigarettes. Screenin:39 Abuse screen: Denies threats or abuse. Nutritional screening: No deficits noted. tw2 Tuberculosis screening: No symptoms or risk factors identified. Fall Risk None identified. Assessment: 14:40 General: Appears comfortable, Behavior is calm, cooperative. Pain: Complains of pain in aa5 left upper quadrant and left lower quadrant Pain does not radiate. Pain currently is 8 out of 10 on a pain scale. Quality of pain is described as crampy, Pain began 1 day ago. Is intermittent. Neuro: Level of Consciousness is awake, alert, obeys commands, Oriented to person, place, time, situation. Cardiovascular: Heart tones S1 S2 present Rhythm is regular. Respiratory: Airway is patent Respiratory effort is even, unlabored, Respiratory pattern is regular, symmetrical. GI: Abdomen is round non-distended, Bowel sounds present X 4 quads. Abd is soft and non tender X 4 quads. Reports diarrhea, nausea, vomiting, since this morning. : No signs and/or symptoms were reported regarding the genitourinary system. EENT: No signs and/or symptoms were reported regarding the EENT system. Derm: Skin is pink, warm \T\ dry. Musculoskeletal: Range of motion: intact in all extremities. 14:47 Reassessment: Patient is alert, oriented x 3, equal unlabored respirations, skin aa5 warm/dry/pink. 15:00 Reassessment: Patient is alert, oriented x 3, equal unlabored respirations, skin aa5 warm/dry/pink. Patient states feeling better. 16:21 Reassessment: Patient is alert, oriented x 3, equal unlabored respirations, skin ha1 warm/dry/pink. Vital Signs: 14:36 BP 138 / 90; Pulse 87; Resp 17; Temp 97.8(TE); Pulse Ox 100% on R/A; tw2 16:12 BP 122 / 92; Pulse 66; Resp 17 S; Pulse Ox 99% on R/A; ha1 ED Course: 14:31 Patient arrived in ED. mr 14:34 [facility] Benitez [facility]C [facility] kb 14:34 Gagandeep Rodriguez MD is Attending Physician. kb 14:35 Triage completed. tw2 14:35 Arm band placed on. tw2 14:39 Bed in low position. Call light in reach. tw2 14:40 Initial lab(s) drawn, by ED staff, sent to lab. Inserted saline lock: 20 gauge in right aa5 antecubital area, using aseptic technique. Blood collected. Inserted by LUIS FERNANDO Willson. 14:57 Minerva Gant, RN is Primary Nurse. aa5 16:21 No provider procedures requiring assistance completed. IV discontinued, intact, ha1 bleeding controlled, No redness/swelling at site. Pressure dressing applied. Administered Medications: 14:45 Drug: NS 0.9% 1000 ml Route: IV; Rate: 1 bolus; Site: right antecubital; aa5 15:30 Follow up: IV Status: Completed infusion; IV Intake: 1000ml aa5 14:45 Drug: Zofran (Ondansetron) 4 mg Route: IVP; Site: right antecubital; aa5 15:00 Follow up: Response: No adverse reaction aa5 14:45 Drug: ProTONIX (pantoprazole) 40 mg Route: IVP; Site: right antecubital; aa5 15:00 Follow up: Response: No adverse reaction aa5 14:47 Drug: morphine 2 mg Route: IVP; Infused Over: 4 mins; Site: right antecubital; aa5 15:00 Follow up: Response: No adverse reaction aa5 Medication: 14:39 VIS not applicable for this client. tw2 Intake: 15:30 IV: 1000ml; Total: 1000ml. aa5 Outcome: 15:50 Discharge ordered by . kb 16:21 Condition: stable ha1 16:21 Discharge instructions given to patient, Instructed on discharge instructions, follow ha1 up and referral plans. medication usage, Demonstrated understanding of instructions, follow-up care, medications, Prescriptions given X 2. 16:26 Patient left the ED. ha1 Signatures: Estephanie Benitez, ALMAC FOURCHETTE SEWER-Sarita Pereira mr Gant, Minerva, RN RN aa5 Monika Durant RN RN tw2 Gemini Negron RN RN ha1 Corrections: (The following items were deleted from the chart) 16:05 15:00 Reassessment: Patient is alert, oriented x 3, equal unlabored respirations, skin aa5 warm/dry/pink. aa5
[2022-03-23 17:18] VITALS: TEMP 97.8
[2022-03-23 17:20] VITALS: BP 122/92; O2SAT 99
== END 2022-03-23 16:26 | disposition home or self-care (01) ==
LOC: ER 14:28
DX: K52.9 Noninfective gastroenteritis and colitis, unspecified (principal); F17.210 Nicotine dependence, cigarettes, uncomplicated; Z88.6 Allergy status to analgesic agent
CPT/HCPCS: 36415; 80053; 83690; 85025; C9113; J2270; J2405; J7030

== ENCOUNTER 2022-05-20 15:10 | Emergency (ER) | payer SELFPAY ==
[2022-05-20 15:50] LABS: Urine Blood Negative (Negative); Urine Glucose Negative (Negative); Urine Protein Negative (Negative); Urine Specific Gravity 1.025 (1.005-1.030)
[2022-05-20 16:13] LABS: Urine Bacteria <20 /HPF (<20); Urine Mucus Slight /HPF (None Seen); Urine RBC <5 /HPF (None Seen)
--- NOTE | 2022-05-20 17:06 | EDPHYS ---
Physician Documentation [facility] Name: Berlin Tran Age: 31 yrs Sex: Male : 1990 Arrival Date: 05/20/2022 Time: 15:14 Bed 15 Private MD: ED Physician Enrqiue Lombardo HPI: 05/20 17:55 This 31 yrs old Male presents to ER via Ambulatory with complaints of Urinary kdr Problem. 17:55 The patient states that he has had burning with urination for the past couple of days. kdr He is also had discharge from his penis. He admits to unprotected sex recently. He denies prior symptoms like this.. Onset: The symptoms/episode began/occurred gradually, 2 day(s) ago. Severity of symptoms: At their worst the symptoms were mild just prior to arrival, in the emergency department the symptoms are unchanged. The patient has not experienced similar symptoms in the past. The patient has not recently seen a physician. Historical: - Allergies: 15:44 Motrin (eyes swelling); ap3 - Home Meds: 15:44 None [Active]; ap3 - PMHx: 15:44 Asthma; Colitis; Gastric Reflux; ap3 - Immunization history:: Client reports receiving the 2nd dose of the Covid vaccine. - Social history:: Smoking status: Patient reports the use of cigarette tobacco products, smokes one-half pack cigarettes per day. ROS: 17:55 Constitutional: Negative for fever, chills, and weight loss. kdr 17:55 : Positive for urinary symptoms, burning with urination, difficulty urinating, penile discharge, penile pain. Exam: 17:55 Constitutional: This is a well developed, well nourished patient who is awake, alert, kdr and in no acute distress. 17:55 : CVA tenderness, is absent, Male external genitalia: normal, Patient is not circumisioned. penile discharge, green, purulent, ulceration, is not present, Sexual behavior: the patient is sexually active. Vital Signs: 15:43 BP 145 / 96; Pulse 77; Resp 18; Temp 98.3; Pulse Ox 100% ; Weight 86.18 kg; Height 5 ap3 ft. 10 in. (177.80 cm); 18:33 BP 141 / 98; Pulse 75; Resp 18; Pulse Ox 100% on R/A; kr3 15:43 Body Mass Index 27.26 (86.18 kg, 177.80 cm) ap3 MDM: 17:05 Patient medically screened. kdr 17:55 Data reviewed: vital signs, nurses notes, lab test result(s). Counseling: I had a kdr detailed discussion with the patient and/or guardian regarding: the historical points, exam findings, and any diagnostic results supporting the discharge/admit diagnosis, lab results, the need for outpatient follow up. 05/20 15:45 Order name: Urine Microscopic Only ap3 05/20 15:50 Order name: Urine Dipstick-Ancillary; Complete Time: 16:14 EDMS 05/20 16:14 Order name: Urine Microscopic Only; Complete Time: 16:14 EDNM 05/20 18:26 Order name: GC (GONORR/CHLAMYDIA) Probe 05/20 18:26 Order name: Wet Prep 05/20 15:45 Order name: Urine Dipstick-Ancillary (obtain specimen); Complete Time: 15:51 ap3 Administered Medications: 17:45 Drug: metroNIDAZOLE 2 grams Route: PO; kr3 18:40 Follow up: Response: No adverse reaction kr3 17:45 Drug: AZITHromycin 1 grams Route: PO; kr3 18:40 Follow up: Response: No adverse reaction kr3 17:53 Drug: Rocephin (cefTRIAXone) 1 grams Route: IM; Site: left gluteus; kr3 18:40 Follow up: Response: No adverse reaction kr3 Disposition Summary: 05/20/22 17:05 Discharge Ordered Location: Home kdr Problem: new kdr Symptoms: have improved kdr Condition: Stable kdr Diagnosis - Nonspecific urethritis kdr Followup: kdr - With: Private Physician - When: 2 - 3 days - Reason: If symptoms return, Further diagnostic work-up, Recheck today's complaints, Continuance of care, Re-evaluation by your physician Discharge Instructions: - Discharge Summary Sheet kdr - Urethritis, Adult kdr - Preventing Sexually Transmitted Infections, Adult kdr Forms: - Medication Reconciliation Form kdr - Thank You Letter kdr Signatures: Dispatcher [employer] Enrique Byrd MD MD kdr Keri Aldrich RN RN ap3 Tosin Joel RN RN kr3
--- NOTE | 2022-05-20 17:06 | ER ---
Nurse's Notes [facility] Name: Berlin Tran Age: 31 yrs Sex: Male : 1990 Arrival Date: 05/20/2022 Time: 15:14 Bed 15 Private MD: Diagnosis: Nonspecific urethritis Presentation: 05/20 15:43 Chief complaint: Patient states: he has a urine infection that noble when he urinates. ap3 and also when he squeezes his penis, something comes out but he is unsure what it is. Coronavirus screen: At this time, the client does not indicate any symptoms associated with coronavirus-19. Ebola Screen: No symptoms or risks identified at this time. Initial Sepsis Screen: Does the patient meet any 2 criteria? No. Patient's initial sepsis screen is negative. Does the patient have a suspected source of infection? No. Patient's initial sepsis screen is negative. Risk Assessment: Do you want to hurt yourself or someone else? Patient reports no desire to harm self or others. Onset of symptoms was May 20, 2022. 15:43 Method Of Arrival: Ambulatory ap3 15:43 Acuity: PITER 3 ap3 Triage Assessment: 15:44 General: Appears uncomfortable, Behavior is calm, cooperative, appropriate for age. ap3 Pain: Complains of pain in groin. Neuro: Level of Consciousness is awake, alert, obeys commands, Oriented to person, place, time, situation, Appropriate for age Gait is steady, Speech is normal. Cardiovascular: Patient's skin is warm and dry. Respiratory: Airway is patent Respiratory effort is even, unlabored, Respiratory pattern is regular, symmetrical. : Reports burning with urination, discharge. Historical: - Allergies: 15:44 Motrin (eyes swelling); ap3 - Home Meds: 15:44 None [Active]; ap3 - PMHx: 15:44 Asthma; Colitis; Gastric Reflux; ap3 - Immunization history:: Client reports receiving the 2nd dose of the Covid vaccine. - Social history:: Smoking status: Patient reports the use of cigarette tobacco products, smokes one-half pack cigarettes per day. Screenin:45 Abuse screen: Denies threats or abuse. Nutritional screening: No deficits noted. ap3 Tuberculosis screening: No symptoms or risk factors identified. Fall Risk None identified. Assessment: 16:00 General: Appears in no apparent distress. comfortable, Behavior is calm, cooperative, kr3 appropriate for age. 17:00 Reassessment: No changes from previously documented assessment. Patient and/or family kr3 updated on plan of care and expected duration. Pain level reassessed. 18:00 Reassessment: No changes from previously documented assessment. Patient and/or family kr3 updated on plan of care and expected duration. Pain level reassessed. Vital Signs: 15:43 BP 145 / 96; Pulse 77; Resp 18; Temp 98.3; Pulse Ox 100% ; Weight 86.18 kg; Height 5 ap3 ft. 10 in. (177.80 cm); 18:33 BP 141 / 98; Pulse 75; Resp 18; Pulse Ox 100% on R/A; kr3 15:43 Body Mass Index 27.26 (86.18 kg, 177.80 cm) ap3 ED Course: 15:14 Patient arrived in ED. dt4 15:26 Enrique Lombardo MD is Attending Physician. kdr 15:44 Triage completed. ap3 15:45 Arm band placed on right wrist. ap3 15:51 Urine Microscopic Only Sent. ap3 16:17 Tosin Joel, VU is Primary Nurse. kr3 16:18 Patient placed in an exam room, on a stretcher. kr3 18:37 penile swab. Patient did not have IV access during this emergency room visit. kr3 18:38 Bed in low position. Call light in reach. Side rails up X 1. kr3 18:39 Wet Prep Sent. kr3 18:39 GC (GONORR/CHLAMYDIA) Probe Sent. kr3 Administered Medications: 17:45 Drug: metroNIDAZOLE 2 grams Route: PO; kr3 18:40 Follow up: Response: No adverse reaction kr3 17:45 Drug: AZITHromycin 1 grams Route: PO; kr3 18:40 Follow up: Response: No adverse reaction kr3 17:53 Drug: Rocephin (cefTRIAXone) 1 grams Route: IM; Site: left gluteus; kr3 18:40 Follow up: Response: No adverse reaction kr3 Medication: 18:38 VIS not applicable for this client. kr3 Outcome: 17:05 Discharge ordered by . kdr 18:37 Discharged to home ambulatory. kr3 18:37 Condition: stable 18:37 Discharge instructions given to patient, Instructed on discharge instructions, follow up and referral plans. Demonstrated understanding of instructions, follow-up care. 18:40 Patient left the ED. kr3 Signatures: Enrique Lombardo MD MD kdr Prokisch, Amanda RN RN ap3 Tosin Joel RN RN kr3 Jailene Cade dt4 Corrections: (The following items were deleted from the chart) 18:32 18:31 General: Appears in no apparent distress. comfortable, Behavior is calm, kr3 cooperative, appropriate for age, kr3
[2022-05-20] MEDS ORDERED: AZITHROMYCIN 250 MG TAB ONE (17:31)
[2022-05-20] MEDS ORDERED: CEFTRIAXONE 1000 MG/VIAL ONE (17:31)
[2022-05-20] MEDS ORDERED: metroNIDAZOLE 500 MG TABLET ONE (17:36)
[2022-05-20] MEDS ORDERED: LIDOCAINE 2% MPF 5 ML VIAL ONE (17:42)
[2022-05-21 07:40] VITALS: TEMP 98.3; O2SAT 100
[2022-05-21 07:41] VITALS: BP 141/98
== END 2022-05-20 18:40 | disposition home or self-care (01) ==
LOC: ER 15:10
DX: N34.1 Nonspecific urethritis (principal); F17.210 Nicotine dependence, cigarettes, uncomplicated
CPT/HCPCS: 81003; 81015; 87086; 87088; 87210; 87490; 87590; 96372; 99283; J2001

== ENCOUNTER 2022-09-12 02:45 | Emergency (ER) | payer SELFPAY ==
[2022-09-12] MEDS ORDERED: ONDANSETRON 4 MG/2 ML VIAL ONE ×2 (03:09→04:47)
[2022-09-12] MEDS ORDERED: MAGNES/ALUMIN/SIMET 30ML UCUP ONE (03:09)
[2022-09-12] MEDS ORDERED: PANTOPRAZOLE 40 MG INJ ONE (03:10)
[2022-09-12] MEDS ORDERED: LIDOCAINE VISCOUS 2% SOLN 15 ML UDC ONE (03:10)
[2022-09-12 03:37] LABS: Absolute Lymphocytes (CBC) 2.1 K/uL (0.7-4.9); Hematocrit 47.5 % (39.6-49.0); Lymphocytes % 17.7 % (15.3-44.8); MCV 88.8 fL (80-100); MPV 8.2 fL (7.6-11.3); RBC Red Blood Cell Count 5.35 M/uL (4.33-5.43)
[2022-09-12 03:46] LABS: Albumin 3.7 g/dL (3.4-5.0); Bilirubin Total 0.9 mg/dL (0.2-1.0); Potassium 3.6 mmol/L (3.5-5.1); Protein, Total 6.7 g/dL (6.4-8.2)
--- NOTE | 2022-09-12 04:37 | ER ---
Nurse's Notes [facility] Name: Berlin Tran Age: 32 yrs Sex: Male : 1990 Arrival Date: 09/12/2022 Time: 02:48 Bed 11 Private MD: Diagnosis: Acute gastritis Presentation: 09/12 02:57 Chief complaint: Patient states: Abdominal pain with vomiting that started yesterday at ke1 1400 getting worse today. Coronavirus screen: Vaccine status: Patient reports receiving the 2nd dose of the covid vaccine. Ebola Screen: No symptoms or risks identified at this time. Risk Assessment: Do you want to hurt yourself or someone else? Patient reports no desire to harm self or others. Onset of symptoms was September 11, 2022 at 14:00. 02:57 Method Of Arrival: Ambulatory ke1 02:57 Acuity: PITER 3 ke1 02:57 Initial Sepsis Screen: Does the patient meet any 2 criteria? No. Patient's initial ke1 sepsis screen is negative. Does the patient have a suspected source of infection? No. Patient's initial sepsis screen is negative. Triage Assessment: 03:01 General: Appears uncomfortable, Behavior is appropriate for age. Pain: Complains of ke1 pain in abdomen. GI: Reports nausea, vomiting. Historical: - Allergies: 02:59 Motrin (eyes swelling); ke1 - PMHx: 02:59 Asthma; Colitis; Gastric Reflux; ke1 - Immunization history:: Client reports receiving the 2nd dose of the Covid vaccine. - Social history:: Smoking status: Patient reports the use of cigarette tobacco products, smokes one-half pack cigarettes per day. - Family history:: not pertinent. Screenin:00 [facility] ED Fall Risk Assessment (Adult) History of falling in the last 3 months, ke1 including since admission No falls in past 3 months (0 pts) Confusion or Disorientation No (0 pts) Intoxicated or Sedated No (0 pts) Impaired Gait No (0 pts) Mobility Assist Device Used No (0 pt) Altered Elimination No (0 pt) Score/Fall Risk Level 0 - 2 = Low Risk. Abuse screen: Denies threats or abuse. Nutritional screening: No deficits noted. Tuberculosis screening: No symptoms or risk factors identified. Assessment: 03:03 GI: Bowel sounds present X 4 quads. Abd is soft Abdomen is tender to palpation in ke1 umbilical area, right upper quadrant and left upper quadrant. 04:35 Pain: Complains of pain in abdomen Pain currently is 6 out of 10 on a pain scale. ke1 04:52 Reassessment: Patient states feeling better. Patient states symptoms have improved. ke1 Vital Signs: 02:57 BP 143 / 108; Pulse 79; Resp 17; Temp 97.9; Pulse Ox 99% ; Weight 83.91 kg; Height 5 ke1 ft. 10 in. (177.80 cm); Pain 8/10; 04:00 Pain 3/10; ke1 04:51 BP 139 / 78; Pulse 75; Resp 17; Temp 97.8; Pulse Ox 100% ; Pain 0/10; ke1 02:57 Body Mass Index 26.54 (83.91 kg, 177.80 cm) ke1 ED Course: 02:48 Patient arrived in ED. ja2 02:52 Reggie Gonzalez MD is Attending Physician. rt 02:57 Marisela Fraser RN is Primary Nurse. ke1 02:59 Triage completed. ke1 03:02 Call light in reach. Side rails up X 1. ke1 03:03 Arm band placed on left wrist. ke1 03:13 Inserted saline lock: 20 gauge in right antecubital area, using aseptic technique. ds4 Blood collected. Missed attempt(s): 20 gauge in right antecubital area. Bleeding controlled, band aid applied, catheter tip intact. 03:14 Lipase Sent. ke1 03:14 CMP Sent. ke1 03:14 CBC with Diff Sent. ke1 04:14 CT Abd/Pelvis - IV Contrast Only In Process Unspecified. EDMS 04:53 No provider procedures requiring assistance completed. ke1 Administered Medications: 03:14 Drug: GI Cocktail without - (Maalox Suspension 30 ml, Lidocaine Liquid 2 % 15 ke1 ml) Route: PO; 04:00 Follow up: Pain 3/10 Adult; Response: Pain is decreased ke1 03:14 Drug: ProTONIX (pantoprazole) 40 mg Route: IVP; Site: right antecubital; ke1 04:00 Follow up: Response: Marked relief of symptoms ke1 03:14 Drug: Zofran (Ondansetron) 4 mg Route: IVP; Site: right antecubital; ke1 03:45 Follow up: Response: Nausea is decreased ke1 04:41 Drug: morphine 4 mg Route: IVP; Infused Over: 4 mins; Site: right antecubital; ke1 04:52 Follow up: Response: Pain is decreased ke1 04:46 Drug: Zofran (Ondansetron) 4 mg Route: IVP; Site: right antecubital; ke1 04:52 Follow up: Response: Marked relief of symptoms ke1 Outcome: 04:36 Discharge ordered by . rt 04:56 Patient left the ED. ke1 Signatures: Dispatcher [employer] EDMS Joao Villarreal ds4 Sangeetha Wagner Kouassi, RN RN ke1 Reggie Gonzalez MD MD rt Corrections: (The following items were deleted from the chart) 03:02 02:57 BP 143 / 108; Pulse 79bpm; Resp 17bpm; Pulse Ox 99%; Temp 97.9F; Pain 8/10; ke1 ke1 04:41 03:03 GI: ke1 ke1 04:52 04:51 BP 139 / 78; Pulse 75bpm; Resp 17bpm; Pulse Ox 100%; Temp 97.8F; Pain 2/10; ke1 ke1
--- NOTE | 2022-09-12 04:37 | EDPHYS ---
Physician Documentation [facility] Name: Berlin Tran Age: 32 yrs Sex: Male : 1990 Arrival Date: 09/12/2022 Time: 02:48 Bed 11 Private MD: ED Physician Reggie Gonzalez HPI: 09/12 03:10 This 32 yrs old Male presents to ER via Ambulatory with complaints of rt Abdominal Pain. 03:10 The patient presents with abdominal pain in the epigastric area. Onset: The rt symptoms/episode began/occurred yesterday. The symptoms do not radiate. Associated signs and symptoms: Pertinent positives: nausea and vomiting. The symptoms are described as achy. Modifying factors: The symptoms are alleviated by nothing, the symptoms are aggravated by. Severity of pain: At its worst the pain was moderate. Patient with reported history of gastritis presents to the ED with an epigastric pain starting at about 3 PM. States that symptoms have worsened, associate with nausea and vomiting. Denies other acute complaints at this time. Symptoms are moderate in severity, aching nature, nonradiating, no other aggravating alleviating factors.. Historical: - Allergies: 02:59 Motrin (eyes swelling); ke1 - PMHx: 02:59 Asthma; Colitis; Gastric Reflux; ke1 - Immunization history:: Client reports receiving the 2nd dose of the Covid vaccine. - Social history:: Smoking status: Patient reports the use of cigarette tobacco products, smokes one-half pack cigarettes per day. - Family history:: not pertinent. ROS: 03:10 Constitutional: Negative for fever, chills, and weight loss, Eyes: Negative for injury, rt pain, redness, and discharge, Cardiovascular: Negative for chest pain, palpitations, and edema, Respiratory: Negative for shortness of breath, cough, wheezing, and pleuritic chest pain, MS/Extremity: Negative for injury and deformity, Skin: Negative for injury, rash, and discoloration, Neuro: Negative for headache, weakness, numbness, tingling, and seizure, Psych: Negative for depression, anxiety, suicide ideation, homicidal ideation, and hallucinations. 03:10 Abdomen/GI: Positive for Nurse to the epigastrium with mild guarding, minimal right lower quadrant tenderness. No other focal areas of tenderness, no other rebound, guarding, distention.. Vital Signs: 02:57 BP 143 / 108; Pulse 79; Resp 17; Temp 97.9; Pulse Ox 99% ; Weight 83.91 kg; Height 5 ke1 ft. 10 in. (177.80 cm); Pain 8/10; 04:00 Pain 3/10; ke1 04:51 BP 139 / 78; Pulse 75; Resp 17; Temp 97.8; Pulse Ox 100% ; Pain 0/10; ke1 02:57 Body Mass Index 26.54 (83.91 kg, 177.80 cm) ke1 MDM: 02:57 Patient medically screened. rt 04:38 Differential diagnosis: Pancreatitis, cholecystitis, gastritis, bowel obstruction. Data rt reviewed: vital signs, nurses notes, lab test result(s), radiologic studies. Independent interpretation of the following test(s) in the Emergency Department CT Scan: My interpretation is No evidence of bowel obstruction. Test considered but Not performed: EKG: Patient symptoms clearly abdominal, no chest pain. External Records Reviewed: Reviewed prior ED records, evaluations for similar symptoms with negative work-ups.. Response to treatment: the patient's symptoms have markedly improved after treatment. 09/12 03:02 Order name: CBC with Diff; Complete Time: 03:50 rt 09/12 03:02 Order name: CMP; Complete Time: 03:50 rt 09/12 03:02 Order name: Lipase; Complete Time: 03:50 rt 09/12 03:02 Order name: CT Abd/Pelvis - IV Contrast Only rt Administered Medications: 03:14 Drug: GI Cocktail without - (Maalox Suspension 30 ml, Lidocaine Liquid 2 % 15 ke1 ml) Route: PO; 04:00 Follow up: Pain 3/10 Adult; Response: Pain is decreased ke1 03:14 Drug: ProTONIX (pantoprazole) 40 mg Route: IVP; Site: right antecubital; ke1 04:00 Follow up: Response: Marked relief of symptoms ke1 03:14 Drug: Zofran (Ondansetron) 4 mg Route: IVP; Site: right antecubital; ke1 03:45 Follow up: Response: Nausea is decreased ke1 04:41 Drug: morphine 4 mg Route: IVP; Infused Over: 4 mins; Site: right antecubital; ke1 04:52 Follow up: Response: Pain is decreased ke1 04:46 Drug: Zofran (Ondansetron) 4 mg Route: IVP; Site: right antecubital; ke1 04:52 Follow up: Response: Marked relief of symptoms ke1 Disposition Summary: 09/12/22 04:36 Discharge Ordered Location: Home rt Problem: an ongoing problem rt Symptoms: have improved rt Condition: Stable rt Diagnosis - Acute gastritis rt Followup: rt - With: Private Physician - When: 2 - 3 days - Reason: Discharge Instructions: - Discharge Summary Sheet rt - Gastritis, Adult rt Forms: - Medication Reconciliation Form rt - Thank You Letter rt - Antibiotic Education rt - Prescription Opioid Use rt Prescriptions: - Carafate 1 gram Oral Tablet - take 1 tablet by ORAL route 4 times per day; 21 tablet; Refills: 0, Product rt Selection Permitted - Protonix 40 mg Oral tablet,delayed release (DR/EC) - take 1 tablet by ORAL route once daily; 14 tablet; Refills: 0, Product rt Selection Permitted - ondansetron 4 mg Oral - take 4 milligrams by SUBLINGUAL route every 8 hours; 21 tablet; Refills: 0, rt Product Selection Permitted Signatures: Dispatcher [employer] Marisela Rondon RN RN ke1 Reggie Gonzalez MD MD rt
[2022-09-12] MEDS ORDERED: MORPHINE 4 MG/ML SYR ONE (04:41)
[2022-09-12 05:11] VITALS: BP 139/78; TEMP 97.8; O2SAT 100
--- NOTE | 2022-09-12 16:22 | RAD REPORT ---
EXAM DESCRIPTION: Abdomen Pelvis W Contrast CLINICAL HISTORY: 32 years Male pain COMPARISON: None TECHNIQUE: CT of the abdomen and pelvis with intravenous contrast. All CT scans at this facility use dose modulation, iterative reconstruction, and/or weight based dosi ng when appropriate to reduce radiation dose to as low as reasonably achievable. FINDINGS: Lower thorax: Bibasilar atelectasis. Abdomen: Stomach: Distal gastric wall thickening. Liver: No focal lesions. No intrahepatic ductal distention. Gallbladder: Nondistended Pancreas: Within normal limits Spleen: 1.1 cm ovoid hypodensity along the superior spleen, likely cyst. Right kidney: No hydronephrosis. No focal lesion. Left kidney: No hydronephrosis. No focal lesion. Adrenal glands: Within normal limits Vascular structures: Within normal limits Nodes: No lymphadenopathy by size criteria Pelvis: Small bowel: Wall thickening and mucosal hyperenhancement involving the duodenum and proximal jejunum . Mild to moderate associated free fluid. Appendix: Within normal limits Colon: No distention or acute pericolonic edema. Colonic diverticulosis. Peritoneum: No free air. Small volume of free fluid adjacent to the proximal small bowel and in the p harpreet. Bones: No acute bone findings. Bladder: Unremarkable. Reproductive organs: No acute findings. IMPRESSION: 1. Wall thickening and mucosal hyperenhancement involving the duodenum and proximal je junum, with mild to moderate associated free fluid, can be seen in setting of enteritis. No free air. 2. Colonic diverticulosis without evidence of acute diverticulitis. 3. Small volume of free fluid adjacent to the proximal small bowel and in the pelvis. 4. Distal gastric wall thickening, could be secondary to gastritis. Electronically signed by: Lizy Bermudez MD 09/12/2022 4:27 AM CHECK CLERK Due to temporary technical issues with the PACS/Fluency reporting system, reports are being signed by the in house radiologists without review as a courtesy to insure prompt reporting. The interpreting radiologist is fully responsible for the content of the report
== END 2022-09-12 04:56 | disposition home or self-care (01) ==
LOC: ER 02:45
DX: K29.00 Acute gastritis without bleeding (principal)
CPT/HCPCS: 36415; 74177; 80053; 83690; 85025; 96374; 96375; 99284; C9113; J2405; Q9967

== ENCOUNTER 2022-12-19 20:01 | Emergency (ER) | payer SELFPAY ==
[2022-12-19 20:28] LABS: Specific Gravity > 1.030 (1.005-1.030); Urine Bacteria None Seen /HPF (<20); Urine Bilirubin NEGATIVE (Negative); Urine Blood Negative (Negative); Urine Clarity Clear (Clear); Urine Color Light-Yellow (Yellow); Urine Glucose NEGATIVE (Negative); Urine Protein 1+ (Negative); Urine Urobilinogen 2+ (Normal)
--- NOTE | 2022-12-19 22:00 | RAD REPORT ---
EXAM DESCRIPTION: [facility] Pa And Lat (2 Views)12/19/2022 9:03 pm CLINICAL HISTORY: COUGH COMPARISON: Chest Pa And Lat (2 Views) dated 06/23/2019; Chest Single View dated 05/03/2019; Chest Pa And Lat (2 Views) dated 11/23/2018; Chest Single View dated 11/19/2018 TECHNIQUE: PA and lateral views of the chest. FINDINGS: The lungs are clear. No pneumothorax or effusion. The cardiomediastinal contours are unrem arkable. IMPRESSION: No acute cardiopulmonary process.
--- NOTE | 2022-12-19 22:07 | EDPHYS ---
Physician Documentation [facility] Name: Berlin Tran Age: 32 yrs Sex: Male : 1990 Arrival Date: 12/19/2022 Time: 20:01 Bed 12 Private MD: ED Physician Reggie Gonzalez HPI: 12/19 20:17 This 32 yrs old Male presents to ER via Ambulatory with complaints of Cough, rt Congestion. 20:17 Patient presents to the ED with cough, congestion. Patient states that this started rt yesterday, has had some dark mucus in his sputum. He also states that he has been having some burning with urination and a rash on his penis. Denies any difficulty breathing at this time. Denies other acute complaints at this time, symptoms are mild in severity, no other aggravating or elevating factors. Historical: - Allergies: 20:10 No Known Allergies; mb9 - Home Meds: 20:10 None [Active]; mb9 - PMHx: 20:10 Asthma; Colitis; Gastric Reflux; mb9 - PSHx: 20:10 None; mb9 - Immunization history:: Adult Immunizations up to date. - Social history:: Smoking status: Reported history of juuling and/or vaping. - Family history:: not pertinent. ROS: 20:17 Constitutional: Negative for fever, chills, and weight loss, MS/Extremity: Negative for rt injury and deformity, Skin: Negative for injury, rash, and discoloration, Neuro: Negative for headache, weakness, numbness, tingling, and seizure, Psych: Negative for depression, anxiety, suicide ideation, homicidal ideation, and hallucinations. 20:17 ENT: Positive for rhinorrhea, sore throat. 20:17 Respiratory: Positive for cough, Negative for wheezing. 20:17 : Positive for burning with urination, Negative for testicular pain Exam: 20:17 Constitutional: This is a well developed, well nourished patient who is awake, alert, rt and in no acute distress. Head/Face: Normocephalic, atraumatic. Chest/axilla: Normal chest wall appearance and motion. Nontender with no deformity. No lesions are appreciated. Cardiovascular: Regular rate and rhythm with a normal S1 and S2. No gallops, murmurs, or rubs. Normal PMI, no JVD. No pulse deficits. Respiratory: Lungs have equal breath sounds bilaterally, clear to auscultation and percussion. No rales, rhonchi or wheezes noted. No increased work of breathing, no retractions or nasal flaring. Skin: Warm, dry with normal turgor. Normal color with no rashes, no lesions, and no evidence of cellulitis. MS/ Extremity: Pulses equal, no cyanosis. Neurovascular intact. Full, normal range of motion. Neuro: Awake and alert, GCS 15, oriented to person, place, time, and situation. Cranial nerves II-XII grossly intact. Motor strength 5/5 in all extremities. Sensory grossly intact. Cerebellar exam normal. Normal gait. Psych: Awake, alert, with orientation to person, place and time. Behavior, mood, and affect are within normal limits. 20:17 : Small area of erythema at the urethral meatus, no other abnormalities noted. Vital Signs: 20:05 BP 141 / 81; Pulse 81; Resp 18; Temp 98.2; Pulse Ox 100% ; Weight 86.18 kg; Height 5 mb9 ft. 11 in. ; 22:50 BP 130 / 78; Pulse 69; Resp 18; Temp 98; Pulse Ox 100% ; kb3 20:05 Body Mass Index 26.50 (86.18 kg, 180.34 cm) mb9 MDM: 20:10 Patient medically screened. rt 23:24 Differential Diagnosis: Other URI, pneumonia, asthma exacerbation, urethritis, herpetic rt infection, dysuria, UTI. Data reviewed: vital signs, nurses notes, lab test result(s), radiologic studies. Independent interpretation of the following test(s) in the Emergency Department X-Ray: My interpretation is No consolidation seen on my interpretation of the chest x-ray images. Test considered but Not performed: Labs: Stable vital signs, blood work not indicated. CT: Low suspicion for PE, CT angiogram not indicated. Care significantly affected by the following chronic conditions: Asthma. Counseling: I had a detailed discussion with the patient and/or guardian regarding: the historical points, exam findings, and any diagnostic results supporting the discharge/admit diagnosis, lab results, radiology results, the need for outpatient follow up. ED course: Discussed with patient possibility of herpetic infection on his penis. Only small Medicare materia, no evidence for UTI, will send for urine culture. We will treat with Pyridium. There is no pneumonia seen on chest x-ray, antibiotics not indicated. No wheezing on examination, do not suspect asthma exacerbation. Suspect viral infection. Stable for outpatient care.. 12/19 20:11 Order name: UAPauline; Complete Time: 20:29 rt 12/19 22:16 Order name: Urine Culture rt 12/19 20:11 Order name: Chest Pa And Lat (2 Views) XRAY; Complete Time: 22:41 rt Administered Medications: No medications were administered Disposition Summary: 12/19/22 22:06 Discharge Ordered Location: Home rt Problem: new rt Symptoms: are unchanged rt Condition: Stable rt Diagnosis - Acute upper respiratory infection, unspecified rt - Dysuria rt Followup: rt - With: Private Physician - When: 2 - 3 days - Reason: Discharge Instructions: - Discharge Summary Sheet rt - Dysuria rt - Viral Respiratory Infection rt Forms: - Medication Reconciliation Form rt - Thank You Letter rt - Antibiotic Education rt - Prescription Opioid Use rt Prescriptions: - Pyridium 200 mg Oral Tablet - take 1 tablet by ORAL route every 8 hours for 3 days; 9 tablet; Refills: 0, rt Product Selection Permitted Signatures: Dispatcher [employer] Sarita Sheriff RN RN mb9 Reggie Gonzalez MD MD rt
--- NOTE | 2022-12-19 22:07 | ER ---
Nurse's Notes [facility] Name: Berlin Tran Age: 32 yrs Sex: Male : 1990 Arrival Date: 12/19/2022 Time: 20:01 Bed 12 Private MD: Diagnosis: Acute upper respiratory infection, unspecified;Dysuria Presentation: 12/19 20:05 Chief complaint: Patient states: "I have a lot of cough, congestion, and it hurts my mb9 chest when I cough. This started yesterday. I cough up dark mucous.". Coronavirus screen: Vaccine status: Patient reports receiving the 2nd dose of the covid vaccine. Ebola Screen: No symptoms or risks identified at this time. Initial Sepsis Screen: Does the patient meet any 2 criteria? No. Patient's initial sepsis screen is negative. Does the patient have a suspected source of infection? No. Patient's initial sepsis screen is negative. Risk Assessment: Do you want to hurt yourself or someone else? Patient reports no desire to harm self or others. Onset of symptoms was December 18, 2022. 20:05 Method Of Arrival: Ambulatory mb9 20:05 Acuity: PITER 4 mb9 Triage Assessment: 20:13 General: Appears uncomfortable, Behavior is cooperative. Neuro: Level of Consciousness mb9 is awake, alert, obeys commands, Oriented to person, place, time, situation, Appropriate for age. Respiratory: Airway is patent Respiratory effort is even, unlabored, Respiratory pattern is regular, symmetrical. Respiratory: Reports cough that is productive. : Reports burning with urination. Derm: Rash noted that is red, on pelvis. Musculoskeletal: Range of motion: intact in all extremities. 22:30 Pain: Complains of pain in chest and groin Pain does not radiate. Pain currently is 5 kb3 out of 10 on a pain scale. Quality of pain is described as burning, Pain began gradually. Respiratory: Breath sounds are clear bilaterally. Historical: - Allergies: 20:10 No Known Allergies; mb9 - Home Meds: 20:10 None [Active]; mb9 - PMHx: 20:10 Asthma; Colitis; Gastric Reflux; mb9 - PSHx: 20:10 None; mb9 - Immunization history:: Adult Immunizations up to date. - Social history:: Smoking status: Reported history of juuling and/or vaping. - Family history:: not pertinent. Screenin:16 [facility] ED Fall Risk Assessment (Adult) History of falling in the last 3 months, mb9 including since admission No falls in past 3 months (0 pts) Confusion or Disorientation No (0 pts) Intoxicated or Sedated No (0 pts) Impaired Gait No (0 pts) Mobility Assist Device Used No (0 pt) Altered Elimination No (0 pt) Score/Fall Risk Level 0 - 2 = Low Risk Oriented to surroundings, Maintained a safe environment, Educated pt \\T\\ family on fall prevention, incl call for assistance when getting out of bed. Abuse screen: Denies threats or abuse. Nutritional screening: No deficits noted. Tuberculosis screening: No symptoms or risk factors identified. Assessment: 20:15 Reassessment: see triage assessment. mb9 Vital Signs: 20:05 BP 141 / 81; Pulse 81; Resp 18; Temp 98.2; Pulse Ox 100% ; Weight 86.18 kg; Height 5 mb9 ft. 11 in. ; 22:50 BP 130 / 78; Pulse 69; Resp 18; Temp 98; Pulse Ox 100% ; kb3 20:05 Body Mass Index 26.50 (86.18 kg, 180.34 cm) mb9 ED Course: 20:01 Patient arrived in ED. jj6 20:02 Reggie Gonzalez MD is Attending Physician. rt 20:05 Arm band placed on. mb9 20:10 Triage completed. mb9 20:13 Sarita Tay, RN is Primary Nurse. mb9 20:16 Bed in low position. Call light in reach. Side rails up X 1. Client placed on mb9 continuous cardiac and pulse oximetry monitoring. NIBP monitoring applied. 20:16 No provider procedures requiring assistance completed. mb9 20:22 [facility] Sent. mb9 21:04 Chest Pa And Lat (2 Views) XRAY In Process Unspecified. EDMS 23:05 Patient did not have IV access during this emergency room visit. kb3 Administered Medications: No medications were administered Medication: 20:11 VIS not applicable for this client. mb9 Outcome: 22:06 Discharge ordered by . rt 23:05 Discharged to home ambulatory. kb3 23:05 Condition: stable 23:05 Discharge instructions given to patient, Instructed on discharge instructions, follow up and referral plans. medication usage, Demonstrated understanding of instructions, follow-up care, medications, Prescriptions given X 1. 23:06 Patient left the ED. kb3 Signatures: Dispatcher [employer] EDMS Cyndie Abbasi jj6 Graciela Browning RN RN kb3 Sarita Tay RN RN mb9 Reggie Gonzalez MD MD rt
[2022-12-19 23:35] VITALS: O2SAT 100
[2022-12-19 23:37] VITALS: BP 130/78; TEMP 98
== END 2022-12-19 23:06 | disposition home or self-care (01) ==
LOC: ER 20:01
DX: J06.9 Acute upper respiratory infection, unspecified (principal); R30.0 Dysuria
CPT/HCPCS: 71046; 81001; 87086; 87088; 99284

== ENCOUNTER 2023-01-23 10:58 | Emergency (ER) | payer OTHER, SELFPAY ==
--- NOTE | 2023-01-23 11:58 | EDPHYS ---
Physician Documentation [facility] [place], [place] Name: Berlin Tran Age: 32 yrs Sex: Male : 1990 Arrival Date: 01/23/2023 Time: 10:58 Bed 6 Private MD: ED Physician Gagandeep Rodriguez HPI: 01/23 11:12 This 32 yrs old Male presents to ER via Ambulatory with complaints of Asthma snw Exacerbation. 11:12 The patient presents to the emergency department with wheezing, Current therapy: snw albuterol nebs, that began unknown, the patient was reported to have audible wheezing, chest congestion, chest tightness, productive cough. Onset: The symptoms/episode began/occurred acutely. Associated signs and symptoms: Pertinent positives: cough, hoarseness, Pertinent negatives: chest pain, fever, rash, vomiting. The patient has experienced similar episodes in the past. It is unknown whether or not the patient has recently seen a physician. Historical: - Allergies: 11:10 No Known Allergies; hb - PMHx: 11:10 Asthma; Gastric Reflux; Colitis; hb - PSHx: 11:10 None; hb - Immunization history:: Client reports receiving the 2nd dose of the Covid vaccine. - Social history:: Smoking status: Reported history of juuling and/or vaping. ROS: 11:11 Eyes: Negative for injury, pain, redness, and discharge. snw 11:11 Neck: Negative for injury, pain, and swelling, Cardiovascular: Negative for chest pain, palpitations, and edema. 11:11 Abdomen/GI: Negative for abdominal pain, nausea, vomiting, diarrhea, and constipation, Back: Negative for injury and pain, : Negative for injury, bleeding, discharge, and swelling, MS/Extremity: Negative for injury and deformity, Skin: Negative for injury, rash, and discoloration, Neuro: Negative for headache, weakness, numbness, tingling, and seizure, Psych: Negative for depression, anxiety, suicide ideation, homicidal ideation, and hallucinations. 11:11 Constitutional: Positive for body aches, malaise. 11:11 ENT: Positive for hoarseness, sore throat. 11:11 Respiratory: Positive for cough, shortness of breath, at rest. wheezing. Exam: 11:11 Constitutional: This is a well developed, well nourished patient who is awake, alert, snw and in no acute distress. Head/Face: Normocephalic, atraumatic. Eyes: Pupils equal round and reactive to light, extra-ocular motions intact. Lids and lashes normal. Conjunctiva and sclera are non-icteric and not injected. Cornea within normal limits. Periorbital areas with no swelling, redness, or edema. Neck: Trachea midline, no thyromegaly or masses palpated, and no cervical lymphadenopathy. Supple, full range of motion without nuchal rigidity, or vertebral point tenderness. No Meningismus. Chest/axilla: Normal chest wall appearance and motion. Nontender with no deformity. No lesions are appreciated. Cardiovascular: Regular rate and rhythm with a normal S1 and S2. No gallops, murmurs, or rubs. Normal PMI, no JVD. No pulse deficits. Abdomen/GI: Soft, non-tender, with normal bowel sounds. No distension or tympany. No guarding or rebound. No evidence of tenderness throughout. Back: No spinal tenderness. No costovertebral tenderness. Full range of motion. Skin: Warm, dry with normal turgor. Normal color with no rashes, no lesions, and no evidence of cellulitis. MS/ Extremity: Pulses equal, no cyanosis. Neurovascular intact. Full, normal range of motion. Neuro: Awake and alert, GCS 15, oriented to person, place, time, and situation. Cranial nerves II-XII grossly intact. Motor strength 5/5 in all extremities. Sensory grossly intact. Cerebellar exam normal. Normal gait. Psych: Awake, alert, with orientation to person, place and time. Behavior, mood, and affect are within normal limits. 11:11 ENT: Nose: is normal, Posterior pharynx: erythema, that is moderate, Voice: is hoarse. 11:11 Respiratory: the patient does not display signs of respiratory distress, Respirations: normal, Breath sounds: wheezing: expiratory that is moderate, is heard diffusely, bronchitic cough. Vital Signs: 11:04 BP 135 / 76; Pulse 88; Resp 18; Temp 97.4(O); Pulse Ox 100% on R/A; Weight 86.18 kg; hb Height 5 ft. 10 in. ; Pain 5/10; 12:39 BP 142 / 87; Pulse 68; Resp 18; Pulse Ox 99% on R/A; nj1 11:04 Body Mass Index 27.26 (86.18 kg, 177.8 cm) hb 11:04 Pain Scale: Adult hb MDM: 11:06 Patient medically screened. snw 11:57 Differential diagnosis: acute asthma, reactive airway, anaphylaxis, URI, pneumonia. snw Data reviewed: vital signs, nurses notes, lab test result(s). I considered the following discharge prescriptions or medication management in the emergency department Medications were administered in the Emergency Department. See MAR. Counseling: I had a detailed discussion with the patient and/or guardian regarding: the historical points, exam findings, and any diagnostic results supporting the discharge/admit diagnosis, lab results, the need for outpatient follow up, for definitive care, to return to the emergency department if symptoms worsen or persist or if there are any questions or concerns that arise at home. Special discussion: Based on the history and exam findings, there is no indication for further emergent testing or inpatient evaluation. I discussed with the patient/guardian the need to see the primary care provider for further evaluation of the symptoms. 01/23 11:10 Order name: Strep snw 01/23 12:28 Order name: Throat Culture EDMS Administered Medications: 12:05 Drug: Decadron - Dexamethasone IVP 10 mg {Note: given orally as ordered by provider.} nj1 Route: IVP; Site: Other; 12:41 Follow up: Response: No adverse reaction nj1 12:05 Drug: GI Cocktail without - (Maalox PO Suspension 30 ml, Lidocaine Mucous nj1 Membrane Liquid 2 % 15 ml) Route: PO; 12:41 Follow up: Response: No adverse reaction nj1 12:06 Drug: Albuterol Inhalation 2.5 mg Route: Inhalation; nj1 12:41 Follow up: Response: No adverse reaction nj1 12:15 Drug: Rocephin (cefTRIAXone) IM 1 grams Route: IM; Site: right gluteus; nj1 12:41 Follow up: Response: No adverse reaction nj1 12:41 Follow up: Response: No adverse reaction nj1 Disposition Summary: 01/23/23 11:57 Discharge Ordered Location: Home snw Condition: Stable snw Diagnosis - Unspecified asthma with (acute) exacerbation snw Followup: snw - With: Emergency Department - When: As needed - Reason: Worsening of condition Followup: snw - With: Private Physician - When: 2 - 3 days - Reason: Recheck today's complaints, Continuance of care, Re-evaluation by your physician Discharge Instructions: - Discharge Summary Sheet snw - Acute Bronchitis, Adult snw - Asthma Action Plan, Adult snw - Asthma Attack Prevention, Adult snw Forms: - Work release form snw - Medication Reconciliation Form snw - Thank You Letter snw - Antibiotic Education snw - Prescription Opioid Use snw Prescriptions: - albuterol sulfate 2.5 mg /3 mL (0.083 %) Inhalation Solution for Nebulization - nebulize 3 milliliter by INHALATION route every 4 to 8 hours as needed for snw shortness of breath or wheezing; 1 Unspecified; Refills: 0, Product Selection Permitted - Zyrtec 10 mg Oral Tablet - take 1 tablet by ORAL route once daily As needed; 20 tablet; Refills: 0, snw Product Selection Permitted - Prednisone 20 mg Oral Tablet - take 2 tablets by ORAL route once daily for 5 days; 10 tablet; Refills: 0, snw Product Selection Permitted - Pepcid 20 mg Oral Tablet - take 1 tablet by ORAL route once daily; 20 tablet; Refills: 0, Product snw Selection Permitted - Zithromax 500 mg Oral Tablet - take 1 tablet by ORAL route once daily for 5 days; 5 tablet; Refills: 0, snw Product Selection Permitted Signatures: Dispatcher [employer] EDKandy Goncalves FNP-C TOBACCO STRIPPING MACHINE OPERATOR-Csnw Sonia Rosenbaum RN RN Mariposa Hart RN RN nj1 Corrections: (The following items were deleted from the chart) 11:11 11:10 Allergies: Ibuprofen; [facility]
--- NOTE | 2023-01-23 11:58 | ER ---
Nurse's Notes [facility] Name: Berlin Tran Age: 32 yrs Sex: Male : 1990 Arrival Date: 01/23/2023 Time: 10:58 Bed 6 Private MD: Diagnosis: Unspecified asthma with (acute) exacerbation Presentation: 01/23 11:04 Chief complaint: Patient states: Sore throat since last night with cough, phlegm was hb yellowish/greenish. Hx of asthma, has felt some difficulty breathing, out of nebulizer txs. Unable to take a nice/deep breath. Coronavirus screen: Vaccine status: Patient reports receiving the 2nd dose of the covid vaccine. Ebola Screen: Patient denies travel to an Ebola-affected area in the 21 days before illness onset. Initial Sepsis Screen: Does the patient meet any 2 criteria? No. Patient's initial sepsis screen is negative. Does the patient have a suspected source of infection? No. Patient's initial sepsis screen is negative. Risk Assessment: Do you want to hurt yourself or someone else? Patient reports no desire to harm self or others. Onset of symptoms was December 22, 2022. 11:04 Method Of Arrival: Ambulatory hb 11:04 Acuity: PITER 3 hb Historical: - Allergies: 11:10 No Known Allergies; hb - PMHx: 11:10 Asthma; Gastric Reflux; Colitis; hb - PSHx: 11:10 None; hb - Immunization history:: Client reports receiving the 2nd dose of the Covid vaccine. - Social history:: Smoking status: Reported history of juuling and/or vaping. Screenin:50 [facility] ED Fall Risk Assessment (Adult) History of falling in the last 3 months, nj1 including since admission No falls in past 3 months (0 pts) Confusion or Disorientation No (0 pts) Intoxicated or Sedated No (0 pts) Impaired Gait No (0 pts) Mobility Assist Device Used No (0 pt) Altered Elimination No (0 pt) Score/Fall Risk Level 0 - 2 = Low Risk Oriented to surroundings, Maintained a safe environment, Hourly rounding (assess needs \T\ fall precautionary measures) done. Abuse screen: Denies threats or abuse. Denies injuries from another. Nutritional screening: No deficits noted. Tuberculosis screening: No symptoms or risk factors identified. Assessment: 11:49 General: Appears in no apparent distress. comfortable, Behavior is calm, cooperative, nj1 appropriate for age. Pain: Complains of pain in Throat Pain currently is 5 out of 10 on a pain scale. Neuro: Level of Consciousness is awake, alert, obeys commands, Oriented to person, place, time, situation. Cardiovascular: Patient's skin is warm and dry. Respiratory: Airway is patent Respiratory effort is even, unlabored. Respiratory: Reports cough that is productive. EENT: Reports pain in throat. 12:40 Reassessment: Patient appears in no apparent distress at this time. Patient is alert, nj1 oriented x 3, equal unlabored respirations, skin warm/dry/pink. Patient states feeling better. Patient states symptoms have improved. Vital Signs: 11:04 BP 135 / 76; Pulse 88; Resp 18; Temp 97.4(O); Pulse Ox 100% on R/A; Weight 86.18 kg; hb Height 5 ft. 10 in. ; Pain 5/10; 12:39 BP 142 / 87; Pulse 68; Resp 18; Pulse Ox 99% on R/A; nj1 11:04 Body Mass Index 27.26 (86.18 kg, 177.8 cm) hb 11:04 Pain Scale: Adult hb ED Course: 11:00 Patient arrived in ED. am2 11:01 [facility] Ar[facility]C [facility] snw 11:02 Gagandeep Rodriguez MD is Attending Physician. snw 11:10 Triage completed. hb 11:11 Arm band placed on right wrist. hb 11:40 Cheri Garza, VU is Primary Nurse. ko1 11:51 Patient has correct armband on for positive identification. Bed in low position. Call nj1 light in reach. 12:07 Strep Sent. nj1 12:39 No provider procedures requiring assistance completed. Patient did not have IV access nj1 during this emergency room visit. Administered Medications: 12:05 Drug: Decadron - Dexamethasone IVP 10 mg {Note: given orally as ordered by provider.} nj1 Route: IVP; Site: Other; 12:41 Follow up: Response: No adverse reaction nj1 12:05 Drug: GI Cocktail without - (Maalox PO Suspension 30 ml, Lidocaine Mucous nj1 Membrane Liquid 2 % 15 ml) Route: PO; 12:41 Follow up: Response: No adverse reaction nj1 12:06 Drug: Albuterol Inhalation 2.5 mg Route: Inhalation; nj1 12:41 Follow up: Response: No adverse reaction nj1 12:15 Drug: Rocephin (cefTRIAXone) IM 1 grams Route: IM; Site: right gluteus; nj1 12:41 Follow up: Response: No adverse reaction nj1 12:41 Follow up: Response: No adverse reaction nj1 Medication: 12:39 VIS not applicable for this client. nj1 Outcome: 11:57 Discharge ordered by . annita 12:38 Patient left the ED. aa5 12:39 Discharged to home ambulatory. nj1 12:39 Condition: stable 12:39 Discharge instructions given to patient, Instructed on discharge instructions, follow up and referral plans. medication usage, Demonstrated understanding of instructions, follow-up care, medications, Prescriptions given X x5 Signatures: Kandy Arnett, CHIEF SERVICE DISPATCHER-C CHIEF SERVICE DISPATCHER-Csnw Minerva Gant RN RN aa5 Sonia Rosenbaum RN RN Keri James [facility] Cheri Garza RN RN ko1 Mariposa Hart, VU RN nj1 Corrections: (The following items were deleted from the chart) 11:11 11:10 Allergies: Ibuprofen; hb hb 11:39 11:04 Acuity: PITER 4 hb hb 12:40 12:39 BP 142 / 87; Pulse 68bpm; Resp 18bpm; nj1 nj1
[2023-01-23] MEDS ORDERED: dexAMETHasone 10 MG/ML VIAL ONE (12:02)
[2023-01-23] MEDS ORDERED: MAGNES/ALUMIN/SIMET 30ML UCUP ONE (12:02)
[2023-01-23] MEDS ORDERED: LIDOCAINE VISCOUS 2% SOLN 15 ML UDC ONE (12:03)
[2023-01-23] MEDS ORDERED: LIDOCAINE 1% MPF 2 ML AMPULE ONE (12:03)
[2023-01-23] MEDS ORDERED: ALBUTEROL 2.5 MG/3 ML NEB SOL ONE (12:03)
[2023-01-23] MEDS ORDERED: CEFTRIAXONE 1000 MG/VIAL ONE (12:03)
[2023-01-23 12:43] VITALS: BP 135/76; TEMP 97.4; O2SAT 100
== END 2023-01-23 12:38 | disposition home or self-care (01) ==
LOC: ER 10:58
DX: J45.901 Unspecified asthma with (acute) exacerbation (principal)
CPT/HCPCS: 87070; 87081; 96372; 96374; 99284; J7613; J1100; J0696

== ENCOUNTER 2023-02-24 15:40 | Emergency (ER) | payer OTHER ==
--- NOTE | 2023-02-24 16:13 | EDPHYS ---
Physician Documentation [facility] Name: Berlin Tran Age: 32 yrs Sex: Male : 1990 Arrival Date: 02/24/2023 Time: 15:40 Bed DX4 Private MD: ED Physician Blaise Cat HPI: 02/24 16:10 This 32 yrs old Male presents to ER via Ambulatory with complaints of Sore rn Throat, Difficulty Swallowing. 16:10 The patient presents with sore throat. The patient describes throat pain as burning, rn raw. Onset: The symptoms/episode began/occurred yesterday. Severity of symptoms: At their worst the symptoms were moderate, in the emergency department the symptoms are unchanged. Modifying factors: The symptoms are alleviated by nothing, the symptoms are aggravated by swallowing. Associated signs and symptoms: Pertinent negatives chills, cough, fever, headache, rhinorrhea, shortness of breath, vomiting. The patient has not experienced similar symptoms in the past. Pt reports feels sore throat, like inflammation, and generalized weakness/fatigue. NO fever. No swelling. No sob. . Historical: - Allergies: 15:59 No Known Allergies; os - Immunization history:: Adult Immunizations up to date. - Social history:: Smoking status: Patient reports the use of cigarette tobacco products, denies chronic smoking, but will smoke occasionally. - Family history:: not pertinent. - Hospitalizations: : No recent hospitalization is reported. ROS: 16:10 Constitutional: Negative for fever, chills, and weight loss, Eyes: Negative for injury, rn pain, redness, and discharge, ENT: + sore throat Cardiovascular: Negative for chest pain, palpitations, and edema, Respiratory: Negative for shortness of breath, cough, wheezing, and pleuritic chest pain, Neuro: Negative for headache, numbness, tingling, and seizure. Exam: 16:10 Constitutional: This is a well developed, well nourished patient who is awake, alert, rn and in no acute distress. Head/Face: Normocephalic, atraumatic. ENT: + pharyngeal erythema, no exudate or swelling, no stridor, uvula midline Neck: Trachea midline, mild tender cervical LAD. Supple, full range of motion without nuchal rigidity, or vertebral point tenderness. No Meningismus. Respiratory: No increased work of breathing, no retractions or nasal flaring. Vital Signs: 15:57 BP 136 / 79; Pulse 65; Resp 17; Temp 98.4; Pulse Ox 100% on R/A; Weight 87.09 kg; os MDM: 16:04 Patient medically screened. rn 16:10 Differential diagnosis: group A strep tonsillitis, laryngitis, pharyngitis, upper rn respiratory infection, uvulitis, viral syndrome. Data reviewed: vital signs, nurses notes, and as a result, I will discharge patient. Counseling: I had a detailed discussion with the patient and/or guardian regarding: the historical points, exam findings, and any diagnostic results supporting the discharge/admit diagnosis, the need for outpatient follow up, to return to the emergency department if symptoms worsen or persist or if there are any questions or concerns that arise at home. Special discussion: I discussed with the patient/guardian in detail that at this point there is no indication for admission to the hospital. It is understood, however, that if the symptoms persist or worsen the patient needs to return immediately for re-evaluation. Administered Medications: No medications were administered Disposition Summary: 02/24/23 16:12 Discharge Ordered Location: Home rn Problem: new rn Symptoms: have improved rn Condition: Stable rn Diagnosis - Acute pharyngitis, unspecified rn Followup: rn - With: Private Physician - When: As needed - Reason: Recheck today's complaints, Re-evaluation by your physician Discharge Instructions: - Discharge Summary Sheet rn - Pharyngitis rn Forms: - Medication Reconciliation Form rn - Thank You Letter rn - Antibiotic burning plant operator - Prescription Opioid Use rn - [email or web address] rn - Work release form eh3 Prescriptions: - Augmentin 875-125 mg Oral Tablet - take 1 tablet by ORAL route every 12 hours for 10 days; 20 tablet; Refills: 0, rn Product Selection Permitted Signatures: Blaise Cat MD MD rn Sotiri, Orest, RN RN os Corrections: (The following items were deleted from the chart) 15:59 15:58 PMHx: Asthma; os os 15:59 15:58 PMHx: Gastric Reflux; os os 15:59 15:58 PMHx: Colitis; os os 16:11 16:10 Constitutional: Negative for fever, chills, and weight loss, Eyes: Negative for rn injury, pain, redness, and discharge, ENT: + sore throat Cardiovascular: Negative for chest pain, palpitations, and edema, Respiratory: Negative for shortness of breath, cough, wheezing, and pleuritic chest pain, Neuro: Negative for headache, weakness, numbness, tingling, and seizure, rn
--- NOTE | 2023-02-24 16:13 | ER ---
Nurse's Notes [facility] Name: Berlin Tran Age: 32 yrs Sex: Male : 1990 Arrival Date: 02/24/2023 Time: 15:40 Bed DX4 Private MD: Diagnosis: Acute pharyngitis, unspecified Presentation: 02/24 15:57 Chief complaint: Patient states: Sore throat with difficulty swallowing, \T\ fatigue for os the past 2 days. Patient denies fevers. Coronavirus screen: Vaccine status: Patient reports receiving the 2nd dose of the covid vaccine. na Client denies travel out of the [place] in the last 14 days. At this time, the client does not indicate any symptoms associated with coronavirus-19. Ebola Screen: No symptoms or risks identified at this time. Initial Sepsis Screen: Does the patient meet any 2 criteria? No. Patient's initial sepsis screen is negative. Does the patient have a suspected source of infection? No. Patient's initial sepsis screen is negative. Risk Assessment: Do you want to hurt yourself or someone else? Patient reports no desire to harm self or others. Onset of symptoms was February 22, 2023. 15:57 Method Of Arrival: Ambulatory os 15:57 Acuity: PITER 4 os Triage Assessment: 15:59 General: Appears in no apparent distress. Behavior is calm, cooperative, appropriate os for age. Pain: Complains of pain in Sore throat. EENT: Reports difficulty swallowing since 2 days ago. Historical: - Allergies: 15:59 No Known Allergies; os - Immunization history:: Adult Immunizations up to date. - Social history:: Smoking status: Patient reports the use of cigarette tobacco products, denies chronic smoking, but will smoke occasionally. - Family history:: not pertinent. - Hospitalizations: : No recent hospitalization is reported. Screenin:[address] [facility] ED Fall Risk Assessment (Adult) Score/Fall Risk Level 0 - 2 = Low Risk ll1 Oriented to surroundings, Maintained a safe environment, Educated pt \T\ family on fall prevention, incl call for assistance when getting out of bed, Hourly rounding (assess needs \T\ fall precautionary measures) done. Abuse screen: Denies threats or abuse. Nutritional screening: No deficits noted. Tuberculosis screening: No symptoms or risk factors identified. Assessment: 16:17 Respiratory: Airway is patent Respiratory effort is even, unlabored, Breath sounds are ll1 clear bilaterally. EENT: Throat is reddened. Vital Signs: 15:57 BP 136 / 79; Pulse 65; Resp 17; Temp 98.4; Pulse Ox 100% on R/A; Weight 87.09 kg; os ED Course: 15:44 Patient arrived in ED. am2 15:58 Triage completed. os 16:04 Blaise Cat MD is Attending Physician. rn 16:17 Arm band placed on Patient placed in an internal wait recliner, in a wheelchair. ll1 16:18 Patient has correct armband on for positive identification. Bed in low position. Call ll1 light in reach. Cardiac monitoring not applicable on this patient. 16:18 No provider procedures requiring assistance completed. Patient did not have IV access ll1 during this emergency room visit. Administered Medications: No medications were administered Medication: 16:18 VIS not applicable for this client. ll1 Outcome: 16:12 Discharge ordered by MD. rn 16:18 Discharged to home ambulatory. ll1 16:18 Condition: stable 16:18 Discharge instructions given to patient, Instructed on discharge instructions, follow up and referral plans. medication usage, Demonstrated understanding of instructions, follow-up care, medications, Prescriptions given X 1. 16:18 Patient left the ED. ll1 Signatures: Blaise Cat MD MD rn Moreno, Amanda am2 Lena Uribe, RN RN ll1 Rj Molina, RN RN os Corrections: (The following items were deleted from the chart) 15:59 15:58 PMHx: Asthma; os os 15:59 15:58 PMHx: Gastric Reflux; os os 15:59 15:58 PMHx: Colitis; os os
[2023-02-24 17:15] VITALS: BP 136/79; TEMP 98.4; O2SAT 100
== END 2023-02-24 16:18 | disposition home or self-care (01) ==
LOC: ER 15:40
DX: J02.9 Acute pharyngitis, unspecified (principal); F17.210 Nicotine dependence, cigarettes, uncomplicated
CPT/HCPCS: 99283

== ENCOUNTER 2023-09-16 20:00 | Inpatient (IN) | payer SELFPAY ==
[2023-09-16] MEDS ORDERED: MORPHINE 4 MG/ML SYR ONE (21:04)
[2023-09-16] MEDS ORDERED: ONDANSETRON 4 MG/2 ML VIAL ONE (21:04)
[2023-09-16] MEDS ORDERED: NA CHLORIDE 0.9% 1,000 ML ONE (21:04)
[2023-09-16] MEDS ORDERED: DIPHENHYDRAMINE 50 MG/ML VIAL ONE (21:25)
[2023-09-16 21:52] LABS: Absolute Lymphocytes (CBC) 1.2 K/uL (0.7-4.9); Hematocrit 46.6 % (39.6-49.0); Lymphocytes % 9.6 % (15.3-44.8); MCV 87.9 fL (80-100); MPV 8.4 fL (7.6-11.3); Platelets 303 thou/uL (152-406)
[2023-09-16 21:54] LABS: Specific Gravity 1.029 (1.005-1.030); Urine Bacteria None Seen /HPF (<20); Urine Bilirubin NEGATIVE (Negative); Urine Blood Negative (Negative); Urine Clarity Clear (Clear); Urine Color Yellow (Yellow); Urine Glucose NEGATIVE (Negative); Urine Mucus 2+ /HPF (None Seen); Urine Protein TRACE (Negative); Urine RBC <5 /HPF (None Seen); Urine Urobilinogen 1+ (Normal)
[2023-09-16 22:09] LABS: Albumin 3.4 g/dL (3.4-5.0); Bilirubin Total 0.6 mg/dL (0.2-1.0); Potassium 3.3 mEq/L (3.5-5.1); Protein, Total 6.8 g/dL (6.4-8.2)
--- NOTE | 2023-09-17 00:26 | EDPHYS ---
Physician Documentation [facility] Name: Berlin Tran Age: 33 yrs Sex: Male : 1990 Arrival Date: 09/16/2023 Time: 20:00 Bed 4 Private MD: ED Physician Gagandeep Rodriguez HPI: 09/16 21:00 This 33 yrs old Male presents to ER via Ambulatory with complaints of cp Abdominal Pain. 21:00 The patient presents with abdominal pain that is diffuse. Onset: The symptoms/episode cp began/occurred this morning. The symptoms do not radiate. Associated signs and symptoms: Pertinent positives: anorexia, diarrhea, Pertinent negatives: blood in stools, chest pain, constipation, dysuria, fever, testicular pain, vomiting. The symptoms are described as constant. Modifying factors: the symptoms are aggravated by pressure. Severity of pain: in the emergency department the pain is unchanged despite home interventions. Historical: - Allergies: 20:40 Motrin IB; ha1 - PMHx: 20:40 Gastroesophageal reflux disease; ha1 - Immunization history:: Adult Immunizations up to date. - Social history:: Smoking status: Patient reports the use of cigarette tobacco products, denies chronic smoking, but will smoke occasionally. ROS: 21:05 Constitutional: Negative for body aches, chills, fever, poor PO intake, cp 21:05 Eyes: Negative for injury, pain, redness, and discharge, cp 21:05 ENT: Negative for drainage from ear(s), ear pain, sore throat, difficulty swallowing, difficulty handling secretions, 21:05 Cardiovascular: Negative for chest pain, 21:05 Respiratory: Negative for cough, shortness of breath, wheezing, 21:05 Abdomen/GI: Positive for abdominal pain, nausea, anorexia, Negative for vomiting, diarrhea, constipation, black/tarry stool, rectal bleeding, 21:05 Back: Negative for pain at rest, pain with movement, 21:05 : Negative for urinary symptoms, testicular pain 21:05 Neuro: Negative for altered mental status, dizziness, headache, weakness, 21:05 All other systems are negative, Exam: 09/17 21:10 Constitutional: The patient appears in no acute distress, alert, awake, cp non-diaphoretic, non-toxic, well developed, well nourished, uncomfortable, 21:10 Head/Face: Normocephalic, atraumatic. cp 21:10 Eyes: Periorbital structures: appear normal, Conjunctiva: normal, no exudate, no injection, Sclera: no appreciated abnormality, Lids and lashes: appear normal, bilaterally, 21:10 ENT: External ear(s): are unremarkable, Nose: is normal, Mouth: Lips: moist, Oral mucosa: pink and intact, moist, Posterior pharynx: is normal, airway is patent, no erythema, no exudate, 21:10 Chest/axilla: Inspection: normal, 21:10 Cardiovascular: Rate: tachycardic, Rhythm: regular, 21:10 Respiratory: the patient does not display signs of respiratory distress, Respirations: normal, no use of accessory muscles, no retractions, labored breathing, is not present, Breath sounds: are clear throughout, no decreased breath sounds, no stridor, no wheezing, 21:10 Abdomen/GI: Inspection: abdomen appears normal, Bowel sounds: active, all quadrants, Palpation: soft, in all quadrants, severe abdominal tenderness, in the mid abdomen bilaterally, rebound tenderness, is not appreciated, voluntary guarding, 21:10 Back: pain, is absent, ROM is normal, Vital Signs: 09/16 20:37 BP 121 / 92; Pulse 104; Resp 18 S; Temp 98.1(O); Pulse Ox 98% on R/A; Weight 88.45 kg; ha1 Height 5 ft. 11 in. ; 21:07 BP 118 / 81; Pulse 79; Resp 23; Temp 98.3; Pulse Ox 94% on R/A; Pain 8/10; la4 22:00 BP 118 / 72; Pulse 84; Resp 17; Pulse Ox 94% on R/A; nw1 09/17 01:47 BP 131 / 94; Pulse 77; Resp 18; Pulse Ox 98% ; la4 02:00 BP 132 / 90; Pulse 93; Resp 18; Pulse Ox 100% ; la4 03:00 BP 129 / 99; Pulse 96; Resp 18; Pulse Ox 100% ; la4 09/16 20:37 Body Mass Index 27.20 (88.45 kg, 180.34 cm) ha1 21:07 Pain Scale: Adult la4 09/16 21:07 abdominal pain la4 Too Coma Score: 21:07 Eye Response: spontaneous(4). Motor Response: obeys commands(6). Verbal Response: la4 oriented(5). Total: 15. MDM: 20:44 Patient medically screened. 09/17 00:30 Data reviewed: vital signs, nurses notes, lab test result(s), radiologic studies, CT cp scan, I have discussed the patient's presentation/case with the attending Emergency Department Physician; and as a result, I will admit patient. 00:30 Differential diagnosis: appendicitis, cholecystitis, Cholelithiasis, gastritis, cp non-specific abd pain, pancreatitis, Peritonitis, Ureterolithiasis, urinary tract infection. Management of patient was discussed with the following: Hospitalist: DR De Dios will admit after discussion. I considered the following discharge prescriptions or medication management in the emergency department Medications were administered in the Emergency Department. See MAR. Counseling: I had a detailed discussion with the patient and/or guardian regarding the historical points, exam findings, and any diagnostic results supporting the discharge/admit diagnosis, lab results, radiology results, the need for further work-up and treatment in the hospital. Response to treatment: the patient's symptoms have mildly improved after treatment. 09/16 20:51 Order name: CBC with Diff; Complete Time: 22:47 cp 09/17 00:23 Interpretation: Reviewed. cp 09/16 20:51 Order name: CMP; Complete Time: 22:47 cp 09/16 20:51 Order name: Lipase; Complete Time: 22:47 cp 09/16 20:51 Order name: Urinalysis w/ reflexes; Complete Time: 22:47 cp 09/16 23:28 Order name: Lactate w/ 2H reflex if indic.; Complete Time: 02:58 cp 09/16 23:28 Order name: Blood Culture Adult (2) cp 09/17 01:51 Order name: Urinalysis w/ reflexes EDMS 09/17 01:51 Order name: CBC with Automated Diff EDMS 09/17 01:51 Order name: CBC with Automated Diff EDMS 09/17 01:51 Order name: Comprehensive Metabolic Panel EDMS 09/17 01:51 Order name: Comprehensive Metabolic Panel EDMS 09/17 01:51 Order name: Magnesium EDMS 09/17 01:51 Order name: Magnesium EDMS 09/17 01:51 Order name: Phosphorus EDMS 09/17 01:51 Order name: Phosphorus EDMS 09/16 20:51 Order name: CT Abd/Pelvis - IV Contrast Only cp 09/16 20:51 Order name: IV Saline Lock; Complete Time: 21:31 cp 09/16 20:51 Order name: Labs collected and sent; Complete Time: 21:31 cp Administered Medications: 09/16 21:31 Drug: NS 0.9% IV 1000 ml IV at 1 bolus Per protocol; 1000 mL bolus Route: IV; Rate: 1 la4 bolus; Site: right wrist; 09/17 03:14 Follow up: Response: No adverse reaction; Marked relief of symptoms; IV Status: la4 Completed infusion; IV Intake: 1000ml 09/16 21:32 Drug: Ondansetron IVP 4 mg IVP once; over 2 minutes Route: IVP; Site: right wrist; la4 09/17 03:14 Follow up: Response: No adverse reaction; Pain is decreased ri4 09/16 21:32 Drug: morphine IVP or IV 4 mg IVP once over 4 mins Route: IVP; Infused Over: 4 mins; la4 Site: right wrist; 09/17 03:14 Follow up: Response: No adverse reaction; Pain is decreased ri4 09/16 21:34 Drug: diphenhydrAMINE IVP 25 mg IVP once Route: IVP; Site: right wrist; la4 09/17 03:14 Follow up: Response: No adverse reaction; Marked relief of symptoms la4 00:15 Drug: metroNIDAZOLE IVPB 500 mg 100 ml IVPB once over 30 mins Volume: 100 ml; Route: nw1 IVPB; Infused Over: 30 mins; Site: right hand; 03:14 Follow up: Response: No adverse reaction; IV Status: Completed infusion; IV Intake: la4 100ml 00:41 Drug: Ciprofloxacin IVPB 400 mg 200 ml IVPB once over 60 mins Volume: 200 ml; Route: nw1 IVPB; Infused Over: 60 mins; Site: right hand; 03:13 Follow up: Response: No adverse reaction; IV Status: Completed infusion la4 01:41 Drug: Rocephin IV 2 grams IV at calculated rate once; Given slow IV push per pharmarcy nw1 instructions Route: IV; Rate: calculated rate; Site: right hand; 03:13 Follow up: Response: No adverse reaction; IV Status: Completed infusion; IV Intake: la4 100ml Disposition Summary: 09/17/23 00:25 Hospitalization Ordered Notes: Hospitalization Status: Inpatient Admission cp Provider: Mindy De Dios cp Location: Telemetry/MedSurg (Inpatient) cp Condition: Stable cp Problem: new cp Symptoms: have improved cp Bed/Room Type: Standard cp Room Assignment: 231(09/17/23 02:18) rv1 Diagnosis - Indeterminate colitis cp - Abdominal pain, unspecified cp Forms: - Medication Reconciliation Form cp - SBAR form cp - Leadership Thank You Letter cp Signatures: Dispatcher [employer] EDMS Gagandeep Nichols PA PA cp Gemini Negron RN RN ha1 Gloria Oseguera rv1 Walker Constantino RN RN la4 Sally Claudio RN RN nw1 Mindy De Dios MD MD cu Corrections: (The following items were deleted from the chart) 02:18 00:25 cp rv1
--- NOTE | 2023-09-17 00:26 | ER ---
Nurse's Notes [facility] Name: Berlin Tran Age: 33 yrs Sex: Male : 1990 Arrival Date: 09/16/2023 Time: 20:00 Bed 4 Private MD: Diagnosis: Indeterminate colitis;Abdominal pain, unspecified Presentation: 09/16 20:37 Chief complaint: Patient states: I have nausea and abdominal pain that started today. ha1 No diarrhea. my anus looks inflamed. Coronavirus screen: Vaccine status: Patient reports receiving the 2nd dose of the covid vaccine. Moderna. Ebola Screen: No symptoms or risks identified at this time. Initial Sepsis Screen: Does the patient meet any 2 criteria? No. Patient's initial sepsis screen is negative. Does the patient have a suspected source of infection? No. Patient's initial sepsis screen is negative. Risk Assessment: Do you want to hurt yourself or someone else? Patient reports no desire to harm self or others. Onset of symptoms was September 16, 2023. 20:37 Method Of Arrival: Ambulatory ha1 20:37 Acuity: PITER 3 ha1 Triage Assessment: 20:40 General: Appears uncomfortable, Behavior is cooperative. Pain: Complains of pain in ha1 abdomen Pain does not radiate. Pain currently is 9 out of 10 on a pain scale. Neuro: Level of Consciousness is awake, alert, obeys commands, Oriented to person, place, time, situation. Cardiovascular: Capillary refill < 3 seconds Patient's skin is warm and dry. GI: Abdomen is flat, non-distended, Reports lower abdominal pain, upper abdominal pain, nausea. Historical: - Allergies: 20:40 Motrin IB; ha1 - PMHx: 20:40 Gastroesophageal reflux disease; ha1 - Immunization history:: Adult Immunizations up to date. - Social history:: Smoking status: Patient reports the use of cigarette tobacco products, denies chronic smoking, but will smoke occasionally. Screenin:07 [facility] ED Fall Risk Assessment (Adult) History of falling in the last 3 months, la4 including since admission No falls in past 3 months (0 pts) Confusion or Disorientation No (0 pts) Intoxicated or Sedated No (0 pts) Impaired Gait No (0 pts) Mobility Assist Device Used No (0 pt) Altered Elimination No (0 pt) Score/Fall Risk Level 0 - 2 = Low Risk Oriented to surroundings, Maintained a safe environment, Provided non-skid footwear, Hourly rounding (assess needs \T\ fall precautionary measures) done. Abuse screen: Denies threats or abuse. Denies injuries from another. Nutritional screening: No deficits noted. Tuberculosis screening: No symptoms or risk factors identified. Assessment: 21:37 General: Appears uncomfortable, Behavior is calm, cooperative, appropriate for age. la4 Pain: Complains of pain in right upper quadrant, right lower quadrant and left lower quadrant. Neuro: No deficits noted. Murillo Agitation-Sedation Scale (RASS): 0 - Alert and Calm Level of Consciousness is awake, alert, obeys commands, Oriented to person, place, time, situation. Cardiovascular: No deficits noted. Denies chest pain, shortness of breath, Heart tones S1 S2 Capillary refill < 3 seconds is brisk fingers Patient's skin is warm and dry. Pulses are all present. Edema is absent. Rhythm is regular Chest pain is denied. Respiratory: No deficits noted. Airway is patent Respiratory effort is even, unlabored, Respiratory pattern is regular, symmetrical, Breath sounds are clear bilaterally. GI: No deficits noted. Bowel sounds present X 4 quads. Abd is soft X 4 quads Abdomen is tender to palpation in right upper quadrant, right lower quadrant and left lower quadrant Reports constipation, nausea. : No deficits noted. Derm: No deficits noted. Musculoskeletal: No deficits noted. Vital Signs: 20:37 BP 121 / 92; Pulse 104; Resp 18 S; Temp 98.1(O); Pulse Ox 98% on R/A; Weight 88.45 kg; ha1 Height 5 ft. 11 in. ; 21:07 BP 118 / 81; Pulse 79; Resp 23; Temp 98.3; Pulse Ox 94% on R/A; Pain 8/10; la4 22:00 BP 118 / 72; Pulse 84; Resp 17; Pulse Ox 94% on R/A; nw1 09/17 01:47 BP 131 / 94; Pulse 77; Resp 18; Pulse Ox 98% ; la4 02:00 BP 132 / 90; Pulse 93; Resp 18; Pulse Ox 100% ; la4 03:00 BP 129 / 99; Pulse 96; Resp 18; Pulse Ox 100% ; la4 09/16 20:37 Body Mass Index 27.20 (88.45 kg, 180.34 cm) ha1 21:07 Pain Scale: Adult la4 09/16 21:07 abdominal pain la4 Too Coma Score: 21:07 Eye Response: spontaneous(4). Motor Response: obeys commands(6). Verbal Response: la4 oriented(5). Total: 15. ED Course: 20:02 Patient arrived in ED. jj6 20:08 Gagandeep Nichols PA is PHCP. cp 20:08 Gagandeep Rodriguez MD is Attending Physician. cp 20:40 Triage completed. ha1 20:58 Walker Constantino, RN is Primary Nurse. la4 21:07 No apparent distress. Awaiting lab results. la4 21:07 No provider procedures requiring assistance completed. Inserted saline lock: 20 gauge la4 in right wrist, using aseptic technique. Blood collected. 21:07 Patient has correct armband on for positive identification. Placed in gown. Bed in low la4 position. Call light in reach. Side rails up X2. Provided Education on: Lumbar Puncture, Procedure Consent, HIV Consent, Plan of care. Client placed on continuous cardiac and pulse oximetry monitoring. NIBP monitoring applied. 21:31 CBC with Diff Sent. la4 21:31 CMP Sent. la4 21:31 Lipase Sent. la4 21:31 Urinalysis w/ reflexes Sent. la4 22:[address] la4 22:49 CT Abd/Pelvis - IV Contrast Only In Process Unspecified. EDMS 09/17 00:24 Mindy De Dios MD is Hospitalizing Provider. cp 03:12 Patient admitted, IV remains in place. la4 03:12 Patient placed. la4 Administered Medications: 09/16 21:31 Drug: NS 0.9% IV 1000 ml IV at 1 bolus Per protocol; 1000 mL bolus Route: IV; Rate: 1 la4 bolus; Site: right wrist; 09/17 03:14 Follow up: Response: No adverse reaction; Marked relief of symptoms; IV Status: la4 Completed infusion; IV Intake: 1000ml 09/16 21:32 Drug: Ondansetron IVP 4 mg IVP once; over 2 minutes Route: IVP; Site: right wrist; la4 09/17 03:14 Follow up: Response: No adverse reaction; Pain is decreased la4 09/16 21:32 Drug: morphine IVP or IV 4 mg IVP once over 4 mins Route: IVP; Infused Over: 4 mins; la4 Site: right wrist; 09/17 03:14 Follow up: Response: No adverse reaction; Pain is decreased la4 09/16 21:34 Drug: diphenhydrAMINE IVP 25 mg IVP once Route: IVP; Site: right wrist; la4 09/17 03:14 Follow up: Response: No adverse reaction; Marked relief of symptoms la4 00:15 Drug: metroNIDAZOLE IVPB 500 mg 100 ml IVPB once over 30 mins Volume: 100 ml; Route: nw1 IVPB; Infused Over: 30 mins; Site: right hand; 03:14 Follow up: Response: No adverse reaction; IV Status: Completed infusion; IV Intake: la4 100ml 00:41 Drug: Ciprofloxacin IVPB 400 mg 200 ml IVPB once over 60 mins Volume: 200 ml; Route: nw1 IVPB; Infused Over: 60 mins; Site: right hand; 03:13 Follow up: Response: No adverse reaction; IV Status: Completed infusion la4 01:41 Drug: Rocephin IV 2 grams IV at calculated rate once; Given slow IV push per pharmarcy nw1 instructions Route: IV; Rate: calculated rate; Site: right hand; 03:13 Follow up: Response: No adverse reaction; IV Status: Completed infusion; IV Intake: la4 100ml Medication: 09/16 21:07 VIS not applicable for this client. la4 Intake: 09/17 03:13 IV: 100ml; Total: 100ml. la4 03:14 IV: 100ml; Total: 200ml. la4 03:14 IV: 1000ml; Total: 1200ml. la4 Output: 00:41 Urine: 200ml (Voided); Total: 200ml. nw1 Outcome: 00:25 Decision to Hospitalize by Provider. cp 03:04 Admitted to Med/surg room 231, with chart, Report called to Quentin elizalde 03:04 Condition: stable 03:04 Instructed on the need for admit, Demonstrated understanding of instructions, 03:37 Patient left the ED. la4 Signatures: Dispatcher [facility] EDFL Gagandeep Nichols PA PA cp Jeffries, Jennifer [id number] Gemini Negron RN RN ha1 Walker Constantino RN RN la4 Sally Claudio, RN RN nw1
[2023-09-17] MEDS ORDERED: CEFTRIAXONE 1000 MG/VIAL ONE (01:27)
[2023-09-17] MEDS ORDERED: NA CHLORIDE 0.9% 100 ML ONE (01:27)
[2023-09-17] MEDS ORDERED: ONDANSETRON 4 MG/2 ML VIAL IV PRN (01:47)
[2023-09-17] MEDS ORDERED: MORPHINE 2 MG/ML SYR IV PRN (01:52)
--- NOTE | 2023-09-17 03:01 | P.HP ---
Certification for Inpatient With expected LOS: >2 Midnights Practitioner: I am a practitioner with admitting privileges, knowledge of patient current condition, hospital course, and medical plan of care. Services: Services provided to patient in accordance with Admission requirements found in Title 42 Section 412.3 of the Code of Federal Regulations Patient History Date of Service: 09/17/23 Reason for admission: Abdominal pain History of Present Illness: 33-year-old Jamaican-speaking male presented to the ED with acute onsets of generalized abdominal pain that started today, worse after lower quadrant, the pain had been persistent and increased in intensity so he presented to the ED. Patient denies any nausea, vomiting or diarrhea, reports his anus looks inflamed. He smokes. On arrival to the ED, he had a heart rate of 104. Notable labs include WBC 12k, potassium 3.[address] abdomen pelvis revealed findings highly suggestive of infectious or inflammatory colitis/proctitis. Inflammatory bowel disease such as Crohn's disease or ulcerative colitis could have such characteristics. Patient was given IV fluid bolus along with Flagyl, Cipro and morphine. Allergies ibuprofen [From Motrin] Allergy (Verified 07/23/21 00:09) Hives Home Medications: Ciprofloxacin HCl [Cipro 500 MG Tablet] 500 mg PO BID #10 tab 07/24/21 Pantoprazole [Protonix Tab] 40 mg PO BID #60 tab 07/24/21 metroNIDAZOLE [Flagyl] 500 mg PO Q8H #15 tablet 07/24/21 - Past Medical/Surgical History Diabetic: No -: GERD - Family History Father -: Other (see notes) Notes: pt states father has swelling Mother -: Hypertension - Social History Alcohol use: Yes CD- Drugs: No Caffeine use: Yes Review of Systems 10-point ROS is otherwise unremarkable Physical Examination - Vital Signs Temperature: 98 F Blood Pressure: 118/72 Pulse: 84 Respirations: 23 Pulse Ox (%): 94 - Physical Exam General: Alert, In no apparent distress, Oriented x3 HEENT: Atraumatic, Normocephalic, Mucous membr. moist/pink Neck: Supple, JVD not distended Respiratory: Clear to auscultation bilaterally, Normal air movement Cardiovascular: No edema, Regular rate/rhythm, Normal S1 S2 Gastrointestinal: Non-distended, Hyperactive, Tenderness, Rebound Musculoskeletal: No swelling, No erythema, No tenderness, No warmth Integumentary: No rashes Neurological: Normal speech, Normal strength at 5/5 x4 extr, Normal tone - Studies Laboratory Data (last 24 hrs) 09/16/23 09/16/23 21:25 21:25 WBC 12.10 H Hgb 16.2 Hct 46.6 Plt Count 303 Sodium 139 Potassium 3.3 L BUN 23 H Creatinine 0.98 Glucose 130 H Total Bilirubin 0.6 AST 16 ALT 46 Alkaline Phosphatase 62 Lipase 17 Assessment and Plan - Plan Acute procto-colitis Findings on CT highly suggestive of infectious or inflammatory colitis/proctitis Continue IV Cipro and Flagyl Defer steroid treatment to GI N.p.o. and advance diet as tolerated Stool WBC, calprotectin and culture IV fluids, pain control, electrolyte replacement GI consult - Advance Directives Does patient have a Living Will: No Does patient have a Durable POA for Healthcare: No
[2023-09-17] MEDS: D5 0.9 NS 1,000 ML IV SCH ×3 (03:40→21:45)
[2023-09-17 04:16] VITALS: O2SAT 96; BMI 28.2
[2023-09-17] MEDS ORDERED: METRONIDAZOLE 500mg IVPB 500 MG/100 ML BAG IV SCH (05:00)
[2023-09-17] MEDS: POTASSIUM CL SA 10 MEQ TAB PO SCH ×2 (06:32→21:45)
[2023-09-17] MEDS: METRONIDAZOLE 500mg IVPB 500 MG/100 ML BAG IV SCH ×2 (08:40→16:51)
[2023-09-17] MEDS: CIPROFLOXACIN 400mg IV 400 MG/200 ML BAG IV SCH ×2 (08:41→21:45)
[2023-09-17] MEDS ORDERED: CIPROFLOXACIN 400mg IV 400 MG/200 ML BAG IV SCH (09:00)
[2023-09-18] MEDS ORDERED: CEFTRIAXONE 1,000 MG in NA CHLORIDE 0.9% 50 ML IVPB SCH ×2
[2023-09-18] MEDS: METRONIDAZOLE 500mg IVPB 500 MG/100 ML BAG IV SCH ×2 (01:36→08:30)
[2023-09-18 07:18] LABS: Absolute Lymphocytes (CBC) 1.3 K/uL (0.7-4.9); Hematocrit 39.6 % (39.6-49.0); MCV 87.8 fL (80-100); MPV 7.9 fL (7.6-11.3); Platelets 294 thou/uL (152-406); RBC Red Blood Cell Count 4.51 M/uL (4.33-5.43)
[2023-09-18 07:32] LABS: Bilirubin Total 0.3 mg/dL (0.2-1.0); Magnesium 2.2 mg/dL (1.6-2.4); Phosphorus 2.6 mg/dL (2.5-4.9); Potassium 3.9 mEq/L (3.5-5.1); Protein, Total 5.7 g/dL (6.4-8.2)
[2023-09-18] MEDS: POTASSIUM CL SA 10 MEQ TAB PO SCH (08:30)
[2023-09-18] MEDS: CIPROFLOXACIN 400mg IV 400 MG/200 ML BAG IV SCH (08:32)
[2023-09-18 09:59] VITALS: BP 145/76; TEMP 97.4
--- NOTE | 2023-09-18 10:43 | P.DS ---
Admission Date: 09/17/23 Discharge Date: 09/18/23 Disposition: ROUTINE DISCHARGE Discharge Condition: FAIR Reason for Admission: Abdominal pain - Problems (1) Proctocolitis Status: Acute Brief History of Present Illness: 33-year-old Bangladeshi-speaking male presented to the ED with acute onsets of generalized abdominal pain, worse in the lower quadrant. Patient denied any nausea, vomiting or diarrhea, reported his anus looks inflamed. He smokes. On arrival to the ED, he had a heart rate of 104. Notable labs include WBC 12k, potassium 3.[address] abdomen pelvis revealed findings highly suggestive of infectious or inflammatory colitis/proctitis. Inflammatory bowel disease such as Crohn's disease or ulcerative colitis could have such characteristics. Patient was given IV fluid bolus along with Flagyl, Cipro and morphine and admitted for further management. Hospital Course: Patient was admitted to the medical floor and treated with supportive measures including IV fluid. He was also treated with IV antibiotics. His symptoms responded well to the antibiotics. His abdominal pain resolved, and diarrhea frequency improved. Patient tolerated diet. He is discharged with oral ciprofloxacin and Flagyl to continue treatment for possible infectious colitis. Vital Signs/Physical Exam: Temp Pulse Resp BP Pulse Ox 97.4 F 75 18 145/76 H 98 09/18/23 08:00 09/18/23 08:00 09/18/23 08:00 09/18/23 08:00 09/18/23 08:00 General: Alert, In no apparent distress, Oriented x3 HEENT: Mucous membr. moist/pink Neck: Supple, JVD not distended Respiratory: Clear to auscultation bilaterally, Normal air movement Cardiovascular: No edema, Regular rate/rhythm Gastrointestinal: Soft and benign, Non-distended Musculoskeletal: No swelling Integumentary: No rashes, No cyanosis Neurological: Normal strength at 5/5 x4 extr Laboratory Data at Discharge: WBC 7.20 thou/uL (4.3-10.9) 09/18/23 06:30 Hgb 13.9 g/dL (13.6-17.9) 09/18/23 06:30 Hct 39.6 % (39.6-49.0) 09/18/23 06:30 Plt Count 294 thou/uL (152-406) 09/18/23 06:30 Sodium 141 mEq/L (136-145) 09/18/23 06:30 Potassium 3.9 mEq/L (3.5-5.1) 09/18/23 06:30 BUN 10 mg/dL (7-18) 09/18/23 06:30 Creatinine 0.73 mg/dL (0.70-1.30) 09/18/23 06:30 Glucose 111 mg/dL (74-106) H 09/18/23 06:30 Phosphorus 2.6 mg/dL (2.5-4.9) 09/18/23 06:30 Magnesium 2.2 mg/dL (1.6-2.4) 09/18/23 06:30 Total Bilirubin 0.3 mg/dL (0.2-1.0) 09/18/23 06:30 AST 12 U/L (15-37) L 09/18/23 06:30 ALT 34 U/L (16-61) 09/18/23 06:30 Alkaline Phosphatase 47 U/L (45-117) 09/18/23 06:30 Lipase 17 U/L (13-75) 09/16/23 21:25 Home Medications: Ciprofloxacin HCl [Cipro] 500 mg PO BID #10 tab 09/18/23 metroNIDAZOLE [Flagyl] 500 mg PO Q8H #15 tab 09/18/23 New Medications: Ciprofloxacin HCl [Cipro] 500 mg PO BID #10 tab metroNIDAZOLE [Flagyl] 500 mg PO Q8H #15 tab Physician Discharge Instructions: You were admitted because of abdominal pain. CT abdomen/pelvis showed your large bowel wall is inflammed which suggest infection or inflammation. This was treated with IV antibiotics. You have clinically improved and tolerated diet and deemed stable for discharge. You are encouraged to drink more water, at least 8 glasses a day. You are prescribed oral antibiotics to continue treatment for bowel infection. Time spent managing pt's care (in minutes): 33
--- NOTE | 2023-09-18 11:50 | RAD REPORT ---
EXAM DESCRIPTION: CT - Abdomen Pelvis W Contrast - 09/17/2023 7:16 am CLINICAL HISTORY: The patient is 33 years old and is Male; ABD PAIN TECHNIQUE: Axial computed tomography images of the abdomen and pelvis with intravenous contrast. S agittal and coronal reformatted images were created and reviewed. This CT exam was performed using one or more of the following dose reduction techniques: automated exposure control, adjustment of t he mA and/or kV according to patient size, and/or use of iterative reconstruction technique. DLP: 1126 mGy*cm COMPARISON: CT abdomen and pelvis dated 06/02/2023. FINDINGS: LUNG BASES: Unremarkable. No mass. No consolidation. ABDOMEN: LIVER: Unremarkable. No mass. GALLBLADDER AND BILE DUCTS: Unremarkable. No calcified stones. No ductal dilation. PANCREAS: Unremarkable. No mass. No ductal dilation. SPLEEN: Splenic cyst measuring 1.4 cm. ADRENALS: Unremarkable. No mass. KIDNEYS AND URETERS: Unremarkable. No solid mass. No hydronephrosis. STOMACH AND BOWEL: Advanced abdominal ventral wall thickening of the distal descending, sigmoid col on and rectum with severe surrounding fat stranding and mucosal enhancement. No obstruction. PELVIS: APPENDIX: The appendix is seen and is within normal limits. BLADDER: Unremarkable. No mass. REPRODUCTIVE: Unremarkable as visualized. ABDOMEN and PELVIS: INTRAPERITONEAL SPACE: Hepatic steatosis. Perihepatic ascites. No free air. BONES/JOINTS: No acute fracture. No dislocation. SOFT TISSUES: Unremarkable. VASCULATURE: Unremarkable. No abdominal aortic aneurysm. LYMPH NODES: Unremarkable. No enlarged lymph nodes. IMPRESSION: 1. Advanced abdominal ventral wall thickening of the distal descending, sigmoid colon and rectum with severe surrounding fat stranding and mucosal enhancement. Findings highly suggestiv e of infectious or inflammatory colitis/proctitis. Inflammatory bowel disease such as Crohn's disease versus ulcerative colitis could have similar imaging characteristics. 2. Hepatic steatosis. Perihepatic ascites. Electronically signed by: Michale Smith DO 09/16/2023 11:12 PM PRODUCTION CONTROL PLANNER Due to temporary technical issues with the PACS/Fluency reporting system, reports are being signed by the in house radiologist without review as a courtesy to ensure prompt reporting. The interpreting r adiologist is fully responsible for the content of the report.
== END 2023-09-18 11:22 | disposition home or self-care (01) | DRG 386 ==
LOC: ER 20:00 → ERHOLD 09-17 01:45 → 2ND 09-17 03:16
PROVIDERS: ADMIT Internal Medicine; ATTEND Internal Medicine
DX: K51.30 Ulcerative (chronic) rectosigmoiditis without complications (principal); A09 Infectious gastroenteritis and colitis, unspecified; K52.3 Indeterminate colitis; K21.9 Gastro-esophageal reflux disease without esophagitis; F17.210 Nicotine dependence, cigarettes, uncomplicated; Z88.5 Allergy status to narcotic agent; Z79.899 Other long term (current) drug therapy
CPT/HCPCS: 36415; 74177; 80053; 81001; 83605; 83690; 83735; 83993; 84100; 85025; 87040; 87045; 87046; 87077; 87186; 89055; J0696; J0744; J1200; J2405; J7030; J7042; Q9967

== ENCOUNTER 2024-01-02 17:19 | Emergency (ER) | payer SELFPAY ==
[2024-01-02] MEDS ORDERED: FAMOTIDINE 20 MG/2 ML VIAL IV ONE (17:52)
[2024-01-02] MEDS ORDERED: DIPHENHYDRAMINE 50 MG/ML VIAL ONE (17:52)
[2024-01-02] MEDS ORDERED: METHYLPREDNISOLONE 125 MG INJ ONE (17:52)
[2024-01-02] MEDS ORDERED: NA CHLORIDE 0.9% 1,000 ML ONE (17:53)
[2024-01-02 18:45] LABS: Absolute Eosinophils 0.3 K/uL (0-0.5); Absolute Lymphocytes (CBC) 1.8 K/uL (0.7-4.9); Absolute Monocytes 0.5 K/uL (0.1-1.3); Absolute Neutrophil 6.2 K/uL (1.8-8.0); Basophils % 0.5 % (0-1.3); Eosinophils % 3.5 % (0-4.4); Hematocrit 46.1 % (39.6-49.0); Lymphocytes % 20.6 % (15.3-44.8); MCH 30.6 pg (27.0-35.0); MCHC 34.7 g/dL (32.0-36.0); MCV 88.1 fL (80-100); MPV 8.5 fL (7.6-11.3); Neutrophils % 69.4 % (41.7-73.7); Nucleated Red Blood Cells % 0.1 % (0-0); Platelets 293 thou/uL (152-406); RBC Red Blood Cell Count 5.24 M/uL (4.33-5.43); Red Cell Distribution Width 12.7 % (12.1-15.2)
[2024-01-02 18:48] LABS: Albumin 3.9 g/dL (3.4-5.0); Albumin/Globulin Ratio 1.3 (1.1-1.8); Anion Gap 7.5 mEq/L (5.0-15.0); Bilirubin Total 0.6 mg/dL (0.2-1.0); Globulin 3.1 g/dL (2.3-3.5); Potassium 3.5 mEq/L (3.5-5.1)
--- NOTE | 2024-01-02 21:02 | ER ---
Nurse's Notes [facility] Name: Berlin Tran Age: 33 yrs Sex: Male : 1990 Arrival Date: 01/02/2024 Time: 17:19 Bed 7 Private MD: Diagnosis: Localized edema Presentation: 01/01 17:36 Chief complaint: Patient states: pain and swelling to right foot and face today. iw Coronavirus screen: At this time, the client does not indicate any symptoms associated with coronavirus-19. Ebola Screen: Patient negative for fever greater than or equal to 101.5 degrees Fahrenheit, and additional compatible Ebola Virus Disease symptoms Patient denies exposure to infectious person. Patient denies travel to an Ebola-affected area in the 21 days before illness onset. No symptoms or risks identified at this time. Onset: The symptoms/episode began/occurred 2 hour(s) ago. Anaphylaxis evaluation, no signs or symptoms of anaphylaxis were noted. Initial Sepsis Screen: Does the patient meet any 2 criteria? No. Patient's initial sepsis screen is negative. Does the patient have a suspected source of infection? No. Patient's initial sepsis screen is negative. Risk Assessment: Do you want to hurt yourself or someone else? Patient reports no desire to harm self or others. 17:36 Method Of Arrival: Ambulatory iw 17:36 Acuity: PITER 3 iw 19:30 Onset of symptoms. Onset of symptoms was January 02, 2024 at 15:20. me1 Historical: - Allergies: 17:38 Motrin IB; iw - PMHx: 17:38 Gastroesophageal reflux disease; iw - Immunization history:: Adult Immunizations unknown. - Infectious Disease History:: Denies. - Social history:: Smoking status: Reported history of juuling and/or vaping. Screenin:20 [facility] ED Fall Risk Assessment (Adult) History of falling in the last 3 months, me1 including since admission No falls in past 3 months (0 pts) Confusion or Disorientation No (0 pts) Intoxicated or Sedated No (0 pts) Impaired Gait No (0 pts) Mobility Assist Device Used No (0 pt) Altered Elimination No (0 pt) Score/Fall Risk Level 0 - 2 = Low Risk Maintained a safe environment, Provided non-skid footwear, Hourly rounding (assess needs \T\ fall precautionary measures) done. Abuse screen: Denies threats or abuse. Nutritional screening: No deficits noted. Tuberculosis screening: No symptoms or risk factors identified. 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 Pain: Denies pain. Neuro: Level of Consciousness is awake, alert, obeys commands, Oriented to person, place, time, situation, Appropriate for age. Cardiovascular: Capillary refill < 3 seconds Patient's skin is warm and dry. Respiratory: Airway is patent Respiratory effort is even, unlabored, Respiratory pattern is regular, symmetrical, Breath sounds are clear bilaterally. GI: No signs and/or symptoms were reported involving the gastrointestinal system. : No signs and/or symptoms were reported regarding the genitourinary system. EENT: edema to bridge of nose and bilateral eyes- worse on right. Derm: facial edema. Musculoskeletal: No signs and/or symptoms reported regarding the musculoskeletal system. Vital Signs: 17:39 BP 133 / 85; Pulse 88; Resp 16; Pulse Ox 98% ; Weight 90.72 kg; iw 18:00 BP 138 / 80; Pulse 78; Resp 16; Pulse Ox 96% on R/A; me1 19:00 BP 137 / 77; Pulse 72; Resp 18; Pulse Ox 95% on R/A; me1 20:00 BP 133 / 94; Pulse 79; Resp 16; Pulse Ox 97% on R/A; me1 ED Course: 17:20 No provider procedures requiring assistance completed. me1 17:20 Patient has correct armband on for positive identification. Bed in low position. Call sc1 light in reach. Side rails up X2. Provided Education on: POC. Verbalized understanding. . Client placed on continuous cardiac and pulse oximetry monitoring. NIBP monitoring applied. Pulse ox on. NIBP on. 17:20 Arm band placed on Patient placed in an exam room. me1 17:21 Patient arrived in ED. ko1 17:23 Estephanie Benitez FNP-C is PHCP. kb 17:23 Gagandeep Rodriguez MD is Attending Physician. kb 17:38 Triage completed. iw 17:43 Mariluz Sutherland, VU is Primary Nurse. me1 17:55 CMP Sent, CBC with Diff Sent. me1 18:16 Initial lab(s) drawn, by me, sent to lab. Inserted saline lock: 20 gauge in right me1 antecubital area, using aseptic technique. 21:29 IV discontinued, intact, bleeding controlled, No redness/swelling at site. Pressure me1 dressing applied. Administered Medications: 18:00 Drug: NS 0.9% IV 1000 ml IV at 1000 ml once Route: IV; Rate: 1000 ml; Site: right me1 antecubital; 20:17 Follow up: Response: No adverse reaction; IV Status: Completed infusion; IV Intake: me1 1000ml 18:00 Drug: MethylPrednisoLONE IVP 125 mg IVP once Route: IVP; Site: right antecubital; me1 20:17 Follow up: Response: No adverse reaction me1 18:00 Drug: Famotidine IVP 20 mg IVP once; dilute with 10 mL 0.9% NaCl; give over 2 minutes me1 Route: IVP; Site: right antecubital; 20:17 Follow up: Response: No adverse reaction me1 18:00 Drug: diphenhydrAMINE IVP 25 mg IVP once Route: IVP; Site: right antecubital; me1 20:16 Follow up: Response: No adverse reaction me1 Medication: 17:20 VIS not applicable for this client. me1 Intake: 20:17 IV: 1000ml; Total: 1000ml. me1 Outcome: 21:01 Discharge ordered by . brigette 21:29 Discharged to home ambulatory, with family, me1 21:29 Condition: stable 21:29 Discharge instructions given to patient, family, Instructed on discharge instructions, follow up and referral plans. medication usage, Demonstrated understanding of instructions, follow-up care, medications, Prescriptions given X 2, 21:30 Patient left the ED. me1 Signatures: Estephanie Benitez, INSTRUCTOR CREELER-C INSTRUCTOR CREELER-Ckb Cynthia Claudio, RN RN iw Cheri Garza, VU RN Mariluz Duke RN RN me1 Corrections: (The following items were deleted from the chart) 18:16 17:50 COMPREHENSIVE METABOLIC PANEL+C.LAB.BRZ drawn and sent. me1 me1 18:16 17:50 CBC+H.LAB.BRZ drawn and sent. me1 me1
--- NOTE | 2024-01-02 21:02 | EDPHYS ---
Physician Documentation [facility] Name: Berlin Tran Age: 33 yrs Sex: Male : 1990 Arrival Date: 01/02/2024 Time: 17:19 Bed 7 Private MD: ED Physician Gagandeep Rodriguez HPI: 01/01 22:12 This 33 yrs old Male presents to ER via Ambulatory with complaints of Allergic kb Reaction. 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 States he has had angioedema in the past and is concerned that is what is happening now. Denies shortness of breath or tongue swelling. . Historical: - Allergies: 17:38 Motrin IB; iw - PMHx: 17:38 Gastroesophageal reflux disease; iw - Immunization history:: Adult Immunizations unknown. - Infectious Disease History:: Denies. - Social history:: Smoking status: Reported history of juuling and/or vaping. ROS: 22:09 Constitutional: As per HPI kb Exam: 22:09 Constitutional: This is a well developed, well nourished patient who is awake, alert, kb and in no acute distress. ENT: Moist Mucous membranes Cardiovascular: Regular rate Respiratory: Respirations even and unlabored. No increased work of breathing. Talking in full sentences Abdomen/GI: Soft, non-tender. No distention MS/ Extremity: Pulses equal, no cyanosis. Neurovascular intact. Full, normal range of motion. Neuro: Awake and alert, GCS 15, oriented to person, place, time, and situation. Moves all extremities. Normal gait. 22:09 Head/face: Noted is no obvious of injury or deformity except swelling, that is mild, that is moderate, of the right side of head, 22:09 Eyes: Lids and lashes: edema, of the right eye, 22:09 Skin: swelling to right foot. Vital Signs: 17:39 BP 133 / 85; Pulse 88; Resp 16; Pulse Ox 98% ; Weight 90.72 kg; iw 18:00 BP 138 / 80; Pulse 78; Resp 16; Pulse Ox 96% on R/A; me1 19:00 BP 137 / 77; Pulse 72; Resp 18; Pulse Ox 95% on R/A; me1 20:00 BP 133 / 94; Pulse 79; Resp 16; Pulse Ox 97% on R/A; me1 MDM: 17:23 Patient medically screened. kb 22:10 Differential diagnosis: angioedema, urticaria, edema. Data reviewed: vital signs, kb nurses notes. Historians other than the Patient: Spouse/Significant Other: . Counseling: I had a detailed discussion with the patient and/or guardian regarding the historical points, exam findings, and any diagnostic results supporting the discharge/admit diagnosis, lab results, the need for outpatient follow up, an allergy/locator specialist, to return to the emergency department if symptoms worsen or persist or if there are any questions or concerns that arise at home. ED course: Discussed case with Dr Olivier who evaluated pt as well and recommends outpatient follow up. Brush Holder Inspector line used to give follow up recommendation and return precautions. . 01/01 18:28 Order name: Comprehensive Metabolic Panel EDMD 01/01 18:28 Order name: CBC with Automated Diff EDMD 01/01 18:48 Order name: Comprehensive Metabolic Panel; Complete Time: 18:56 EDMS 01/01 18:49 Order name: CBC with Automated Diff; Complete Time: 18:56 EDMS 01/01 17:39 Order name: IV Start; Complete Time: 17:50 kb Administered Medications: 18:00 Drug: NS 0.9% IV 1000 ml IV at 1000 ml once Route: IV; Rate: 1000 ml; Site: right me1 antecubital; 20:17 Follow up: Response: No adverse reaction; IV Status: Completed infusion; IV Intake: me1 1000ml 18:00 Drug: MethylPrednisoLONE IVP 125 mg IVP once Route: IVP; Site: right antecubital; me1 20:17 Follow up: Response: No adverse reaction me1 18:00 Drug: Famotidine IVP 20 mg IVP once; dilute with 10 mL 0.9% NaCl; give over 2 minutes me1 Route: IVP; Site: right antecubital; 20:17 Follow up: Response: No adverse reaction me1 18:00 Drug: diphenhydrAMINE IVP 25 mg IVP once Route: IVP; Site: right antecubital; me1 20:16 Follow up: Response: No adverse reaction me1 Disposition Summary: 01/02/24 21:01 Discharge Ordered Notes: Location: Home kb Condition: Stable kb Diagnosis - Localized edema kb Followup: kb - With: Emergency Department - When: As needed - Reason: Worsening of condition Followup: kb - With: Private Physician - When: 2 - 3 days - Reason: Recheck today's complaints, Continuance of care, Re-evaluation by your physician Discharge Instructions: - Discharge Summary Sheet kb - Edema, [id number] kb - Allergies, Adult, [id number] kb Forms: - Medication Reconciliation Form kb - Antibiotic Education kb - Prescription Opioid Use kb - Patient Portal Instructions kb - Leadership Thank You Letter kb Prescriptions: - Pepcid 20 mg Oral Tablet - take 1 tablet ORAL route every 12 hours for 5 days; 10 tablet; Refills: 0, kb Product Selection Permitted - Prednisone 20 mg Oral Tablet - take 1 tablet ORAL route once daily for 5 days; 5 tablet; Refills: 0, Product kb Selection Permitted Signatures: Dispatcher [employer] Estephanie Harding, ALMAC YUSUF-Cynthia Wade RN RN iw Mariluz Sutherland RN RN me1
[2024-01-02 21:51] VITALS: BP 133/94; O2SAT 97
== END 2024-01-02 21:30 | disposition home or self-care (01) ==
LOC: ER 17:19
DX: R60.0 Localized edema (principal)
CPT/HCPCS: 36415; 80053; 85025; 96361; 96374; 96375; 99284; J1200; J2919; J7030

== ENCOUNTER 2024-01-03 09:05 | Observation (INO) | payer SELFPAY ==
[2024-01-03] MEDS ORDERED: METHYLPREDNISOLONE 125 MG INJ ONE (09:14)
[2024-01-03] MEDS ORDERED: DIPHENHYDRAMINE 50 MG/ML VIAL ONE (09:14)
[2024-01-03] MEDS ORDERED: FAMOTIDINE 20 MG/2 ML VIAL IV ONE (09:15)
[2024-01-03] MEDS ORDERED: EPINEPHRINE 1 MG/ML VIAL ONE (09:15)
[2024-01-03] MEDS ORDERED: NA CHLORIDE 0.9% 0 ML ONE (10:02)
[2024-01-03] MEDS ORDERED: TRANEXAMIC ACID 1,000 MG/10 ML VIAL IV ONE (10:02)
[2024-01-03] MEDS ORDERED: NA CHLORIDE 0.9% 100 ML ONE (10:03)
--- NOTE | 2024-01-03 13:12 | EDPHYS ---
Physician Documentation [facility] Name: Berlin Tran Age: 33 yrs Sex: Male : 1990 Arrival Date: 01/03/2024 Time: 09:05 Bed 7 Private MD: ED Physician Blaise Cat HPI: 01/02 09:27 This 33 yrs old Male presents to ER via Ambulatory with complaints of Allergic rn Reaction. 09:27 The patient presents with localized swelling, swelling of the lips. Onset: The rn symptoms/episode began/occurred yesterday. Associated signs and symptoms: Pertinent negatives: abdominal pain, Altered mental status chest pain, hives, shortness of breath, Syncope vomiting. Severity of symptoms: At their worst the symptoms were moderate in the emergency department the symptoms are unchanged. The patient has experienced similar episodes in the past. Patient reports seen here yesterday for same problem. Noticed facial swelling, mainly upper lip swelling. States got better with medication yesterday but returned this morning. Denies shortness of breath. No rash. Patient reports father has same problem. No new medication or food. Otherwise feels okay.. Historical: - Allergies: 09:08 Motrin IB; ll1 - PMHx: 09:08 Gastroesophageal reflux disease; ll1 - Immunization history:: Adult Immunizations up to date. - Infectious Disease History:: Denies. - Family history:: not pertinent. - Hospitalizations: : No recent hospitalization is reported. - Social history:: Smoking status: Patient denies any tobacco usage or history of. ROS: 09:27 Constitutional: Negative for fever, chills, and weight loss, ENT: Positive for upper rn lip and periorbital swelling Neck: Negative for injury, pain, and swelling, Cardiovascular: Negative for chest pain, palpitations, and edema, Respiratory: Negative for shortness of breath, cough, wheezing, and pleuritic chest pain, Abdomen/GI: Negative for abdominal pain, nausea, vomiting, diarrhea, and constipation, MS/Extremity: Negative for injury and deformity, Skin: Negative for injury, rash, and discoloration, Neuro: Negative for headache, weakness, numbness, tingling, and seizure, Exam: 09:27 Constitutional: This is a well developed, well nourished patient who is awake, alert, rn and in no acute distress. Patient ambulatory to room without difficulty or assistance Head/Face: Atraumatic. Eyes: Bilateral periorbital edema noted. ENT: Upper lip swollen. No tongue swelling. No stridor. Cardiovascular: Regular rate and rhythm. No pulse deficits. Respiratory: Mild tachypnea noted. No wheezing Abdomen/GI: Soft, non-tender Skin: Warm, dry MS/ Extremity: Pulses equal, no cyanosis. Neurovascular intact. Full, normal range of motion. Equal circumference. Neuro: Awake and alert, GCS 15 Vital Signs: 09:10 BP 148 / 91 LA Sitting (auto/reg); Pulse 81 MON; Resp 18 S; Temp 98.2(TE); Pulse Ox 97% jg11 on R/A; 11:05 BP 137 / 86; Pulse 71; Resp 18; Pulse Ox 99% on R/A; rs5 13:46 BP 140 / 88; Pulse 77; Resp 18; Pulse Ox 99% on R/A; rs5 MDM: 09:07 Patient medically screened. rn 10:10 ED course: Patient with mild improvement of symptoms. Very orbital swelling has rn decreased, upper lip still swollen. No stridor or change in respiratory status.. 13:10 Differential diagnosis: anaphylaxis, angioedema. Data reviewed: vital signs, nurses rn notes, and as a result, I will admit patient. Counseling: I had a detailed discussion with the patient and/or guardian regarding the historical points, exam findings, and any diagnostic results supporting the discharge/admit diagnosis, the need for further work-up and treatment in the hospital. Response to treatment: the patient's symptoms have mildly improved after treatment, and as a result, I will admit patient. ED course: Patient has shown slight improvement. Still no concern for airway compromise but given symptoms worsened today after treatment yesterday and continued observation in ER, decision made to admit for observation and repeat dosing of medication as needed.. 01/02 14:39 Order name: Basic Metabolic Panel EDMS 01/02 14:39 Order name: Basic Metabolic Panel EDMS 01/02 14:39 Order name: CBC with Automated Diff EDMS 01/02 14:39 Order name: CBC with Automated Diff EDMS 01/02 14:39 Order name: Magnesium EDMS 01/02 14:39 Order name: Magnesium EDMS 01/02 14:39 Order name: Phosphorus EDMS 01/02 14:39 Order name: Phosphorus EDMS 01/02 09:12 Order name: IV Start; Complete Time: 09:21 rn Administered Medications: 09:15 Drug: MethylPrednisoLONE IVP 125 mg IVP once Route: IVP; Site: right antecubital; rs5 09:30 Follow up: Response: No adverse reaction rs5 09:15 Drug: EPINEPHrine 1:1000 Sub-Q 1:1,000 0.3 ml Sub-Q once Route: Sub-Q; Site: left thigh;rs5 09:30 Follow up: Response: No adverse reaction rs5 09:15 Drug: Famotidine IVP 20 mg IVP once; dilute with 10 mL 0.9% NaCl; give over 2 minutes rs5 Route: IVP; Site: right antecubital; 09:30 Follow up: Response: No adverse reaction rs5 09:15 Drug: diphenhydrAMINE IVP 50 mg IVP once Route: IVP; Site: right antecubital; rs5 09:30 Follow up: Response: No adverse reaction rs5 09:41 Drug: tranexamic acid 1000 mg IV at calculated rate once; administer at a rate not to rs5 exceed 100 mg per min Route: IV; Rate: calculated rate; Site: right antecubital; 10:00 Follow up: Response: No adverse reaction rs5 Disposition Summary: 01/03/24 13:11 Hospitalization Ordered Notes: Hospitalization Status: Observation rn Provider: James Tay rn Location: Telemetry/MedSurg (observation) rn Condition: Stable rn Problem: an acute exacerbation rn Symptoms: are unchanged rn Bed/Room Type: Standard rn Room Assignment: 223(01/03/24 15:16) bd Diagnosis - Angioedema rn Forms: - Medication Reconciliation Form rn - SBAR form rn - Leadership Thank You Letter rn Signatures: Dispatcher [employer] EDMS Gillespielakeshia Becky Blaise Willson MD MD rn Lewis, Lynsay, RN RN ll1 Neno Kat RN RN rs5 Corrections: (The following items were deleted from the chart) 15:16 13:11 rn bd
--- NOTE | 2024-01-03 13:12 | ER ---
Nurse's Notes [facility] Name: Berlin Tran Age: 33 yrs Sex: Male : 1990 Arrival Date: 01/03/2024 Time: 09:05 Bed 7 Private MD: Diagnosis: Angioedema Presentation: 01/02 09:09 Chief complaint: Patient states: Facial swelling, redness, SOB has gotten worse since ll1 his visit here yesterday. Coronavirus screen: Client denies travel out of the [place] in the last 14 days. At this time, the client does not indicate any symptoms associated with coronavirus-19. Ebola Screen: Patient denies travel to an Ebola-affected area in the 21 days before illness onset. Onset: The symptoms/episode began/occurred yesterday. Anaphylaxis evaluation, no signs or symptoms of anaphylaxis were noted. Initial Sepsis Screen: Does the patient meet any 2 criteria? No. Patient's initial sepsis screen is negative. Does the patient have a suspected source of infection? No. Patient's initial sepsis screen is negative. Risk Assessment: Do you want to hurt yourself or someone else? Patient reports no desire to harm self or others. Onset of symptoms was January 02, 2024. 09:09 Method Of Arrival: Ambulatory ll1 09:09 Acuity: PITER 2 ll1 Triage Assessment: 09:10 General: Appears distressed, uncomfortable, Behavior is calm, cooperative, appropriate ll1 for age. EENT: Reports Significant swelling to upper lip and face. Derm: Reports swelling to face, upper lip. Historical: - Allergies: 09:08 Motrin IB; ll1 - PMHx: 09:08 Gastroesophageal reflux disease; ll1 - Immunization history:: Adult Immunizations up to date. - Infectious Disease History:: Denies. - Family history:: not pertinent. - Hospitalizations: : No recent hospitalization is reported. - Social history:: Smoking status: Patient denies any tobacco usage or history of. Screenin:10 [facility] ED Fall Risk Assessment (Adult) History of falling in the last 3 months, rs5 including since admission. [facility] ED Fall Risk Assessment (Adult) History of falling in the last 3 months, including since admission No falls in past 3 months (0 pts) Confusion or Disorientation No (0 pts) Intoxicated or Sedated No (0 pts) Impaired Gait No (0 pts) Mobility Assist Device Used No (0 pt) Altered Elimination No (0 pt) Score/Fall Risk Level 0 - 2 = Low Risk Oriented to surroundings, Maintained a safe environment. Abuse screen: Denies threats or abuse. Nutritional screening: No deficits noted. Tuberculosis screening: No symptoms or risk factors identified. Assessment: 09:10 General: Appears in no apparent distress. uncomfortable, Behavior is calm, cooperative. rs5 Pain: Denies pain. Neuro: Level of Consciousness is awake, alert, obeys commands, Oriented to person, place, time, situation. Cardiovascular: Patient's skin is warm and dry. Rhythm is regular. Respiratory: Airway is patent Respiratory effort is even, unlabored, Respiratory pattern is regular, symmetrical, Breath sounds are clear. GI: Abdomen is round non-distended, Abd is soft and non tender X 4 quads. : No signs and/or symptoms were reported regarding the genitourinary system. EENT: swelling and redness noted to upper and lower lips, and lower eyelids bilat. pt states "I was seen here yesterday for an allergic reaction, they sent me home with medication but it hasn't helped". Derm: Skin is intact, Skin is dry, Skin is normal, Skin temperature is warm. Musculoskeletal: Range of motion: intact in all extremities, Swelling present in face. 10:12 Reassessment: Patient and/or family updated on plan of care and expected duration. Pain rs5 level reassessed. Patient is alert, oriented x 3, equal unlabored respirations, skin warm/dry/pink. Patient states feeling better. Patient states symptoms have improved. 11:22 Reassessment: No changes from previously documented assessment. rs5 12:04 Reassessment: Patient and/or family updated on plan of care and expected duration. Pain rs5 level reassessed. Patient is alert, oriented x 3, equal unlabored respirations, skin warm/dry/pink. 13:07 Reassessment: No changes from previously documented assessment. rs5 13:46 Reassessment: Patient and/or family updated on plan of care and expected duration. Pain rs5 level reassessed. Patient is alert, oriented x 3, equal unlabored respirations, skin warm/dry/pink. Vital Signs: 09:10 BP 148 / 91 LA Sitting (auto/reg); Pulse 81 MON; Resp 18 S; Temp 98.2(TE); Pulse Ox 97% jg11 on R/A; 11:05 BP 137 / 86; Pulse 71; Resp 18; Pulse Ox 99% on R/A; rs5 13:46 BP 140 / 88; Pulse 77; Resp 18; Pulse Ox 99% on R/A; rs5 ED Course: 09:06 Patient arrived in ED. im 09:07 Blaise Cat MD is Attending Physician. rn 09:07 Neno Kat RN is Primary Nurse. rs5 09:08 Arm band placed on Patient placed in an exam room, on a stretcher. ll1 09:10 Triage completed. ll1 09:11 Client placed on continuous cardiac and pulse oximetry monitoring. NIBP monitoring jg11 applied. Pulse ox on. 09:11 Patient has correct armband on for positive identification. Placed in gown. Bed in low rs5 position. Call light in reach. Side rails up X2. 09:18 Inserted saline lock: 20 gauge in right antecubital area, using aseptic technique. jg11 12:04 No provider procedures requiring assistance completed. rs5 13:11 James Tay is Hospitalizing Provider. rn 13:50 Patient admitted, IV remains in place. rs5 Administered Medications: 09:15 Drug: MethylPrednisoLONE IVP 125 mg IVP once Route: IVP; Site: right antecubital; rs5 09:30 Follow up: Response: No adverse reaction rs5 09:15 Drug: EPINEPHrine 1:1000 Sub-Q 1:1,000 0.3 ml Sub-Q once Route: Sub-Q; Site: left thigh;rs5 09:30 Follow up: Response: No adverse reaction rs5 09:15 Drug: Famotidine IVP 20 mg IVP once; dilute with 10 mL 0.9% NaCl; give over 2 minutes rs5 Route: IVP; Site: right antecubital; 09:30 Follow up: Response: No adverse reaction rs5 09:15 Drug: diphenhydrAMINE IVP 50 mg IVP once Route: IVP; Site: right antecubital; rs5 09:30 Follow up: Response: No adverse reaction rs5 09:41 Drug: tranexamic acid 1000 mg IV at calculated rate once; administer at a rate not to rs5 exceed 100 mg per min Route: IV; Rate: calculated rate; Site: right antecubital; 10:00 Follow up: Response: No adverse reaction rs5 Medication: 09:11 VIS not applicable for this client. rs5 Outcome: 13:11 Decision to Hospitalize by Provider. rn 13:50 Admitted to ER Hold. Please see [facility] for further documentation. rs5 13:50 Condition: stable rs5 13:50 Discharge instructions given to patient, family, Instructed on the need for admit, Demonstrated understanding of instructions, 16:50 Patient left the ED. bp Signatures: Blaise Cat MD MD rn Peltier, Brian, RN RN bp Lena Uribe RN RN ll1 Neno Kat RN RN rs5 Allegra Hacnock Jordan jg11
--- NOTE | 2024-01-03 14:41 | P.HP ---
Certification for Inpatient Patient admitted to: Observation With expected LOS: <2 Midnights Patient will require the following post-hospital care: None Practitioner: I am a practitioner with admitting privileges, knowledge of patient current condition, hospital course, and medical plan of care. Services: Services provided to patient in accordance with Admission requirements found in Title 42 Section 412.3 of the Code of Federal Regulations Patient History Date of Service: 01/03/24 Reason for admission: Hereditary angioedema History of Present Illness: Berlin Tran is a 33-year-old male with past medical history of GERD who presents to the ED with chief complaint of facial swelling. He presented to the ED yesterday with similar complaint and was discharged. He reports this episode started in his right foot then his bilateral eyes and down his lips. He has come back today not improved and reportedly worse. He was administered Benadryl, epinephrine, Pepcid, Solu-Medrol stress dose, transexamic acid with no improvement. Progression of the swelling is working down his face. He reports almost being intubated in the past due to his edema. He reports having a medication that he no longer has available to him and name is unknown. Dr. Turk has been consulted if this progession continues to his airway. Initial vitals BP 148 / 91 LA Sitting (auto/reg); Pulse 81 MON; Resp 18 S; Temp 98.2(TE); Pulse Ox 97% on R/A; Berlin be admitted to hospitalist service for observation in the ICU, Dr. Lorenzo consulted. Allergies ibuprofen [From Motrin] Allergy (Verified 09/17/23 04:06) Hives Home Medications: NK [No Home Meds] 01/03/24 - Past Medical/Surgical History Diabetic: No -: GERD -: gastritis Past Surgical History: Unable to obtain - Family History Father Notes: pt states father has swelling Mother -: Hypertension - Social History Smoking Status: Unknown if ever smoked Alcohol use: Yes CD- Drugs: No Caffeine use: Yes Review of Systems ENT: Other (Facial edema, eyes, nose, and both lips) Physical Examination - Physical Exam General: Alert, In no apparent distress, Oriented x3 HEENT: Atraumatic, Normocephalic, PERRLA Neck: Supple, 2+ carotid pulse no bruit Respiratory: Clear to auscultation bilaterally, Normal air movement Cardiovascular: Normal pulses, Normal S1 S2, Irregular heart rate/rhythm (Tachycardic) Capillary refill: <2 Seconds Gastrointestinal: Soft and benign Musculoskeletal: Other (right foot edema) Neurological: Normal speech (new zealander) Assessment and Plan - Plan Assessment and plan Acute Hereditary angioedema -Benadryl, epinephrine, Pepcid, Solu-Medrol stress dose, transexamic acid given in the ED -Benadryl and Solu-Medrol and Pepcid x 1 on the floor -Hold IV fluids unless blood pressure drops -Monitor for aspiration -Dr. Lorenzo on-call if needed -Transferred to the ICU History of Gastritis History of GERD -Continue home medications when available DVT PPx SCDs Full code Overnight observation Discharge Plan: Home Plan to discharge in: 48 Hours - Advance Directives Does patient have a Living Will: No Does patient have a Durable POA for Healthcare: No
[2024-01-03] MEDS: NA CHLORIDE 0.9% 1,000 ML IV SCH (15:00)
[2024-01-03 17:12] VITALS: BMI 29.4
[2024-01-03 17:30] VITALS: O2SAT 99
[2024-01-03] MEDS: FAMOTIDINE 20 MG/2 ML VIAL IV ONE (21:08)
[2024-01-03] MEDS: FAMOTIDINE 20 MG/2 ML VIAL IV SCH (21:12)
[2024-01-03] MEDS: METHYLPREDNISOLONE 40 MG INJ IV ONE (21:22)
[2024-01-03] MEDS: DIPHENHYDRAMINE 25 MG TAB/CAP PO ONE (21:22)
[2024-01-04 05:26] LABS: Absolute Lymphocytes (CBC) 0.9 K/uL (0.7-4.9); Absolute Monocytes 0.4 K/uL (0.1-1.3); Absolute Neutrophil 17.2 K/uL (1.8-8.0); Basophils % 0.2 % (0-1.3); Hematocrit 45.4 % (39.6-49.0); Lymphocytes % 4.9 % (15.3-44.8); MCH 29.6 pg (27.0-35.0); MCHC 33.1 g/dL (32.0-36.0); MCV 89.5 fL (80-100); MPV 8.6 fL (7.6-11.3); Monocytes % 2.1 % (3.3-12.3); Neutrophils % 92.8 % (41.7-73.7); Platelets 306 thou/uL (152-406); RBC Red Blood Cell Count 5.08 M/uL (4.33-5.43); Red Cell Distribution Width 12.6 % (12.1-15.2)
[2024-01-04 05:37] LABS: Anion Gap 5.5 mEq/L (5.0-15.0); Magnesium 2.2 mg/dL (1.6-2.4); Phosphorus 2.6 mg/dL (2.5-4.9); Potassium 4.5 mEq/L (3.5-5.1)
--- NOTE | 2024-01-04 07:40 | P.CNS ---
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 He presented to the emergency room on January 01 with complaint of swelling in the feet and was subsequently discharged home. He returned on the morning of January 02 with complaint of facial swelling. He has no specific known dietary trigger. He denies any recent trauma or infection felt likely have triggered his symptoms. He began having significant swelling of the upper lip which seem to be worsening and prompted him to come to the emergency room. In the hospital he was treated with a standard cocktail of H2 león, IV Benadryl, and IV steroids. Due to failure to significantly improve decision was made to admit him. Due to progressive or worsening swelling of the lower lip ENT consult was requested. And limited interview with the patient, he denies any difficulty breathing, swallowing, or speaking. He does feel the swelling of the upper lip is improving over the last 6 to 8 hours since he presented to the emergency room but the swelling of the lower portion of the face and lower lip is worsening. The patient provides photodocumentation of the swelling and this change in his appearance is confirmed. The patient states that several years ago, he was close to requiring airway intervention or intubation but received some injection which seemed to improve his condition and prevented the need for intubation. In review of the patient's length the emergency room history within our system, I do not see any medications administered that would be outside of what he has currently received. There are multiple episodes where he has received famotidine, Benadryl and steroids. Of note the patient has been admitted multiple times per year for a variety of complaints, seemingly often to be associated with his hereditary angioedema. He often presents with abdominal symptoms which are a known manifestation of this condition. Documentation seems irregular in regards to whether this diagnosis of hereditary angioedema is well-established within the medical record and is often not mentioned in his emergency room evaluations. The patient is uninsured and does not appear to have a adequate outpatient follow-up in regards to standard treatment plan and management of this condition on an outpatient basis. In review of the record I do not see any evidence of confirmatory diagnosis though in light of his overall history, laboratory studies are not likely required in my perspective for diagnosis. Physical exam: The patient appears to be in no acute respiratory distress. He is controlling his secretions well, he is able to articulate. He denies any difficulty breathing he does not have any stridor or visible increased work of breathing. He has moderately significant edema of the lower eyelids and bilateral cheeks. He has mild to moderate edema of the bilateral upper lip, he has moderate to severe edema of the left lower lip. Intraorally his tongue appears completely normal, the floor of mouth appears normal, the palate and uvula appear normal. Laryngeal exam is not performed but the quality of his voice and general assessment of his breathing does not raise any concerns at this time. Assessment: Hereditary angioedema with acute exacerbation affecting the face and lips Plan: I reviewed recent literature and in regards to available medication, the patient appears to have received the appropriate medications which are available locally. I spent time in consultation with the hospitalist team in regards to additional treatment options. There are several new FDA approved treatments including administration of complement factors but these are not available within our hospital system. In contrast to lisinopril or other drug-induced angioedema, the time course of HAE is less familiar to me. Patients with drug- induced angioedema if they require airway intervention typically require treatment within a 4 to 8-hour window after which time they are typically improving. Based on the patient's exam and complaints today I do not see any need to consider airway intervention but I agree with close observation and monitoring. 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 We will continue to follow with you in regards to the patient. For the patient's overall health and benefit of the system, it would be very beneficial to connect the patient with a primary care doctor and or specialist with expertise in hereditary angioedema in order to establish an overall long- term care plan including outpatient treatment algorithm in order to reduce the need for frequent emergency room visit.
[2024-01-04 08:00] VITALS: TEMP 98.2
[2024-01-04 08:52] LABS: Blood Morphology Comment NOT SEEN (NOT SEEN); Platelet Estimate ADEQ; White Blood Cell Scan OK (OK)
--- NOTE | 2024-01-04 11:08 | P.DS ---
Admission Date: 01/03/24 Discharge Date: 01/04/24 Disposition: ROUTINE DISCHARGE Discharge Condition: FAIR Reason for Admission: Hereditary angioedema Brief History of Present Illness: Diagnosis Acute Hereditary angioedema exacerbation History of Gastritis History of GERD HPI 01/03/24 Berlin Tran is a 33-year-old male with past medical history of GERD who presents to the ED with chief complaint of facial swelling. He presented to the ED yesterday with similar complaint and was discharged. He reports this episode started in his right foot then his bilateral eyes and down his lips. He has come back today not improved and reportedly worse. He was administered Benadryl, epinephrine, Pepcid, Solu-Medrol stress dose, transexamic acid with no improvement. Progression of the swelling is working down his face. He reports almost being intubated in the past due to his edema. He reports having a medication that he no longer has available to him and name is unknown. Dr. Turk has been consulted if this progession continues to his airway. Initial vitals BP 148 / 91 LA Sitting (auto/reg); Pulse 81 MON; Resp 18 S; Temp 98.2(TE); Pulse Ox 97% on R/A; Berlin be admitted to hospitalist service for observation in the ICU, Dr. Lorenzo consulted. Hospital Course: Berlin Tran is a pleasant 32-year-old male with a past medical history significant for hereditary angioedema and GERD who was admitted to the [facility] on 01/03/2024 for exacerbation of hereditary angioedema. Berlin presented to the ED with chief complaint of facial swelling. He had visited the ED on 01/01 with the same issue but the swelling has increased since discharge. He was administered Benadryl, epinephrine, Pepcid, Solu-Medrol stress dose, transexamic acid in the ED with continued swelling after admission. Transfer was attempted for the need to reach out to immunology/hematology for further treatment options. This morning, Berlin's facial swelling has decreased back to baseline. He has been instructed to safely travel to [facility] for further specialities that can provide necessary treatment for his condition. Dr. Ramsay was consulted for possible emergent tracheostomy. Dr. 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 During this admission, he has not had an airway issue, he is tolerating p.o. diet, and he is hemodynamically stable for discharge. On 01/04/2024, Berlin was seen on morning rounds and deemed medically stable for discharge. Berlin was discharged with instructions to schedule follow-up appointments with PCP. The patient was given the opportunity to ask questions and reported no further questions. Furthermore, all questions were answered to the best of my ability. A copy of this discharge summary will be sent to the above providers to facilitate continuity of care. Physical Exam General: Alert, In no apparent distress, Oriented x3 HEENT: improved swelling to bilateral eyes and lips, MMM Neck: Supple, 2+ carotid pulse no bruit Respiratory: Clear to auscultation bilaterally, Normal air movement, on room air Cardiovascular: Normal pulses, Normal S1 S2, regular rate and rhythm, no murmur noted Capillary refill: <2 Seconds Gastrointestinal: Soft and benign Musculoskeletal: 2+ peripheral pulses Neurological: Normal speech ([place]) Vital Signs/Physical Exam: Temp Pulse Resp BP Pulse Ox 98.2 F 76 18 137/82 97 01/04/24 07:00 01/04/24 09:00 01/04/24 09:00 01/04/24 09:00 01/04/24 09:00 Laboratory Data at Discharge: WBC 18.50 thou/uL (4.3-10.9) H 01/04/24 04:52 Hgb 15.0 g/dL (13.6-17.9) 01/04/24 04:52 Hct 45.4 % (39.6-49.0) 01/04/24 04:52 Plt Count 306 thou/uL (152-406) 01/04/24 04:52 Sodium 138 mEq/L (136-145) 01/04/24 04:52 Potassium 4.5 mEq/L (3.5-5.1) 01/04/24 04:52 BUN 12 mg/dL (7-18) 01/04/24 04:52 Creatinine 0.80 mg/dL (0.70-1.30) 01/04/24 04:52 Glucose 149 mg/dL (74-106) H 01/04/24 04:52 Phosphorus 2.6 mg/dL (2.5-4.9) 01/04/24 04:52 Magnesium 2.2 mg/dL (1.6-2.4) 01/04/24 04:52 Home Medications: NK [No Home Meds] 01/03/24 Physician Discharge Instructions: PROBLEM: HAE Hereditary Angio edema GOAL: Clear understanding of disease process INSTRUCTIONS: Please follow up with a primary care physician of your choice and establish care for ongoing treatment. Its very important to figure out the name of the medication that helped last time and keep it in your wallet. Please allow plenty of time with any on set of edema to get to [facility]. You can call [phone] with any questions or concerns. Diet: Regular Activity: Ad maru [employer] Services Needed: NA Name of Company: Date or Referral: IMMUNIZATION Influenza Vaccine Indicated: Influenza Vaccine Given: Date Given: Pneumonia Vaccine Indicated: No Pneumonia Vaccine Given: Date Given: Diet: Regular Activity: Ad maru Followup: NONE,NONE [Primary Care Provider] - 1-2 Weeks
[2024-01-04 11:32] VITALS: BP 136/80
== END 2024-01-04 10:45 | disposition home or self-care (01) ==
LOC: ER 09:05 → ERHOLD 14:26 → 2ND 15:19 → 3RD-ICU 18:39
PROVIDERS: ADMIT Internal Medicine; ATTEND Emergency Medicine
DX: D84.1 Defects in the complement system (principal); K21.9 Gastro-esophageal reflux disease without esophagitis; K29.70 Gastritis, unspecified, without bleeding
CPT/HCPCS: 36415; 80048; 83735; 84100; 85025; 96372; 96374; 96375; 99285; G0378; J0171; J1200; J2919; J2920; J7030; J7050

== ENCOUNTER 2024-03-25 15:26 | Emergency (ER) | payer SELFPAY ==
--- NOTE | 2024-03-25 15:54 | EDPHYS ---
Physician Documentation [facility] Name: Berlin Tran Age: 33 yrs Sex: Male : 1990 Arrival Date: 03/25/2024 Time: 15:26 Bed IW2 Private MD: ED Physician Robert Brice HPI: 03/25 15:55 This 33 yrs old Male presents to ER via Ambulatory with complaints of ec2 Medication Refill, Foot Pain. 15:55 Patient arrives today for pain as well as medication refill. Has been on Protonix 40 mg ec2 daily and is asking for refill of medication. Also complains of right foot pain, states that he has pain with ambulation. Has not tried medications.. Historical: - Allergies: 15:47 Motrin IB; hb - Home Meds: 15:47 Protonix Oral [Active]; hb - PMHx: 15:47 Gastroesophageal reflux disease; hb - Immunization history:: Adult Immunizations up to date. - Infectious Disease History:: Denies. - Social history:: Smoking status: Reported history of juuling and/or vaping. Patient uses alcohol, only on a social basis. ROS: 15:55 Constitutional: as per hpi ec2 Exam: 15:55 Constitutional: GEN: NAD Head: atraumatic Eyes: EOMI Ears: External ears are ec2 normal. CV: regular rate LUNGS: no respiratory distress ABD: non-distended SKIN: Plantar and dorsal aspect of the right foot without any erythema, no warmth, no significant TTP. MSK: no evidence of trauma NEURO: moves all extremities equally Vital Signs: 15:50 BP 128 / 92; Pulse 83; Resp 16; Temp 97.4; Pulse Ox 100% on R/A; hb MDM: 15:31 Patient medically screened. kb 15:55 Data reviewed: vital signs. ED course: Patient arrives for medication refill and foot ec2 pain. Examination remarkable for well-appearing nontoxic vigorous otherwise in no acute distress with reassuring examination. Will refill his Protonix, possible plantar fasciitis, instructed him on [id number] medications. Return precautions given. . Administered Medications: No medications were administered Disposition Summary: 03/25/24 15:54 Discharge Ordered Notes: Location: Home ec2 Condition: Stable ec2 Diagnosis - Medication Refill ec2 Followup: ec2 - With: Private Physician - When: - Reason: Re-evaluation by your physician Discharge Instructions: - Discharge Summary Sheet ec2 Forms: - Work release form zm - Medication Reconciliation Form ec2 - Antibiotic Education ec2 - Prescription Opioid Use ec2 - Patient Portal Instructions ec2 - Leadership Thank You Letter ec2 Prescriptions: - Protonix 40 mg Oral tablet, delayed release (enteric coated) - take 1 tablet ORAL route once daily; 60 tablet; Refills: 0, Product Selection ec2 Permitted Signatures: Estephanie Benitez FNP-C FNP-Ckb Baxter, Heather RN RN Robert Brice MD MD ec2 Corrections: (The following items were deleted from the chart) 15:51 15:47 Social history: Smoking status: [facility] 15:52 15:47 Social history: Smoking status: Reported history of juuling and/or vaping. [facility]
--- NOTE | 2024-03-25 15:54 | ER ---
Nurse's Notes [facility] Name: Berlin Tran Age: 33 yrs Sex: Male : 1990 Arrival Date: 03/25/2024 Time: 15:26 Bed IW2 Private MD: Diagnosis: Medication Refill Presentation: 03/25 15:47 Chief complaint: Needs refill for Protonix.. Also c/o right foot pain. Denies injury hb but walks on uneven surface. Coronavirus screen: At this time, the client does not indicate any symptoms associated with coronavirus-19. Ebola Screen: No symptoms or risks identified at this time. Initial Sepsis Screen: Does the patient meet any 2 criteria? No. Patient's initial sepsis screen is negative. Does the patient have a suspected source of infection? No. Patient's initial sepsis screen is negative. Risk Assessment: Do you want to hurt yourself or someone else? Patient reports no desire to harm self or others. Onset of symptoms was March 25, 2024. 15:47 Method Of Arrival: Ambulatory hb 15:47 Acuity: PITER 4 hb Triage Assessment: 15:48 General: Appears in no apparent distress. Behavior is calm, cooperative. Pain: Denies hb pain. Neuro: Level of Consciousness is awake, alert, obeys commands, Oriented to person, place, time, situation. Cardiovascular: Patient's skin is warm and dry. Respiratory: Respiratory effort is even, unlabored, Respiratory pattern is regular, symmetrical. 15:49 Musculoskeletal: Reports right foot pain. hb Historical: - Allergies: 15:47 Motrin IB; hb - Home Meds: 15:47 Protonix Oral [Active]; hb - PMHx: 15:47 Gastroesophageal reflux disease; hb - Immunization history:: Adult Immunizations up to date. - Infectious Disease History:: Denies. - Social history:: Smoking status: Reported history of juuling and/or vaping. Patient uses alcohol, only on a social basis. Screenin:49 [facility] ED Fall Risk Assessment (Adult) History of falling in the last 3 months, hb including since admission No falls in past 3 months (0 pts) Confusion or Disorientation No (0 pts) Intoxicated or Sedated No (0 pts) Impaired Gait No (0 pts) Mobility Assist Device Used No (0 pt) Altered Elimination No (0 pt) Score/Fall Risk Level 0 - 2 = Low Risk Oriented to surroundings, Maintained a safe environment, Educated pt \T\ family on fall prevention, incl call for assistance when getting out of bed. Abuse screen: Denies threats or abuse. Denies injuries from another. Nutritional screening: No deficits noted. Tuberculosis screening: No symptoms or risk factors identified. Assessment: 15:48 General: See triage assessment.. hb Vital Signs: 15:50 BP 128 / 92; Pulse 83; Resp 16; Temp 97.4; Pulse Ox 100% on R/A; hb ED Course: 15:29 Patient arrived in ED. ec2 15:31 Estephanie Benitez FNP-C is [facility]. kb 15:31 Robert Brice MD is Attending Physician. kb 15:47 Triage completed. hb 15:48 Arm band placed on. hb 15:49 Patient has correct armband on for positive identification. Provided Education on: hb follow wup. 15:49 No provider procedures requiring assistance completed. Patient did not have IV access hb during this emergency room visit. Administered Medications: No medications were administered Medication: 15:49 VIS not applicable for this client. hb Outcome: 15:54 Discharge ordered by . ec2 15:59 Patient left the ED. hb Signatures: Estephanie Benitez FNP-C FNP-Ckb Baxter, Heather, RN RN hb Robert Brice MD MD ec2 Corrections: (The following items were deleted from the chart) 15:49 15:47 Chief complaint: Needs refill for Protonix. hb hb 15:49 15:47 Acuity: PITER 5 hb hb 15:49 15:48 General: Appears in no apparent distress. Behavior is calm, cooperative, hb hb 15:51 15:47 Social history: Smoking status: hb hb 15:52 15:47 Social history: Smoking status: Reported history of juuling and/or vaping. hb hb
[2024-03-25 18:57] VITALS: BP 128/92; TEMP 97.4; O2SAT 100
== END 2024-03-25 15:59 | disposition home or self-care (01) ==
LOC: ER 15:26
DX: Z76.0 Encounter for issue of repeat prescription (principal)
CPT/HCPCS: 99281

== ENCOUNTER 2024-07-12 10:47 | Emergency (ER) | payer SELFPAY ==
[2024-07-12] MEDS ORDERED: ONDANSETRON 4 MG/2 ML VIAL ONE (11:29)
[2024-07-12] MEDS ORDERED: FAMOTIDINE 20 MG/2 ML VIAL IV ONE (11:29)
[2024-07-12] MEDS ORDERED: MORPHINE 4 MG/ML SYR ONE (11:29)
[2024-07-12] MEDS ORDERED: NA CHLORIDE 0.9% 1,000 ML ONE (11:29)
[2024-07-12 11:51] LABS: Absolute Eosinophils 0.2 K/uL (0-0.5); Absolute Lymphocytes (CBC) 1.4 K/uL (0.7-4.9); Absolute Monocytes 0.7 K/uL (0.1-1.3); Absolute Neutrophil 9.5 K/uL (1.8-8.0); Basophils % 0.3 % (0-1.3); Eosinophils % 1.6 % (0-4.4); Hematocrit 50.6 % (39.6-49.0); Hemoglobin 17.4 g/dL (13.6-17.9); Lymphocytes % 11.7 % (15.3-44.8); MCH 30.4 pg (27.0-35.0); MCHC 34.3 g/dL (32.0-36.0); MCV 88.8 fL (80-100); MPV 8.3 fL (7.6-11.3); Monocytes % 5.6 % (3.3-12.3); Neutrophils % 80.8 % (41.7-73.7); Platelets 302 thou/uL (152-406); Red Cell Distribution Width 12.4 % (12.1-15.2)
[2024-07-12 12:07] LABS: Albumin 3.9 g/dL (3.4-5.0); Albumin/Globulin Ratio 1.3 (1.1-1.8); Anion Gap 6.8 mEq/L (5.0-15.0); Bilirubin Total 1.1 mg/dL (0.2-1.0); Globulin 2.9 g/dL (2.3-3.5); Potassium 3.8 mEq/L (3.5-5.1); Protein, Total 6.8 g/dL (6.4-8.2)
--- NOTE | 2024-07-12 12:34 | RAD REPORT ---
EXAMINATION: CT Abdomen Pelvis W Contrast CLINICAL INDICATION: Male, 33 years old. ABD PAIN TECHNIQUE: CT abdomen and pelvis was performed, after the administration of 100 mL Isovue 300, as per department protocol. Axial, sagittal and coronal reconstructions were obtained. One or more of the following dose reduction techniques were used: Automated exposure control, adjustment of the mA and k V according to patient size, and iterative reconstruction. Unless otherwise specified, incidental findings do not require dedicated imaging follow-up. COMPARISON: 09/16/2023 FINDINGS: LOWER CHEST: The visualized lung bases are clear. LIVER: Normal in size and contour. No focal lesion. BILIARY SYSTEM: No suspicious abnormalities. SPLEEN: Normal size. Stable exophytic cystic lesion along the superior splenic margin measuring 1.6 c m. PANCREAS: No mass, ductal dilation, or maria del rosario-pancreatic fluid. ADRENALS: Normal; no mass. KIDNEYS: Normal size and contour. No hydronephrosis. URINARY BLADDER: Decompressed limiting evaluation. GASTROINTESTINAL TRACT: Long segment of bowel wall thickening, mucosal enhancement, and submucosal ed fransico involving the distal ileum. The terminal ileum is relatively spared. Adjacent fat stranding extending to the right paracolic gutter, with likely sympathetic adventitial fat stranding surroundin g the ascending colon as well. Small-volume right perihepatic ascites. Trace layering fluid along the paracolic gutters bilaterally and in the deep pelvis. Inflammatory changes along the distal colon and rectum seen on the prior exam have since resolved. No evidence of free air, bowel obstruction, or abnormal fluid collections. APPENDIX: Normal appendix. LYMPH NODES: No lymphadenopathy. MUSCULOSKELETAL: No acute or suspicious osseous abnormality. ADDITIONAL FINDINGS: None. IMPRESSION: Long segment of wall thickening, mucosal enhancement, and submucosal edema involving the distal ileum , relatively sparing the terminal ileum. The findings raise concern for inflammatory bowel disease such as Crohn's disease. Please correlate clinically. Mild free ascites. Other stable findings as above.
[2024-07-12 12:59] LABS: Sqamous Epithelial None Seen /HPF (None Seen); Urine Bacteria None Seen /HPF (<20); Urine Bilirubin NEGATIVE (Negative); Urine Blood Negative (Negative); Urine Clarity Clear (Clear); Urine Color Light-Yellow (Yellow); Urine Culture Reflex Order NOT NEEDED; Urine Glucose NEGATIVE (Negative); Urine Ketones NEGATIVE (Negative); Urine Microscopic Reflex YN ORDER UMIC; Urine Mucus Slight /HPF (None Seen); Urine Nitrite NEGATIVE (Negative); Urine Protein TRACE (Negative); Urine RBC <5 /HPF (None Seen); Urine Sperm Present (None Seen); Urine Urobilinogen Normal (Normal); Urine WBC <5 /HPF (<5); Urine pH 5.5 (5.0-7.0)
[2024-07-12 13:01] LABS: Specific Gravity > 1.030 (1.005-1.030)
--- NOTE | 2024-07-12 13:08 | EDPHYS ---
Physician Documentation [facility] Name: Berlin Tran Age: 33 yrs Sex: Male : 1990 Arrival Date: 07/12/2024 Time: 10:47 Bed 15 Private MD: ED Physician Robert Brice HPI: 07/12 11:13 This 33 yrs old Male presents to ER via Ambulatory with complaints of stomach ec2 pain. 11:13 Patient arrives today for evaluation of upper abdominal pain that started early this ec2 morning. Patient reports that he started having abdominal pain approximately 3 AM. Has been constant in the upper abdomen. Reports similar history of pain with history of gastritis. Some associated nausea. Patient reports no diarrhea symptoms. He denies any cough and cold symptoms. Reports some urinary frequency. No previous abdominal surgeries.. Historical: - Allergies: 11:05 No Known Allergies; ss - Home Meds: 11:05 None [Active]; ss - PMHx: 11:05 gastritis (Gastroesophageal reflux disease); ss - PSHx: 11:05 None; ss - Immunization history:: Client reports receiving the 2nd dose of the Covid vaccine. - Infectious Disease History:: Denies. - Social history:: Smoking status: Reported history of juuling and/or vaping. Patient uses alcohol. ROS: 11:13 Constitutional: as per hpi ec2 Exam: 11:13 Constitutional: GEN: NAD Head: atraumatic Eyes: EOMI Ears: External ears are ec2 normal. CV: regular rate LUNGS: no respiratory distress ABD: non-distended, soft, tender in the right lower quadrant, not guarding, not rigid. Also tender in the epigastrium. SKIN: no evidence of rashes MSK: no evidence of trauma Vital Signs: 11:04 Pain 8/10; ss 11:46 BP 136 / 89; Pulse 98; Resp 18; Pulse Ox 99% on R/A; ph 13:34 BP 128 / 78; Pulse 81; Resp 18; Temp 98; Pulse Ox 98% on R/A; ph 11:04 Pain Scale: Adult ss MDM: 11:09 Medical Screening Exam initiated ec2 11:13 Data reviewed: vital signs, nurses notes. ED course: Patient arrives today for ec2 evaluation of upper abdominal pain. Examination remarkable for abdominal findings as above. Will obtain lab work, treat the patient's pain and reassess. . 12:43 ED course: CT imaging shows colitis, possible IBD, free ascites noted. Patient without ec2 any bloody stools. Will have the patient follow-up with GI for further IBD diagnosis.. 13:07 ED course: Urine noninfectious appearing. Will discharge home have the patient ec2 follow-up PCP. Also instructed the patient follow-up with GI. Return precautions given.. 07/12 11:10 Order name: CBC with Diff; Complete Time: 12:00 ec2 07/12 11:10 Order name: CMP; Complete Time: 12:08 ec2 07/12 11:10 Order name: Lipase; Complete Time: 12:08 ec2 07/12 11:10 Order name: Urinalysis w/ reflexes; Complete Time: 13:07 ec2 07/12 11:10 Order name: CT Abd/Pelvis - IV Contrast Only; Complete Time: 12:42 ec2 07/12 11:10 Order name: IV Saline Lock; Complete Time: 11:45 ec2 07/12 11:10 Order name: Labs collected and sent; Complete Time: 11:45 ec2 Administered Medications: 11:44 Drug: Ondansetron IVP 4 mg IVP once; over 2 minutes Route: IVP; Site: right antecubital;ph 13:34 Follow up: Response: No adverse reaction ph 11:45 Drug: Famotidine IVP 20 mg IVP once; dilute with 10 mL 0.9% NaCl; give over 2 minutes ph Route: IVP; Site: right antecubital; 13:35 Follow up: Response: No adverse reaction ph 11:45 Drug: morphine IVP or IV 4 mg IVP once over 4 mins Route: IVP; Infused Over: 4 mins; ph Site: right antecubital; 12:15 Follow up: Response: No adverse reaction; Pain is decreased; RASS: Alert and Calm (0) ph 11:45 Drug: NS 0.9% IV 1000 ml IV at 1 bolus Per protocol; to be given as a bolus over 60 ph minutes Route: IV; Rate: 1 bolus; Site: right antecubital; 13:35 Follow up: Response: No adverse reaction; IV Status: Completed infusion; IV Intake: ph 1000ml Disposition Summary: 07/12/24 13:07 Discharge Ordered Notes: Location: Home ec2 Condition: Stable ec2 Diagnosis - Other specified noninfective gastroenteritis and colitis ec2 Followup: ec2 - With: Alfredo Navarro MD - When: - Reason: Recheck today's complaints Discharge Instructions: - Discharge Summary Sheet ec2 - Crohn's Disease ec2 - Colitis ec2 Forms: - Medication Reconciliation Form ec2 - Antibiotic Education ec2 - Prescription Opioid Use ec2 - Patient Portal Instructions ec2 - Leadership Thank You Letter ec2 Prescriptions: - dicyclomine 10 mg Oral capsule - take 1 capsule ORAL route 3 times per day; 30 capsule; Refills: 0, Product ec2 Selection Permitted Signatures: Dispatcher [employer] Camila Perez RN RN ss Zoila Phillips RN RN [facility], MD [facility] Jones ec2 Corrections: (The following items were deleted from the chart) 11: 11:05 Allergies: Motrin IB; ss ss 11: 11:05 PMHx: Gastroesophageal reflux disease; ss ss 11:11 11:11 CBC+H.LAB.BRZ ordered. EDMS EDMS 11:11 11:11 COMPREHENSIVE METABOLIC PANEL+C.LAB.BRZ ordered. EDMS EDMS 11:11 11:11 LIPASE+C.LAB.BRZ ordered. EDMS EDMS 11:11 11:11 Urinalysis+U.LAB.BRZ ordered. EDMS EDMS 11:11 11:11 Abdomen Pelvis W Con+CT.RAD.BRZ ordered. EDMS EDMS 13:35 12:53 Russell ordered. ec2 ph
--- NOTE | 2024-07-12 13:08 | ER ---
Nurse's Notes [facility] Name: Berlin Tran Age: 33 yrs Sex: Male : 1990 Arrival Date: 07/12/2024 Time: 10:47 Bed 15 Private MD: Diagnosis: Other specified noninfective gastroenteritis and colitis Presentation: 07/12 11:04 Chief complaint: Patient states: abd pain that began at 3 in the morning. Coronavirus ss screen: Client denies travel out of the [place] in the last 14 days. Ebola Screen: Patient denies exposure to infectious person. Patient denies travel to an Ebola-affected area in the 21 days before illness onset. Initial Sepsis Screen: Does the patient meet any 2 criteria? No. Patient's initial sepsis screen is negative. Does the patient have a suspected source of infection? No. Patient's initial sepsis screen is negative. Risk Assessment: Do you want to hurt yourself or someone else? Patient reports no desire to harm self or others. Onset of symptoms was July 12, 2024. 11:04 Method Of Arrival: Ambulatory ss 11:04 Acuity: PITER 3 ss Historical: - Allergies: 11:05 No Known Allergies; ss - Home Meds: 11:05 None [Active]; ss - PMHx: 11:05 gastritis (Gastroesophageal reflux disease); ss - PSHx: 11:05 None; ss - Immunization history:: Client reports receiving the 2nd dose of the Covid vaccine. - Infectious Disease History:: Denies. - Social history:: Smoking status: Reported history of juuling and/or vaping. Patient uses alcohol. Screenin:[facility] ED Fall Risk Assessment (Adult) History of falling in the last 3 months, ph including since admission No falls in past 3 months (0 pts) Confusion or Disorientation No (0 pts) Intoxicated or Sedated No (0 pts) Impaired Gait No (0 pts) Mobility Assist Device Used No (0 pt) Altered Elimination No (0 pt) Score/Fall Risk Level 0 - 2 = Low Risk Oriented to surroundings, Maintained a safe environment, Hourly rounding (assess needs \T\ fall precautionary measures) done. Abuse screen: Denies threats or abuse. Denies injuries from another. Nutritional screening: No deficits noted. Tuberculosis screening: No symptoms or risk factors identified. Assessment: 11:21 Neuro: Level of Consciousness is awake, alert, obeys commands, Oriented to person, ss place, time, situation. GI: Abdomen is tender to palpation in right lower quadrant. : Reports urinary frequency. 11:51 General: Appears in no apparent distress. uncomfortable, Behavior is calm, cooperative. ph Pain: Complains of pain in right lower quadrant. Neuro: Level of Consciousness is awake, alert, obeys commands, Oriented to person, place, time, situation. Cardiovascular: Capillary refill < 3 seconds in bilateral fingers Patient's skin is warm and dry. Respiratory: Airway is patent Respiratory effort is even, unlabored. GI: Abdomen is tender to palpation in right lower quadrant Reports lower abdominal pain, diarrhea, nausea. Derm: Skin is pink, warm \T\ dry. 13:34 Reassessment: Patient appears in no apparent distress at this time. Patient and/or ph family updated on plan of care and expected duration. Pain level reassessed. Patient is alert, oriented x 3, equal unlabored respirations, skin warm/dry/pink. Patient states feeling better. Patient states symptoms have improved. Vital Signs: 11:04 Pain 8/10; ss 11:46 BP 136 / 89; Pulse 98; Resp 18; Pulse Ox 99% on R/A; ph 13:34 BP 128 / 78; Pulse 81; Resp 18; Temp 98; Pulse Ox 98% on R/A; ph 11:04 Pain Scale: Adult ss ED Course: 10:50 Patient arrived in ED. ra3 10:51 Robert Brice MD is Attending Physician. ec2 11:05 Triage completed. ss 11:05 Arm band placed on right wrist. ss 11:27 Zoila Phillips, RN is Primary Nurse. ph 11:45 CBC with Diff Sent. ph 11:45 CMP Sent. ph 11:45 Lipase Sent. ph 11:46 Initial lab(s) drawn, by me, sent to lab. Missed attempt(s): 20 gauge in right ph antecubital area. Bleeding controlled, band aid applied, catheter tip intact. Inserted saline lock: 22 gauge in right antecubital area, using aseptic technique. Blood collected. Flushed with 10 mL NS. 11:50 Patient has correct armband on for positive identification. Bed in low position. Call ph light in reach. Side rails up X 1. Pulse ox on. NIBP on. Door closed. Noise minimized. Warm blanket given. 12:11 CT Abd/Pelvis - IV Contrast Only In Process Unspecified. EDMS 13:07 Alfredo Navarro MD is Referral Physician. ec2 13:35 No provider procedures requiring assistance completed. IV discontinued, intact, ph bleeding controlled, No redness/swelling at site. Pressure dressing applied. Administered Medications: 11:44 Drug: Ondansetron IVP 4 mg IVP once; over 2 minutes Route: IVP; Site: right antecubital;ph 13:34 Follow up: Response: No adverse reaction ph 11:45 Drug: Famotidine IVP 20 mg IVP once; dilute with 10 mL 0.9% NaCl; give over 2 minutes ph Route: IVP; Site: right antecubital; 13:35 Follow up: Response: No adverse reaction ph 11:45 Drug: morphine IVP or IV 4 mg IVP once over 4 mins Route: IVP; Infused Over: 4 mins; ph Site: right antecubital; 12:15 Follow up: Response: No adverse reaction; Pain is decreased; RASS: Alert and Calm (0) ph 11:45 Drug: NS 0.9% IV 1000 ml IV at 1 bolus Per protocol; to be given as a bolus over 60 ph minutes Route: IV; Rate: 1 bolus; Site: right antecubital; 13:35 Follow up: Response: No adverse reaction; IV Status: Completed infusion; IV Intake: ph 1000ml Medication: 11:50 VIS not applicable for this client. ph Intake: 13:35 IV: 1000ml; Total: 1000ml. ph Outcome: 13:07 Discharge ordered by . ec2 13:35 Discharged to home ambulatory, ph 13:35 Condition: good 13:35 Discharge instructions given to patient, Instructed on discharge instructions, follow up and referral plans. medication usage, Demonstrated understanding of instructions, follow-up care, medications, Prescriptions given X 1, 13:36 Patient left the ED. ph Signatures: Dispatcher [employer] EDGA Camila Marcial RN RN Zoila Phillips RN RN Robert Brice MD MD ec2 Eli Cano ra3 Corrections: (The following items were deleted from the chart) 11:09 11:05 Allergies: Motrin IB; ss ss 11:09 11:05 PMHx: Gastroesophageal reflux disease; ss ss
[2024-07-12 15:19] VITALS: BP 128/78; TEMP 98; O2SAT 98
== END 2024-07-12 13:36 | disposition home or self-care (01) ==
LOC: ER 10:47
DX: K52.89 Other specified noninfective gastroenteritis and colitis (principal)
CPT/HCPCS: 36415; 74177; 80053; 81001; 83690; 85025; 96361; 96374; 96375; 99284; J2405; J7030; Q9967

== ENCOUNTER 2024-07-12 18:32 | Emergency (ER) | payer SELFPAY ==
[2024-07-12] MEDS ORDERED: ONDANSETRON 4 MG/2 ML VIAL ONE (19:59)
[2024-07-12] MEDS ORDERED: FAMOTIDINE 20 MG/2 ML VIAL IV ONE (19:59)
[2024-07-12] MEDS ORDERED: NA CHLORIDE 0.9% 1,000 ML ONE (19:59)
[2024-07-12 20:12] LABS: Absolute Basophils 0.1 K/uL (0-0.5); Absolute Eosinophils 0.1 K/uL (0-0.5); Absolute Lymphocytes (CBC) 1.3 K/uL (0.7-4.9); Absolute Monocytes 0.7 K/uL (0.1-1.3); Absolute Neutrophil 13.5 K/uL (1.8-8.0); Basophils % 0.3 % (0-1.3); Eosinophils % 0.4 % (0-4.4); Hematocrit 52.2 % (39.6-49.0); Hemoglobin 17.7 g/dL (13.6-17.9); Lymphocytes % 8.5 % (15.3-44.8); MCH 30.2 pg (27.0-35.0); MCV 88.7 fL (80-100); MPV 8.3 fL (7.6-11.3); Monocytes % 4.2 % (3.3-12.3); Neutrophils % 86.6 % (41.7-73.7); Platelets 349 thou/uL (152-406); RBC Red Blood Cell Count 5.88 M/uL (4.33-5.43); Red Cell Distribution Width 12.6 % (12.1-15.2)
[2024-07-12 20:26] LABS: Specific Gravity > 1.030 (1.005-1.030); Sqamous Epithelial <5 /HPF (None Seen); Urine Bacteria None Seen /HPF (<20); Urine Bilirubin NEGATIVE (Negative); Urine Blood Negative (Negative); Urine Clarity Clear (Clear); Urine Color Yellow (Yellow); Urine Culture Reflex Order NOT NEEDED; Urine Glucose NEGATIVE (Negative); Urine Ketones NEGATIVE (Negative); Urine Microscopic Reflex YN ORDER UMIC; Urine Mucus 2+ /HPF (None Seen); Urine Nitrite NEGATIVE (Negative); Urine Protein TRACE (Negative); Urine RBC <5 /HPF (None Seen); Urine Urobilinogen Normal (Normal); Urine WBC <5 /HPF (<5); Urine pH 5.5 (5.0-7.0)
[2024-07-12 20:29] LABS: Albumin 3.8 g/dL (3.4-5.0); Albumin/Globulin Ratio 1.4 (1.1-1.8); Anion Gap 8.8 mEq/L (5.0-15.0); Globulin 2.8 g/dL (2.3-3.5); Potassium 3.8 mEq/L (3.5-5.1); Protein, Total 6.6 g/dL (6.4-8.2)
[2024-07-12] MEDS ORDERED: DICYCLOMINE HCL 20 MG/2 ML AMP IM ONE (20:37)
[2024-07-12] MEDS ORDERED: METHYLPREDNISOLONE 125 MG INJ ONE (21:39)
[2024-07-12 22:05] LABS: Blood Morphology Comment NOT SEEN (NOT SEEN); Platelet Estimate ADEQ; White Blood Cell Scan OK (OK)
--- NOTE | 2024-07-12 22:51 | EDPHYS ---
Physician Documentation [facility] Name: Berlin Tran Age: 33 yrs Sex: Male : 1990 Arrival Date: 07/12/2024 Time: 18:32 Bed 17 Private MD: ED Physician Robert Brice HPI: 07/12 19:40 This 33 yrs old Male presents to ER via Ambulatory with complaints of Stomach cp pain. 19:40 The patient presents with abdominal pain. Associated signs and symptoms: Pertinent cp positives: nausea and vomiting. The symptoms are described as constant. Severity of pain: in the emergency department the pain is unchanged despite home interventions. The patient has been recently seen at the [facility] Emergency Department, today, for similar complaints labs were performed, CT scan was performed. Historical: - Home Meds: 19:13 Protonix Oral [Active]; ss - PMHx: 19:13 gastritis (Gastroesophageal re); ss - Immunization history:: Adult Immunizations up to date. - Infectious Disease History:: Denies. - Social history:: Smoking status: Reported history of juuling and/or vaping. ROS: 19:45 Abdomen/GI: Positive for abdominal pain, nausea and vomiting, cp 19:45 Eyes: Negative for injury, pain, redness, and discharge, cp 19:45 Constitutional: Negative for body aches, chills, fever, poor PO intake, 19:45 Cardiovascular: Negative for chest pain, palpitations, 19:45 Respiratory: Negative for cough, shortness of breath, wheezing, 19:45 Neuro: Negative for altered mental status, cp 19:45 All other systems are negative, Exam: 19:50 Constitutional: The patient appears in no acute distress, alert, awake, cp non-diaphoretic, non-toxic, well developed, well nourished, uncomfortable, 19:50 Head/Face: Normocephalic, atraumatic. cp 19:50 Eyes: Periorbital structures: appear normal, Conjunctiva: normal, no exudate, no injection, Sclera: no appreciated abnormality, Lids and lashes: appear normal, bilaterally, 19:50 ENT: External ear(s): are unremarkable, Nose: is normal, Mouth: Lips: moist, Oral mucosa: moist, Posterior pharynx: Airway: no evidence of obstruction, patent, 19:50 Chest/axilla: Inspection: normal, 19:50 Cardiovascular: Rate: normal, Rhythm: regular, 19:50 Respiratory: the patient does not display signs of respiratory distress, Respirations: normal, no use of accessory muscles, no retractions, labored breathing, is not present, Breath sounds: are clear throughout, no decreased breath sounds, no stridor, no wheezing, 19:50 Abdomen/GI: Inspection: abdomen appears normal, Bowel sounds: active, all quadrants, Palpation: soft, in all quadrants, moderate abdominal tenderness, in all quadrants, 19:50 Back: pain, is absent, 19:50 Neuro: Orientation: to person, place \T\ time. Mentation: is normal, Vital Signs: 19:10 BP 113 / 77; Pulse 91; Resp 19; Temp 97.9; Pulse Ox 100% ; Weight 90.72 kg; ss 19:35 BP 119 / 92; Pulse 84; Resp 18; Pulse Ox 100% on R/A; Pain 10/10; rg5 20:15 BP 129 / 89; Pulse 75; Resp 17; Pulse Ox 97% on R/A; Pain 8/10; rg5 21:30 BP 115 / 72; Pulse 67; Resp 18; Pulse Ox 96% on R/A; Pain 5/10; rg5 22:27 BP 123 / 60; Pulse 68; Resp 16; Pulse Ox 97% on R/A; Pain 3/10; rg5 23:00 BP 121 / 65; Pulse 68; Resp 16; Temp 98(O); Pulse Ox 97% on R/A; Pain 0/10; rg5 19:35 Pain Scale: Adult rg5 20:15 Pain Scale: Adult rg5 21:30 Pain Scale: Adult rg5 22:27 Pain Scale: Adult rg5 23:00 Pain Scale: Adult rg5 [place] Coma Score: 19:35 Eye Response: spontaneous(4). Motor Response: obeys commands(6). Verbal Response: rg5 oriented(5). Total: 15. MDM: 19:16 Medical Screening Exam initiated cp 20:00 Differential diagnosis: bowel obstruction, diverticulitis, gastritis, non-specific abd cp pain, pancreatitis, Peptic Ulcer Disease, Perf. Duodenal Ulcer, Perf. Gastric Ulcer, Ureterolithiasis, urinary tract infection. 22:50 Data reviewed: vital signs, nurses notes, lab test result(s), and as a result, I will cp discharge patient. 22:50 I considered the following discharge prescriptions or medication management in the emergency department Medications were administered in the Emergency Department. See MAR. 22:50 Counseling: I had a detailed discussion with the patient and/or guardian regarding the historical points, exam findings, and any diagnostic results supporting the discharge/admit diagnosis, lab results, the need for outpatient follow up, for definitive care, a city letter carrier, to return to the emergency department if symptoms worsen or persist or if there are any questions or concerns that arise at home. Response to treatment: the patient's symptoms have markedly improved after treatment, VSS. Pain and nausea markedly improved. Patient sleeping in exam room. 07/12 19:35 Order name: CBC with Diff; Complete Time: 22:47 cp 07/12 22:47 Interpretation: Normal except: WBC 15.60; RBC 5.88; HCT 52.2; ROLDAN% 86.6; LYM% 8.5; NEUT cp A 13.5. 07/12 19:35 Order name: CMP; Complete Time: 20:33 cp 07/12 19:35 Order name: Lipase; Complete Time: 20:33 cp 07/12 19:35 Order name: Urinalysis w/ reflexes; Complete Time: 20:33 cp 07/12 19:35 Order name: Lactate w/ 2H reflex if indic.; Complete Time: 20:33 cp 07/12 22:05 Order name: CBC Smear Scan; Complete Time: 22:47 EDMS 07/12 19:35 Order name: IV Saline Lock; Complete Time: 19:51 cp 07/12 19:35 Order name: Labs collected and sent; Complete Time: 19:54 cp 07/12 21:34 Order name: PO challenge; Complete Time: 21:59 cp Administered Medications: 20:00 Drug: Famotidine IVP 20 mg IVP once; dilute with 10 mL 0.9% NaCl; give over 2 minutes rg5 Route: IVP; Site: right antecubital; 20:17 Follow up: Response: No adverse reaction rg5 20:00 Drug: Ondansetron IVP 4 mg IVP once; over 2 minutes Route: IVP; Site: right antecubital;rg5 20:17 Follow up: Response: No adverse reaction rg5 20:00 Drug: NS 0.9% IV 1000 ml IV at 1 bolus Per protocol; to be given as a bolus over 60 rg5 minutes Route: IV; Rate: 1 bolus; Site: right antecubital; 21:00 Follow up: IV Status: Completed infusion; IV Intake: 1000ml rg5 20:39 Drug: Dicyclomine IM 20 mg IM once Route: IM; Site: right deltoid; rg5 21:48 Follow up: Response: No adverse reaction rg5 21:40 Drug: MethylPrednisoLONE IVP 125 mg IVP once Route: IVP; Site: right antecubital; rg5 21:59 Follow up: Response: No adverse reaction rg5 Disposition Summary: 07/12/24 22:50 Discharge Ordered Notes: Location: Home cp Problem: an ongoing problem cp Symptoms: have improved cp Condition: Stable cp Diagnosis - Nausea with vomiting, unspecified cp - Abdominal pain, unspecified cp Followup: cp - With: Alfredo Navarro MD - When: 2 - 3 days - Reason: Recheck today's complaints Discharge Instructions: - Discharge Summary Sheet cp - Abdominal Pain, Adult cp - Nausea and Vomiting, Adult cp Forms: - Medication Reconciliation Form cp - Antibiotic Education cp - Prescription Opioid Use cp - Patient Portal Instructions cp - Leadership Thank You Letter cp Prescriptions: - Pepcid 20 mg Oral Tablet - take 1 tablet ORAL route every 12 hours for 10 days; 20 tablet; Refills: 0, cp Product Selection Permitted - ondansetron 8 mg Oral Tablet,disintegrating - take 1 tablet ORAL route every 12 hours; 20 tablet; Refills: 0, Product cp Selection Permitted Signatures: Dispatcher [employer] Camila Perez RN RN Gagandeep Calles PA PA cp Jesse Wilks RN RN rg5 Corrections: (The following items were deleted from the chart) 07/13 01:18 01:17 Abdomen/GI: Positive for abdominal pain, nausea and vomiting, cp cp
--- NOTE | 2024-07-12 22:51 | ER ---
Nurse's Notes [facility] Name: Berlin Tran Age: 33 yrs Sex: Male : 1990 Arrival Date: 07/12/2024 Time: 18:32 Bed 17 Private MD: Diagnosis: Nausea with vomiting, unspecified;Abdominal pain, unspecified Presentation: 07/12 19:10 Chief complaint: Patient states: Patient presents in the ED c/o abdominal pain and ss diarrhea for the past 5 days. Patient states he was started on doxycycline today. Coronavirus screen: Client denies travel out of the [place] in the last 14 days. At this time, the client does not indicate any symptoms associated with coronavirus-19. Ebola Screen: No symptoms or risks identified at this time. Initial Sepsis Screen: Does the patient meet any 2 criteria? No. Patient's initial sepsis screen is negative. Does the patient have a suspected source of infection? No. Patient's initial sepsis screen is negative. Risk Assessment: Do you want to hurt yourself or someone else? Patient reports no desire to harm self or others. Onset of symptoms was July 12, 2024. 19:10 Method Of Arrival: Ambulatory ss 19:10 Acuity: PITER 3 ss Historical: - Home Meds: 19:13 Protonix Oral [Active]; ss - PMHx: 19:13 gastritis (Gastroesophageal re); ss - Immunization history:: Adult Immunizations up to date. - Infectious Disease History:: Denies. - Social history:: Smoking status: Reported history of juuling and/or vaping. Screenin:35 [facility] ED Fall Risk Assessment (Adult) History of falling in the last 3 months, rg5 including since admission No falls in past 3 months (0 pts) Confusion or Disorientation No (0 pts) Intoxicated or Sedated No (0 pts) Impaired Gait No (0 pts) Mobility Assist Device Used No (0 pt) Altered Elimination No (0 pt) Score/Fall Risk Level 0 - 2 = Low Risk Oriented to surroundings, Maintained a safe environment, Hourly rounding (assess needs \T\ fall precautionary measures) done. Abuse screen: Denies threats or abuse. Nutritional screening: No deficits noted. Tuberculosis screening: No symptoms or risk factors identified. Assessment: 19:35 General: Appears in no apparent distress. comfortable, Behavior is calm, cooperative, rg5 appropriate for age. Pain: Complains of pain in abdomen Pain currently is 10 out of 10 on a pain scale. Quality of pain is described as aching, crampy, Pain began 4 hours ago. 19:35 Neuro: Level of Consciousness is awake, alert, obeys commands, Oriented to person, rg5 place, time. Cardiovascular: Capillary refill < 3 seconds Patient's skin is warm and dry. Rhythm is sinus rhythm. Respiratory: Airway is patent Trachea midline Respiratory effort is even, unlabored, Respiratory pattern is regular, symmetrical. GI: Abdomen is round non-distended, Pt is actively vomiting Reports lower abdominal pain, upper abdominal pain, diarrhea, nausea, Pain is 10 out of 10 on a pain scale. : No signs and/or symptoms were reported regarding the genitourinary system. EENT: No deficits noted. Derm: Skin is intact, Skin is dry, Skin is normal, Skin temperature is warm. Musculoskeletal: Circulation, motion, and sensation intact. Range of motion: intact in all extremities. 20:15 Reassessment: Patient and/or family updated on plan of care and expected duration. Pain rg5 level reassessed. Patient is alert, oriented x 3, equal unlabored respirations, skin warm/dry/pink. 21:00 Reassessment: Patient and/or family updated on plan of care and expected duration. Pain rg5 level reassessed. Patient is alert, oriented x 3, equal unlabored respirations, skin warm/dry/pink. 22:00 Reassessment: Patient states feeling better. Patient states symptoms have improved. rg5 23:00 Reassessment: Patient and/or family updated on plan of care and expected duration. Pain rg5 level reassessed. Patient is alert, oriented x 3, equal unlabored respirations, skin warm/dry/pink. Patient states feeling better. Patient states symptoms have improved. Vital Signs: 19:10 BP 113 / 77; Pulse 91; Resp 19; Temp 97.9; Pulse Ox 100% ; Weight 90.72 kg; ss 19:35 BP 119 / 92; Pulse 84; Resp 18; Pulse Ox 100% on R/A; Pain 10/10; rg5 20:15 BP 129 / 89; Pulse 75; Resp 17; Pulse Ox 97% on R/A; Pain 8/10; rg5 21:30 BP 115 / 72; Pulse 67; Resp 18; Pulse Ox 96% on R/A; Pain 5/10; rg5 22:27 BP 123 / 60; Pulse 68; Resp 16; Pulse Ox 97% on R/A; Pain 3/10; rg5 23:00 BP 121 / 65; Pulse 68; Resp 16; Temp 98(O); Pulse Ox 97% on R/A; Pain 0/10; rg5 19:35 Pain Scale: Adult rg5 20:15 Pain Scale: Adult rg5 21:30 Pain Scale: Adult rg5 22:27 Pain Scale: Adult rg5 23:00 Pain Scale: Adult rg5 [place] Coma Score: 19:35 Eye Response: spontaneous(4). Motor Response: obeys commands(6). Verbal Response: rg5 oriented(5). Total: 15. ED Course: 18:35 Patient arrived in ED. ra3 18:40 Gagandeep Nichols PA is PHCP. cp 18:40 Robert Brice MD is Attending Physician. cp 19:13 Triage completed. ss 19:16 Jesse Wilks, VU is Primary Nurse. rg5 19:35 Patient has correct armband on for positive identification. Bed in low position. Call rg5 light in reach. Door closed. Noise minimized. 19:35 Arm band placed on right wrist. rg5 19:35 No provider procedures requiring assistance completed. Inserted saline lock: 20 gauge rg5 in right antecubital area, using aseptic technique. Blood collected. Flushed with 10 mL NS. 22:49 Alfredo Navarro MD is Referral Physician. cp 23:22 Provided Education on: post er care. rg5 23:22 IV discontinued, bleeding controlled, No redness/swelling at site. Pressure dressing rg5 applied. Administered Medications: 20:00 Drug: Famotidine IVP 20 mg IVP once; dilute with 10 mL 0.9% NaCl; give over 2 minutes rg5 Route: IVP; Site: right antecubital; 20:17 Follow up: Response: No adverse reaction rg5 20:00 Drug: Ondansetron IVP 4 mg IVP once; over 2 minutes Route: IVP; Site: right antecubital;rg5 20:17 Follow up: Response: No adverse reaction rg5 20:00 Drug: NS 0.9% IV 1000 ml IV at 1 bolus Per protocol; to be given as a bolus over 60 rg5 minutes Route: IV; Rate: 1 bolus; Site: right antecubital; 21:00 Follow up: IV Status: Completed infusion; IV Intake: 1000ml rg5 20:39 Drug: Dicyclomine IM 20 mg IM once Route: IM; Site: right deltoid; rg5 21:48 Follow up: Response: No adverse reaction rg5 21:40 Drug: MethylPrednisoLONE IVP 125 mg IVP once Route: IVP; Site: right antecubital; rg5 21:59 Follow up: Response: No adverse reaction rg5 Medication: 19:35 VIS not applicable for this client. rg5 Intake: 21:00 IV: 1000ml; Total: 1000ml. rg5 Outcome: 22:50 Discharge ordered by MD. cp 23:23 Discharged to home ambulatory, rg5 23:23 Condition: stable 23:23 Discharge instructions given to patient, Instructed on discharge instructions, follow up and referral plans. Demonstrated understanding of instructions, follow-up care, medications, Prescriptions given X 2, 23:23 Patient left the ED. rg5 Signatures: Camila Marcial, RN RN ss Gagandeep Nichols, [place] PA Eli Torrez ra3 Jesse Wilks, RN RN rg5
[2024-07-13 03:22] VITALS: O2SAT 97
[2024-07-13 03:23] VITALS: BP 121/65; TEMP 98
== END 2024-07-12 23:23 | disposition home or self-care (01) ==
LOC: ER 18:32
DX: R11.2 Nausea with vomiting, unspecified (principal); R10.9 Unspecified abdominal pain
CPT/HCPCS: 36415; 80053; 81001; 83605; 83690; 85025; 96361; 96372; 96374; 96375; 99284; J0500; J2405; J2919; J7030

== ENCOUNTER 2024-07-30 05:13 | Emergency (ER) | payer SELFPAY ==
[2024-07-30 06:24] LABS: Absolute Eosinophils 0.3 K/uL (0-0.5); Absolute Lymphocytes (CBC) 1.5 K/uL (0.7-4.9); Absolute Monocytes 0.6 K/uL (0.1-1.3); Absolute Neutrophil 9.2 K/uL (1.8-8.0); Basophils % 0.3 % (0-1.3); Eosinophils % 2.7 % (0-4.4); Hematocrit 47.1 % (39.6-49.0); Hemoglobin 16.1 g/dL (13.6-17.9); Lymphocytes % 13.1 % (15.3-44.8); MCH 30.4 pg (27.0-35.0); MCHC 34.1 g/dL (32.0-36.0); MCV 89.1 fL (80-100); MPV 8.2 fL (7.6-11.3); Monocytes % 5.3 % (3.3-12.3); Neutrophils % 78.6 % (41.7-73.7); Platelets 338 thou/uL (152-406); RBC Red Blood Cell Count 5.29 M/uL (4.33-5.43); Red Cell Distribution Width 12.2 % (12.1-15.2)
[2024-07-30 06:39] LABS: ALT/SGPT 43 U/L (16-61); AST/SGOT 14 U/L (15-37); Albumin 3.9 g/dL (3.4-5.0); Albumin/Globulin Ratio 1.3 (1.1-1.8); Alkaline Phosphatase 65 U/L (45-117); Anion Gap 6.7 mEq/L (5.0-15.0); BUN Blood Urea Nitrogen 15 mg/dL (7-18); Bicarbonate 28 mEq/L (21-32); Glomerular Filtration Rate 117 ml/min (=/>90); Glucose Level 124 mg/dL (74-106); Lipase 23 U/L (13-75); Potassium 3.7 mEq/L (3.5-5.1); Protein, Total 6.9 g/dL (6.4-8.2); Sodium Level 140 mEq/L (136-145)
[2024-07-30 06:40] LABS: C-Reactive Protein < 2.90 mg/L (<3.00)
[2024-07-30] MEDS ORDERED: KETOROLAC 30 MG/ML INJ ONE (06:47)
[2024-07-30] MEDS ORDERED: ONDANSETRON 4 MG/2 ML VIAL ONE (06:47)
[2024-07-30] MEDS ORDERED: MORPHINE 4 MG/ML SYR ONE (06:48)
[2024-07-30] MEDS ORDERED: DIPHENHYDRAMINE 50 MG/ML VIAL ONE (06:48)
[2024-07-30] MEDS ORDERED: HALOPERIDOL LACT 5 MG/ML INJ ONE (06:48)
[2024-07-30] MEDS ORDERED: FAMOTIDINE 20 MG/2 ML VIAL IV ONE (06:48)
[2024-07-30] MEDS ORDERED: NA CHLORIDE 0.9% 50 ML ONE (06:49)
[2024-07-30] MEDS ORDERED: NA CHLORIDE 0.9% 1,000 ML ONE (06:49)
[2024-07-30 07:26] LABS: Specific Gravity > 1.030 (1.005-1.030); Sqamous Epithelial None Seen /HPF (None Seen); Urine Bacteria None Seen /HPF (<20); Urine Bilirubin NEGATIVE (Negative); Urine Blood Negative (Negative); Urine Clarity Turbid (Clear); Urine Color Yellow (Yellow); Urine Crystals Unidentified Few /HPF (None Seen); Urine Culture Reflex Order NOT NEEDED; Urine Glucose NEGATIVE (Negative); Urine Ketones NEGATIVE (Negative); Urine Micro Reflex YN NO BILL MICROSCOPIC; Urine Mucus 3+ /HPF (None Seen); Urine Nitrite NEGATIVE (Negative); Urine Protein 1+ (Negative); Urine RBC <5 /HPF (None Seen); Urine Urobilinogen Normal (Normal); Urine WBC <5 /HPF (<5); Urine WBC Clump Rare /HPF (None Seen); Urine Yeast (Budding) Trace /HPF (None Seen); Urine pH 5.5 (5.0-7.0)
--- NOTE | 2024-07-30 07:34 | ER ---
Nurse's Notes [facility] Name: Berlin Tran Age: 33 yrs Sex: Male : 1990 Arrival Date: 07/30/2024 Time: 05:13 Bed 17 Private MD: Diagnosis: Epigastric Abdominal Pain , Nausea without vomiting, Terminal ileitis Presentation: 07/30 05:35 Chief complaint: Patient states: abdominal pain. Coronavirus screen: At this time, the kj2 client does not indicate any symptoms associated with coronavirus-19. Ebola Screen: No symptoms or risks identified at this time. Initial Sepsis Screen: Does the patient meet any 2 criteria? No. Patient's initial sepsis screen is negative. Does the patient have a suspected source of infection? No. Patient's initial sepsis screen is negative. Risk Assessment: Do you want to hurt yourself or someone else? Patient reports no desire to harm self or others. Onset of symptoms was July 30, 2024. 05:35 Method Of Arrival: Ambulatory kj2 05:35 Acuity: PITER 4 kj2 Triage Assessment: 05:42 GI: Reports lower abdominal pain, upper abdominal pain, nausea. kj2 Historical: - Allergies: 05:38 ibuprofen; kj2 - Home Meds: 05:39 Protonix Oral [Active]; kj2 - PMHx: 05:39 gastritis (Gastroesophageal re); kj2 - Immunization history:: Adult Immunizations unknown. - Infectious Disease History:: Denies. - Social history:: Smoking status: unknown. - Family history:: not pertinent. Screenin:41 [facility] ED Fall Risk Assessment (Adult) History of falling in the last 3 months, kj2 including since admission No falls in past 3 months (0 pts) Confusion or Disorientation No (0 pts) Intoxicated or Sedated No (0 pts) Impaired Gait No (0 pts) Mobility Assist Device Used No (0 pt) Altered Elimination No (0 pt) Score/Fall Risk Level 0 - 2 = Low Risk Maintained a safe environment, Hourly rounding (assess needs \T\ fall precautionary measures) done. Abuse screen: Denies threats or abuse. Denies injuries from another. Nutritional screening: No deficits noted. Tuberculosis screening: No symptoms or risk factors identified. Assessment: 05:39 General: see triage assessment. kj2 06:45 Reassessment: Patient appears in no apparent distress at this time. Patient and/or kj2 family updated on plan of care and expected duration. Pain level reassessed. Patient is alert, oriented x 3, equal unlabored respirations, skin warm/dry/pink. 07:15 General: Appears comfortable, Behavior is calm, cooperative, appropriate for age. Pain: ap3 Complains of pain in abdomen. Neuro: Level of Consciousness is awake, alert, obeys commands, Oriented to person, place, time, situation. Cardiovascular: Patient's skin is warm and dry. Respiratory: Airway is patent Respiratory effort is even, unlabored, Respiratory pattern is regular, symmetrical. 08:25 GI: Bowel sounds Abd is soft. ap3 Vital Signs: 05:35 BP 143 / 89; Pulse 71; Resp 20; Temp 98.1; Pulse Ox 95% on R/A; Weight 90.72 kg; Height kj2 5 ft. 10 in. ; Pain 10/10; 06:50 BP 138 / 86; Pulse 58; Resp 20; Pulse Ox 100% on R/A; kj2 07:17 BP 127 / 82; Pulse 68; Resp 17; Pulse Ox 95% on R/A; ap3 08:26 BP 118 / 70; Pulse 75; Resp 16; Temp 98.4; Pulse Ox 96% on R/A; ap3 05:35 Body Mass Index 28.70 (90.72 kg, 177.8 cm) kj2 05:35 Pain Scale: Adult kj2 [place] Coma Score: 12/11 01:05 Eye Response: spontaneous(4). Motor Response: obeys commands(6). Verbal Response: sp4 oriented(5). Total: 15. ED Course: 07/30 05:18 Patient arrived in ED. jj6 05:34 Kate Brown, RN is Primary Nurse. kj2 05:38 Triage completed. kj2 05:42 Patient has correct armband on for positive identification. Bed in low position. Side kj2 rails up X 1. Provided Education on: call light. 05:43 Latrell Olivier MD is Attending Physician. sp4 05:43 Arm band placed on Patient placed in an exam room, on a stretcher. kj2 06:10 Inserted saline lock: 20 gauge in right antecubital area, using aseptic technique. kj2 Blood collected. Flushed with 10 mL NS. 06:38 Inserted saline lock: 22 gauge in left forearm, using aseptic technique. Flushed with lg3 10 mL NS. 07:05 Report given to VU Saavedra. kj2 07:22 Urinalysis W/Microscopic Sent. kj2 07:31 Jung Verma MD is Referral Physician. sp4 08:25 No provider procedures requiring assistance completed. IV discontinued, intact, ap3 bleeding controlled, No redness/swelling at site. Pressure dressing applied. Administered Medications: 06:55 Drug: Famotidine IVP 20 mg IVP once; dilute with 10 mL 0.9% NaCl; give over 2 minutes kj2 Route: IVP; Site: left forearm; 08:24 Follow up: Response: No adverse reaction ap3 06:58 Drug: Haloperidol IVP 2.5 mg/50 mL 2.5 mg IVP once; Place patient on a smasher hand kj2 Route: IVP; Site: left forearm; 08:24 Follow up: Response: No adverse reaction; Pain is decreased; RASS: Alert and Calm (0) ap3 07:05 Drug: Ondansetron IVP 8 mg IVP once; over 2 minutes Route: IVP; Site: left forearm; kj2 08:24 Follow up: Response: No adverse reaction ap3 07:08 Drug: TORadol - Ketorolac IVP 30 mg IVP once Route: IVP; Site: left forearm; kj2 08:25 Follow up: Response: No adverse reaction; Pain is decreased ap3 07:10 Drug: morphine IVP or IV 4 mg IVP once over 4 mins Route: IVP; Infused Over: 4 mins; kj2 Site: left forearm; 08:25 Follow up: Response: No adverse reaction; Pain is decreased; RASS: Alert and Calm (0) ap3 07:19 Drug: diphenhydrAMINE IVP 25 mg IVP once Route: IVP; Site: left forearm; kj2 08:24 Follow up: Response: No adverse reaction ap3 07:19 Drug: NS 0.9% IV 1000 ml IV at 1 bolus Per protocol; to be given as a bolus over 60 kj2 minutes Route: IV; Rate: 1 bolus; Site: left forearm; 08:24 Follow up: IV Status: Completed infusion; IV Intake: 1000ml ap3 07:52 Not Given (Physician Discretion): ns 0.9% 1000 ml IV at 1 bolus Per protocol; to be ap3 given as a bolus over 60 minutes 08:24 Drug: predniSONE PO 60 mg PO once Route: PO; ap3 08:24 Follow up: Response: Medication administered at discharge. ap3 Medication: 05:42 VIS not applicable for this client. kj2 Intake: 08:24 IV: 1000ml; Total: 1000ml. ap3 Outcome: 07:33 Discharge ordered by . spRoberto 08:25 Discharged to home ambulatory, ap3 08:25 Condition: good 08:25 Discharge instructions given to patient, Instructed on discharge instructions, follow up and referral plans. medication usage, Demonstrated understanding of instructions, follow-up care, medications, Prescriptions given X 4, 08:27 Patient left the ED. ap3 Signatures: Keri Aldrich, RN RN ap3 Tavia Vaughn RN RN lg3 Cyndie Abbasi6 Latrell Olivier MD MD sp4 Kate Brown RN RN kj2
--- NOTE | 2024-07-30 07:34 | EDPHYS ---
Physician Documentation [facility] Name: Berlin Tran Age: 33 yrs Sex: Male : 1990 Arrival Date: 07/30/2024 Time: 05:13 Bed 17 Private MD: ED Physician Latrell Olivier HPI: 07/30 05:54 This 33 yrs old Male presents to ER via Ambulatory with complaints of sp4 Abdominal Pain. 07/31 01:05 33-year-old male presents via ambulation with abdominal pain. Patient presents sp4 with midepigastric abdominal pain.. Historical: - Allergies: 07/30 05:38 ibuprofen; kj2 - Home Meds: 05:39 Protonix Oral [Active]; kj2 - PMHx: 05:39 gastritis (Gastroesophageal re); kj2 - Immunization history:: Adult Immunizations unknown. - Infectious Disease History:: Denies. - Social history:: Smoking status: unknown. - Family history:: not pertinent. ROS: 07/31 01:05 Constitutional: Negative for fever, chills, and weight loss, positive for midepigastric sp4 abdominal pain, positive nausea All other systems are negative, Exam: 01:05 Constitutional: This is a well developed, well nourished patient who is awake, alert, sp4 and in no acute distress. Head/Face: Normocephalic, atraumatic. Eyes: Pupils equal round and reactive to light, extra-ocular motions intact. Lids and lashes normal. Conjunctiva and sclera are not injected. Cornea within normal limits. Periorbital areas with no swelling, redness, or edema. ENT: Nares patent. No nasal discharge, no septal abnormalities noted. Tympanic membranes are normal and external auditory canals are clear. Oropharynx with no redness, swelling, or masses, exudates, or evidence of obstruction, uvula midline. Mucous membranes moist. Neck: Trachea midline, no thyromegaly or masses palpated, and no cervical lymphadenopathy. Supple, full range of motion without nuchal rigidity, or vertebral point tenderness. Chest/axilla: Normal chest wall appearance and motion. Nontender with no deformity. No lesions are appreciated. Cardiovascular: Regular rate and rhythm with a normal S1 and S2. No gallops, murmurs, or rubs. Normal PMI, no JVD. No pulse deficits. Respiratory: Lungs have equal breath sounds bilaterally, clear to auscultation and percussion. No rales, rhonchi or wheezes noted. No increased work of breathing, no retractions or nasal flaring. Abdomen/GI: Soft, with normal bowel sounds. No distension or tympany. No guarding or rebound. Positive for midepigastric abdominal tenderness. Back: No spinal tenderness. No costovertebral tenderness. Skin: Warm, dry with normal turgor. Normal color with no rashes, no lesions, and no evidence of cellulitis. MS/ Extremity: Pulses equal, no cyanosis. Neurovascular intact. Full, normal range of motion. Neuro: Awake and alert, GCS 15, oriented to person, place, time, and situation. Cranial nerves II-XII grossly intact. Motor strength 5/5 in all extremities. Sensory grossly intact. Psych: Awake, alert, with orientation to person, place and time. Behavior, mood, and affect are within normal limits Vital Signs: 07/30 05:35 BP 143 / 89; Pulse 71; Resp 20; Temp 98.1; Pulse Ox 95% on R/A; Weight 90.72 kg; Height kj2 5 ft. 10 in. ; Pain 05/30; 06:50 BP 138 / 86; Pulse 58; Resp 20; Pulse Ox 100% on R/A; kj2 07:17 BP 127 / 82; Pulse 68; Resp 17; Pulse Ox 95% on R/A; ap3 08:26 BP 118 / 70; Pulse 75; Resp 16; Temp 98.4; Pulse Ox 96% on R/A; ap3 05:35 Body Mass Index 28.70 (90.72 kg, 177.8 cm) kj2 05:35 Pain Scale: Adult kj2 [place] Coma Score: 07/31 01:05 Eye Response: spontaneous(4). Motor Response: obeys commands(6). Verbal Response: sp4 oriented(5). Total: 15. MDM: 07/30 05:55 Medical Screening Exam initiated sp4 07:30 ED course: CT 07/12/2024 had revealed - ADDITIONAL FINDINGS: None. IMPRESSION: Long sp4 segment of wall thickening, mucosal enhancement, and submucosal edema involving the distal ileum, relatively sparing the terminal ileum. The findings raise concern for inflammatory bowel disease such as Crohn's disease. Please correlate clinically. Mild free ascites. Other stable findings as above. . 07/31 01:07 Differential diagnosis: bowel obstruction, coronary artery disease, Irritable bowel sp4 syndrome. 01:08 Data reviewed: vital signs, nurses notes, old medical records, lab test result(s). sp4 Consideration of Admission/Observation Escalation of care including admission/observation considered. 07/30 05:54 Order name: CBC with Diff; Complete Time: 07:07 sp4 07/30 05:54 Order name: CMP; Complete Time: 07:07 sp4 07/30 05:54 Order name: Lipase; Complete Time: 07:07 sp4 07/30 05:55 Order name: CRP; Complete Time: 07:07 sp4 07/30 05:55 Order name: Urinalysis W/Microscopic; Complete Time: 07:38 sp4 07/30 05:55 Order name: IV Saline Lock; Complete Time: 07:21 sp4 07/30 05:55 Order name: Labs collected and sent; Complete Time: 07:22 sp4 Administered Medications: 07/30 06:55 Drug: Famotidine IVP 20 mg IVP once; dilute with 10 mL 0.9% NaCl; give over 2 minutes kj2 Route: IVP; Site: left forearm; 08:24 Follow up: Response: No adverse reaction ap3 06:58 Drug: Haloperidol IVP 2.5 mg/50 mL 2.5 mg IVP once; Place patient on a surveillance system monitor kj2 Route: IVP; Site: left forearm; 08:24 Follow up: Response: No adverse reaction; Pain is decreased; RASS: Alert and Calm (0) ap3 07:05 Drug: Ondansetron IVP 8 mg IVP once; over 2 minutes Route: IVP; Site: left forearm; kj2 08:24 Follow up: Response: No adverse reaction ap3 07:08 Drug: TORadol - Ketorolac IVP 30 mg IVP once Route: IVP; Site: left forearm; kj2 08:25 Follow up: Response: No adverse reaction; Pain is decreased ap3 07:10 Drug: morphine IVP or IV 4 mg IVP once over 4 mins Route: IVP; Infused Over: 4 mins; kj2 Site: left forearm; 08:25 Follow up: Response: No adverse reaction; Pain is decreased; RASS: Alert and Calm (0) ap3 07:19 Drug: diphenhydrAMINE IVP 25 mg IVP once Route: IVP; Site: left forearm; kj2 08:24 Follow up: Response: No adverse reaction ap3 07:19 Drug: NS 0.9% IV 1000 ml IV at 1 bolus Per protocol; to be given as a bolus over 60 kj2 minutes Route: IV; Rate: 1 bolus; Site: left forearm; 08:24 Follow up: IV Status: Completed infusion; IV Intake: 1000ml ap3 07:52 Not Given (Physician Discretion): ns 0.9% 1000 ml IV at 1 bolus Per protocol; to be ap3 given as a bolus over 60 minutes 08:24 Drug: predniSONE PO 60 mg PO once Route: PO; ap3 08:24 Follow up: Response: Medication administered at discharge. ap3 Disposition Summary: 07/30/24 07:33 Discharge Ordered Problem: new sp4 Symptoms: have improved sp4 Condition: Stable sp4 Diagnosis - Epigastric Abdominal Pain , Nausea without vomiting, Terminal ileitis sp4 Followup: sp4 - With: Jung Verma MD - When: 7 - 10 days - Reason: Recheck today's complaints Discharge Instructions: - Discharge Summary Sheet sp4 - Abdominal Pain, Adult, [id number] sp4 Forms: - Work release form ss - Patient Portal Instructions sp4 Prescriptions: - naproxen 500 mg Oral tablet - take 1 tablet ORAL route every 12 hours PRN pain; 50 tablet; Refills: 0, sp4 Product Selection Permitted - Tramadol 50 mg Oral tablet - take 1 tablet ORAL route every 8 hours as needed; 20 tablet; Refills: 0, sp4 Product Selection Permitted - Prednisone 20 mg Oral Tablet - take 2 tablets ORAL route once daily for 5 days; 10 tablet; Refills: 0, Product sp4 Selection Permitted - promethazine 25 mg Oral tablet - take 1 tablet ORAL route every 6 hours As needed PRN nausea; 30 tablet; sp4 Refills: 0, Product Selection Permitted Signatures: Dispatcher [employer] Keri Ramos RN RN ap3 Latrell Olivier MD MD sp4 Kate Brown RN RN kj2 Corrections: (The following items were deleted from the chart) 05:55 05:55 C-REACTIVE PROTEIN+C.LAB.BRZ ordered. EDMS EDMS 05:55 05:55 Urinalysis W/Microscopic+U.LAB.BRZ ordered. EDMS EDMS
== END 2024-07-30 08:27 | disposition home or self-care (01) ==
LOC: ER 05:13
DX: K50.00 Crohn's disease of small intestine without complications (principal); R11.2 Nausea with vomiting, unspecified
CPT/HCPCS: 36415; 80053; 81001; 83690; 85025; 86140; 96361; 96374; 96375; 99284; J1200; J1630; J2405; J7030

== ENCOUNTER 2024-08-11 01:54 | Emergency (ER) | payer SELFPAY ==
[2024-08-11] MEDS ORDERED: ONDANSETRON 4 MG/2 ML VIAL ONE (02:44)
[2024-08-11] MEDS ORDERED: NA CHLORIDE 0.9% 1,000 ML ONE (02:45)
[2024-08-11] MEDS ORDERED: MORPHINE 4 MG/ML SYR ONE (02:45)
[2024-08-11] MEDS ORDERED: FAMOTIDINE 20 MG/2 ML VIAL IV ONE (03:05)
[2024-08-11 03:10] LABS: Absolute Eosinophils 0.3 K/uL (0-0.5); Absolute Lymphocytes (CBC) 2.4 K/uL (0.7-4.9); Absolute Monocytes 1.2 K/uL (0.1-1.3); Absolute Neutrophil 17.5 K/uL (1.8-8.0); Basophils % 0.2 % (0-1.3); Eosinophils % 1.5 % (0-4.4); Hematocrit 55.2 % (39.6-49.0); Hemoglobin 18.7 g/dL (13.6-17.9); Lymphocytes % 11.2 % (15.3-44.8); MCH 30.1 pg (27.0-35.0); MCHC 33.9 g/dL (32.0-36.0); MCV 88.7 fL (80-100); MPV 8.2 fL (7.6-11.3); Monocytes % 5.6 % (3.3-12.3); Neutrophils % 81.5 % (41.7-73.7); Platelets 369 thou/uL (152-406); RBC Red Blood Cell Count 6.22 M/uL (4.33-5.43); Red Cell Distribution Width 12.4 % (12.1-15.2)
[2024-08-11 03:14] LABS: Specific Gravity 1.013 (1.005-1.030); Sqamous Epithelial None Seen /HPF (None Seen); Urine Bacteria None Seen /HPF (<20); Urine Bilirubin NEGATIVE (Negative); Urine Blood Negative (Negative); Urine Clarity Turbid (Clear); Urine Color Yellow (Yellow); Urine Culture Reflex Order NOT NEEDED; Urine Glucose NEGATIVE (Negative); Urine Ketones NEGATIVE (Negative); Urine Microscopic Reflex YN ORDER UMIC; Urine Nitrite NEGATIVE (Negative); Urine Protein TRACE (Negative); Urine RBC <5 /HPF (None Seen); Urine Urobilinogen Normal (Normal); Urine WBC <5 /HPF (<5)
[2024-08-11 03:27] LABS: Albumin 4.1 g/dL (3.4-5.0); Albumin/Globulin Ratio 1.3 (1.1-1.8); Bilirubin Total 1.1 mg/dL (0.2-1.0); Globulin 3.2 g/dL (2.3-3.5); Protein, Total 7.3 g/dL (6.4-8.2)
[2024-08-11 04:17] LABS: Blood Morphology Comment NOT SEEN (NOT SEEN); Platelet Estimate ADEQ; White Blood Cell Scan OK (OK)
--- NOTE | 2024-08-11 05:52 | RAD REPORT ---
CLINICAL HISTORY: Abdominal pain. COMPARISON: CT Abdomen Pelvis 07/12/2024. TECHNIQUE: CT ABDOMEN PELVIS WITH IV CONTRAST on 08/11/2024 2:52 AM PRODUCTION FOREMAN This exam was performed according to our departmental dose-optimization program, which includes autom ated exposure control, adjustment of the mA and/or kV according to patient size and/or use of iterative reconstruction technique. FINDINGS: Lower lungs are clear. Abdomen: There is mild perihepatic ascites. There is no biliary dilatation. Gallbladder is normal in appearance. There is a small cyst in the upper aspect of the spleen measuring 15 mm. Pancreas is unremarkable. The adrenal glands and kidneys are unremarkable. Abdominal aorta is normal in course and caliber without aneurysm. There is no free air. There is no r etroperitoneal adenopathy. Pelvis: There is mild thickening of the cecum. Urinary bladder is unremarkable. There is moderate felicia unt of free pelvic fluid. Appendix is normal. There is moderate thickening of the distal and terminal ileum with mild surrounding inflammation. Skeleton: There are no acute osseous findings. No suspicious bony lesions. IMPRESSION: Suspect terminal ileitis with ascites. This is progressive since the prior study. Electronically signed by: Casa Parker MD 08/11/2024 05:44 AM PRODUCTION FOREMAN RP Due to temporary technical issues with the [employer] reporting system, reports are being selma d by the in-house radiologist without review as a courtesy to ensure prompt reporting the interpreting radiologist is fully responsible for the content of the report. Transcribed Date/Time: 08/11/2024 5:52 AM
[2024-08-11] MEDS ORDERED: CIPROFLOXACIN 400mg IV 400 MG/200 ML BAG IV ONE (06:05)
[2024-08-11] MEDS ORDERED: METRONIDAZOLE 500mg IVPB 500 MG/100 ML BAG IV ONE (06:06)
--- NOTE | 2024-08-11 06:45 | ER ---
Nurse's Notes [facility] Name: Berlin Tran Age: 33 yrs Sex: Male : 1990 Arrival Date: 08/11/2024 Time: 01:54 Bed 8 Private MD: Diagnosis: Abdominal pain, Generalized;Other ascites Presentation: 08/11 02:21 Chief complaint: Patient states: abdominal pain and diarrhea that woke him up from his al5 sleep. Coronavirus screen: Client denies travel out of the [place] in the last 14 days. At this time, the client does not indicate any symptoms associated with coronavirus-19. Ebola Screen: Patient negative for fever greater than or equal to 101.5 degrees Fahrenheit, and additional compatible Ebola Virus Disease symptoms Patient denies exposure to infectious person. Patient denies travel to an Ebola-affected area in the 21 days before illness onset. No symptoms or risks identified at this time. Initial Sepsis Screen: Does the patient meet any 2 criteria? HR > 90 bpm. Does the patient have a suspected source of infection? No. Patient's initial sepsis screen is negative. Risk Assessment: Do you want to hurt yourself or someone else? Patient reports no desire to harm self or others. Onset of symptoms was August 11, 2024. 02:21 Method Of Arrival: Wheelchair al5 02:21 Acuity: PITER 3 al5 Triage Assessment: 02:23 General: Appears in no apparent distress. uncomfortable, Behavior is calm, cooperative, al5 appropriate for age. Pain: Complains of pain in abdomen Pain currently is 10 out of 10 on a pain scale. GI: Reports upper abdominal pain, diarrhea, nausea. Historical: - Allergies: 02:23 Ibuprofen; al5 - Home Meds: 02:23 Protonix Oral [Active]; al5 - PMHx: 02:23 gastritis (Gastroesophageal re); al5 - Immunization history:: Adult Immunizations up to date. - Infectious Disease History:: Denies. - Social history:: Smoking status: Reported history of juuling and/or vaping. Screenin:13 [facility] ED Fall Risk Assessment (Adult) History of falling in the last 3 months, bm8 including since admission No falls in past 3 months (0 pts) Confusion or Disorientation No (0 pts) Intoxicated or Sedated No (0 pts) Impaired Gait No (0 pts) Mobility Assist Device Used No (0 pt) Altered Elimination No (0 pt) Score/Fall Risk Level 0 - 2 = Low Risk Oriented to surroundings, Maintained a safe environment, Educated pt \T\ family on fall prevention, incl call for assistance when getting out of bed, Assessed \T\ reinforced patient's understanding of fall precautions, Hourly rounding (assess needs \T\ fall precautionary measures) done, Used ambulatory aids as needed (educated on \T\ assisted with), Used gait belt as appropriate. Abuse screen: Denies threats or abuse. Nutritional screening: No deficits noted. Tuberculosis screening: No symptoms or risk factors identified. Assessment: 03:13 Reassessment: Patient appears in no apparent distress at this time. Patient and/or bm8 family updated on plan of care and expected duration. Pain level reassessed. Patient is alert, oriented x 3, equal unlabored respirations, skin warm/dry/pink. Patient denies pain at this time. Patient states feeling better. Patient states symptoms have improved. General: Appears in no apparent distress. comfortable, Behavior is calm, cooperative, appropriate for age. Pain: Denies pain. Alleviated by medications. 06:01 Reassessment: Patient appears in no apparent distress at this time. Patient and/or bm8 family updated on plan of care and expected duration. Pain level reassessed. Patient is alert, oriented x 3, equal unlabored respirations, skin warm/dry/pink. Patient states feeling better. Patient states symptoms have improved. Pain: Complains of pain in umbilical area and suprapubic area Pain currently is 2 out of 10 on a pain scale. 07:14 Reassessment: Patient appears in no apparent distress at this time. No changes from kc6 previously documented assessment. Patient and/or family updated on plan of care and expected duration. Pain level reassessed. Patient is alert, oriented x 3, equal unlabored respirations, skin warm/dry/pink. 08:51 Reassessment: Patient appears in no apparent distress at this time. No changes from kc6 previously documented assessment. Patient and/or family updated on plan of care and expected duration. Pain level reassessed. Patient is alert, oriented x 3, equal unlabored respirations, skin warm/dry/pink. Vital Signs: 02:21 BP 127 / 88; Pulse 99; Resp 18; Temp 98.8; Pulse Ox 98% ; Pain 10/10; al5 03:13 BP 108 / 75; Pulse 91; Resp 18; Temp 98.8; Pulse Ox 92% on R/A; Pain 0/10; bm8 06:01 BP 110 / 69; Pulse 106; Resp 18; Temp 98.8; Pulse Ox 97% ; Pain 2/10; bm8 07:14 BP 124 / 77; Pulse 90; Resp 16 S; Pulse Ox 95% on R/A; kc6 02:21 Pain Scale: Adult al5 03:13 Pain Scale: Adult bm8 06:01 Pain Scale: Adult bm8 [place] Coma Score: 03:13 Eye Response: to voice(3). Motor Response: obeys commands(6). Verbal Response: bm8 oriented(5). Total: 14. 06:01 Eye Response: spontaneous(4). Motor Response: obeys commands(6). Verbal Response: bm8 oriented(5). Total: 15. ED Course: 02:03 Patient arrived in ED. gm2 02:06 Keri Vazquez RN is Primary Nurse. al5 02:23 Triage completed. al5 02:23 Arm band placed on right wrist. Patient placed in waiting room. al5 02:26 No provider procedures requiring assistance completed. Inserted saline lock: 20 gauge bm8 in right antecubital area, using aseptic technique. Blood collected. Flushed with 10 mL NS. 02:39 Donaldo Altamirano MD is Attending Physician. bo1 03:13 Patient has correct armband on for positive identification. Bed in low position. Call bm8 light in reach. Side rails up X 1. Client placed on continuous cardiac and pulse oximetry monitoring. NIBP monitoring applied. Pulse ox on. NIBP on. Door closed. Noise minimized. Warm blanket given. Pillow given. Verbal reassurance given. Head of bed lowered. 03:13 Initial lab(s) drawn, by me, sent to lab. Urine collected: clean catch specimen, clear. bm8 03:52 CT Abd/Pelvis - IV Contrast Only In Process Unspecified. EDMS 06:01 Patient maintains SpO2 saturation greater than 95% on room air. bm8 06:42 Alfredo Navarro MD is Referral Physician. bo1 07:00 Report received from VU Coreas \Valentine Saavedra RN. kc6 07:00 Pulse ox on. NIBP on. kc6 08:51 IV discontinued, intact, bleeding controlled, No redness/swelling at site. Pressure kc6 dressing applied. Administered Medications: 02:51 Drug: NS 0.9% IV 1000 ml IV at 1 bolus Per protocol; to be given as a bolus over 60 bm8 minutes Route: IV; Rate: 1 bolus; Site: right antecubital; 04:19 Follow up: Response: No adverse reaction; IV Status: Completed infusion; IV Intake: bm8 1000ml 02:52 Drug: Ondansetron IVP 4 mg IVP once; over 2 minutes Route: IVP; Site: right antecubital;bm8 04:19 Follow up: Response: No adverse reaction bm8 02:52 Drug: morphine IVP or IV 4 mg IVP once over 4 mins Route: IVP; Infused Over: 4 mins; bm8 Site: right antecubital; 04:19 Follow up: Response: No adverse reaction bm8 03:13 Drug: Famotidine IVP 20 mg IVP once; dilute with 10 mL 0.9% NaCl; give over 2 minutes bm8 Route: IVP; Site: right antecubital; 04:18 Follow up: Response: No adverse reaction bm8 06:10 Drug: metroNIDAZOLE IVPB 500 mg 100 ml IVPB at 200 ml/hr once over 30 mins Volume: 100 bm8 ml; Route: IVPB; Rate: 200 ml/hr; Infused Over: 30 mins; Site: right antecubital; 07:13 Follow up: Response: No adverse reaction; IV Status: Completed infusion; IV Intake: kc6 100ml 07:13 Drug: Ciprofloxacin IVPB 400 mg 200 ml IVPB once over 60 mins Volume: 200 ml; Route: kc6 IVPB; Infused Over: 60 mins; Site: right antecubital; 08:51 Follow up: Response: No adverse reaction; IV Status: Completed infusion; IV Intake: kc6 200ml Medication: 03:13 VIS not applicable for this client. bm8 Intake: 04:19 IV: 1000ml; Total: 1000ml. bm8 07:13 IV: 100ml; Total: 1100ml. kc6 08:51 IV: 200ml; Total: 1300ml. kc6 Outcome: 06:45 Discharge ordered by bo1 08:51 Discharged to home ambulatory, kc6 08:51 Condition: improved 08:51 Discharge instructions given to patient, Instructed on discharge instructions, follow up and referral plans. medication usage, Demonstrated understanding of instructions, follow-up care, medications, Prescriptions given X 2, 08:52 Patient left the ED. kc6 Signatures: Dispatcher [employer] EDMS Crystal Osborne RN RN kc6 Cynthia Pryor 2 Donaldo Altamirano MD MD bo1 Joss Boles RN RN bm8 Keri Vazquez RN RN al5
--- NOTE | 2024-08-11 06:46 | EDPHYS ---
Physician Documentation [facility] Name: Berlin Tran Age: 33 yrs Sex: Male : 1990 Arrival Date: 08/11/2024 Time: 01:54 Bed 8 Private MD: ED Physician Donaldo Altamirano HPI: 08/11 02:52 This 33 yrs old Male presents to ER via Wheelchair with complaints of bo1 Abdominal Pain. 02:52 Sudden abd pain BLADDER CHANGER. Onset: The symptoms/episode began/occurred suddenly. Severity of bo1 symptoms: At their worst the symptoms were severe in the emergency department the symptoms are unchanged. No prior Hx, pt did drink some beer. Historical: - Allergies: 02:23 Ibuprofen; al5 - Home Meds: 02:23 Protonix Oral [Active]; al5 - PMHx: 02:23 gastritis (Gastroesophageal re); al5 - Immunization history:: Adult Immunizations up to date. - Infectious Disease History:: Denies. - Social history:: Smoking status: Reported history of juuling and/or vaping. ROS: 02:53 Constitutional: Negative for fever, chills, and weight loss bo1 02:53 Neck: Negative for pain with movement, pain at rest, 02:53 Cardiovascular: Negative for chest pain, 02:53 Respiratory: Negative for cough, shortness of breath, 02:53 Abdomen/GI: Positive for abdominal pain, Exam: 05:04 Constitutional: This is a well developed, well nourished patient who is awake, alert, bo1 and in moderate acute distress. 05:04 Constitutional: The patient appears alert, awake, in obvious distress, moderately distressed, uncomfortable, 05:04 Head/face: Exam is negative for 05:04 Eyes: Sclera: no acute changes, icterus, is not appreciated, 05:04 Neck: External neck: is normal, no acute changes, 05:04 Cardiovascular: Rate: normal, Rhythm: regular, 05:04 Respiratory: the patient does not display signs of respiratory distress, Respirations: normal, Breath sounds: are clear throughout, no acute changes, 05:04 Abdomen/GI: Inspection: abdomen appears normal, Palpation: moderate abdominal tenderness, voluntary guarding, is elicited in the epigastric area, right upper quadrant and left upper quadrant, 05:04 Musculoskeletal/extremity: Extremities: all appear grossly normal, with no appreciated pain with palpation, 05:04 Skin: Turgor: is good, Warm and dry. Vital Signs: 02:21 BP 127 / 88; Pulse 99; Resp 18; Temp 98.8; Pulse Ox 98% ; Pain 10/10; al5 03:13 BP 108 / 75; Pulse 91; Resp 18; Temp 98.8; Pulse Ox 92% on R/A; Pain 0/10; bm8 06:01 BP 110 / 69; Pulse 106; Resp 18; Temp 98.8; Pulse Ox 97% ; Pain 2/10; bm8 07:14 BP 124 / 77; Pulse 90; Resp 16 S; Pulse Ox 95% on R/A; kc6 02:21 Pain Scale: Adult al5 03:13 Pain Scale: Adult bm8 06:01 Pain Scale: Adult bm8 [place] Coma Score: 03:13 Eye Response: to voice(3). Motor Response: obeys commands(6). Verbal Response: bm8 oriented(5). Total: 14. 06:01 Eye Response: spontaneous(4). Motor Response: obeys commands(6). Verbal Response: bm8 oriented(5). Total: 15. MDM: 02:39 Medical Screening Exam initiated bo1 05:07 Differential Diagnosis Acute abd pain and relevant causes. Data reviewed: vital signs, bo1 lab test result(s), radiologic studies, CT scan. 06:40 Consideration of Admission/Observation Pt has had this condition before, family bo1 (father) with similar history. Pt is requesting PO abx and management as an OP. Trial of OP therapy with close F/U. He agrees. Non-surgical abdomen at this time.. ED course: Pt has improved with minimal sxs, much improved. 08/11 02:40 Order name: CBC with Diff; Complete Time: 04:23 bm8 08/11 02:40 Order name: CMP; Complete Time: 03:42 bm8 08/11 02:40 Order name: Lipase; Complete Time: 03:42 bm8 08/11 02:40 Order name: Urinalysis w/ reflexes; Complete Time: 03:42 bm8 08/11 04:17 Order name: CBC Smear Scan; Complete Time: 04:23 EDMS 08/11 02:52 Order name: CT Abd/Pelvis - IV Contrast Only; Complete Time: 07:12 bo1 08/11 02:40 Order name: IV Saline Lock; Complete Time: 02:52 bm8 08/11 02:40 Order name: Labs collected and sent; Complete Time: 02:52 bm8 Administered Medications: 02:51 Drug: NS 0.9% IV 1000 ml IV at 1 bolus Per protocol; to be given as a bolus over 60 bm8 minutes Route: IV; Rate: 1 bolus; Site: right antecubital; 04:19 Follow up: Response: No adverse reaction; IV Status: Completed infusion; IV Intake: bm8 1000ml 02:52 Drug: Ondansetron IVP 4 mg IVP once; over 2 minutes Route: IVP; Site: right antecubital;bm8 04:19 Follow up: Response: No adverse reaction bm8 02:52 Drug: morphine IVP or IV 4 mg IVP once over 4 mins Route: IVP; Infused Over: 4 mins; bm8 Site: right antecubital; 04:19 Follow up: Response: No adverse reaction bm8 03:13 Drug: Famotidine IVP 20 mg IVP once; dilute with 10 mL 0.9% NaCl; give over 2 minutes bm8 Route: IVP; Site: right antecubital; 04:18 Follow up: Response: No adverse reaction bm8 06:10 Drug: metroNIDAZOLE IVPB 500 mg 100 ml IVPB at 200 ml/hr once over 30 mins Volume: 100 bm8 ml; Route: IVPB; Rate: 200 ml/hr; Infused Over: 30 mins; Site: right antecubital; 07:13 Follow up: Response: No adverse reaction; IV Status: Completed infusion; IV Intake: kc6 100ml 07:13 Drug: Ciprofloxacin IVPB 400 mg 200 ml IVPB once over 60 mins Volume: 200 ml; Route: kc6 IVPB; Infused Over: 60 mins; Site: right antecubital; 08:51 Follow up: Response: No adverse reaction; IV Status: Completed infusion; IV Intake: kc6 200ml Disposition Summary: 08/11/24 06:45 Discharge Ordered Notes: Location: Home bo1 Problem: an acute exacerbation bo1 Symptoms: have improved bo1 Condition: Stable bo1 Diagnosis - Abdominal pain, Generalized bo1 - Other ascites bo1 Followup: bo1 - With: Alfredo Navarro MD - When: Upon discharge from the Emergency Department - Reason: Recheck today's complaints, Continuance of care Discharge Instructions: - Discharge Summary Sheet bo1 - Abdominal Pain, Adult bo1 Forms: - Medication Reconciliation Form bo1 - Antibiotic Education bo1 - Prescription Opioid Use bo1 - Patient Portal Instructions bo1 - Leadership Thank You Letter bo1 Prescriptions: - Cipro 500 mg Oral Tablet - take 1 tablet ORAL route every 12 hours for 10 days; 20 tablet; Refills: 0, bo1 Product Selection Permitted - Flagyl 500 mg Oral tablet - take 1 tablet ORAL route every 12 hours for 10 days; 20 tablet; Refills: 0, bo1 Product Selection Permitted Signatures: Dispatcher [employer] Crystal Pena RN RN kc6 Donaldo Altamirano MD MD bo1 Joss Boles RN RN bm8 Keri Vazquez RN RN al5
[2024-08-11 09:06] VITALS: TEMP 98.8
[2024-08-11 09:19] VITALS: BP 124/77; O2SAT 95
== END 2024-08-11 08:52 | disposition home or self-care (01) ==
LOC: ER 01:54
DX: R10.84 Generalized abdominal pain (principal); R18.8 Other ascites
CPT/HCPCS: 36415; 74177; 80053; 81001; 83690; 85025; 96361; 96365; 96366; 96367; 96375; 99284; J0744; J2405; J7030; Q9967

== ENCOUNTER 2024-09-05 06:48 | Inpatient (IN) | payer SELFPAY ==
[2024-09-05] MEDS ORDERED: ONDANSETRON 4 MG/2 ML VIAL ONE (07:23)
[2024-09-05] MEDS ORDERED: NA CHLORIDE 0.9% 1,000 ML ONE (07:23)
[2024-09-05] MEDS ORDERED: LIDOCAINE VISCOUS 2% 10ML ORAL SOLN ONE (07:43)
[2024-09-05] MEDS ORDERED: MAGNES/ALUMIN/SIMET 30ML UCUP ONE (07:43)
[2024-09-05 07:45] LABS: Specific Gravity 1.026 (1.005-1.030); Sqamous Epithelial <5 /HPF (None Seen); Urine Bacteria None Seen /HPF (<20); Urine Bilirubin NEGATIVE (Negative); Urine Blood Negative (Negative); Urine Clarity Extremely Turbid (Clear); Urine Color Yellow (Yellow); Urine Culture Reflex Order NOT NEEDED; Urine Glucose TRACE (Negative); Urine Ketones NEGATIVE (Negative); Urine Microscopic Reflex YN ORDER UMIC; Urine Mucus 4+ /HPF (None Seen); Urine Nitrite NEGATIVE (Negative); Urine Protein 1+ (Negative); Urine RBC <5 /HPF (None Seen); Urine Urobilinogen Normal (Normal); Urine WBC <5 /HPF (<5); Urine pH 5.5 (5.0-7.0)
[2024-09-05 07:50] LABS: Albumin/Globulin Ratio 1.1 (1.1-1.8); Anion Gap 10.8 mEq/L (5.0-15.0); Bilirubin Total 1.1 mg/dL (0.2-1.0); Globulin 3.6 g/dL (2.3-3.5); Potassium 3.8 mEq/L (3.5-5.1); Protein, Total 7.6 g/dL (6.4-8.2)
[2024-09-05 07:53] LABS: Absolute Lymphocytes (CBC) 1.1 K/uL (0.7-4.9); Absolute Monocytes 0.5 K/uL (0.1-1.3); Absolute Neutrophil 17.6 K/uL (1.8-8.0); Basophils % 0.1 % (0-1.3); Hematocrit 53.1 % (39.6-49.0); Hemoglobin 18.2 g/dL (13.6-17.9); Lymphocytes % 5.8 % (15.3-44.8); MCH 29.9 pg (27.0-35.0); MCHC 34.4 g/dL (32.0-36.0); MPV 8.6 fL (7.6-11.3); Monocytes % 2.7 % (3.3-12.3); Neutrophils % 91.4 % (41.7-73.7); Nucleated Red Blood Cells % 0.1 % (0-0); Platelets 387 thou/uL (152-406); RBC Red Blood Cell Count 6.11 M/uL (4.33-5.43); Red Cell Distribution Width 12.4 % (12.1-15.2)
[2024-09-05] MEDS ORDERED: HYDROMORPHONE HCL 1 MG/ML INJ ONE (08:20)
[2024-09-05] MEDS ORDERED: NA CHLORIDE 0.9% 100 ML ONE (08:20)
[2024-09-05] MEDS ORDERED: PIPERACIL/TAZO 3.375 GM VIAL IV ONE (08:21)
[2024-09-05 08:39] LABS: Blood Morphology Comment NOT SEEN (NOT SEEN); Platelet Estimate ADEQ; White Blood Cell Scan OK (OK)
--- NOTE | 2024-09-05 09:01 | RAD REPORT ---
EXAMINATION: CT ABDOMEN AND PELVIS WITH CONTRAST CLINICAL INDICATION: leukocytosis;Abd pain TECHNIQUE: CT abdomen and pelvis was performed, after the administration of IV contrast, as per [facility] protocol. Axial, sagittal and coronal reconstructions were obtained. One or more of the following dose reduction techniques were used: Automated exposure control, adjustment of the mA and k V according to patient size, and iterative reconstruction. Unless otherwise specified, incidental findings do not require dedicated imaging follow-up. COMPARISON: 08/11/2024 FINDINGS: LOWER CHEST: The visualized lung bases are clear. LIVER: Mild fatty liver is present. No focal lesion or biliary dilatation is seen. Grossly unremark able gallbladder. SPLEEN: Normal size. No focal lesion. PANCREAS: No mass, ductal dilation, or maria del rosario-pancreatic fluid. ADRENALS: Normal; no mass. KIDNEYS: Normal size and contour. No hydronephrosis. GASTROINTESTINAL TRACT: Dilatation of small bowel loop in the left abdomen is present with moderate t hickening. This appears mildly worsened since the prior study. Inflammation involving the cecum has improved. APPENDIX: Normal appendix. LYMPH NODES: No lymphadenopathy. MUSCULOSKELETAL: Mild multilevel spinal degenerative changes. ADDITIONAL FINDINGS: Mild free fluid in the abdomen and pelvis. IMPRESSION: Moderately inflamed loop of small intestine in the left upper quadrant which has progressed since the prior study most likely representing inflammatory bowel disease or infectious enteritis. Inflammation in the region of the cecum has improved. Mild free fluid is seen in the abdomen and pelvis.
--- NOTE | 2024-09-05 09:18 | ER ---
Nurse's Notes [facility] Name: Berlin Tran Age: 33 yrs Sex: Male : 1990 Arrival Date: 09/05/2024 Time: 06:48 Bed 5 Private MD: Diagnosis: Enteritis, leukocytosis, dehydration, abdominal pain Presentation: 09/05 07:04 Chief complaint: Patient states: epigastric pain, N/V that began this morning. ss Coronavirus screen: Client denies travel out of the [place] in the last 14 days. Ebola Screen: Patient denies exposure to infectious person. Patient denies travel to an Ebola-affected area in the 21 days before illness onset. Initial Sepsis Screen: Does the patient meet any 2 criteria? No. Patient's initial sepsis screen is negative. Does the patient have a suspected source of infection? No. Patient's initial sepsis screen is negative. Risk Assessment: Do you want to hurt yourself or someone else? Patient reports no desire to harm self or others. Onset of symptoms was September 05, 2024. 07:04 Method Of Arrival: Ambulatory 07:04 Acuity: PITER 3 ss Historical: - Allergies: 07:06 Ibuprofen; ss - Home Meds: 07:06 None [Active]; ss - PMHx: 07:06 GERD; ss - PSHx: 07:06 None; ss - Immunization history:: Client reports receiving the 2nd dose of the Covid vaccine. - Infectious Disease History:: Denies. - Social history:: Smoking status: Reported history of juuling and/or vaping. Screenin:00 [facility] ED Fall Risk Assessment (Adult) History of falling in the last 3 months, rs5 including since admission No falls in past 3 months (0 pts) Confusion or Disorientation No (0 pts) Intoxicated or Sedated No (0 pts) Impaired Gait No (0 pts) Mobility Assist Device Used No (0 pt) Altered Elimination No (0 pt) Score/Fall Risk Level 0 - 2 = Low Risk Oriented to surroundings, Maintained a safe environment. Abuse screen: Denies threats or abuse. Nutritional screening: No deficits noted. Tuberculosis screening: No symptoms or risk factors identified. Assessment: 06:55 General: Appears in no apparent distress. uncomfortable, Behavior is calm, cooperative. rs5 Pain: Complains of pain in epigastric area Pain currently is 5 out of 10 on a pain scale. Quality of pain is described as aching, Is continuous. Neuro: Level of Consciousness is awake, alert, obeys commands, Oriented to person, place, time, situation. Cardiovascular: Patient's skin is warm and dry. Respiratory: Airway is patent Respiratory effort is even, unlabored, Respiratory pattern is regular, symmetrical. GI: Abdomen is round non-distended, Bowel sounds present X 4 quads. Abd is soft and non tender X 4 quads. Reports nausea. : No signs and/or symptoms were reported regarding the genitourinary system. EENT: No signs and/or symptoms were reported regarding the EENT system. Derm: Skin is intact, Skin is pink, warm \T\ dry. Musculoskeletal: Range of motion: intact in all extremities. 07:38 Reassessment: Patient and/or family updated on plan of care and expected duration. Pain rs5 level reassessed. Patient is alert, oriented x 3, equal unlabored respirations, skin warm/dry/pink. 09:00 Reassessment: Patient and/or family updated on plan of care and expected duration. Pain rs5 level reassessed. Patient is alert, oriented x 3, equal unlabored respirations, skin warm/dry/pink. 10:10 Reassessment: Patient and/or family updated on plan of care and expected duration. Pain rs5 level reassessed. Patient is alert, oriented x 3, equal unlabored respirations, skin warm/dry/pink. 11:15 Reassessment: Patient and/or family updated on plan of care and expected duration. Pain rs5 level reassessed. Patient is alert, oriented x 3, equal unlabored respirations, skin warm/dry/pink. 11:55 Reassessment: Patient and/or family updated on plan of care and expected duration. Pain rs5 level reassessed. Patient is alert, oriented x 3, equal unlabored respirations, skin warm/dry/pink. Vital Signs: 07:04 BP 139 / 101; Pulse 88; Resp 18; Temp 98(O); Pulse Ox 99% on R/A; Weight 90.72 kg; ss Height 5 ft. 10 in. ; Pain 10/10; 10:10 BP 144 / 88; Pulse 77; Resp 17; Pulse Ox 99% ; rs5 12:01 BP 137 / 94; Pulse 80; Resp 17; Pulse Ox 99% ; rs5 07:04 Body Mass Index 28.70 (90.72 kg, 177.8 cm) ss 07:04 Pain Scale: Adult ss ED Course: 06:50 Patient arrived in ED. [id number] 07:00 Patient has correct armband on for positive identification. Bed in low position. Call rs5 light in reach. Side rails up X2. 07:00 No provider procedures requiring assistance completed. rs5 07:04 Inserted saline lock: 20 gauge in right antecubital area, using aseptic technique. rs5 07:05 Triage completed. ss 07:06 Cecil Jung MD is Attending Physician. sp3 07:06 Arm band placed on right wrist. ss 07:22 Neno Kat, VU is Primary Nurse. rs5 08:13 CT Abd/Pelvis - IV Contrast Only In Process Unspecified. EDMS 09:17 James Tay is Hospitalizing Provider. sp3 12:00 Patient admitted, IV remains in place. rs5 Administered Medications: 07:26 Drug: Ondansetron IVP 4 mg IVP once; over 2 minutes Route: IVP; Site: right antecubital;rs5 07:40 Follow up: Response: No adverse reaction; Nausea is decreased rs5 07:26 Drug: NS 0.9% IV 1000 ml IV at 1 bolus Per protocol; to be given as a bolus over 60 rs5 minutes Route: IV; Rate: 1 bolus; Site: right antecubital; 07:40 Follow up: Response: No adverse reaction rs5 08:33 Follow up: Response: No adverse reaction; IV Status: Completed infusion; IV Intake: rs5 999ml 07:48 Drug: GI Cocktail without - (Maalox PO 30 ml, Lidocaine Mucous Membrane 2 % 15 rs5 ml) PO once Route: PO; 09:00 Follow up: Response: No adverse reaction; Pain is decreased rs5 08:30 Drug: HYDROmorphone IVP 1 mg IVP once Route: IVP; Site: right antecubital; rs5 09:00 Follow up: Response: No adverse reaction; Pain is decreased rs5 08:30 Drug: Piperacillin-Tazobactam IVPB 3.375 grams IVPB once over 60 mins; (mix in NS 100 rs5 mL) Route: IVPB; Infused Over: 60 mins; Site: right antecubital; 09:25 Follow up: Response: No adverse reaction; IV Status: Completed infusion; IV Intake: rs5 100ml Medication: 12:00 VIS not applicable for this client. rs5 Intake: 08:33 IV: 999ml; Total: 999ml. rs5 09:25 IV: 100ml; Total: 1099ml. rs5 Outcome: 09:17 Decision to Hospitalize by Provider. sp3 12:00 Admitted to Med/surg accompanied by tech, with chart, rs5 12:00 Condition: stable 12:00 Instructed on the need for admit, Demonstrated understanding of instructions, 12:03 Patient left the ED. rs5 Signatures: Dispatcher [employer] EDCamila Simental, RN RN Cecil Alonso MD MD sp3 Cyndie Abbasi Ricky, RN RN rs5
--- NOTE | 2024-09-05 09:18 | EDPHYS ---
Physician Documentation [facility] Name: Berlin Tran Age: 33 yrs Sex: Male : 1990 Arrival Date: 09/05/2024 Time: 06:48 Bed 5 Private MD: ED Physician Cecil Jung HPI: 09/05 07:39 This 33 yrs old Male presents to ER via Ambulatory with complaints of sp3 Abdominal Pain, Nausea/Vomiting. 07:39 33-year-old male with history of GERD, chronic abdominal pain, multiple episodes of sp3 terminal ileum inflammation and possible Crohn's disease presents again for chief complaint epigastric pain and vomiting. Patient was seen 3 weeks ago here and had a CT scan which demonstrated terminal ileitis. Patient feels his pain today and symptoms are more related to his GERD. He denies any fever, headache, neck pain, chest pain, shortness of breath, lower abdominal pain, back pain, dysuria, diarrhea, bleeding of any type, syncope, known sick contacts, travel history, or any other signs or symptoms on ROS at this time.. Historical: - Allergies: 07:06 Ibuprofen; ss - Home Meds: 07:06 None [Active]; ss - PMHx: 07:06 GERD; ss - PSHx: 07:06 None; ss - Immunization history:: Client reports receiving the 2nd dose of the Covid vaccine. - Infectious Disease History:: Denies. - Social history:: Smoking status: Reported history of juuling and/or vaping. ROS: 07:40 Constitutional: Negative for fever, chills, and weight loss, Eyes: Negative for injury, sp3 pain, redness, and discharge, ENT: Negative for injury, pain, and discharge, Neck: Negative for injury, pain, and swelling, Cardiovascular: Negative for chest pain, palpitations, and edema, Respiratory: Negative for shortness of breath, cough, wheezing, and pleuritic chest pain, Back: Negative for injury and pain, MS/Extremity: Negative for injury and deformity, Skin: Negative for injury, rash, and discoloration, Neuro: Negative for headache, weakness, numbness, tingling, and seizure, Psych: Negative for depression, anxiety, suicide ideation, homicidal ideation, and hallucinations, Allergy/Immunology: Negative for hives, rash, and allergies, Endocrine: Negative for neck swelling, polydipsia, polyuria, polyphagia, and marked weight changes, Hematologic/Lymphatic: Negative for swollen nodes, abnormal bleeding, and unusual bruising, 07:40 All other systems are negative, Exam: 07:41 Constitutional: This is a well developed, well nourished patient who is awake, alert, sp3 and in no acute distress. Head/Face: Normocephalic, atraumatic. Eyes: Pupils equal round and reactive to light, extra-ocular motions intact. Lids and lashes normal. Conjunctiva and sclera are non-icteric and not injected. Cornea within normal limits. Periorbital areas with no swelling, redness, or edema. Neck: Trachea midline, no thyromegaly or masses palpated, and no cervical lymphadenopathy. Supple, full range of motion without nuchal rigidity, or vertebral point tenderness. No Meningismus. Chest/axilla: Normal chest wall appearance and motion. Nontender with no deformity. No lesions are appreciated. Cardiovascular: Regular rate and rhythm with a normal S1 and S2. No gallops, murmurs, or rubs. Normal PMI, no JVD. No pulse deficits. Respiratory: Lungs have equal breath sounds bilaterally, clear to auscultation and percussion. No rales, rhonchi or wheezes noted. No increased work of breathing, no retractions or nasal flaring. Back: No spinal tenderness. No costovertebral tenderness. Full range of motion. Skin: Warm, dry with normal turgor. Normal color with no rashes, no lesions, and no evidence of cellulitis. MS/ Extremity: Pulses equal, no cyanosis. Neurovascular intact. Full, normal range of motion. Neuro: Awake and alert, GCS 15, oriented to person, place, time, and situation. Cranial nerves II-XII grossly intact. Motor strength 5/5 in all extremities. Sensory grossly intact. Cerebellar exam normal. Normal gait. Psych: Awake, alert, with orientation to person, place and time. Behavior, mood, and affect are within normal limits. 07:41 Abdomen/GI: Epigastric pain to palpation without peritoneal signs, rebound or guarding., Vital Signs: 07:04 BP 139 / 101; Pulse 88; Resp 18; Temp 98(O); Pulse Ox 99% on R/A; Weight 90.72 kg; ss Height 5 ft. 10 in. ; Pain 10/10; 10:10 BP 144 / 88; Pulse 77; Resp 17; Pulse Ox 99% ; rs5 12:01 BP 137 / 94; Pulse 80; Resp 17; Pulse Ox 99% ; rs5 07:04 Body Mass Index 28.70 (90.72 kg, 177.8 cm) ss 07:04 Pain Scale: Adult ss MDM: 07:07 Medical Screening Exam initiated sp3 07:42 Data reviewed: vital signs, nurses notes, old medical records, Reviewed old CT scan sp3 which demonstrated terminal ileum inflammation. Reviewed prior CT scans from that as well. lab test result(s), radiologic studies. ED course: 33-year-old male with recurrent epigastric abdominal pain. Eventual diagnosis includes GERD, gastritis, colitis, other enteritis, food related illness, among others. I am not highly suspicious of biliary or pancreatic pathology, aortic pathology, cardiovascular pathology, sepsis, shock or any other critical process. Workup will include general labs, normal saline, ondansetron IV and GI cocktail. Disposition pending workup and patient course.. 08:03 ED course: WBC is 19,000. We will add CT abdomen pelvis with IV contrast and administer sp3 Zosyn IV prophylactically.. 09/05 07:08 Order name: CBC with Diff; Complete Time: 08:45 sp3 09/05 07:08 Order name: CMP; Complete Time: 07:59 sp3 09/05 07:08 Order name: Lipase; Complete Time: 07:59 sp3 09/05 07:08 Order name: Urinalysis w/ reflexes; Complete Time: 07:59 sp3 09/05 08:40 Order name: CBC Smear Scan; Complete Time: 08:45 EDMS 09/05 10:40 Order name: C-Reactive Protein EDMS 09/05 10:40 Order name: Hemoglobin A1c EDMS 09/05 10:40 Order name: CBC with Automated Diff EDMS 09/05 10:40 Order name: CBC with Automated Diff EDMS 09/05 10:40 Order name: CBC with Automated Diff EDMS 09/05 10:40 Order name: CBC with Automated Diff EDMS 09/05 10:40 Order name: Comprehensive Metabolic Panel EDMS 09/05 10:40 Order name: Comprehensive Metabolic Panel EDMS 09/05 10:40 Order name: Comprehensive Metabolic Panel EDMS 09/05 10:40 Order name: Comprehensive Metabolic Panel EDMS 09/05 10:40 Order name: Lipid Profile EDMS 09/05 10:40 Order name: Lipid Profile EDMS 09/05 10:40 Order name: Magnesium EDMS 09/05 10:40 Order name: Magnesium EDMS 09/05 10:40 Order name: Magnesium EDMS 09/05 10:40 Order name: Magnesium EDMS 09/05 10:40 Order name: Phosphorus EDMS 09/05 10:40 Order name: Phosphorus EDMS 09/05 10:40 Order name: Phosphorus EDMS 09/05 10:40 Order name: Phosphorus EDMS 09/05 07:59 Order name: CT Abd/Pelvis - IV Contrast Only; Complete Time: 09:02 sp3 09/05 07:08 Order name: IV Saline Lock; Complete Time: 07:27 sp3 09/05 07:08 Order name: Labs collected and sent; Complete Time: 07:27 sp3 Administered Medications: 07:26 Drug: Ondansetron IVP 4 mg IVP once; over 2 minutes Route: IVP; Site: right antecubital;rs5 07:40 Follow up: Response: No adverse reaction; Nausea is decreased rs5 07:26 Drug: NS 0.9% IV 1000 ml IV at 1 bolus Per protocol; to be given as a bolus over 60 rs5 minutes Route: IV; Rate: 1 bolus; Site: right antecubital; 07:40 Follow up: Response: No adverse reaction rs5 08:33 Follow up: Response: No adverse reaction; IV Status: Completed infusion; IV Intake: rs5 999ml 07:48 Drug: GI Cocktail without - (Maalox PO 30 ml, Lidocaine Mucous Membrane 2 % 15 rs5 ml) PO once Route: PO; 09:00 Follow up: Response: No adverse reaction; Pain is decreased rs5 08:30 Drug: HYDROmorphone IVP 1 mg IVP once Route: IVP; Site: right antecubital; rs5 09:00 Follow up: Response: No adverse reaction; Pain is decreased rs5 08:30 Drug: Piperacillin-Tazobactam IVPB 3.375 grams IVPB once over 60 mins; (mix in NS 100 rs5 mL) Route: IVPB; Infused Over: 60 mins; Site: right antecubital; 09:25 Follow up: Response: No adverse reaction; IV Status: Completed infusion; IV Intake: rs5 100ml Disposition Summary: 09/05/24 09:17 Hospitalization Ordered Notes: Hospitalization Status: Inpatient Admission sp3 Provider: James Tay sp3 Location: Telemetry/[facility] (Inpatient) sp3 Condition: Stable sp3 Problem: an acute exacerbation sp3 Symptoms: have worsened sp3 Bed/Room Type: Standard sp3 Room Assignment: 406(09/05/24 11:01) steffen Diagnosis - Enteritis, leukocytosis, dehydration, abdominal pain sp3 Forms: - Medication Reconciliation Form sp3 - SBAR form sp3 - Leadership Thank You Letter sp3 Signatures: Dispatcher [employer] EDCamila Simental RN RN Reynaldo Shultz RN RN ja1 Cecil Jung MD MD sp3 Neno Kat RN RN rs5 Corrections: (The following items were deleted from the chart) 11: 09:17 sp3 ja1
[2024-09-05] MEDS ORDERED: PROMETHAZINE INJ 25 MG/ML AMP IV PRN (10:33)
--- NOTE | 2024-09-05 10:40 | P.HP ---
Certification for Inpatient Patient admitted to: Inpatient With expected LOS: >2 Midnights Patient will require the following post-hospital care: None Practitioner: I am a practitioner with admitting privileges, knowledge of patient current condition, hospital course, and medical plan of care. Services: Services provided to patient in accordance with Admission requirements found in Title 42 Section 412.3 of the Code of Federal Regulations Patient History Date of Service: 09/05/24 Reason for admission: Recurrent ileitis/enteritis/leukocytosis History of Present Illness: Mr. Acñua is a 33-year-old gentleman with a past medical history of GERD and recurrent ileitis. He gets results of exams to confirm a diagnosis of Crohn's in September 2024. His last exacerbation was 6 weeks ago and he was hospitalized with IV fluids and antibiotics. He presented to the emergency department today with intractable nausea and vomiting that started this morning. His white count was 19.3 with 91% neutrophils and hemoconcentration and his Chem-7 is significant for a glucose of 181 in the presence of glycosuria with no history of diabetes. We will admit him for IV hydration, anti-inflammatories, and will trend his white count and send a hemoglobin A1c. The ER MD was going to defer a CT as he had one 6 weeks ago but secondary to his leukocytosis a CT was performed and shows a "moderately inflamed loop of small bowel in the left upper quadrant which has progressed since the prior study most likely representing inflammatory bowel disease or infectious enteritis inflammation in the region of the cecum has improved" Allergies ibuprofen [From Motrin] Allergy (Verified 09/17/23 04:06) Hives Home Medications: NK [No Home Meds] 01/03/24 - Past Medical/Surgical History Diabetic: No -: GERD -: gastritis -: terminal ileitis Past Surgical History: Patient denies surgical history Psychosocial/ Personal History: Lives at home. No family history of diabetes. His father does have some sort of recurrent bowel distress - Family History Father -: Hypertension, GI disease Notes: pt states father has swelling Mother -: Hypertension - Social History Smoking Status: Current some day smoker (Vapes) Alcohol use: Yes CD- Drugs: No Caffeine use: Yes Place of Residence: Home Review of Systems 10-point ROS is otherwise unremarkable General: Weakness, Malaise Eyes: Unremarkable ENT: Unremarkable Respiratory: Unremarkable Cardiovascular: Unremarkable Gastrointestinal: Nausea, Vomiting, As per HPI Genitourinary: Unremarkable Musculoskeletal: Unremarkable Integumentary: Unremarkable Neurological: Unremarkable Lymphatics: Unremarkable Physical Examination - Physical Exam General: Alert, In no apparent distress, Oriented x3, Other (German-speaking) HEENT: Atraumatic, Normocephalic Neck: Supple, 2+ carotid pulse no bruit Respiratory: Normal air movement, Diminished Cardiovascular: Normal pulses, Regular rate/rhythm, Normal S1 S2 Capillary refill: <2 Seconds Gastrointestinal: Hypoactive, Distended, Tenderness (Mild) Musculoskeletal: No clubbing, No swelling Integumentary: No rashes Neurological: Normal speech, Normal tone, Normal affect Lymphatics: No axilla or inguinal lymphadenopathy External genitalia: Deferred Rectal: Deferred - Studies Laboratory Data (last 24 hrs) 09/05/24 09/05/24 07:19 07:19 WBC 19.30 H Hgb 18.2 H Hct 53.1 H Plt Count 387 Sodium 138 Potassium 3.8 BUN 18 Creatinine 1.05 Glucose 181 H Total Bilirubin 1.1 H AST 16 ALT 64 H Alkaline Phosphatase 72 Lipase 17 Assessment and Plan - Plan Enteritis Probable Crohn's/inflammatory bowel Volume depletion Was given antibiotics in ER but will hold for now Hydration N.p.o. and then slowly advance diet Sulfasalazine, CRP Pain management Nausea management Hemoglobin A1c Trend electrolytes GI prophylaxis Discharge Plan: Home Plan to discharge in: 48 Hours - Advance Directives Does patient have a Living Will: No Does patient have a Durable POA for Healthcare: No - Code Status/Comfort Care Code Status Assessed: Yes (Full)
[2024-09-05] MEDS: NA CHLORIDE 0.9% 1,000 ML IV SCH (13:31)
[2024-09-05] MEDS: SULFASALAZINE 500 MG E.C. TAB PO SCH (13:33)
[2024-09-05] MEDS: HYDROMORPHONE HCL 1 MG/ML INJ IV ONE (13:33)
[2024-09-05] MEDS ORDERED: FENTANYL CITR 100 MCG/2 ML IV PRN ×2 (14:08→14:09)
[2024-09-05] MEDS: CIPROFLOXACIN 400mg IV 400 MG/200 ML BAG IV SCH (21:49)
[2024-09-05] MEDS: METRONIDAZOLE 500mg IVPB 500 MG/100 ML BAG IV SCH (21:50)
[2024-09-06 02:54] VITALS: BMI 29.4
[2024-09-06 07:11] LABS: Hemoglobin 13.8 g/dL (13.6-17.9)
[2024-09-06 07:17] LABS: Absolute Eosinophils 0.2 K/uL (0-0.5); Absolute Monocytes 0.6 K/uL (0.1-1.3); Absolute Neutrophil 6.9 K/uL (1.8-8.0); Basophils % 0.4 % (0-1.3); Eosinophils % 2.5 % (0-4.4); Hematocrit 39.8 % (39.6-49.0); Lymphocytes % 20.1 % (15.3-44.8); MCH 30.3 pg (27.0-35.0); MCHC 34.6 g/dL (32.0-36.0); MCV 87.6 fL (80-100); MPV 8.2 fL (7.6-11.3); Monocytes % 6.2 % (3.3-12.3); Neutrophils % 70.8 % (41.7-73.7); Platelets 264 thou/uL (152-406); RBC Red Blood Cell Count 4.55 M/uL (4.33-5.43); Red Cell Distribution Width 12.3 % (12.1-15.2)
[2024-09-06 07:28] LABS: Albumin 2.8 g/dL (3.4-5.0); Albumin/Globulin Ratio 1.1 (1.1-1.8); Anion Gap 6.8 mEq/L (5.0-15.0); Bilirubin Total 0.9 mg/dL (0.2-1.0); Globulin 2.6 g/dL (2.3-3.5); Magnesium 2.2 mg/dL (1.6-2.4); Phosphorus 2.7 mg/dL (2.5-4.9); Potassium 3.8 mEq/L (3.5-5.1); Protein, Total 5.4 g/dL (6.4-8.2)
[2024-09-06] MEDS: ACETAMINOPHEN 500 MG TAB PO PRN (09:45)
--- NOTE | 2024-09-06 09:57 | P.DS ---
Admission Date: 09/05/24 Discharge Date: 09/06/24 Reason for Admission: Recurrent ileitis/enteritis/leukocytosis Brief History of Present Illness: Mr. Acuña is a 33-year-old gentleman with a past medical history of GERD and recurrent ileitis. He gets results of exams to confirm a diagnosis of Crohn's in September 2024. His last exacerbation was 6 weeks ago and he was hospitalized with IV fluids and antibiotics. He presented to the emergency department today with intractable nausea and vomiting that started this morning. His white count was 19.3 with 91% neutrophils and hemoconcentration and his Chem-7 is significant for a glucose of 181 in the presence of glycosuria with no history of diabetes. We will admit him for IV hydration, anti-inflammatories, and will trend his white count and send a hemoglobin A1c. The ER MD was going to defer a CT as he had one 6 weeks ago but secondary to his leukocytosis a CT was performed and shows a "moderately inflamed loop of small bowel in the left upper quadrant which has progressed since the prior study most likely repr esenting inflammatory bowel disease or infectious enteritis inflammation in the region of the cecum has improved" Hospital Course: Physician Discharge Instructions: Mr. Blaise Tran did well over the course of the hospitalization with a slow increase in diet. No further nausea, vomiting, and no diarrhea. White count significantly decreased overnight. 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 We will send him home with Phenergan, sulfasalazine, and Flagyl. Will encourage not to drink alcohol especially during treatment with Flagyl. <Kandy Arnett - Last Filed: 09/06/24 14:52> Admission Date: 09/05/24 Discharge Date: 09/06/24 Hospital Course: Patient was seen and examined. Events of the last 24 hours have been noted. Spoke with JOSLYN regarding patient's clinical picture after evaluated and examined the patient independently. I performed the substantial part of the TM during the patient's care today. I personally made approved the documented management plan and acknowledge its risk of complications. I agree with the findings and documentation provided in the JOSLYN's notes. <Davi Singh - Last Filed: 09/06/24 18:43> Disposition: ROUTINE DISCHARGE Discharge Condition: GOOD Vital Signs/Physical Exam: Temp Pulse Resp BP Pulse Ox 97.4 F 77 18 123/67 96 09/06/24 04:00 09/06/24 04:00 09/06/24 04:00 09/06/24 04:00 09/06/24 04:00 General: Alert, In no apparent distress, Oriented x3 HEENT: Atraumatic, Normocephalic Neck: Supple Respiratory: Normal air movement, Diminished Cardiovascular: Normal pulses, Regular rate/rhythm, Normal S1 S2 Capillary refill: <2 Seconds Gastrointestinal: Normal bowel sounds, Soft and benign, Distended (minimally) Musculoskeletal: No clubbing, No swelling Integumentary: No rashes Neurological: Normal gait, Normal tone, Normal affect Lymphatics: No axilla or inguinal lymphadenopathy External genitalia: Deferred Rectal: Deferred Laboratory Data at Discharge: WBC 9.80 thou/uL (4.3-10.9) 09/06/24 06:57 Hgb 13.8 g/dL (13.6-17.9) D 09/06/24 06:57 Hct 39.8 % (39.6-49.0) 09/06/24 06:57 Plt Count 264 thou/uL (152-406) D 09/06/24 06:57 Sodium 138 mEq/L (136-145) 09/06/24 06:57 Potassium 3.8 mEq/L (3.5-5.1) 09/06/24 06:57 BUN 19 mg/dL (7-18) H 09/06/24 06:57 Creatinine 0.68 mg/dL (0.70-1.30) L 09/06/24 06:57 Glucose 118 mg/dL (74-106) H 09/06/24 06:57 Phosphorus 2.7 mg/dL (2.5-4.9) 09/06/24 06:57 Magnesium 2.2 mg/dL (1.6-2.4) 09/06/24 06:57 Total Bilirubin 0.9 mg/dL (0.2-1.0) 09/06/24 06:57 AST 14 U/L (15-37) L 09/06/24 06:57 ALT 41 U/L (16-61) 09/06/24 06:57 Alkaline Phosphatase 50 U/L (45-117) D 09/06/24 06:57 Triglycerides 162 mg/dL (<150) H 09/06/24 06:57 Cholesterol 134 mg/dL (<200) 09/06/24 06:57 HDL Cholesterol 31 mg/dL (40-60) L 09/06/24 06:57 Cholesterol/HDL Ratio 4.32 09/06/24 06:57 Lipase 17 U/L (13-75) 09/05/24 07:19 <Arnett,Kandy Ernesto - Last Filed: 09/06/24 14:52> Vital Signs/Physical Exam: Temp Pulse Resp BP Pulse Ox 98.2 F 72 16 112/64 98 09/06/24 12:00 09/06/24 12:00 09/06/24 12:00 09/06/24 12:00 09/06/24 12:00 Laboratory Data at Discharge: WBC 9.80 thou/uL (4.3-10.9) 09/06/24 06:57 Hgb 13.8 g/dL (13.6-17.9) D 09/06/24 06:57 Hct 39.8 % (39.6-49.0) 09/06/24 06:57 Plt Count 264 thou/uL (152-406) D 09/06/24 06:57 Sodium 138 mEq/L (136-145) 09/06/24 06:57 Potassium 3.8 mEq/L (3.5-5.1) 09/06/24 06:57 BUN 19 mg/dL (7-18) H 09/06/24 06:57 Creatinine 0.68 mg/dL (0.70-1.30) L 09/06/24 06:57 Glucose 118 mg/dL (74-106) H 09/06/24 06:57 Phosphorus 2.7 mg/dL (2.5-4.9) 09/06/24 06:57 Magnesium 2.2 mg/dL (1.6-2.4) 09/06/24 06:57 Total Bilirubin 0.9 mg/dL (0.2-1.0) 09/06/24 06:57 AST 14 U/L (15-37) L 09/06/24 06:57 ALT 41 U/L (16-61) 09/06/24 06:57 Alkaline Phosphatase 50 U/L (45-117) D 09/06/24 06:57 Triglycerides 162 mg/dL (<150) H 09/06/24 06:57 Cholesterol 134 mg/dL (<200) 09/06/24 06:57 HDL Cholesterol 31 mg/dL (40-60) L 09/06/24 06:57 Cholesterol/HDL Ratio 4.32 09/06/24 06:57 Lipase 17 U/L (13-75) 09/05/24 07:19 <Davi Singh - Last Filed: 09/06/24 18:43> Diet: [place] Activity: Ad maru <Kandy Arnett Ernesto - Last Filed: 09/06/24 14:52> <Davi Singh - Last Filed: 09/06/24 18:43> Home Medications: Promethazine Tab [Phenergan] 25 mg PO Q6HP PRN #24 tab 09/06/24 metroNIDAZOLE [Flagyl] 500 mg PO Q8H #21 tab 09/06/24 sulfaSALAzine [AZULFIDINE EN-tabs*] 500 mg PO QID #120 tab 09/06/24 New Medications: sulfaSALAzine [AZULFIDINE EN-tabs*] 500 mg PO QID #120 tab metroNIDAZOLE [Flagyl] 500 mg PO Q8H #21 tab Promethazine Tab [Phenergan] 25 mg PO Q6HP PRN #24 tab PRN Reason: Nausea / Vomiting Physician Discharge Instructions: Physician Discharge Instructions: Mr. Blaise Tran did well over the course of the hospitalization with a slow increase in diet. No further nausea, vomiting, and no diarrhea. White count significantly decreased overnight. 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 We will send him home with Phenergan, sulfasalazine, and Flagyl. Will encourage not to drink alcohol especially during treatment with Flagyl. Followup: NONE,NONE [Primary Care Provider] -
[2024-09-06 12:17] VITALS: O2SAT 95
[2024-09-06] MEDS: POTASSIUM CL SA 10 MEQ TAB PO ONE (13:07)
[2024-09-06 13:08] VITALS: BP 112/64; TEMP 98.2
== END 2024-09-06 16:19 | disposition home or self-care (01) | DRG 392 ==
LOC: ER 06:48 → 4TH 10:33
PROVIDERS: ADMIT Internal Medicine; ATTEND Internal Medicine
DX: K52.9 Noninfective gastroenteritis and colitis, unspecified (principal); E86.0 Dehydration; K21.9 Gastro-esophageal reflux disease without esophagitis; E86.9 Volume depletion, unspecified; F17.290 Nicotine dependence, other tobacco product, uncomplicated; Z88.8 Allergy status to other drugs, medicaments and biological substances; Z79.899 Other long term (current) drug therapy
CPT/HCPCS: 36415; 74177; 80053; 80061; 81001; 83036; 83690; 83735; 84100; 85025; 86140; 96361; 96365; 96375; 99285; J0744; J1171; J2405; J2543; J7030; Q9967

== ENCOUNTER 2024-09-20 21:08 | Emergency (ER) | payer SELFPAY ==
[2024-09-20] MEDS ORDERED: ONDANSETRON 4 MG/2 ML VIAL ONE (23:18)
[2024-09-20] MEDS ORDERED: FAMOTIDINE 20 MG/2 ML VIAL IV ONE (23:18)
[2024-09-20] MEDS ORDERED: MORPHINE 4 MG/ML SYR ONE (23:18)
[2024-09-20] MEDS ORDERED: NA CHLORIDE 0.9% 1,000 ML ONE (23:19)
[2024-09-20 23:23] LABS: Specific Gravity 1.023 (1.005-1.030); Sqamous Epithelial None Seen /HPF (None Seen); Urine Bacteria None Seen /HPF (<20); Urine Bilirubin NEGATIVE (Negative); Urine Blood Negative (Negative); Urine Clarity Clear (Clear); Urine Color Yellow (Yellow); Urine Crystals Unidentified Few /HPF (None Seen); Urine Culture Reflex Order NOT NEEDED; Urine Glucose NEGATIVE (Negative); Urine Ketones NEGATIVE (Negative); Urine Micro Reflex YN NO BILL MICROSCOPIC; Urine Mucus Slight /HPF (None Seen); Urine Nitrite NEGATIVE (Negative); Urine Protein NEGATIVE (Negative); Urine RBC <5 /HPF (None Seen); Urine Urobilinogen Normal (Normal); Urine WBC <5 /HPF (<5)
[2024-09-20 23:24] LABS: Absolute Basophils 0.1 K/uL (0-0.5); Absolute Eosinophils 0.1 K/uL (0-0.5); Absolute Lymphocytes (CBC) 1.8 K/uL (0.7-4.9); Absolute Monocytes 0.9 K/uL (0.1-1.3); Absolute Neutrophil 15.7 K/uL (1.8-8.0); Basophils % 0.4 % (0-1.3); Eosinophils % 0.5 % (0-4.4); Hematocrit 51.7 % (39.6-49.0); Hemoglobin 18.1 g/dL (13.6-17.9); Lymphocytes % 9.8 % (15.3-44.8); MCH 30.2 pg (27.0-35.0); MCHC 34.9 g/dL (32.0-36.0); MCV 86.6 fL (80-100); MPV 8.3 fL (7.6-11.3); Monocytes % 4.7 % (3.3-12.3); Neutrophils % 84.6 % (41.7-73.7); Platelets 401 thou/uL (152-406); RBC Red Blood Cell Count 5.97 M/uL (4.33-5.43); Red Cell Distribution Width 12.8 % (12.1-15.2)
[2024-09-20 23:38] LABS: Albumin 3.9 g/dL (3.4-5.0); Albumin/Globulin Ratio 1.3 (1.1-1.8); Anion Gap 12.7 mEq/L (5.0-15.0); Bilirubin Total 0.8 mg/dL (0.2-1.0); Potassium 3.7 mEq/L (3.5-5.1); Protein, Total 6.9 g/dL (6.4-8.2)
--- NOTE | 2024-09-21 00:02 | RAD REPORT ---
CLINICAL HISTORY: ABD PAIN. COMPARISON: CT abdomen/pelvis from September 05, 2024. TECHNIQUE: CT of the abdomen and pelvis was performed following intravenous administration of iodinat ed contrast. Oral contrast was not administered. Axial, coronal, and sagittal soft tissue window reconstructions were created and sent to PACS. This exam was performed according to our departmental dose-optimization program, which includes autom ated exposure control, adjustment of the mA and/or kV according to patient size and/or use of iterative reconstruction technique. FINDINGS: Thoracic: No significant abnormality. Hepatobiliary: No concerning hepatic lesion identified. The portal veins are patent. The gallbladder is unremarkable. No biliary ductal dilatation. Pancreas: Unremarkable. Spleen: Small cystic lesion in the superior spleen, highly likely benign. Gastrointestinal: Mild fluid-filled distention of small bowel loops in the left abdomen (jejunum) wit h gradual tapering and no abrupt transition point identified. No free air or fluid collections are identified. Small amount of free fluid adjacent to dilated small bowel loops. The appendix is normal. Small stool burden. Adrenals: No abnormality identified in either adrenal gland. Renal: No concerning parenchymal lesion in either kidney. No hydronephrosis or urolithiasis. Bladder/Reproductive: Unremarkable appearance of the urinary bladder by CT technique. Vascular/Lymphatics: No lymphadenopathy identified by CT size criteria. Abdominal aorta is normal in caliber. Musculoskeletal: No concerning osseous lesion identified. Fluid / peritoneum: Small abdominopelvic free fluid, including adjacent to dilated small bowel loops. No free intraperitoneal air identified. IMPRESSION 1. Mild fluid-filled distention of small bowel loops in the left abdomen. No abrupt transition poin t identified. Findings favor enteritis. However, early small bowel obstruction remains in the differential in the appropriate clinical setting. 2. Small abdominopelvic free fluid. No free air or fluid collections. Electronically signed by: Nela Andersen MD 09/20/2024 11:55 PM [employer] Due to temporary technical issues with the PACS/[employer] reporting system, reports are being selma d by the in-house radiologist without review as a courtesy to ensure prompt reporting the interpreting radiologist is fully responsible for the content of the report. Transcribed Date/Time: 09/21/2024 12:01 AM
--- NOTE | 2024-09-21 00:33 | EDPHYS ---
Physician Documentation [facility] Name: Berlin Tran Age: 34 yrs Sex: Male : 1990 Arrival Date: 09/20/2024 Time: 21:08 Bed DX3 Private MD: ED Physician Donaldo Altamirano HPI: 09/21 00:07 This 34 yrs old Male presents to ER via Ambulatory with complaints of sb4 Abdominal Pain. 00:07 The patient presents with abdominal pain in the lower abdomen. Onset: The sb4 symptoms/episode began/occurred 2 day(s) ago. The symptoms do not radiate. Associated signs and symptoms: Pertinent positives: nausea and vomiting. 00:07 Associated signs and symptoms: Pertinent negatives: constipation, diarrhea. The patient sb4 has experienced a previous episode. The patient has not recently seen a physician. Historical: - Allergies: 09/20 21:34 No Known Allergies; al5 - Home Meds: 21:34 sulfasalazine 500 mg Oral tablet 4 times per day [Active]; promethazine 25 mg Oral al5 tablet as needed [Active]; - PMHx: 21:34 gastritis (Gastroesophageal re); GERD; al5 - PSHx: 21:34 None; al5 - Immunization history:: Adult Immunizations up to date. - Infectious Disease History:: Denies. - Social history:: Smoking status: Patient denies any tobacco usage or history of. ROS: 09/21 00:07 Constitutional: Negative for fever, chills, and weight loss, sb4 Abdomen/GI: Positive for abdominal pain, nausea and vomiting, All other systems are negative, Exam: 00:07 Constitutional: This is a well developed, well nourished patient who is awake, alert, sb4 and in no acute distress. Head/Face: Normocephalic, atraumatic. Eyes: Extra-ocular motions intact. Periorbital areas with no swelling, redness, or edema. ENT: Mucous membranes moist. Cardiovascular: Regular rate and rhythm with a normal S1 and S2. Respiratory: No increased work of breathing, no retractions or nasal flaring. Abdomen/GI: Soft, non-tender, no distension. Skin: Warm, dry with normal turgor. Normal color with no rashes, no lesions, and no evidence of cellulitis. Vital Signs: 09/20 21:31 BP 115 / 89; Pulse 108; Resp 18; Temp 97.7; Pulse Ox 100% on R/A; Weight 90.72 kg; al5 Height 5 ft. 10 in. ; Pain 8/10; 09/21 00:40 BP 117 / 84; Pulse 97; Resp 17 S; Temp 97.3(O); Pulse Ox 100% on R/A; lg3 09/20 21:31 Body Mass Index 28.70 (90.72 kg, 177.8 cm) al5 09/20 21:31 Pain Scale: Adult al5 MDM: 09/20 21:39 Medical Screening Exam initiated sb4 09/21 00:40 Data reviewed: vital signs, nurses notes, lab test result(s), radiologic studies, and sb4 as a result, I will discharge patient. Counseling: I had a detailed discussion with the patient and/or guardian regarding the historical points, exam findings, and any diagnostic results supporting the discharge/admit diagnosis, the presence of at least one elevated blood pressure reading (>120/80) during this emergency department visit, lab results, radiology results, the need for outpatient follow up, a figure model, to return to the emergency department if symptoms worsen or persist or if there are any questions or concerns that arise at home. ED course: Patient's abdominal pain has improved significantly. He is tolerating p.o. CT suggestive of a enteritis. Per chart review, it appears he has had a similar visit a few weeks ago and was prescribed sulfasalazine and metronidazole and to follow-up with GI. I we will prescribe him an antibiotic for any possible autoimmune involvement. He does have a follow-up with GI later this month. I also recommended low acidic foods and drinks given his history of GERD and that drinking coffee today triggered his pain. 09/20 21:37 Order name: CBC with Diff; Complete Time: 23:31 sb4 09/20 21:37 Order name: CMP; Complete Time: 23:39 sb4 09/20 21:37 Order name: Lipase; Complete Time: 23:39 sb4 09/20 22:46 Order name: Urine W/Microscopic (UAM); Complete Time: 23:24 lg3 09/20 21:37 Order name: CT Abd/Pelvis - IV Contrast Only; Complete Time: 00:05 sb4 09/20 21:37 Order name: IV Saline Lock; Complete Time: 22:48 sb4 09/20 21:37 Order name: Labs collected and sent; Complete Time: 22:48 sb4 09/20 23:59 Order name: PO challenge; Complete Time: 00:17 sb4 Administered Medications: 09/20 23:25 Drug: NS 0.9% IV 1000 ml IV at 1 bolus Per protocol; to be given as a bolus over 60 lg3 minutes Route: IV; Rate: 1 bolus; Site: left forearm; 09/21 00:07 Follow up: Response: No adverse reaction; IV Status: Completed infusion; IV Intake: lg3 1000ml 09/20 23:25 Drug: Famotidine IVP 20 mg IVP once; dilute with 10 mL 0.9% NaCl; give over 2 minutes lg3 Route: IVP; Site: left forearm; 09/21 00:07 Follow up: Response: No adverse reaction 3 09/20 23:26 Drug: Ondansetron IVP 4 mg IVP once; over 2 minutes Route: IVP; Site: left forearm; lg3 09/21 00:07 Follow up: Response: No adverse reaction; Marked relief of symptoms lg3 09/20 23:26 Drug: morphine IVP or IV 4 mg IVP once over 4 mins Route: IVP; Infused Over: 4 mins; lg3 Site: left forearm; 09/21 00:08 Follow up: Response: No adverse reaction; Marked relief of symptoms lg3 Disposition Summary: 09/21/24 00:33 Discharge Ordered Notes: Location: Home sb4 Problem: new sb4 Symptoms: have improved sb4 Condition: Stable sb4 Diagnosis - Acute on chronic enteritis sb4 Followup: sb4 - With: Alfredo Navarro MD - When: 1 week - Reason: Further diagnostic work-up, Recheck today's complaints, Re-evaluation by your physician Discharge Instructions: - Discharge Summary Sheet sb4 - Food Choices for Gastroesophageal Reflux Disease, Adult sb4 - Viral Gastroenteritis, Adult sb4 Forms: - Patient Portal Instructions sb4 - Leadership Thank You Letter sb4 Prescriptions: - Prednisone 20 mg Oral Tablet - take 2 tablets ORAL route once daily for 5 days; 10 tablet; Refills: 0, Product sb4 Selection Permitted Signatures: Dispatcher [employer] Tavia Mcdaniels RN RN lg3 Ambreen Walker PA-C PA-C sb4 Keri Vazquez, RN RN al5 Corrections: (The following items were deleted from the chart) 09/20 21:37 21:34 Allergies: Ibuprofen; al5 al5 21:38 21:38 CBC+H.LAB.BRZ ordered. EDMS EDMS 21:38 21:38 COMPREHENSIVE METABOLIC PANEL+C.LAB.BRZ ordered. EDMS EDMS 21:38 21:38 LIPASE+C.LAB.BRZ ordered. EDMS EDMS : 21:38 Abdomen Pelvis W Con+CT.RAD.BRZ ordered. EDMS EDMS 22:46 22:46 Urinalysis W/Microscopic+U.LAB.BRZ ordered. EDMS EDMS 09/21 00:08 00:07 Associated signs and symptoms: Pertinent positives: nausea and vomiting, sb4 sb4
--- NOTE | 2024-09-21 00:33 | ER ---
Nurse's Notes [facility] Name: Berlin Tran Age: 34 yrs Sex: Male : 1990 Arrival Date: 09/20/2024 Time: 21:08 Bed DX3 Private MD: Diagnosis: Acute on chronic enteritis Presentation: 09/20 21:31 Chief complaint: Patient states: c.o stomach pain, nausea, dizziness, dehydration, and al5 diarrhea starting at this afternoon. states this morning he was fine this morning, but drank coffee and that is when the pain started. Coronavirus screen: At this time, the client does not indicate any symptoms associated with coronavirus-19. Ebola Screen: No symptoms or risks identified at this time. Initial Sepsis Screen: Does the patient meet any 2 criteria? HR > 90 bpm. No. Patient's initial sepsis screen is negative. Does the patient have a suspected source of infection? No. Patient's initial sepsis screen is negative. Risk Assessment: Do you want to hurt yourself or someone else? Patient reports no desire to harm self or others. Onset of symptoms was September 20, 2024. 21:31 Method Of Arrival: Ambulatory al5 21:31 Acuity: PITER 3 al5 Triage Assessment: 21:37 General: Appears in no apparent distress. Behavior is calm, cooperative. Pain: al5 Complains of pain in abdomen Pain currently is 8 out of 10 on a pain scale. EENT: No signs and/or symptoms were reported regarding the EENT system. Neuro: Level of Consciousness is awake, alert, obeys commands, Oriented to person, place, time, situation. Cardiovascular: Capillary refill < 3 seconds Patient's skin is warm and dry. Respiratory: Airway is patent Respiratory effort is even, unlabored, Respiratory pattern is regular, symmetrical. GI: Abdomen is flat, non-distended, Reports lower abdominal pain, upper abdominal pain, nausea. : No signs and/or symptoms were reported regarding the genitourinary system. Derm: Skin is intact, is healthy with good turgor, Skin is pink, warm \T\ dry. normal. Musculoskeletal: No signs and/or symptoms reported regarding the musculoskeletal system. Historical: - Allergies: 21:34 No Known Allergies; al5 - Home Meds: 21:34 sulfasalazine 500 mg Oral tablet 4 times per day [Active]; promethazine 25 mg Oral al5 tablet as needed [Active]; - PMHx: 21:34 gastritis (Gastroesophageal re); GERD; al5 - PSHx: 21:34 None; al5 - Immunization history:: Adult Immunizations up to date. - Infectious Disease History:: Denies. - Social history:: Smoking status: Patient denies any tobacco usage or history of. Screenin:38 [facility] ED Fall Risk Assessment (Adult) History of falling in the last 3 months, al5 including since admission No falls in past 3 months (0 pts) Confusion or Disorientation No (0 pts) Intoxicated or Sedated No (0 pts) Impaired Gait No (0 pts) Mobility Assist Device Used No (0 pt) Altered Elimination No (0 pt) Score/Fall Risk Level 0 - 2 = Low Risk Oriented to surroundings, Maintained a safe environment, Hourly rounding (assess needs \T\ fall precautionary measures) done. Abuse screen: Denies threats or abuse. Denies injuries from another. Nutritional screening: No deficits noted. Tuberculosis screening: No symptoms or risk factors identified. Assessment: 21:37 Reassessment: see triage assessment. al5 09/21 00:08 Reassessment: Patient appears in no apparent distress at this time. No changes from lg3 previously documented assessment. Patient and/or family updated on plan of care and expected duration. Pain level reassessed. Patient is alert, oriented x 3, equal unlabored respirations, skin warm/dry/pink. 00:40 Reassessment: Patient appears in no apparent distress at this time. No changes from lg3 previously documented assessment. Patient and/or family updated on plan of care and expected duration. Pain level reassessed. Patient is alert, oriented x 3, equal unlabored respirations, skin warm/dry/pink. Patient states feeling better. Patient states symptoms have improved. Vital Signs: 09/20 21:31 BP 115 / 89; Pulse 108; Resp 18; Temp 97.7; Pulse Ox 100% on R/A; Weight 90.72 kg; al5 Height 5 ft. 10 in. ; Pain 8/10; 09/21 00:40 BP 117 / 84; Pulse 97; Resp 17 S; Temp 97.3(O); Pulse Ox 100% on R/A; lg3 09/20 21:31 Body Mass Index 28.70 (90.72 kg, 177.8 cm) al5 09/20 21:31 Pain Scale: Adult al5 ED Course: 09/20 21:12 Patient arrived in ED. gm2 21:20 Ambreen Walker PA-C is PHCP. sb4 21:20 Donaldo Altamirano MD is Attending Physician. sb4 21:34 Triage completed. al5 21:38 Arm band placed on right wrist. Patient placed in waiting room, in view of staff al5 members, on pulse oximetry, Patient notified of wait time. 21:38 Patient has correct armband on for positive identification. Provided Education on: plan al5 of care. 21:38 No provider procedures requiring assistance completed. al5 22:48 Initial lab(s) drawn, by ED staff, sent to lab. Urine collected: clean catch specimen, lg3 clear. Inserted saline lock: 22 gauge in left forearm, using aseptic technique. Blood collected. Flushed with 10 mL NS. 22:48 Urine W/Microscopic (UAM) Sent. lg3 22:48 CBC with Diff Sent. lg3 22:48 CMP Sent. lg3 22:48 Lipase Sent. lg3 23:06 CT Abd/Pelvis - IV Contrast Only In Process Unspecified. EDMS 09/21 00:32 Alfredo Navarro MD is Referral Physician. sb4 00:40 IV discontinued, intact, bleeding controlled, No redness/swelling at site. Pressure lg3 dressing applied. Administered Medications: 09/20 23:25 Drug: NS 0.9% IV 1000 ml IV at 1 bolus Per protocol; to be given as a bolus over 60 lg3 minutes Route: IV; Rate: 1 bolus; Site: left forearm; 09/21 00:07 Follow up: Response: No adverse reaction; IV Status: Completed infusion; IV Intake: lg3 1000ml 09/20 23:25 Drug: Famotidine IVP 20 mg IVP once; dilute with 10 mL 0.9% NaCl; give over 2 minutes lg3 Route: IVP; Site: left forearm; 09/21 00:07 Follow up: Response: No adverse reaction lg3 09/20 23:26 Drug: Ondansetron IVP 4 mg IVP once; over 2 minutes Route: IVP; Site: left forearm; lg3 09/21 00:07 Follow up: Response: No adverse reaction; Marked relief of symptoms lg3 09/20 23:26 Drug: morphine IVP or IV 4 mg IVP once over 4 mins Route: IVP; Infused Over: 4 mins; lg3 Site: left forearm; 09/21 00:08 Follow up: Response: No adverse reaction; Marked relief of symptoms lg3 Medication: 09/20 21:37 VIS not applicable for this client. al5 Intake: 09/21 00:07 IV: 1000ml; Total: 1000ml. lg3 Outcome: 00:33 Discharge ordered by . sb4 00:40 Discharged to home ambulatory, lg3 00:40 Condition: stable 00:40 Discharge instructions given to patient, Instructed on discharge instructions, follow up and referral plans. medication usage, Demonstrated understanding of instructions, follow-up care, medications, Prescriptions given X 1, 00:41 Patient left the ED. lg3 Signatures: Dispatcher [employer] EDMS Tavia Vaughn RN RN lg3 Ambreen Walker, PA-C PADemetra [email or web address] Cynthia Pryor 2 Keri Vazquez RN RN al5 Corrections: (The following items were deleted from the chart) 09/20 21:37 21:34 Allergies: Ibuprofen; al5 al5 23:01 22:48 Inserted saline lock: 22 gauge in right antecubital area, using aseptic lg3 technique. Blood collected. Flushed with 10 mL NS lg3 23:01 22:48 Initial lab(s) drawn, by ED staff, sent to lab. Urine collected: clean catch lg3 specimen, clear, lg3
[2024-09-21 00:52] VITALS: O2SAT 100
[2024-09-21 00:59] VITALS: BP 117/84; TEMP 97.3
== END 2024-09-21 00:41 | disposition home or self-care (01) ==
LOC: ER 21:08
DX: K52.9 Noninfective gastroenteritis and colitis, unspecified (principal)
CPT/HCPCS: 36415; 74177; 80053; 81001; 83690; 85025; 96361; 96374; 96375; 99284; J2405; J7030; Q9967

== ENCOUNTER 2024-10-01 13:47 | Emergency (ER) | payer SELFPAY ==
[2024-10-01] MEDS ORDERED: NA CHLORIDE 0.9% 1,000 ML ONE (14:00)
[2024-10-01] MEDS ORDERED: ONDANSETRON 4 MG/2 ML VIAL ONE (14:00)
[2024-10-01] MEDS ORDERED: FAMOTIDINE 20 MG/2 ML VIAL IV ONE (14:05)
[2024-10-01] MEDS ORDERED: MORPHINE 4 MG/ML SYR ONE ×2 (14:05→15:42)
[2024-10-01] MEDS ORDERED: METHYLPREDNISOLONE 125 MG INJ ONE (14:05)
[2024-10-01 14:25] LABS: Absolute Eosinophils 0.2 K/uL (0-0.5); Absolute Lymphocytes (CBC) 2.3 K/uL (0.7-4.9); Absolute Monocytes 0.9 K/uL (0.1-1.3); Basophils % 0.3 % (0-1.3); Eosinophils % 1.8 % (0-4.4); Hematocrit 51.2 % (39.6-49.0); Hemoglobin 17.8 g/dL (13.6-17.9); Lymphocytes % 18.5 % (15.3-44.8); MCH 30.5 pg (27.0-35.0); MCHC 34.7 g/dL (32.0-36.0); MCV 87.9 fL (80-100); MPV 8.4 fL (7.6-11.3); Monocytes % 7.2 % (3.3-12.3); Neutrophils % 72.2 % (41.7-73.7); Platelets 341 thou/uL (152-406); RBC Red Blood Cell Count 5.82 M/uL (4.33-5.43); Red Cell Distribution Width 12.7 % (12.1-15.2)
[2024-10-01 14:41] LABS: Albumin 3.6 g/dL (3.4-5.0); Albumin/Globulin Ratio 1.2 (1.1-1.8); Anion Gap 7.4 mEq/L (5.0-15.0); Bilirubin Total 1.2 mg/dL (0.2-1.0); Globulin 3.1 g/dL (2.3-3.5); Potassium 3.4 mEq/L (3.5-5.1); Protein, Total 6.7 g/dL (6.4-8.2)
--- NOTE | 2024-10-01 15:27 | RAD REPORT ---
EXAMINATION: CT ABDOMEN AND PELVIS WITH CONTRAST CLINICAL INDICATION: Male, 34 years old.ABD PAIN TECHNIQUE: CT abdomen and pelvis was performed, after the administration of IV contrast, as per [id number]. Axial, sagittal and coronal reconstructions were obtained. One or more of the following dose reduction techniques were used: Automated exposure control, adjustment of the mA and/o r kV according to patient size, and/or iterative reconstruction. Unless otherwise specified, incidental findings do not require dedicated imaging follow-up. [id number]. COMPARISON: 09/20/2024 FINDINGS: LOWER CHEST: Trace right pleural effusion.No significant pericardial effusion. UPPER GI: No significant abnormality. LIVER: No significant focal abnormality. GALLBLADDER/BILE DUCTS: No biliary ductal dilatation.? PANCREAS: No mass, ductal dilation, or maria del rosario-pancreatic fluid. SPLEEN: A low-density lesion in the spleen which is most consistent with a cyst. ADRENALS: No adrenal masses. KIDNEYS AND URETERS: No hydronephrosis.Low density and/or too small to characterize renal lesions whi ch are statistically benign. ABDOMINAL AORTA AND OTHER VESSELS: Normal caliber aorta and IVC. PERITONEUM: Mild to moderate ascites, similar to prior. LYMPH NODES: No pathologic lymphadenopathy. ABDOMINAL WALL: Unremarkable SMALL BOWEL/COLON: Pronounced small bowel wall thickening, hyperenhancement, and mesenteric edema in the left upper quadrant.Normal appendix. URINARY BLADDER: Underdistended but grossly unremarkable. REPRODUCTIVE ORGANS: No pathologic process. MUSCULOSKELETAL: No acute or suspicious osseous abnormality. ADDITIONAL FINDINGS: None. IMPRESSION: Pronounced small bowel wall thickening, hyperenhancement, and mesenteric edema in the left upper quad rant likely reflecting an enteritis. As noted previously, no discrete transition points are identified to suggest the presence of a bowel obstruction though this segment of small bowel is borde rline dilated. Grossly, the arterial and venous structures appear intact. This may reflect an infectious or inflammatory enteritis particularly at the patient has had different segments of inflam ed small bowel on prior imaging. Abdominopelvic free fluid, grossly similar.
--- NOTE | 2024-10-01 15:40 | ER ---
Nurse's Notes [facility] Name: Berlin Tran Age: 34 yrs Sex: Male : 1990 Arrival Date: 10/01/2024 Time: 13:47 Bed 6 Private MD: Diagnosis: Other specified noninfective gastroenteritis and colitis Presentation: 10/01 13:57 Chief complaint: Patient states: abdominal pain, distention, n/v/d that started last me1 night. 03/30. Coronavirus screen: Vaccine status: Patient reports receiving the 2nd dose of the covid vaccine. Ebola Screen: No symptoms or risks identified at this time. Initial Sepsis Screen: Does the patient meet any 2 criteria? HR > 90 bpm. Risk Assessment: Do you want to hurt yourself or someone else? Patient reports no desire to harm self or others. Onset of symptoms was September 30, 2024. 13:57 Method Of Arrival: Ambulatory me1 13:57 Acuity: PITER 3 me1 14:34 Initial Sepsis Screen: Does the patient have a suspected source of infection? No. ko1 Patient's initial sepsis screen is negative. Triage Assessment: 14:35 General: Appears uncomfortable, Behavior is calm, cooperative, appropriate for age. GI: ko1 Reports lower abdominal pain, nausea, vomiting. Historical: - Allergies: 13:59 Ibuprofen; me1 - PMHx: 13:59 gastritis (Gastroesophageal re); GERD; colitis (GERD); me1 - PSHx: 13:59 None; me1 - Immunization history:: Adult Immunizations up to date. - Infectious Disease History:: Denies. - Social history:: Smoking status: Reported history of juuling and/or vaping. - Family history:: not pertinent. - Hospitalizations: : No recent hospitalization is reported. Screenin:34 [facility] ED Fall Risk Assessment (Adult) History of falling in the last 3 months, ko1 including since admission No falls in past 3 months (0 pts) Confusion or Disorientation No (0 pts) Intoxicated or Sedated No (0 pts) Impaired Gait No (0 pts) Mobility Assist Device Used No (0 pt) Altered Elimination No (0 pt) Score/Fall Risk Level 0 - 2 = Low Risk Oriented to surroundings, Maintained a safe environment, Educated pt \T\ family on fall prevention, incl call for assistance when getting out of bed, Assessed \T\ reinforced patient's understanding of fall precautions, Hourly rounding (assess needs \T\ fall precautionary measures) done. Abuse screen: Denies threats or abuse. Denies injuries from another. Nutritional screening: On. Nutritional screening: No deficits noted. Tuberculosis screening: No symptoms or risk factors identified. Assessment: 14:34 General: Appears in no apparent distress. Behavior is calm, cooperative, appropriate ko1 for age. Pain: Complains of pain in abdomen. Neuro: No deficits noted. Cardiovascular: No deficits noted. Respiratory: No deficits noted. GI: Abdomen is non-distended. : No deficits noted. No signs and/or symptoms were reported regarding the genitourinary system. EENT: No deficits noted. No signs and/or symptoms were reported regarding the EENT system. Derm: No deficits noted. No signs and/or symptoms reported regarding the dermatologic system. Musculoskeletal: No deficits noted. No signs and/or symptoms reported regarding the musculoskeletal system. Vital Signs: 13:57 BP 134 / 91; Pulse 110; Resp 16; Temp 98.6; Pulse Ox 99% ; Weight 90.72 kg; Height 5 me1 ft. 11 in. ; Pain 8/10; 14:34 BP 144 / 91; Pulse 98; Resp 15; Pulse Ox 99% ; ko1 15:47 BP 121 / 79; Pulse 88; Resp 15; Pulse Ox 97% ; ko1 13:57 Body Mass Index 27.89 (90.72 kg, 180.34 cm) me1 13:57 Pain Scale: Adult co1 ED Course: 13:50 Patient arrived in ED. im 13:50 Blaise Cat MD is Attending Physician. rn 13:59 Triage completed. me1 13:59 Arm band placed on Patient placed in an exam room. me1 14:01 Initial lab(s) drawn, by co, sent to lab. Inserted saline lock: 18 gauge in right zm antecubital area, using aseptic technique. Blood collected. Flushed with 10 mL NS. 14:02 CBC with Diff Sent. 14:02 CMP Sent. 14:02 Lipase Sent. 14:33 Cheri Garza, VU is Primary Nurse. ko1 14:34 Patient has correct armband on for positive identification. Allergy band placed. Bed in ko1 low position. Call light in reach. Provided Education on: lab. Pulse ox on. NIBP on. Door closed. Noise minimized. Lights dimmed. Warm blanket given. Pillow given. 14:34 No provider procedures requiring assistance completed. ko1 15:16 CT Abd/Pelvis - IV Contrast Only In Process Unspecified. EDMS 15:50 IV discontinued, intact, bleeding controlled, No redness/swelling at site. Pressure ko1 dressing applied. Administered Medications: 14:02 Drug: Ondansetron IVP 4 mg IVP once; over 2 minutes Route: IVP; Site: right antecubital;ko1 14:17 Follow up: Response: No adverse reaction ko1 14:02 Drug: NS 0.9% IV 1000 ml IV at 1 bolus Per protocol; to be given as a bolus over 60 ko1 minutes Route: IV; Rate: 1 bolus; Site: right antecubital; 15:45 Follow up: Response: No adverse reaction; IV Status: Completed infusion; IV Intake: ko1 1000ml 14:17 Drug: Famotidine IVP 20 mg IVP once; dilute with 10 mL 0.9% NaCl; give over 2 minutes ko1 Route: IVP; Site: right antecubital; 14:32 Follow up: Response: No adverse reaction ko1 14:17 Drug: MethylPrednisoLONE IVP 125 mg IVP once Route: IVP; Site: right antecubital; ko1 14:32 Follow up: Response: No adverse reaction ko1 14:17 Drug: morphine IVP or IV 4 mg IVP once over 4 mins Route: IVP; Infused Over: 4 mins; ko1 Site: right antecubital; 14:32 Follow up: Response: No adverse reaction ko1 15:50 Drug: Dicyclomine IM 20 mg IM once Route: IM; Site: right deltoid; ko1 15:50 Drug: morphine IVP or IV 4 mg IVP once over 4 mins Route: IVP; Infused Over: 4 mins; ko1 Site: right antecubital; Medication: 14:34 VIS not applicable for this client. ko1 Intake: 15:45 IV: 1000ml; Total: 1000ml. ko1 Outcome: 15:40 Discharge ordered by rn 15:47 Condition: stable ko1 16:28 Discharged to home ambulatory, with family, ld1 16:28 Discharge instructions given to patient, Instructed on discharge instructions, follow up and referral plans. medication usage, Demonstrated understanding of instructions, follow-up care, medications, Prescriptions given X 3, 16:28 Patient left the ED. ld1 Signatures: Dispatcher [employer] EDBlaise Jefferson MD MD rn Sims, Lauren, RN RN ld1 Tammie Beverly Kathy, RN RN ko1 Allegra Hancock Michelle RN RN me1
--- NOTE | 2024-10-01 15:40 | EDPHYS ---
Physician Documentation [facility] Name: Berlin Tran Age: 34 yrs Sex: Male : 1990 Arrival Date: 10/01/2024 Time: 13:47 Bed 6 Private MD: ED Physician Blaise Cat HPI: 10/01 14:55 This 34 yrs old Male presents to ER via Ambulatory with complaints of rn Vomiting/Diarrhea, Abdominal Pain. 14:55 The patient presents to the emergency department with nausea, vomiting, diarrhea, rn abdominal pain, of the abdomen diffusely. 14:55 Onset: The symptoms/episode began/occurred last night. Associated signs and symptoms: rn Pertinent positives: diarrhea, nausea, vomiting, Pertinent negatives: fever, GI bleeding. Severity of symptoms: At their worst the symptoms were moderate in the emergency department the symptoms are unchanged. The patient has experienced similar episodes in the past. Patient reports recurrent abdominal pain with nausea vomiting and diarrhea, returned last night. Patient is finally can to see GI and he has been told that they suspect ulcerative colitis. Denies any blood in stool. No fever or chills. Reports diffuse abdominal pain. No fever. Patient states feels similar to previous episodes. Historical: - Allergies: 13:59 Ibuprofen; me1 - PMHx: 13:59 gastritis (Gastroesophageal re); GERD; colitis (GERD); me1 - PSHx: 13:59 None; me1 - Immunization history:: Adult Immunizations up to date. - Infectious Disease History:: Denies. - Social history:: Smoking status: Reported history of juuling and/or vaping. - Family history:: not pertinent. - Hospitalizations: : No recent hospitalization is reported. ROS: 14:55 Constitutional: Negative for fever, chills, and weight loss, Cardiovascular: Negative rn for chest pain, palpitations, and edema, Respiratory: Negative for shortness of breath, cough, wheezing, and pleuritic chest pain, Abdomen/GI: Positive for nausea and vomiting with diarrhea and diffuse abdominal pain Back: Negative for injury and pain, : Negative for injury, bleeding, discharge, and swelling, MS/Extremity: Negative for injury and deformity, Neuro: Negative for headache, weakness, numbness, tingling, and seizure, Exam: 14:55 Constitutional: This is a well developed, well nourished patient who is awake, alert, rn and in no acute distress. ENT: Dry mucous membranes Cardiovascular: Regular rate and rhythm. No pulse deficits. Respiratory: No increased work of breathing, no retractions or nasal flaring. Abdomen/GI: Soft, mild mid abdominal tenderness. No rebound or guarding MS/ Extremity: Pulses equal, no cyanosis. Neuro: Awake and alert, GCS 15 Vital Signs: 13:57 BP 134 / 91; Pulse 110; Resp 16; Temp 98.6; Pulse Ox 99% ; Weight 90.72 kg; Height 5 me1 ft. 11 in. ; Pain 8/10; 14:34 BP 144 / 91; Pulse 98; Resp 15; Pulse Ox 99% ; ko1 15:47 BP 121 / 79; Pulse 88; Resp 15; Pulse Ox 97% ; ko1 13:57 Body Mass Index 27.89 (90.72 kg, 180.34 cm) me1 13:57 Pain Scale: Adult me1 MDM: 13:51 Medical Screening Exam initiated rn 15:38 Differential diagnosis: Nonspecific abd pain, gastritis, viral gastroenteritis, rn gastroenteritis, Inflammatory bowel disease. Data reviewed: vital signs, nurses notes, lab test result(s), radiologic studies, CT scan, and as a result, I will discharge patient. Counseling: I had a detailed discussion with the patient and/or guardian regarding the historical points, exam findings, and any diagnostic results supporting the discharge/admit diagnosis, lab results, radiology results, the need for outpatient follow up, to return to the emergency department if symptoms worsen or persist or if there are any questions or concerns that arise at home. ED course: CT shows enteritis. Has separate areas of inflammation each time he is CT, most likely inflammatory bowel disease and patient has GI appointment and scheduled for upper and lower GI scopes. Patient feels better. Already on sulfasalazine as well as pain medication. Will discharge home with return precautions.. 10/01 13:51 Order name: CBC with Diff; Complete Time: 14:42 rn 10/01 13:51 Order name: CMP; Complete Time: 14:42 rn 10/01 13:51 Order name: Lipase; Complete Time: 14:42 rn 10/01 14:42 Order name: CT Abd/Pelvis - IV Contrast Only; Complete Time: 15:32 rn 10/01 13:51 Order name: IV Saline Lock; Complete Time: 14:01 rn 10/01 13:51 Order name: Labs collected and sent; Complete Time: 14:01 rn Administered Medications: 14:02 Drug: Ondansetron IVP 4 mg IVP once; over 2 minutes Route: IVP; Site: right antecubital;ko1 14:17 Follow up: Response: No adverse reaction ko1 14:02 Drug: NS 0.9% IV 1000 ml IV at 1 bolus Per protocol; to be given as a bolus over 60 ko1 minutes Route: IV; Rate: 1 bolus; Site: right antecubital; 15:45 Follow up: Response: No adverse reaction; IV Status: Completed infusion; IV Intake: ko1 1000ml 14:17 Drug: Famotidine IVP 20 mg IVP once; dilute with 10 mL 0.9% NaCl; give over 2 minutes ko1 Route: IVP; Site: right antecubital; 14:32 Follow up: Response: No adverse reaction ko1 14:17 Drug: MethylPrednisoLONE IVP 125 mg IVP once Route: IVP; Site: right antecubital; ko1 14:32 Follow up: Response: No adverse reaction ko1 14:17 Drug: morphine IVP or IV 4 mg IVP once over 4 mins Route: IVP; Infused Over: 4 mins; ko1 Site: right antecubital; 14:32 Follow up: Response: No adverse reaction ko1 15:50 Drug: Dicyclomine IM 20 mg IM once Route: IM; Site: right deltoid; ko1 15:50 Drug: morphine IVP or IV 4 mg IVP once over 4 mins Route: IVP; Infused Over: 4 mins; ko1 Site: right antecubital; Disposition Summary: 10/01/24 15:40 Discharge Ordered Notes: Location: Home rn Problem: new rn Symptoms: have improved rn Condition: Stable rn Diagnosis - Other specified noninfective gastroenteritis and colitis rn Followup: rn - With: Private Physician - When: As needed - Reason: Recheck today's complaints, Re-evaluation by your physician Discharge Instructions: - Discharge Summary Sheet rn Forms: - Work release form iw - Medication Reconciliation Form rn - Antibiotic commander internal affairs - Prescription Opioid Use rn - Patient Portal Instructions rn - Leadership Thank You Letter rn Prescriptions: - Flagyl 500 mg Oral tablet - take 1 tablet ORAL route every 12 hours for 10 days; 20 tablet; Refills: 0, rn Product Selection Permitted - Cipro 500 mg Oral tablet - take 1 tablet ORAL route every 12 hours for 10 days; 20 tablet; Refills: 0, rn Product Selection Permitted - Medrol (Dale) 4 mg Oral Tablets, Dose Pack - take 1 tablet ORAL route as directed - follow package instructions; 1 packet; rn Refills: 0, Product Selection Permitted Signatures: Dispatcher [employer] EDMS Blaise Cat MD MD rn Oliver, Kathy RN RN ko1 Mariluz Sutherland RN RN me1 Corrections: (The following items were deleted from the chart) 13:52 13:52 CBC+H.LAB.BRZ ordered. EDMS EDMS 13:52 13:52 COMPREHENSIVE METABOLIC PANEL+C.LAB.BRZ ordered. EDMS EDMS 13:52 13:52 LIPASE+C.LAB.BRZ ordered. EDMS EDMS 14:43 14:43 Abdomen Pelvis W Con+CT.RAD.BRZ ordered. EDMS EDMS 14:56 14:55 Patient reports recurrent abdominal pain with nausea vomiting and diarrhea, rn returned last night. Patient is finally can to see GI and he has been told that they suspect ulcerative colitis. Denies any blood in stool. No fever or chills. Reports diffuse abdominal pain. No fever.. rn
[2024-10-01] MEDS ORDERED: DICYCLOMINE HCL 20 MG/2 ML AMP IM ONE (15:42)
[2024-10-01 19:44] VITALS: TEMP 98.6
[2024-10-01 19:46] VITALS: BP 121/79; O2SAT 97
== END 2024-10-01 16:28 | disposition home or self-care (01) ==
LOC: ER 13:47
DX: K52.89 Other specified noninfective gastroenteritis and colitis (principal)
CPT/HCPCS: 36415; 74177; 80053; 83690; 85025; J0500; J2405; J2919; J7030; Q9967

== ENCOUNTER 2024-11-03 07:43 | Emergency (ER) | payer SELFPAY ==
[2024-11-03] MEDS ORDERED: ONDANSETRON 4 MG/2 ML VIAL ONE (08:31)
[2024-11-03] MEDS ORDERED: NA CHLORIDE 0.9% 1,000 ML ONE (08:32)
[2024-11-03] MEDS ORDERED: FENTANYL CITR 100 MCG/2 ML ONE (08:32)
[2024-11-03] MEDS ORDERED: FAMOTIDINE 20 MG/2 ML VIAL IV ONE (08:32)
[2024-11-03 08:42] LABS: Absolute Lymphocytes (CBC) 0.8 K/uL (0.7-4.9); Absolute Monocytes 0.4 K/uL (0.1-1.3); Absolute Neutrophil 11.6 K/uL (1.8-8.0); Basophils % 0.2 % (0-1.3); Eosinophils % 0.2 % (0-4.4); Hematocrit 49.8 % (39.6-49.0); Hemoglobin 17.8 g/dL (13.6-17.9); Lymphocytes % 6.3 % (15.3-44.8); MCH 31.1 pg (27.0-35.0); MCHC 35.8 g/dL (32.0-36.0); MPV 8.4 fL (7.6-11.3); Monocytes % 3.5 % (3.3-12.3); Neutrophils % 89.8 % (41.7-73.7); Nucleated Red Blood Cells % 0.2 % (0-0); Platelets 339 thou/uL (152-406); RBC Red Blood Cell Count 5.72 M/uL (4.33-5.43); Red Cell Distribution Width 12.9 % (12.1-15.2)
[2024-11-03 09:00] LABS: Albumin 4.1 g/dL (3.4-5.0); Albumin/Globulin Ratio 1.4 (1.1-1.8); Anion Gap 11.7 mEq/L (5.0-15.0); Bilirubin Total 1.2 mg/dL (0.2-1.0); Potassium 3.7 mEq/L (3.5-5.1); Protein, Total 7.1 g/dL (6.4-8.2)
[2024-11-03 09:12] LABS: Specific Gravity > 1.030 (1.005-1.030); Sqamous Epithelial <5 /HPF (None Seen); Urine Bacteria None Seen /HPF (<20); Urine Bilirubin NEGATIVE (Negative); Urine Blood Negative (Negative); Urine Clarity Extremely Turbid (Clear); Urine Color Yellow (Yellow); Urine Culture Reflex Order NOT NEEDED; Urine Glucose NEGATIVE (Negative); Urine Granular Casts 0-5 /LPF (None Seen); Urine Ketones NEGATIVE (Negative); Urine Microscopic Reflex YN ORDER UMIC; Urine Mucus 4+ /HPF (None Seen); Urine Nitrite NEGATIVE (Negative); Urine Protein 1+ (Negative); Urine RBC <5 /HPF (None Seen); Urine Urobilinogen Normal (Normal); Urine WBC <5 /HPF (<5)
[2024-11-03 10:00] LABS: Blood Morphology Comment NOT SEEN (NOT SEEN); Platelet Estimate ADEQ; White Blood Cell Scan OK (OK)
--- NOTE | 2024-11-03 13:57 | RAD REPORT ---
EXAMINATION: CT Abdomen Pelvis W Contrast CLINICAL INDICATION: Male, 34 years old. ABD PAIN TECHNIQUE: CT abdomen and pelvis was performed, after the administration of [facility] Axial, sagittal and coronal reconstructions were obtained. One or more of the following dose reduction techniques were used: Automated exposure control, adjustment of the mA and k V according to patient size, and iterative reconstruction. Unless otherwise specified, incidental findings do not require dedicated imaging follow-up. COMPARISON: 10/01/2024 FINDINGS: LOWER CHEST: The visualized lung bases are clear. LIVER: Normal in size and contour. No focal lesion. BILIARY SYSTEM: No suspicious abnormalities. SPLEEN: Normal size. No focal lesion. PANCREAS: No mass, ductal dilation, or maria del rosario-pancreatic fluid. ADRENALS: Normal; no mass. KIDNEYS: Normal size and contour. No hydronephrosis. URINARY BLADDER: Unremarkable. GASTROINTESTINAL TRACT: Long segment of wall thickening with mucosal hyperenhancement and submucosal edema involving the proximal jejunum. The segment of involvement appears proximal to the region of involvement seen on the prior exam, which has since improved. No evidence of free air, bowel obstruct ion or abscess. Mild free ascites, appear stable in volume. APPENDIX: Normal appendix. LYMPH NODES: No lymphadenopathy. MUSCULOSKELETAL: No acute or suspicious osseous abnormality. ADDITIONAL FINDINGS: None. IMPRESSION: Long segment of inflammation involving the proximal jejunum, appears proximal in location relative to the involved segment on the prior exam. The fleeting nature of involvement over time may suggest inflammatory bowel disease such as Crohn's disease. Stable mild free ascites.
--- NOTE | 2024-11-03 14:33 | ER ---
Nurse's Notes [facility] Name: Berlin Tran Age: 34 yrs Sex: Male : 1990 Arrival Date: 11/03/2024 Time: 07:43 Bed 5 Private MD: Diagnosis: Crohn's disease, unspecified, without complications Presentation: 11/03 08:04 Chief complaint: Patient states: Abdominal pain with N/V started this morning. ll1 Coronavirus screen: Client denies travel out of the [place] in the last 14 days. fatigue, nausea, vomiting. Client presents with at least one sign or symptom that may indicate coronavirus-19. Standard/surgical mask placed on the client. Ebola Screen: Patient denies travel to an Ebola-affected area in the 21 days before illness onset. Initial Sepsis Screen: Does the patient meet any 2 criteria? No. Patient's initial sepsis screen is negative. Does the patient have a suspected source of infection? No. Patient's initial sepsis screen is negative. Risk Assessment: Do you want to hurt yourself or someone else? Patient reports no desire to harm self or others. Onset of symptoms was November 03, 2024. 08:04 Method Of Arrival: Ambulatory ll1 08:04 Acuity: PITER 3 ll1 Triage Assessment: 08:05 General: Appears distressed, uncomfortable, Behavior is calm, cooperative, appropriate ll1 for age. Pain: Complains of pain in abdomen Pain currently is 10 out of 10 on a pain scale. Quality of pain is described as aching, crampy. Neuro: Reports weakness. GI: Reports upper abdominal pain, cramping, nausea, vomiting. Historical: - Allergies: 08:02 Ibuprofen; ll1 - PMHx: 08:02 Colitis (GERD); gastritis (Gastroesophageal re); GERD; ll1 - Immunization history:: Adult Immunizations up to date. - Infectious Disease History:: Denies. - Social history:: Smoking status: Reported history of juuling and/or vaping. Screenin:49 [facility] ED Fall Risk Assessment (Adult) History of falling in the last 3 months, ll1 including since admission No falls in past 3 months (0 pts) Confusion or Disorientation No (0 pts) Intoxicated or Sedated No (0 pts) Impaired Gait No (0 pts) Mobility Assist Device Used No (0 pt) Altered Elimination No (0 pt) Score/Fall Risk Level 0 - 2 = Low Risk Maintained a safe environment, Hourly rounding (assess needs \T\ fall precautionary measures) done. Abuse screen: Denies threats or abuse. Nutritional screening: No deficits noted. Tuberculosis screening: No symptoms or risk factors identified. Assessment: 08:55 Reassessment: No changes from previously documented assessment. Patient and/or family ll1 updated on plan of care and expected duration. Pain level reassessed. Patient is alert, oriented x 3, equal unlabored respirations, skin warm/dry/pink. 10:21 Reassessment: No changes from previously documented assessment. Patient and/or family ll1 updated on plan of care and expected duration. Pain level reassessed. Patient is alert, oriented x 3, equal unlabored respirations, skin warm/dry/pink. 13:14 Reassessment: PT TO CT. bp Vital Signs: 08:04 BP 145 / 99; Pulse 81; Resp 22; Temp 97.6; Pulse Ox 97% ; Pain 10/10; ll1 08:55 Pulse 75; Resp 18; Pulse Ox 98% ; ll1 13:13 BP 137 / 75; Pulse 69; Resp 16; Pulse Ox 98% ; bp 08:04 Pain Scale: Adult ll1 ED Course: 07:44 Patient arrived in ED. am2 08:01 Arm band placed on Patient placed in an exam room, on a stretcher. ll1 08:05 Triage completed. ll1 08:12 Paramjit Pedraza, RN is Primary Nurse. bp 08:17 Initial lab(s) drawn, by me, sent to lab. Missed attempt(s): 22 gauge in left ll1 antecubital area. Bleeding controlled, band aid applied, catheter tip intact. 08:21 Donaldo Altamirano MD is Attending Physician. bo1 08:35 Missed attempt(s): 22 gauge Bleeding controlled, band aid applied, catheter tip intact. ty 08:41 Missed attempt(s): 22 gauge Bleeding controlled, band aid applied, catheter tip intact. ty 08:44 Inserted saline lock: 20 gauge in left wrist, using aseptic technique. Blood collected. bp Flushed with 10 mL NS. 08:49 Provided Education on: ER procedures and process. ll1 08:55 Urinalysis w/ reflexes Sent. ll1 13:29 CT Abd/Pelvis - PO and IV Contrast In Process Unspecified. EDMS 14:41 No provider procedures requiring assistance completed. IV discontinued, intact, bp bleeding controlled, No redness/swelling at site. Pressure dressing applied. Administered Medications: 08:48 Drug: NS 0.9% IV 1000 ml IV at 1000 ml once; to be given as a bolus over 60 minutes ll1 Route: IV; Rate: 1000 ml; Site: left antecubital; 10:21 Follow up: Response: No adverse reaction; IV Status: Completed infusion; IV Intake: ll1 1000ml 08:48 Drug: Ondansetron IVP 4 mg IVP once; over 2 minutes Route: IVP; Site: left antecubital; ll1 10:21 Follow up: Response: No adverse reaction ll1 08:48 Drug: fentaNYL (PF) IVP 100 mcg IVP once {Note: RASS 0, pain 10/10.} Route: IVP; Site: ll1 left antecubital; 10:21 Follow up: Response: No adverse reaction; Pain is decreased; RASS: Alert and Calm (0) 1 08:48 Drug: Famotidine IVP 20 mg IVP once; dilute with 10 mL 0.9% NaCl; give over 2 minutes ll1 Route: IVP; Site: left antecubital; 10:21 Follow up: Response: No adverse reaction ll1 Medication: 08:49 VIS not applicable for this client. ll1 Intake: 10:21 IV: 1000ml; Total: 1000ml. ll1 Outcome: 14:32 Discharge ordered by . bo1 14:42 Discharged to home ambulatory, bp 14:42 Condition: stable 14:42 Discharge instructions given to patient, Instructed on discharge instructions, follow up and referral plans. medication usage, Demonstrated understanding of instructions, follow-up care, medications, Prescriptions given X 3, 14:46 Patient left the ED. bp Signatures: Dispatcher [employer] EDMS Keri James Brian, RN RN Lena Santoyo RN RN ll1 Saul Dia Benjamin, MD MD bo1
--- NOTE | 2024-11-03 14:33 | EDPHYS ---
Physician Documentation [facility] Name: Berlin Tran Age: 34 yrs Sex: Male : 1990 Arrival Date: 11/03/2024 Time: 07:43 Bed 5 Private MD: ED Physician Donaldo Altamirano HPI: 11/03 08:27 This 34 yrs old Male presents to ER via Ambulatory with complaints of bo1 Abdominal Pain, Nausea/Vomiting, Dizziness. 08:27 The patient presents to the emergency department with nausea, vomiting, abdominal pain. bo1 Onset: The symptoms/episode began/occurred suddenly, last night. No travel or ill contact. 13:39 The patient has experienced similar episodes in the past, several times, today's bo1 symptoms are similar. Historical: - Allergies: 08:02 Ibuprofen; ll1 - PMHx: 08:02 Colitis (GERD); gastritis (Gastroesophageal re); GERD; ll1 - Immunization history:: Adult Immunizations up to date. - Infectious Disease History:: Denies. - Social history:: Smoking status: Reported history of juuling and/or vaping. ROS: 08:27 Cardiovascular: Negative for chest pain, bo1 08:27 Abdomen/GI: Positive for abdominal pain, nausea and vomiting, 08:27 Neuro: Positive for dizziness, 14:34 Constitutional: Negative for fever, chills, and weight loss bo1 14:34 Constitutional: Negative for chills, fever, weight loss, Exam: 10:48 Constitutional: This is a well developed, well nourished patient who is awake, alert, bo1 and in mild acute distress. 10:48 Constitutional: The patient appears alert, awake, in obvious distress, mildly distressed, uncomfortable, 10:48 Eyes: Sclera: no acute changes, icterus, is not appreciated, 10:48 Neck: External neck: is normal, no acute changes, 10:48 Cardiovascular: Rate: normal, Pulses: no pulse deficits are appreciated, 10:48 Respiratory: the patient does not display signs of respiratory distress, Breath sounds: are clear throughout, 10:48 Abdomen/GI: Inspection: abdomen appears normal, Palpation: mild abdominal tenderness, 10:48 Back: CVA tenderness, is absent, 10:48 Musculoskeletal/extremity: Extremities: all appear grossly normal, with no appreciated pain with palpation, 10:48 Skin: no rash present. Vital Signs: 08:04 BP 145 / 99; Pulse 81; Resp 22; Temp 97.6; Pulse Ox 97% ; Pain 10/10; ll1 08:55 Pulse 75; Resp 18; Pulse Ox 98% ; ll1 13:13 BP 137 / 75; Pulse 69; Resp 16; Pulse Ox 98% ; bp 08:04 Pain Scale: Adult ll1 MDM: 08:21 Medical Screening Exam initiated bo1 14:11 Differential diagnosis: Nonspecific abd pain, Chronic inflammatory condition of the bo1 small intestine c/w Crohn's Dz. Data reviewed: vital signs, old medical records, lab test result(s), radiologic studies, CT scan. Management of patient was discussed with the following: With a grades 9 12 tutor in Br[place]ian to instruct the pt for proper treatment and care of this condition. ED course: Pt is non-toxic but needs GI F/U with a scope and treatment for most likely Crohn's Dz.. 14:29 Special discussion: Based on the history and exam findings, there is no indication for bo1 further emergent testing or inpatient evaluation. I discussed with the patient/guardian the need to see the mill stenciler for further evaluation of the symptoms. Through a [place] video interpretation iPad, the pt was given a dx of his condition and need for f/u.. 11/03 08:11 Order name: CBC with Diff; Complete Time: 10:08 hb 11/03 08:11 Order name: CMP; Complete Time: 09:18 hb 11/03 08:11 Order name: Lipase; Complete Time: 09:18 hb 11/03 08:26 Order name: Urinalysis w/ reflexes; Complete Time: 09:18 bo1 11/03 10:00 Order name: CBC Smear Scan; Complete Time: 10:08 EDMS 11/03 10:09 Order name: CT Abd/Pelvis - PO and IV Contrast; Complete Time: 14:05 bo1 11/03 08:11 Order name: IV Saline Lock; Complete Time: 08:12 hb 11/03 08:11 Order name: Labs collected and sent; Complete Time: 08:12 hb Administered Medications: 08:48 Drug: NS 0.9% IV 1000 ml IV at 1000 ml once; to be given as a bolus over 60 minutes ll1 Route: IV; Rate: 1000 ml; Site: left antecubital; 10:21 Follow up: Response: No adverse reaction; IV Status: Completed infusion; IV Intake: ll1 1000ml 08:48 Drug: Ondansetron IVP 4 mg IVP once; over 2 minutes Route: IVP; Site: left antecubital; ll1 10:21 Follow up: Response: No adverse reaction ll1 08:48 Drug: fentaNYL (PF) IVP 100 mcg IVP once {Note: RASS 0, pain 05/30.} Route: IVP; Site: ll1 left antecubital; 10:21 Follow up: Response: No adverse reaction; Pain is decreased; RASS: Alert and Calm (0) 1 08:48 Drug: Famotidine IVP 20 mg IVP once; dilute with 10 mL 0.9% NaCl; give over 2 minutes ll1 Route: IVP; Site: left antecubital; 10:21 Follow up: Response: No adverse reaction ll1 Disposition Summary: 11/03/24 14:32 Discharge Ordered Notes: Location: Home bo1 Problem: chronic bo1 Symptoms: are unchanged bo1 Condition: Stable bo1 Diagnosis - Crohn's disease, unspecified, without complications bo1 Followup: bo1 - With: Private Physician - When: Upon discharge from the Emergency Department - Reason: Recheck today's complaints, Continuance of care Discharge Instructions: - Discharge Summary Sheet bo1 - Crohn's Disease bo1 Forms: - Work release form hb - Medication Reconciliation Form bo1 - Antibiotic Education bo1 - Prescription Opioid Use bo1 - Patient Portal Instructions bo1 - Leadership Thank You Letter bo1 Prescriptions: - Prednisone 20 mg Oral Tablet - take 3 tablets ORAL route once daily for 5 days; 15 tablet; Refills: 0, Product bo1 Selection Permitted - ondansetron 8 mg Oral Tablet,disintegrating - take 1 tablet ORAL route every 8 hours; 15 tablet; Refills: 0, Product bo1 Selection Permitted Signatures: Dispatcher [employer] Sonia Qureshi RN RN Lena Uribe RN RN [facility] Donaldo Altamirano MD MD bo1
[2024-11-03 14:50] VITALS: TEMP 97.6
[2024-11-03 14:51] VITALS: O2SAT 98
[2024-11-03 14:54] VITALS: BP 137/75
== END 2024-11-03 14:46 | disposition home or self-care (01) ==
LOC: ER 07:43
DX: K50.90 Crohn's disease, unspecified, without complications (principal)
CPT/HCPCS: 36415; 74177; 80053; 81001; 83690; 85025; 96361; 96374; 96375; 99284; J2405; J3010; J7030; Q9967

== ENCOUNTER 2024-11-03 18:55 | Emergency (ER) | payer SELFPAY ==
[2024-11-03] MEDS ORDERED: NA CHLORIDE 0.9% 1,000 ML ONE (19:54)
[2024-11-03] MEDS ORDERED: droPERidol 5 MG/2 ML VIAL ONE (19:54)
[2024-11-03] MEDS ORDERED: METHYLPREDNISOLONE 125 MG INJ ONE (19:54)
[2024-11-03] MEDS ORDERED: DIPHENHYDRAMINE 50 MG/ML VIAL ONE (19:54)
--- NOTE | 2024-11-03 20:33 | EDPHYS ---
Physician Documentation [facility] Name: Berlin Tran Age: 34 yrs Sex: Male : 1990 Arrival Date: 11/03/2024 Time: 18:55 Bed 13 Private MD: ED Physician Robert Brice HPI: 11/03 19:16 This 34 yrs old Male presents to ER via Ambulatory with complaints of ec2 Abdominal Pain, Nausea/Vomiting. 19:16 Patient arrives today for evaluation of abdominal pain along with nausea and vomiting. ec2 External record review shows the patient had presented earlier today, had a CT scan that showed likely Crohn's disease, symptomatically felt better, attempted p.o. at home and subsequently return to be reevaluated due to recurrence of nausea and vomiting abdominal pain. States that he has had previous colonoscopies, states that he needs to follow-up with GI. Not on any long-term medications.. Historical: - Allergies: 19:08 Ibuprofen; cm10 - PMHx: 19:08 Colitis (GERD); gastritis (Gastroesophageal re); GERD; cm10 - Immunization history:: Adult Immunizations up to date. - Infectious Disease History:: Denies. - Social history:: Smoking status: Patient denies any tobacco usage or history of. ROS: 19:18 Constitutional: as per hpi ec2 Exam: 19:18 Constitutional: GEN: NAD Head: atraumatic Eyes: EOMI Ears: External ears are ec2 normal. CV: regular rate LUNGS: no respiratory distress ABD: non-distended, soft, nontender, not guarding, not rigid SKIN: no evidence of rashes MSK: no evidence of trauma Vital Signs: 19:07 BP 143 / 91; Pulse 64; Resp 15; Temp 98.4; Pulse Ox 99% on R/A; Weight 90.72 kg; Height cm10 5 ft. 11 in. ; Pain 10/10; 20:13 BP 131 / 84; Pulse 80; Resp 20; Pulse Ox 96% ; kj2 20:35 BP 113 / 75; Pulse 70; Resp 18; Temp 98; Pulse Ox 95% ; kj2 19:07 Body Mass Index 27.89 (90.72 kg, 180.34 cm) cm10 19:07 Pain Scale: Adult cm10 MDM: 19:05 Medical Screening Exam initiated ec2 19:19 Data reviewed: vital signs, nurses notes. ED course: Patient arrives today for ec2 evaluation of abdominal pain along with nausea and vomiting with a recent visit. Examination yields abdominal findings as above. Patient had recent visit earlier today, showed overall reassuring labs, CT imaging that showed likely Crohn's colitis, will focus on symptom management, will forego additional imaging, will forego additional lab work at this time.. 20:32 ED course: On reassessment patient with marked improvement in symptoms, will start the ec2 patient on steroids and have the patient follow-up with gastroenterology. Return precautions given.. 11/03 19:12 Order name: IV; Complete Time: 20:02 ec2 Administered Medications: 20:02 Drug: NS 0.9% IV 1000 ml IV at 1000 ml once; to be given as a bolus over 60 minutes kj2 Route: IV; Rate: 1000 ml; Site: left hand; 20:34 Follow up: IV Status: Completed infusion; IV Intake: 1000ml kj2 20:02 Drug: MethylPrednisoLONE IVP 125 mg IVP once Route: IVP; Site: left hand; kj2 20:34 Follow up: Response: No adverse reaction kj2 20:02 Drug: Droperidol IVP 1.25 mg IVP once Route: IVP; Site: left hand; kj2 20:34 Follow up: Response: No adverse reaction kj2 20:02 Drug: diphenhydrAMINE IVP 25 mg IVP once Route: IVP; Site: left hand; kj2 20:34 Follow up: Response: No adverse reaction kj2 Disposition Summary: 11/03/24 20:32 Discharge Ordered Notes: Location: Home ec2 Condition: Stable ec2 Diagnosis - Noninfective gastroenteritis and colitis, unspecified ec2 Followup: ec2 - With: Private Physician - When: - Reason: Re-evaluation by your physician Discharge Instructions: - Discharge Summary Sheet ec2 - Crohn's Disease ec2 Forms: - Medication Reconciliation Form ec2 - Antibiotic Education ec2 - Prescription Opioid Use ec2 - Patient Portal Instructions ec2 - Leadership Thank You Letter ec2 Prescriptions: - Prednisone 20 mg Oral Tablet - take 2 tablets ORAL route once daily for 5 days; 10 tablet; Refills: 0, Product ec2 Selection Permitted Signatures: Maricruz Beverly RN RN cm10 Robert Brice MD MD ec2 Kate Brown, VU RN kj2
--- NOTE | 2024-11-03 20:33 | ER ---
Nurse's Notes [facility] Name: Berlin Tran Age: 34 yrs Sex: Male : 1990 Arrival Date: 11/03/2024 Time: 18:55 Bed 13 Private MD: Diagnosis: Noninfective gastroenteritis and colitis, unspecified Presentation: 11/03 19:07 Chief complaint: Patient states: Was discharged a few hours ago and states that he cm10 returned because the pain returned upon arriving home. Coronavirus screen: Client denies travel out of the [place] in the last 14 days. Ebola Screen: Patient denies travel to an Ebola-affected area in the 21 days before illness onset. Initial Sepsis Screen: Does the patient meet any 2 criteria? No. Patient's initial sepsis screen is negative. Does the patient have a suspected source of infection? No. Patient's initial sepsis screen is negative. Risk Assessment: Do you want to hurt yourself or someone else? Patient reports no desire to harm self or others. Onset of symptoms was November 03, 2024. 19:07 Method Of Arrival: Ambulatory cm10 19:07 Acuity: PITER 3 cm10 Triage Assessment: 19:09 General: Appears in no apparent distress. uncomfortable, Behavior is calm, cooperative. cm10 Neuro: No deficits noted. Level of Consciousness is awake, alert, obeys commands, Oriented to person, place, time, situation, Appropriate for age. Respiratory: No deficits noted. Airway is patent Respiratory effort is even, unlabored, Respiratory pattern is regular, symmetrical. GI: Reports lower abdominal pain, upper abdominal pain, nausea, vomiting. Historical: - Allergies: 19:08 Ibuprofen; cm10 - PMHx: 19:08 Colitis (GERD); gastritis (Gastroesophageal re); GERD; cm10 - Immunization history:: Adult Immunizations up to date. - Infectious Disease History:: Denies. - Social history:: Smoking status: Patient denies any tobacco usage or history of. Screenin:15 [facility] [place] ED Fall Risk Assessment (Adult) History of falling in the last 3 months, kj2 including since admission No falls in past 3 months (0 pts) Confusion or Disorientation No (0 pts) Intoxicated or Sedated No (0 pts) Impaired Gait No (0 pts) Mobility Assist Device Used No (0 pt) Altered Elimination No (0 pt) Score/Fall Risk Level 0 - 2 = Low Risk Maintained a safe environment, Hourly rounding (assess needs \T\ fall precautionary measures) done. Abuse screen: Denies threats or abuse. Denies injuries from another. Nutritional screening: No deficits noted. Tuberculosis screening: No symptoms or risk factors identified. Assessment: 19:15 General: Appears in no apparent distress. Behavior is calm, cooperative. Pain: kj2 Complains of pain in abdomen Pain currently is 8 out of 10 on a pain scale. Neuro: Level of Consciousness is awake, alert, obeys commands, Oriented to person, place, time, situation. Cardiovascular: Patient's skin is warm and dry. Respiratory: Airway is patent Respiratory effort is even, unlabored. GI: Bowel sounds present X 4 quads. : No signs and/or symptoms were reported regarding the genitourinary system. 20:13 Reassessment: Patient appears in no apparent distress at this time. Patient and/or kj2 family updated on plan of care and expected duration. Pain level reassessed. Patient is alert, oriented x 3, equal unlabored respirations, skin warm/dry/pink. 20:28 GI: Abdomen is tender to palpation X 4 quads. kj2 20:34 Reassessment: Patient appears in no apparent distress at this time. Patient and/or kj2 family updated on plan of care and expected duration. Pain level reassessed. Patient is alert, oriented x 3, equal unlabored respirations, skin warm/dry/pink. Vital Signs: 19:07 BP 143 / 91; Pulse 64; Resp 15; Temp 98.4; Pulse Ox 99% on R/A; Weight 90.72 kg; Height cm10 5 ft. 11 in. ; Pain 10/10; 20:13 BP 131 / 84; Pulse 80; Resp 20; Pulse Ox 96% ; kj2 20:35 BP 113 / 75; Pulse 70; Resp 18; Temp 98; Pulse Ox 95% ; kj2 19:07 Body Mass Index 27.89 (90.72 kg, 180.34 cm) cm10 19:07 Pain Scale: Adult cm10 ED Course: 18:56 Patient arrived in ED. am2 19:02 Robert Brice MD is Attending Physician. ec2 19:08 Triage completed. cm10 19:09 Arm band placed on right wrist. Patient placed in an exam room, on a stretcher. cm10 19:12 Kate Brown, RN is Primary Nurse. kj2 19:15 Patient has correct armband on for positive identification. Bed in low position. Call kj2 light in reach. Provided Education on: call light. 19:26 Missed attempt(s): 20 gauge in right wrist. Bleeding controlled, band aid applied, sa1 catheter tip intact. 19:44 Inserted saline lock: 20 gauge in left hand, using aseptic technique. Flushed with 10 sa1 mL NS. 20:29 No provider procedures requiring assistance completed. kj2 20:36 IV discontinued, intact, bleeding controlled, No redness/swelling at site. Pressure kj2 dressing applied. Administered Medications: 20:02 Drug: NS 0.9% IV 1000 ml IV at 1000 ml once; to be given as a bolus over 60 minutes kj2 Route: IV; Rate: 1000 ml; Site: left hand; 20:34 Follow up: IV Status: Completed infusion; IV Intake: 1000ml kj2 20:02 Drug: MethylPrednisoLONE IVP 125 mg IVP once Route: IVP; Site: left hand; kj2 20:34 Follow up: Response: No adverse reaction kj2 20:02 Drug: Droperidol IVP 1.25 mg IVP once Route: IVP; Site: left hand; kj2 20:34 Follow up: Response: No adverse reaction kj2 20:02 Drug: diphenhydrAMINE IVP 25 mg IVP once Route: IVP; Site: left hand; kj2 20:34 Follow up: Response: No adverse reaction kj2 Medication: 20:29 VIS not applicable for this client. kj2 Intake: 20:34 IV: 1000ml; Total: 1000ml. kj2 Outcome: 20:32 Discharge ordered by . ec2 20:35 Discharged to home ambulatory, kj2 20:35 Condition: stable 20:35 Discharge instructions given to patient, Instructed on discharge instructions, follow up and referral plans. Demonstrated understanding of instructions, follow-up care, medications, 20:44 Patient left the ED. kj2 Signatures: Keri James Clarissa, RN RN cm10 Robert Brice MD MD ec2 Sultan Mary sa1 Kate Brown RN RN kj2
[2024-11-03 21:12] VITALS: BP 113/75; TEMP 98; O2SAT 95
== END 2024-11-03 20:44 | disposition home or self-care (01) ==
LOC: ER 18:55
DX: K52.9 Noninfective gastroenteritis and colitis, unspecified (principal)
CPT/HCPCS: 96361; 96374; 96375; 99284; J1200; J1790; J2919; J7030

== ENCOUNTER 2024-12-26 13:02 | Emergency (ER) | payer BC, SELFPAY ==
[2024-12-26] MEDS ORDERED: NA CHLORIDE 0.9% 1,000 ML ONE (14:06)
[2024-12-26 14:20] LABS: Absolute Eosinophils 0.1 K/uL (0-0.5); Absolute Lymphocytes (CBC) 1.7 K/uL (0.7-4.9); Absolute Monocytes 0.9 K/uL (0.1-1.3); Absolute Neutrophil 10.2 K/uL (1.8-8.0); Basophils % 0.3 % (0-1.3); Eosinophils % 0.8 % (0-4.4); Hematocrit 51.7 % (39.6-49.0); Hemoglobin 17.9 g/dL (13.6-17.9); Lymphocytes % 13.4 % (15.3-44.8); MCH 29.9 pg (27.0-35.0); MCHC 34.7 g/dL (32.0-36.0); MCV 86.2 fL (80-100); MPV 8.1 fL (7.6-11.3); Monocytes % 7.2 % (3.3-12.3); Neutrophils % 78.3 % (41.7-73.7); Nucleated RBC Absolute Count 0.1 (0-0); Nucleated Red Blood Cells % 0.4 % (0-0); Platelets 345 thou/uL (152-406); Red Cell Distribution Width 12.7 % (12.1-15.2)
[2024-12-26] MEDS ORDERED: DICYCLOMINE HCL 20 MG/2 ML AMP IM ONE (14:30)
[2024-12-26] MEDS ORDERED: ONDANSETRON 4 MG/2 ML VIAL ONE (14:30)
[2024-12-26] MEDS ORDERED: FAMOTIDINE 20 MG/2 ML VIAL IV ONE (14:30)
[2024-12-26 14:33] LABS: Albumin 3.8 g/dL (3.4-5.0); Albumin/Globulin Ratio 1.3 (1.1-1.8); Anion Gap 9.9 mEq/L (5.0-15.0); Globulin 2.9 g/dL (2.3-3.5); Potassium 3.9 mEq/L (3.5-5.1); Protein, Total 6.7 g/dL (6.4-8.2)
[2024-12-26] MEDS ORDERED: MORPHINE 4 MG/ML SYR ONE (15:50)
--- NOTE | 2024-12-26 16:43 | RAD REPORT ---
EXAMINATION: CT Abdomen Pelvis W Contrast CLINICAL INDICATION: Male, 34 years old. ABD PAIN TECHNIQUE: CT abdomen and pelvis was performed, after the administration of IV contrast, [facility]. Axial, sagittal and coronal reconstructions were obtained. One or more of the following dose reduction techniques were used: Automated exposure control, adjustment of the mA and k V according to patient size, and iterative reconstruction. Unless otherwise specified, incidental findings do not require dedicated imaging follow-up. COMPARISON: 11/03/2024 FINDINGS: LOWER CHEST: The visualized lung bases are clear. LIVER: Normal in size and contour. No focal lesion. BILIARY SYSTEM: No suspicious abnormalities. SPLEEN: Normal size. No focal lesion. PANCREAS: No mass, ductal dilation, or maria del rosario-pancreatic fluid. ADRENALS: Normal; no mass. KIDNEYS: Normal size and contour. No hydronephrosis. URINARY BLADDER: Unremarkable. GASTROINTESTINAL TRACT: Long segments of wall thickening and mucosal hyperenhancement involving the m id to distal jejunum extending to the pelvis. The involved segments appear more distal in extent to the segmental involvement on the prior exam, although there may be some partial overlap.. Mild edema along the mesenteric root in the left lower quadrant. No evidence of free air, focal transition point, or abscess. Stable mild free ascites. APPENDIX: Normal appendix. LYMPH NODES: No lymphadenopathy. MUSCULOSKELETAL: No acute or suspicious osseous abnormality. ADDITIONAL FINDINGS: None. IMPRESSION: Long segments of inflammation involving the mid to distal jejunum, distal to the segmental involvemen t on the prior exam, although there may be partial segmental overlap. Findings again most suggestive of inflammatory bowel disease, although infectious causes cannot be entirely excluded. Mild free ascites.
--- NOTE | 2024-12-26 16:48 | ER ---
Nurse's Notes [facility] Name: Berlin Tran Age: 34 yrs Sex: Male : 1990 Arrival Date: 12/26/2024 Time: 13:02 Bed 19 Private MD: Diagnosis: Infectious gastroenteritis and colitis, unspecified Presentation: 12/26 13:16 Chief complaint: Patient states: mid abd pain and nausea since yesterday. Coronavirus iw screen: At this time, the client does not indicate any symptoms associated with coronavirus-19. Ebola Screen: No symptoms or risks identified at this time. Initial Sepsis Screen: Does the patient meet any 2 criteria? No. Patient's initial sepsis screen is negative. Does the patient have a suspected source of infection? No. Patient's initial sepsis screen is negative. Risk Assessment: Do you want to hurt yourself or someone else? Patient reports no desire to harm self or others. Onset of symptoms was December 25, 2024. 13:16 Method Of Arrival: Ambulatory iw 13:16 Acuity: PITER 3 iw Triage Assessment: 13:17 General: Appears in no apparent distress. Behavior is calm, cooperative. Pain: iw Complains of pain in epigastric area and umbilical area. GI: Reports upper abdominal pain, nausea. Historical: - Allergies: 13:17 Ibuprofen; iw - PMHx: 13:17 Colitis; GERD; iw 17:05 gastritis (Gastroesophageal re); kj2 - Immunization history:: Adult Immunizations unknown. - Infectious Disease History:: Denies. - Social history:: Smoking status: unknown. Screenin:45 [facility] ED Fall Risk Assessment (Adult) History of falling in the last 3 months, kj2 including since admission No falls in past 3 months (0 pts) Confusion or Disorientation No (0 pts) Intoxicated or Sedated No (0 pts) Impaired Gait No (0 pts) Mobility Assist Device Used No (0 pt) Altered Elimination No (0 pt) Score/Fall Risk Level 0 - 2 = Low Risk Maintained a safe environment, Hourly rounding (assess needs \T\ fall precautionary measures) done. Abuse screen: Denies threats or abuse. Denies injuries from another. Nutritional screening: No deficits noted. Tuberculosis screening: No symptoms or risk factors identified. Assessment: 13:40 Reassessment: Patient and/or family updated on plan of care and expected duration. Pain cm10 level reassessed. 13:45 GI: Abd is non tender X 4 quads. kj2 14:00 General: Appears in no apparent distress. Behavior is calm, cooperative. Pain: kj2 Complains of pain in abdomen and umbilical area and epigastric area Pain currently is 5 out of 10 on a pain scale. Neuro: Level of Consciousness is awake, alert, obeys commands, Oriented to person, place, time, situation. Cardiovascular: Patient's skin is warm and dry. Respiratory: Airway is patent Respiratory effort is even, unlabored. GI: Bowel sounds hypoactive in abdomen. : No signs and/or symptoms were reported regarding the genitourinary system. 14:49 Reassessment: Patient appears in no apparent distress at this time. Patient and/or kj2 family updated on plan of care and expected duration. Pain level reassessed. Patient is alert, oriented x 3, equal unlabored respirations, skin warm/dry/pink. 16:00 Reassessment: Patient appears in no apparent distress at this time. Patient and/or kj2 family updated on plan of care and expected duration. Pain level reassessed. Patient is alert, oriented x 3, equal unlabored respirations, skin warm/dry/pink. 17:00 Reassessment: Patient appears in no apparent distress at this time. Patient and/or kj2 family updated on plan of care and expected duration. Pain level reassessed. Patient is alert, oriented x 3, equal unlabored respirations, skin warm/dry/pink. Vital Signs: 13:16 BP 128 / 87; Pulse 93; Resp 16; Temp 97.7; Pulse Ox 100% on R/A; Weight 90.72 kg; iw Height 5 ft. 10 in. ; Pain 10/10; 14:49 BP 126 / 84; Pulse 90; Resp 20; Pulse Ox 100% on R/A; kj2 16:00 BP 121 / 78; Pulse 84; Resp 20; Pulse Ox 100% ; kj2 17:00 BP 124 / 82; Pulse 88; Resp 18; Temp 98; Pulse Ox 100% on R/A; kj2 13:16 Body Mass Index 28.70 (90.72 kg, 177.8 cm) iw 13:16 Pain Scale: Adult iw ED Course: 13:04 Patient arrived in ED. im 13:07 [facility] sb4 13:07 Silvestre Richard DO is Attending Physician. sb4 13:17 Triage completed. iw 13:40 Arm band placed on Patient placed in an exam room, on a stretcher. cm10 13:45 Patient has correct armband on for positive identification. Bed in low position. Call kj2 light in reach. Adult w/ patient. Provided Education on: call light. 13:46 Kate Brown, RN is Primary Nurse. kj2 14:00 Missed attempt(s): 20 gauge in right forearm. kj2 14:15 Inserted saline lock: 20 gauge in right forearm, using aseptic technique. Blood kj2 collected. Flushed with 10 mL NS. 14:52 CT Abd/Pelvis - IV Contrast Only In Process Unspecified. EDMS 16:47 Jung Verma MD is Referral Physician. sb4 17:01 IV discontinued, intact, bleeding controlled, No redness/swelling at site. Pressure kj2 dressing applied. 17:03 No provider procedures requiring assistance completed. kj2 Administered Medications: 13:20 CANCELLED (Physician Discretion): TORadol - [id number] mg IVP once sb4 14:34 Drug: Dicyclomine IM 20 mg IM once Route: IM; Site: right deltoid; kj2 16:58 Follow up: Response: No adverse reaction kj2 14:40 Drug: Famotidine IVP 20 mg IVP once; dilute with 10 mL 0.9% NaCl; give over 2 minutes kj2 Route: IVP; Site: left forearm; 16:58 Follow up: Response: No adverse reaction kj2 14:41 Drug: Ondansetron IVP 4 mg IVP once; over 2 minutes Route: IVP; Site: left forearm; kj2 16:59 Follow up: Response: No adverse reaction kj2 14:41 Drug: NS 0.9% IV 1000 ml IV at 1 bolus Per protocol; to be given as a bolus over 60 kj2 minutes Route: IV; Rate: 1 bolus; Site: left forearm; 16:59 Follow up: IV Status: Completed infusion; IV Intake: 1000ml kj2 15:57 Drug: morphine IVP or IV 4 mg IVP once over 4 mins Route: IVP; Infused Over: 4 mins; kj2 Site: left forearm; 16:58 Follow up: Response: No adverse reaction kj2 16:57 Drug: Ciprofloxacin PO 500 mg PO once Route: PO; kj2 16:58 Follow up: Response: Medication administered at discharge. kj2 16:57 Drug: metroNIDAZOLE PO 500 mg PO once Route: PO; kj2 16:58 Follow up: Response: No adverse reaction kj2 Medication: 17:05 VIS not applicable for this client. kj2 Intake: 16:59 IV: 1000ml; Total: 1000ml. kj2 Outcome: 16:48 Discharge ordered by . sb4 17:04 Discharged to home ambulatory, with family, kj2 17:04 Condition: stable 17:04 Discharge instructions given to patient, Instructed on discharge instructions, follow up and referral plans. Demonstrated understanding of instructions, follow-up care, medications, Prescriptions given X 5 17:10 Patient left the ED. kj2 Signatures: Dispatcher [employer] EDCynthia Medrano RN RN iw Ambreen Walker, PA-C PA-C sb4 Allegra Hancock Clarissa RN RN cm10 Kate Brown RN RN kj2 Corrections: (The following items were deleted from the chart) 13:21 13:16 Pulse 93bpm; Resp 16bpm; Pulse Ox 100% RA; Temp 97.7F; iw liberty
--- NOTE | 2024-12-26 16:48 | EDPHYS ---
Physician Documentation [facility] Name: Berlin Tran Age: 34 yrs Sex: Male : 1990 Arrival Date: 12/26/2024 Time: 13:02 Bed 19 Private MD: ED Physician Silvestre Richard HPI: 12/26 13:21 This 34 yrs old Male presents to ER via Ambulatory with complaints of sb4 Abdominal Pain, Vomiting. 13:21 The patient presents with abdominal pain that is diffuse. Onset: The symptoms/episode sb4 began/occurred last night. The symptoms do not radiate. Associated signs and symptoms: Pertinent positives: nausea and vomiting, Pertinent negatives: blood in stools, diarrhea. The symptoms are described as vague. The patient has experienced similar episodes in the past, a few times. Patient complains of diffuse abdominal pain that is associated with nausea and vomiting. He states he has a history of recurrent colitis, possible Crohn's disease. Has seen GI, has an endoscopy scheduled for later this month. Has not been started on any daily medications. Historical: - Allergies: 13:17 Ibuprofen; iw - PMHx: 13:17 Colitis; GERD; iw 17:05 gastritis (Gastroesophageal re); kj2 - Immunization history:: Adult Immunizations unknown. - Infectious Disease History:: Denies. - Social history:: Smoking status: unknown. ROS: 13:22 Constitutional: Negative for fever, chills, and weight loss, sb4 13:22 Abdomen/GI: Positive for abdominal pain, nausea and vomiting, 13:22 All other systems are negative, Exam: 13:22 Constitutional: This is a well developed, well nourished patient who is awake, alert, sb4 and in no acute distress. Head/Face: Normocephalic, atraumatic. Eyes: Extra-ocular motions intact. Periorbital areas with no swelling, redness, or edema. ENT: Mucous membranes moist. Cardiovascular: Regular rate and rhythm with a normal S1 and S2. Respiratory: No increased work of breathing, no retractions or nasal flaring. Skin: Warm, dry with normal turgor. Normal color with no rashes, no lesions, and no evidence of cellulitis. 13:22 Abdomen/GI: Inspection: abdomen appears normal, Bowel sounds: normal, Palpation: soft, mild abdominal tenderness, in all quadrants, Vital Signs: 13:16 BP 128 / 87; Pulse 93; Resp 16; Temp 97.7; Pulse Ox 100% on R/A; Weight 90.72 kg; iw Height 5 ft. 10 in. ; Pain 10/10; 14:49 BP 126 / 84; Pulse 90; Resp 20; Pulse Ox 100% on R/A; kj2 16:00 BP 121 / 78; Pulse 84; Resp 20; Pulse Ox 100% ; kj2 17:00 BP 124 / 82; Pulse 88; Resp 18; Temp 98; Pulse Ox 100% on R/A; kj2 13:16 Body Mass Index 28.70 (90.72 kg, 177.8 cm) iw 13:16 Pain Scale: Adult iw MDM: 13:14 Medical Screening Exam initiated sb4 13:25 Differential diagnosis: diverticulitis, non-specific abd pain, colitis, UC, crohns, sb4 gastroenteritis. 16:47 Data reviewed: vital signs, nurses notes, lab test result(s), radiologic studies, I sb4 have discussed the patient's presentation/case with the attending Emergency Department Physician; and as a result, I will discharge patient. Counseling: I had a detailed discussion with the patient and/or guardian regarding the historical points, exam findings, and any diagnostic results supporting the discharge/admit diagnosis, lab results, radiology results, the need for outpatient follow up, a aircraft navigator, to return to the emergency department if symptoms worsen or persist or if there are any questions or concerns that arise at home. 12/26 13:19 Order name: CBC with Diff; Complete Time: 14:30 sb4 12/26 13:19 Order name: CMP; Complete Time: 14:35 sb4 12/26 13:19 Order name: Lipase; Complete Time: 14:35 sb4 12/26 13:19 Order name: CT Abd/Pelvis - IV Contrast Only; Complete Time: 16:44 sb4 12/26 13:19 Order name: IV Saline Lock; Complete Time: 14:39 sb4 12/26 13:19 Order name: Labs collected and sent; Complete Time: 14:39 sb4 Administered Medications: 13:20 CANCELLED (Physician Discretion): TORadol - [id number] mg IVP once sb4 14:34 Drug: Dicyclomine IM 20 mg IM once Route: IM; Site: right deltoid; kj2 16:58 Follow up: Response: No adverse reaction kj2 14:40 Drug: Famotidine IVP 20 mg IVP once; dilute with 10 mL 0.9% NaCl; give over 2 minutes kj2 Route: IVP; Site: left forearm; 16:58 Follow up: Response: No adverse reaction kj2 14:41 Drug: Ondansetron IVP 4 mg IVP once; over 2 minutes Route: IVP; Site: left forearm; kj2 16:59 Follow up: Response: No adverse reaction kj2 14:41 Drug: NS 0.9% IV 1000 ml IV at 1 bolus Per protocol; to be given as a bolus over 60 kj2 minutes Route: IV; Rate: 1 bolus; Site: left forearm; 16:59 Follow up: IV Status: Completed infusion; IV Intake: 1000ml kj2 15:57 Drug: morphine IVP or IV 4 mg IVP once over 4 mins Route: IVP; Infused Over: 4 mins; kj2 Site: left forearm; 16:58 Follow up: Response: No adverse reaction kj2 16:57 Drug: Ciprofloxacin PO 500 mg PO once Route: PO; kj2 16:58 Follow up: Response: Medication administered at discharge. kj2 16:57 Drug: metroNIDAZOLE PO 500 mg PO once Route: PO; kj2 16:58 Follow up: Response: No adverse reaction kj2 Disposition: 17:23 I was immediately available on-site in the Emergency Department for consultation in the ms3 care of the patient. Disposition Summary: 12/26/24 16:48 Discharge Ordered Notes: Location: Home sb4 Problem: new sb4 Symptoms: have improved sb4 Condition: Stable sb4 Diagnosis - Infectious gastroenteritis and colitis, unspecified sb4 Followup: sb4 - With: Jung Verma MD - When: 1 week - Reason: Further diagnostic work-up, Recheck today's complaints, Re-evaluation by your physician Discharge Instructions: - Discharge Summary Sheet sb4 - Colitis sb4 Forms: - Antibiotic Education sb4 - Patient Portal Instructions sb4 - Leadership Thank You Letter sb4 Prescriptions: - Flagyl 500 mg Oral Tablet - take 1 tablet ORAL route every 12 hours for 7 days; 14 tablet; Refills: 0, sb4 Product Selection Permitted - Cipro 500 mg Oral Tablet - take 1 tablet ORAL route every 12 hours for 7 days; 14 tablet; Refills: 0, sb4 Product Selection Permitted - Prednisone 20 mg Oral Tablet - take 2 tablets ORAL route once daily for 5 days; 10 tablet; Refills: 0, Product sb4 Selection Permitted - dicyclomine 20 mg Oral tablet - take 1 tablet ORAL route every 6 hours PRN abdominal pain/cramping; 20 tablet; sb4 Refills: 0, Product Selection Permitted - ondansetron 8 mg Oral Tablet,disintegrating - take 1 tablet ORAL route every 8 hours; 10 tablet; Refills: 0, Product sb4 Selection Permitted Signatures: Dispatcher [employer] Cyntiha Esqueda, RN RN iw Silvestre Richard, DO ms3 Ambreen Walker PA-C PADemetra sb4 Kate Brown RN RN kj2 Corrections: (The following items were deleted from the chart) 13:20 13:19 TORadol - Ketorolac IVP 15 mg IVP once ordered. sb4 sb4
[2024-12-26] MEDS ORDERED: metroNIDAZOLE 500 MG TABLET ONE (16:55)
[2024-12-26] MEDS ORDERED: CIPROFLOXACIN HCL 500 MG TAB ONE (16:55)
[2024-12-26 17:29] VITALS: O2SAT 100
[2024-12-26 17:34] VITALS: BP 124/82; TEMP 98
== END 2024-12-26 17:10 | disposition home or self-care (01) ==
LOC: ER 13:02
DX: A09 Infectious gastroenteritis and colitis, unspecified (principal)
CPT/HCPCS: 96361; 85025; 36415; 83690; 80053; 74177; 96375; 96372; 96374; 99284; Q9967; J0500; J2405; J7030

== ENCOUNTER 2025-01-03 14:29 | Emergency (ER) | payer BC ==
--- NOTE | 2025-01-03 14:49 | EDPHYS ---
Physician Documentation [facility] Name: Berlin Tran Age: 34 yrs Sex: Male : 1990 Arrival Date: 01/03/2025 Time: 14:29 Bed IW3 Private MD: ED Physician Reggie Gonzalez HPI: 01/03 15:38 This 34 yrs old Male presents to ER via Ambulatory with complaints of Rash. rt 15:38 Patient presents to the ED with a rash, patient was seen in the ED about a week ago, rt was diagnosed with gastritis, prescribed Cipro, Flagyl, Zofran, prednisone. Is still on those medications. Denies other acute complaints at this time, reports that the rash is itchy, mostly on the legs, some on the hands. Denies other acute complaints at this time, symptoms are mild in severity, no other aggravating or alleviating factors.. Historical: - Allergies: 14:45 Ibuprofen; jl7 - PMHx: 14:45 Colitis; gastritis (Gastroesophageal re); GERD; jl7 - Immunization history:: Adult Immunizations unknown. - Infectious Disease History:: Denies. - Social history:: Smoking status: unknown. - Family history:: not pertinent. ROS: 15:38 Constitutional: Negative for fever, chills, and weight loss, Cardiovascular: Negative rt for chest pain, palpitations, and edema, Respiratory: Negative for shortness of breath, cough, wheezing, and pleuritic chest pain, Abdomen/GI: Negative for abdominal pain, nausea, vomiting, diarrhea, and constipation, MS/Extremity: Negative for injury and deformity, 15:38 Skin: Positive for rash, Exam: 15:38 Constitutional: This is a well developed, well nourished patient who is awake, alert, rt and in no acute distress. Head/Face: Normocephalic, atraumatic. Chest/axilla: Normal chest wall appearance and motion. Nontender with no deformity. No lesions are appreciated. Cardiovascular: Regular rate and rhythm with a normal S1 and S2. No gallops, murmurs, or rubs. Normal PMI, no JVD. No pulse deficits. Respiratory: Lungs have equal breath sounds bilaterally, clear to auscultation and percussion. No rales, rhonchi or wheezes noted. No increased work of breathing, no retractions or nasal flaring. Abdomen/GI: Soft, non-tender, with normal bowel sounds. No distension or tympany. No guarding or rebound. No evidence of tenderness throughout. MS/ Extremity: Pulses equal, no cyanosis. Neurovascular intact. Full, normal range of motion. 15:38 Skin: Urticarial rash noted to bilateral distal lower extremities, left hand, no signs of cellulitis. Vital Signs: 14:46 BP 141 / 89; Pulse 90; Resp 15; Temp 97; Pulse Ox 97% ; jl7 MDM: 14:43 Medical Screening Exam initiated rt 15:38 Differential diagnosis: Dermatitis, urticaria. Data reviewed: vital signs, nurses rt notes. Test considered but Not performed: Other Details Stable vital signs, benign-appearing rash, labs are not indicated. Counseling: I had a detailed discussion with the patient and/or guardian regarding the historical points, exam findings, and any diagnostic results supporting the discharge/admit diagnosis, the need for outpatient follow up, to return to the emergency department if symptoms worsen or persist or if there are any questions or concerns that arise at home. Response to treatment: the patient's symptoms have mildly improved after treatment. Administered Medications: No medications were administered Disposition Summary: 01/03/25 14:49 Discharge Ordered Notes: Location: Home rt Problem: new rt Symptoms: are unchanged rt Condition: Stable rt Diagnosis - Dermatitis, unspecified rt Followup: rt - With: Private Physician - When: 2 - 3 days - Reason: Discharge Instructions: - Discharge Summary Sheet rt - Rash, Adult rt Forms: - Medication Reconciliation Form rt - Antibiotic Education rt - Prescription Opioid Use rt - Patient Portal Instructions rt - Leadership Thank You Letter rt Prescriptions: - Triamcinolone Acetonide 0.1 % Topical ointment - apply 1 application TOPICAL route every 12 hours As needed; 1 Each; Refills: 0, rt Product Selection Permitted Signatures: Shawn Lynn RN RN jl7 Reggie Gonzalez MD MD rt
--- NOTE | 2025-01-03 14:49 | ER ---
Nurse's Notes [facility] Name: Berlin Tran Age: 34 yrs Sex: Male : 1990 Arrival Date: 01/03/2025 Time: 14:29 Bed IW3 Private MD: Diagnosis: Dermatitis, unspecified Presentation: 01/03 14:46 Chief complaint: Patient states: Rash on legs. Coronavirus screen: At this time, the 7 client does not indicate any symptoms associated with coronavirus-19. Ebola Screen: No symptoms or risks identified at this time. Initial Sepsis Screen: Does the patient meet any 2 criteria? No. Patient's initial sepsis screen is negative. Does the patient have a suspected source of infection? No. Patient's initial sepsis screen is negative. Risk Assessment: Do you want to hurt yourself or someone else? Patient reports no desire to harm self or others. Onset of symptoms is unknown. 14:46 Method Of Arrival: Ambulatory [facility] 14:46 Acuity: PITER 4 jl7 Triage Assessment: 14:46 General: Appears in no apparent distress. uncomfortable, Behavior is calm, cooperative, jl7 appropriate for age. Pain: Denies pain. Historical: - Allergies: 14:45 Ibuprofen; jl7 - PMHx: 14:45 Colitis; gastritis (Gastroesophageal re); GERD; jl7 - Immunization history:: Adult Immunizations unknown. - Infectious Disease History:: Denies. - Social history:: Smoking status: unknown. - Family history:: not pertinent. Screenin:48 [facility] ED Fall Risk Assessment (Adult) History of falling in the last 3 months, [facility] including since admission No falls in past 3 months (0 pts) Confusion or Disorientation No (0 pts) Intoxicated or Sedated No (0 pts) Impaired Gait No (0 pts) Mobility Assist Device Used No (0 pt) Altered Elimination No (0 pt) Score/Fall Risk Level 0 - 2 = Low Risk Oriented to surroundings, Maintained a safe environment. Abuse screen: Denies threats or abuse. Denies injuries from another. Nutritional screening: No deficits noted. Tuberculosis screening: No symptoms or risk factors identified. Assessment: 14:46 Reassessment: Dr. Gonzalez in triage assessing pt. [facility] Vital Signs: 14:46 BP 141 / 89; Pulse 90; Resp 15; Temp 97; Pulse Ox 97% ; jl7 ED Course: 14:31 Patient arrived in ED. im 14:39 Reggie Gonzalez MD is Attending Physician. rt 14:46 Triage completed. jl7 14:46 Arm band placed on right wrist. jl7 14:48 Patient has correct armband on for positive identification. Provided Education on: jl7 discharge. 14:48 No provider procedures requiring assistance completed. Patient did not have IV access jl7 during this emergency room visit. Administered Medications: No medications were administered Medication: 14:48 VIS not applicable for this client. jl7 Outcome: 14:49 Discharge ordered by . rt 15:08 Discharged to home ambulatory, jl7 15:08 Condition: stable 15:08 Discharge instructions given to patient, family, Instructed on discharge instructions, follow up and referral plans. medication usage, Demonstrated understanding of instructions, follow-up care, medications, Prescriptions given X 1, 15:08 Patient left the ED. jl7 Signatures: Shawn Lynn RN RN jl7 Reggie Gonzalez MD MD rt Allegra Hancock im
[2025-01-03 15:51] VITALS: BP 141/89; TEMP 97; O2SAT 97
== END 2025-01-03 15:08 | disposition home or self-care (01) ==
LOC: ER 14:29
DX: L30.9 Dermatitis, unspecified (principal)
CPT/HCPCS: 99283

== ENCOUNTER 2025-05-26 12:49 | Emergency (ER) | payer SELFPAY ==
--- NOTE | 2025-05-26 12:59 | ER ---
Nurse's Notes [facility] Name: Berlin Tran Age: 34 yrs Sex: Male : 1990 Arrival Date: 05/26/2025 Time: 12:49 Bed IW2 Private MD: Diagnosis: Encounter for issue of repeat prescription Presentation: 05/26 12:57 Chief complaint: Patient states: needs refill for pantoprazole. Coronavirus screen: At nv1 this time, the client does not indicate any symptoms associated with coronavirus-19. Ebola Screen: No symptoms or risks identified at this time. Initial Sepsis Screen: Does the patient meet any 2 criteria? No. Patient's initial sepsis screen is negative. Does the patient have a suspected source of infection? No. Patient's initial sepsis screen is negative. Risk Assessment: Do you want to hurt yourself or someone else? Patient reports no desire to harm self or others. Onset of symptoms is unknown. 12:57 Method Of Arrival: Ambulatory [facility] [place] 12:57 Acuity: PITER 5 [facility] [place] Triage Assessment: 13:02 General: Appears in no apparent distress. well groomed, well developed, well nourished, nv1 Behavior is calm, cooperative, appropriate for age, Reports needs refill for pantoprazole. Pain: Denies pain. EENT: No signs and/or symptoms were reported regarding the EENT system. Neuro: Level of Consciousness is awake, alert, obeys commands, Oriented to person, place, time, situation, Appropriate for age. Cardiovascular: Patient's skin is warm and dry. Respiratory: Airway is patent Respiratory effort is even, unlabored, Respiratory pattern is regular, symmetrical. GI: No signs and/or symptoms were reported involving the gastrointestinal system. : No signs and/or symptoms were reported regarding the genitourinary system. Derm: Skin is intact, is healthy with good turgor, Skin is normal. Musculoskeletal: Circulation, motion, and sensation intact. Range of motion: intact in all extremities. Historical: - Allergies: 12:58 Ibuprofen; me1 - PMHx: 12:58 Colitis; gastritis; GERD; me1 - PSHx: 12:58 None; me1 - Immunization history:: Adult Immunizations up to date. - Infectious Disease History:: Denies. - Social history:: Smoking status: Reported history of juuling and/or vaping. Screenin:03 [facility] ED Fall Risk Assessment (Adult) History of falling in the last 3 months, me1 including since admission No falls in past 3 months (0 pts) Confusion or Disorientation No (0 pts) Intoxicated or Sedated No (0 pts) Impaired Gait No (0 pts) Mobility Assist Device Used No (0 pt) Altered Elimination No (0 pt) Score/Fall Risk Level 0 - 2 = Low Risk Maintained a safe environment, Provided non-skid footwear, Hourly rounding (assess needs \T\ fall precautionary measures) done. Abuse screen: Denies threats or abuse. Nutritional screening: No deficits noted. Tuberculosis screening: No symptoms or risk factors identified. Assessment: 13:03 General: See triage assessment. me1 Vital Signs: 12:57 BP 138 / 81; Pulse 64; Resp 16; Temp 98.1; Pulse Ox 100% ; Weight 90.72 kg; Height 5 me1 ft. 10 in. ; 12:57 Body Mass Index 28.70 (90.72 kg, 177.8 cm) me1 ED Course: 12:51 Patient arrived in ED. al6 12:52 Este[facility] Benite[facility] kb 12:52 Cecil Jung MD is Attending Physician. kb 12:58 Triage completed. me1 12:58 Arm band placed on Patient placed in waiting room. me1 13:03 Provided Education on: POC. Verbalized understanding.. me1 13:03 Patient has correct armband on for positive identification. me1 13:03 No provider procedures requiring assistance completed. Patient did not have IV access me1 during this emergency room visit. Administered Medications: No medications were administered Medication: 13:03 VIS not applicable for this client. me1 Outcome: 12:58 Discharge ordered by . kb 13:04 Discharged to home ambulatory, me1 13:04 Condition: stable 13:04 Discharge instructions given to patient, Instructed on discharge instructions, follow up and referral plans. medication usage, Demonstrated understanding of instructions, follow-up care, medications, Prescriptions given X 1, 13:05 Patient left the ED. me1 Signatures: Estephanie Benitez FNP-C FNP-Ckb Eddleman, Michelle, RN RN me1 Katrin Main al6 Corrections: (The following items were deleted from the chart) 13:04 13:03 Patient has correct armband on for positive identification. Bed in low position. me1 Call light in reach. Side rails up X2. me1
--- NOTE | 2025-05-26 12:59 | EDPHYS ---
Physician Documentation [facility] Name: Berlin Tran Age: 34 yrs Sex: Male : 1990 Arrival Date: 05/26/2025 Time: 12:49 Bed IW2 Private MD: ED Physician Cecil Jung HPI: 05/26 14:33 This 34 yrs old Male presents to ER via Ambulatory with complaints of kb Medication Refill. 14:33 Pt is a 34 year old male who presents for refill of protonix. Pt has no complaints. . kb Historical: - Allergies: 12:58 Ibuprofen; me1 - PMHx: 12:58 Colitis; gastritis; GERD; me1 - PSHx: 12:58 None; me1 - Immunization history:: Adult Immunizations up to date. - Infectious Disease History:: Denies. - Social history:: Smoking status: Reported history of juuling and/or vaping. ROS: 14:33 Constitutional: As per HPI kb Exam: 14:33 Constitutional: This is a well developed, well nourished patient who is awake, alert, kb and in no acute distress. Head/Face: Normocephalic, atraumatic. ENT: Moist Mucous membranes Respiratory: Respirations even and unlabored. No increased work of breathing. Talking in full sentences Skin: Warm, dry with normal turgor. Normal color. MS/ Extremity: Pulses equal, no cyanosis. Neurovascular intact. Full, normal range of motion. Neuro: Awake and alert, GCS 15, oriented to person, place, time, and situation. Vital Signs: 12:57 BP 138 / 81; Pulse 64; Resp 16; Temp 98.1; Pulse Ox 100% ; Weight 90.72 kg; Height 5 me1 ft. 10 in. ; 12:57 Body Mass Index 28.70 (90.72 kg, 177.8 cm) me1 MDM: 12:52 Medical Screening Exam initiated kb 14:33 Data reviewed: vital signs, nurses notes. Counseling: I had a detailed discussion with kb the patient and/or guardian regarding the historical points, exam findings, and any diagnostic results supporting the discharge/admit diagnosis, the need for outpatient follow up, a family practitioner, to return to the emergency department if symptoms worsen or persist or if there are any questions or concerns that arise at home. Administered Medications: No medications were administered Disposition Summary: 05/26/25 12:58 Discharge Ordered Notes: Location: Home kb Condition: Stable kb Diagnosis - Encounter for issue of repeat prescription kb Followup: kb - With: Emergency Department - When: As needed - Reason: Worsening of condition Followup: kb - With: Private Physician - When: 2 - 3 days - Reason: Recheck today's complaints, Continuance of care, Re-evaluation by your physician Discharge Instructions: - Discharge Summary Sheet kb - Medicine Refill at the Emergency Department kb Forms: - Medication Reconciliation Form kb - Antibiotic Education kb - Prescription Opioid Use kb - Patient Portal Instructions kb - Leadership Thank You Letter kb - Work release form me1 Prescriptions: - Protonix 40 mg Oral Tablet - take 1 tablet ORAL route once daily; 30 tablet; Refills: 0, Product Selection kb Permitted Signatures: Estephanie Benitez, [employer]-C CABIN [employer]W-Mariluz Daly, RN RN me1
[2025-05-26 13:25] VITALS: BP 138/81; TEMP 98.1; O2SAT 100
== END 2025-05-26 13:05 | disposition home or self-care (01) ==
LOC: ER 12:49
DX: Z76.0 Encounter for issue of repeat prescription (principal); K21.9 Gastro-esophageal reflux disease without esophagitis; F17.290 Nicotine dependence, other tobacco product, uncomplicated
CPT/HCPCS: 99283